=== PATIENT | male | born 1960 | race Caucasian/White ===

== ENCOUNTER 2018-10-21 14:45 | Emergency (ER) | payer MEDICAID ==
--- NOTE | 2018-10-21 15:13 | ED Physician Chart ---
ED Chief Complaint/HPI - Patient Information Date Seen:: 10/21/18 Time Seen:: 15:10 Chief Complaint:: Delusions History of Present Illness:: onset x 3 days of delusions and hallucinations; no report of trauma, SIs, H/As, S/T, neck pain, C/P, SOB, Abd. pain, A/N/V/D/C, fever, chills, or urinary s/s Historian:: Patient, EMS Review:: Nurse's Note Reviewed, Old Chart Reviewed, EMS run form Reviewed ED Review of Systems - Review of Systems General/Constitutional: No fever, No chills, No weight loss, No weakness, No diaphoresis, No edema, No loss of appetite Skin: No skin lesions, No rash, No bruising Head: No headache, No light-headedness Eyes: No loss of vision, No pain, No diplopia ENT: No earache, No nasal drainage, No sore throat, No tinnitus Neck: No neck pain, No swelling, No thyromegaly, No stiffness, No mass noted Cardio Vascular: No chest pain, No palpitations, No PND, No orthopnea, No edema Pulmonary: No SOB, No cough, No sputum, No wheezing GI: No nausea, No vomiting, No diarrhea, No pain, No melena, No hematochezia, No constipation, No hematemesis G/U: No dysuria, No frequency, No hematuria, No nacturia Musculoskeletal: No bone or joint pain, No back pain, No muscle pain Endocrine: No polyuria, No polydipsia Psychiatric: Prior psych history, No depression, Anxiety, No suicidal ideation, No homicidal ideation, Auditory hallucination, No visual hallucination Hematopoietic: No bruising, No lymphadenopathy Allergic/Immuno: No urticaria, No angioedema Neurological: No syncope, No focal symptoms, No weakness, No paresthesia, No headache, No seizure, No dizziness, No confusion, No vertigo ED Past Medical History - Past Medical History Obtainable: Yes Past Medical History: HTN, PUD/GERD, Thyroid disorder Family History: HTN Social History: Non Smoker, No Alcohol, No Drug Use, Single, Care Facility Surgical History: None Psychiatricy History: Schizophrenia Medication: Reviewed Family Medical History - Family Member Mother History Unknown: Yes ED Physical Exam - Physical Examination General/Constitutional: Awake, Well-developed, well-nourished, Alert, No distress, GCS 15, Non-toxic appearing, Ambulatory Head: Atraumatic Eyes: Lids, conjuctiva normal, PERRL, EOMI Skin: Nl inspection, No rash, No skin lesions, No ecchymosis, Well hydrated, No lymphadenopathy ENMT: External ears, nose nl, TM canals nl, Nasal exam nl, Lips, teeth, gums nl , Oropharynx nl, Tonsils nl Neck: Nontender, Full ROM w/o pain, No JVD, No nuchal rigidity, No bruit, No mass, No stridor Respiratory: Nl effort/Exclusion, Clear to Auscultation, No Wheeze/Rhonchi/Rales Cardio Vascular: RRR, No murmur, gallop, rubs, NL S1 S2, Carotid/Femoral/Distal pulses equal bilaterally GI: No tenderness/rebounding/guarding, No organomegaly, No hernia, Normal BS's, Nondistended, No mass/bruits, No McBurney tenderness : No CVA tenderness Extremities: No tenderness or effusion, Full ROM, normal strength in all extremities, No edema, Normal digits & nails Neuro/Psych: Alert/oriented, DTR's symmetric, Normal sensory exam, Normal motor strength, Judgement/insight normal, Mood normal, Normal gait, No focal deficits Other Neuro/Psych comments:: + Delusions and Hallucinations; no SIs; Mood/Affect: Stable Misc: Normal back, No paraspinal tenderness ED Labs/Radiology/EKG Results - Lab Results Comments:: Reviewed - EKG Interpretations EKG Time:: 15:35 Rate & Rhythm: 93; NSR Comments:: non-specific st-t changes ED Septic Shock - . Is Septic Shock (SBP<90, OR Lactate>4 mmol\L) present?: No ED Reassessment (Disposition) - Reassessment Reassessment Condition:: Improved - Diagnosis Diagnosis:: Delusions; Hallucinations; Medical Clearance; Schizophrenia; Psychosis; Schizo- Affective Disorder - Aftercare/Follow up Instructions Aftercare/Follow-Up Instructions:: Counseled pt regarding lab results/diagnosis & need follow up, Counseled pt & family regarding lab results/diagnosis & need follow up - Patient Disposition Discharge/Transfer:: Acute Care w/in this hosp Admitted to:: [facility] Condition at Disposition:: Stable, Improved
[2018-10-21 15:38] LABS: % BASOPHILS 0.9 % (0.0-2.0); % EOSINOPHILS 5.6 % (0.0-5.0); % LYMPHOCYTES 18.8 % (20.0-50.0); % MONOCYTES 8.2 % (2.0-10.0); % NEUTROPHILS 66.5 % (40.0-80.0); BASOPHILE ABSOLUTE 0.1 Th/cumm (0-0.2); EOSINOPHILE ABSOLUTE 0.5 Th/cmm (0.1-0.4); HEMATOCRIT 34.5 % (41.0-60); HEMOGLOBIN 11.4 gm/dL (12-16); LYMPHOCYTE ABSOLUTE 1.7 Th/cmm (1.5-3.0); MEAN CELL VOLUME 88.2 fl (80-99); MEAN CORPUSCULAR HGB CONC 32.9 pg (28.0-36.0); MEAN PLATELET VOLUME 8.2 fl; MONOCYTE ABSOLUTE 0.7 Th/cmm (0.3-1.0); NEUTROPHILE ABSOLUTE 5.8 Th/cmm (1.8-8.0); PLATELET COUNT 282 Th/cmm (150-400); RED BLOOD COUNT 3.91 Mil/cmm (4.30-5.70); RED CELL DISTRIBUTION WIDTH 12.7 % (11.5-20.0); WHITE BLOOD COUNT 8.8 Th/cmm (4.8-10.8)
[2018-10-21 17:05] LABS: ACETAMINOPHEN < 10.0 ug/mL (10.0-30.0); ALB/GLOB RATIO 1.6 (1.0-1.8); ALBUMIN 3.9 gm/dL (4.2-5.5); ALKALINE PHOSPHATASE 56 U/L (34-104); ANION GAP 12.5 (7.0-16.0); BILIRUBIN,TOTAL 0.5 mg/dL (0.3-1.0); BUN - UREA NITROGEN 20 mg/dL (7-25); CALCIUM SERUM 9.5 mg/dL (8.6-10.3); CARBON DIOXIDE 26.1 mEq/L (21.0-31.0); CHLORIDE 104 mEq/L (98-107); CHOLESTEROL 149 mg/dL (<200); CREATININE - SERUM 1.1 mg/dL (0.7-1.3); GFR AFRICAN-AMERICAN > 60.0 ml/min (>90); GFR NON AFRICAN-AMERICAN > 60.0 ml/min; GLUCOSE 115 mg/dL (70-105); HDL -HIGH DENSITY LIPOPROTEIN 46 mg/dL (23-92); POTASSIUM SERUM 3.6 mEq/L (3.5-5.1); SALICYLATES (ASPIRIN) < 25.0 mg/L (30.0-100.0); SGOT 29 U/L (13-39); SGPT/ALT 20 U/L (7-52); SODIUM SERUM 139 mEq/L (136-145); TOTAL PROTEIN,SERUM 6.4 gm/dL (6.0-8.3); TRIGLYCERIDES 110 mg/dL (<150)
== END 2018-10-22 16:45 ==
LOC: ER 14:45
DX: F22 Delusional disorders (principal); F29 Unspecified psychosis not due to a substance or known physiological condition; F25.9 Schizoaffective disorder, unspecified; I10 Essential (primary) hypertension; K21.9 Gastro-esophageal reflux disease without esophagitis; E07.9 Disorder of thyroid, unspecified
CPT/HCPCS: 36415-UA; 80053-TC; 80061-TC; 80320-TC; 80329-TC; 84443-TC; 84484-TC; 85025-TC; 86592-TC; 93005; Z7502

== ENCOUNTER 2018-12-25 13:28 | Inpatient (IN) | payer BC, MEDICAID ==
--- NOTE | 2018-12-25 13:48 | ED Physician Chart ---
ED Chief Complaint/HPI - Patient Information Date Seen:: 12/25/18 Time Seen:: 13:35 Chief Complaint:: aggressive behavior History of Present Illness:: Patient has reportedly been striking out at others and also hitting his head against the wall and scratching himself. Allergies:: Allergies Allergy/AdvReac Type Severity Reaction Status Date / Time No Known Allergies Allergy Verified 10/21/18 15:41 Historian:: Patient, EMS Review:: Nurse's Note Reviewed, Transfer documents Reviewed ED Review of Systems - Review of Systems General/Constitutional: No fever, No chills, No weight loss, No weakness, No diaphoresis, No edema, No loss of appetite Skin: No skin lesions, No rash, No bruising Head: No headache, No light-headedness Eyes: No loss of vision, No pain, No diplopia ENT: No earache, No nasal drainage, No sore throat, No tinnitus Neck: No neck pain, No swelling, No thyromegaly, No stiffness, No mass noted Cardio Vascular: No chest pain, No palpitations, No PND, No orthopnea, No edema Pulmonary: No SOB, No cough, No sputum, No wheezing GI: No nausea, No vomiting, No diarrhea, No pain, No melena, No hematochezia, No constipation, No hematemesis G/U: No dysuria, No frequency, No hematuria Musculoskeletal: No bone or joint pain, No back pain, No muscle pain Endocrine: No polyuria, No polydipsia Psychiatric: No prior psych history Hematopoietic: No bruising, No lymphadenopathy Allergic/Immuno: No urticaria, No angioedema Neurological: No syncope, No focal symptoms, No weakness, No paresthesia, No headache, No seizure, No dizziness, No confusion, No vertigo ED Past Medical History - Past Medical History Past Medical History: HTN, PUD/GERD, Thyroid disorder, Other (anemia; hypothyroid) Family History: Other (unavailable) Social History: Care Facility Surgical History: other (unavailable) Psychiatricy History: Schizophrenia Medication: Reviewed Family Medical History - Family Member Mother History Unknown: Yes ED Physical Exam - Physical Examination General/Constitutional: Awake, Well-developed, well-nourished, Alert, No distress Other Gen/Cons comments:: Yells intermittently Head: Atraumatic Eyes: Lids, conjuctiva normal, PERRL Other Skin comments:: Face erythematous Other ENMT comments:: Edentulous Neck: No nuchal rigidity Respiratory: Nl effort/Exclusion, Clear to Auscultation, No Wheeze/Rhonchi/Rales Cardio Vascular: RRR, No murmur, gallop, rubs, NL S1 S2 GI: Nondistended Extremities: Normal digits & nails Neuro/Psych: No focal deficits Misc: Normal back ED Labs/Radiology/EKG Results - Lab Results Results: Abnormal Lab Results 12/25/18 12/25/18 12/25/18 16:11 16:11 16:25 WBC 13.5 H RBC 3.37 L Hgb 9.5 L Hct 29.1 L MCV 86.1 MCH 28.1 MCHC Differential 32.6 RDW 13.1 Plt Count 273 MPV 7.9 Neutrophils % 83.9 H Lymphocytes % 7.6 L Monocytes % 5.0 Eosinophils % 3.2 Basophils % 0.3 Sodium 136 Potassium 4.1 Chloride 98 Carbon Dioxide 29.6 Anion Gap 12.5 BUN 26 H Creatinine 1.2 Est GFR ( Amer) > 60.0 Est GFR (Non-Af Amer) > 60.0 BUN/Creatinine Ratio 21.7 Glucose 78 Calcium 9.0 Total Bilirubin 0.3 AST 49 H ALT 24 Alkaline Phosphatase 60 Total Protein 6.3 Albumin 3.5 L Globulin 2.8 Albumin/Globulin Ratio 1.3 Triglycerides 125 Cholesterol 154 LDL Cholesterol Direct 112 HDL Cholesterol 37 Urine Source CATH Urine Color COLORLESS Urine Clarity CLEAR Urine pH 6.0 Ur Specific [place] 1.010 Urine Protein NEGATIVE Urine Glucose (UA) NEGATIVE Urine Ketones NEGATIVE Urine Blood NEGATIVE Urine Nitrate NEGATIVE Urine Bilirubin NEGATIVE Urine Urobilinogen 0.2 Ur Leukocyte Esterase NEGATIVE Influenza A (Rapid) Influenza B (Rapid) 12/25/18 16:30 WBC RBC Hgb Hct MCV MCH MCHC Differential RDW Plt Count MPV Neutrophils % Lymphocytes % Monocytes % Eosinophils % Basophils % Sodium Potassium Chloride Carbon Dioxide Anion Gap BUN Creatinine Est GFR ( Amer) Est GFR (Non-Af Amer) BUN/Creatinine Ratio Glucose Calcium Total Bilirubin AST ALT Alkaline Phosphatase Total Protein Albumin Globulin Albumin/Globulin Ratio Triglycerides Cholesterol LDL Cholesterol Direct HDL Cholesterol Urine Source Urine Color Urine Clarity Urine pH Ur Specific [place] Urine Protein Urine Glucose (UA) Urine Ketones Urine Blood Urine Nitrate Urine Bilirubin Urine Urobilinogen Ur Leukocyte Esterase Influenza A (Rapid) NEG FOR INF A Influenza B (Rapid) NEG FOR INF B - Radiology Results Results: chest x-ray showed slight atelectasis left base and was otherwise negative ED Assessment - Assessment General Assessment: I reexamined the patient's abdomen at about 1700 and it was soft without guarding. There was. Patient most likely has acute viral syndrome no unpleasant facial expression to suggest tenderness when I palpated his abdomen ED Septic Shock - . Is Septic Shock (SBP<90, OR Lactate>4 mmol\L) present?: No ED Reassessment (Disposition) - Reassessment Reassessment Condition:: Unchanged - Diagnosis Diagnosis:: Aggressive behavior; self-harm behavior; schizophrenia; acute febrile illness; leukocytosis with a left shift - Patient Disposition Admitted to:: Telemetry Spoke to:: Donavan Baugh Admitting Medical Physician:: Donavan Baugh Condition at Disposition:: Stable, Unchanged
[2018-12-25] MEDS ORDERED: Haloperidol Lactate 5 mg/mL 1mL Vial IM PRN (14:17)
[2018-12-25] MEDS ORDERED: Haloperidol Lactate 5 mg/mL 1mL Vial ONE ×2 (14:24→16:18)
[2018-12-25] MEDS ORDERED: Haloperidol Lactate 5 mg/mL 1mL Vial IM STA ×2 (15:42→22:16)
[2018-12-25] MEDS ORDERED: Sodium Chloride 0.9% 1,000 ML IV ONE (16:13)
[2018-12-25 16:18] LABS: % BASOPHILS 0.3 % (0.0-2.0); % EOSINOPHILS 3.2 % (0.0-5.0); % LYMPHOCYTES 7.6 % (20.0-50.0); % NEUTROPHILS 83.9 % (40.0-80.0); EOSINOPHILE ABSOLUTE 0.4 Th/cmm (0.1-0.4); HEMATOCRIT 29.1 % (41.0-60); HEMOGLOBIN 9.5 gm/dL (12-16); MEAN CELL VOLUME 86.1 fl (80-99); MEAN CORPUSCULAR HEMOGLOBIN 28.1 pg (26.0-30.0); MEAN CORPUSCULAR HGB CONC 32.6 pg (28.0-36.0); MEAN PLATELET VOLUME 7.9 fl; MONOCYTE ABSOLUTE 0.7 Th/cmm (0.3-1.0); NEUTROPHILE ABSOLUTE 11.4 Th/cmm (1.8-8.0); PLATELET COUNT 273 Th/cmm (150-400); RED BLOOD COUNT 3.37 Mil/cmm (4.30-5.70); RED CELL DISTRIBUTION WIDTH 13.1 % (11.5-20.0); WHITE BLOOD COUNT 13.5 Th/cmm (4.8-10.8)
[2018-12-25 16:32] LABS: ALB/GLOB RATIO 1.3 (1.0-1.8); ALBUMIN 3.5 gm/dL (4.2-5.5); ALKALINE PHOSPHATASE 60 U/L (34-104); ANION GAP 12.5 (7.0-16.0); BILIRUBIN,TOTAL 0.3 mg/dL (0.3-1.0); BUN - UREA NITROGEN 26 mg/dL (7-25); CARBON DIOXIDE 29.6 mEq/L (21.0-31.0); CHLORIDE 98 mEq/L (98-107); CHOLESTEROL 154 mg/dL (<200); CREATININE - SERUM 1.2 mg/dL (0.7-1.3); GFR AFRICAN-AMERICAN > 60.0 ml/min (>90); GFR NON AFRICAN-AMERICAN > 60.0 ml/min; GLUCOSE 78 mg/dL (70-105); HDL -HIGH DENSITY LIPOPROTEIN 37 mg/dL (23-92); POTASSIUM SERUM 4.1 mEq/L (3.5-5.1); SGOT 49 U/L (13-39); SGPT/ALT 24 U/L (7-52); SODIUM SERUM 136 mEq/L (136-145); TOTAL PROTEIN,SERUM 6.3 gm/dL (6.0-8.3); TRIGLYCERIDES 125 mg/dL (<150)
[2018-12-25] MEDS ORDERED: Haloperidol Lactate 5 mg/mL 1mL Vial IVP ONE (16:35)
[2018-12-25 16:37] LABS: URINE SOURCE CATH
[2018-12-25 16:40] LABS: URINE BILIRUBIN NEGATIVE (NEGATIVE); URINE BLOOD NEGATIVE (NEGATIVE); URINE GLUCOSE (UA) NEGATIVE (NEGATIVE); URINE KETONE NEGATIVE (NEGATIVE); URINE LEUKOCYTE ESTERASE NEGATIVE (NEGATIVE); URINE NITRATE NEGATIVE (NEGATIVE); URINE PROTEIN NEGATIVE (NEGATIVE); URINE UROBILINOGEN 0.2 E.U./dL (0.2 - 1.0)
[2018-12-25 16:49] LABS: URINE CLARITY CLEAR (CLEAR); URINE COLOR COLORLESS; URINE MICROSCOPIC INDICATED? NO
[2018-12-25 17:03] LABS: INF A SCREEN NEG FOR INF A; INF B SCREEN NEG FOR INF B
[2018-12-25 17:08] LABS: BAND NEUTROPHILE 1 % (0-10); EOSINOPHIL 2 % (0-5); LYMPHOCYTE 12 % (20-50); MONOCYTE 5 % (2-10); NEUTROPHILS 80 % (40-80)
[2018-12-25] MEDS ORDERED: Haloperidol Lactate 5 mg/mL 1mL Vial IM ONE (20:45)
[2018-12-25 21:44] VITALS: BP 117/68
--- NOTE | 2018-12-26 08:10 | Diagnostic Imaging Report ---
Exam: Portable chest x-ray HISTORY shortness of breath. Findings: Portable exam of chest at 1623 views, no prior studies available comparison. Bony thorax is intact. Mediastinal structures midline the heart is not enlarged. Mild peribronchial thickening left base appreciated early infiltrate cannot be excluded clinically indicated follow-up summation recommended. The costophrenic angles are clear. IMPRESSION: Question of mild left basilar peribronchial infiltrate.
[2018-12-26 15:59] LABS: % EOSINOPHILS 5.7 % (0.0-5.0); % LYMPHOCYTES 18.7 % (20.0-50.0); % MONOCYTES 5.4 % (2.0-10.0); % NEUTROPHILS 70.2 % (40.0-80.0); EOSINOPHILE ABSOLUTE 0.6 Th/cmm (0.1-0.4); HEMATOCRIT 30.9 % (41.0-60); HEMOGLOBIN 9.8 gm/dL (12-16); MEAN CELL VOLUME 85.9 fl (80-99); MEAN CORPUSCULAR HEMOGLOBIN 27.3 pg (26.0-30.0); MEAN CORPUSCULAR HGB CONC 31.8 pg (28.0-36.0); MEAN PLATELET VOLUME 9.1 fl; MONOCYTE ABSOLUTE 0.6 Th/cmm (0.3-1.0); NEUTROPHILE ABSOLUTE 7.5 Th/cmm (1.8-8.0); PLATELET COUNT 285 Th/cmm (150-400); RED CELL DISTRIBUTION WIDTH 13.5 % (11.5-20.0); WHITE BLOOD COUNT 10.7 Th/cmm (4.8-10.8)
[2018-12-26 16:04] LABS: ALB/GLOB RATIO 1.2 (1.0-1.8); ALBUMIN 3.4 gm/dL (4.2-5.5); ALKALINE PHOSPHATASE 58 U/L (34-104); ANION GAP 14.4 (7.0-16.0); BILIRUBIN,TOTAL 0.4 mg/dL (0.3-1.0); BUN - UREA NITROGEN 26 mg/dL (7-25); CALCIUM SERUM 9.4 mg/dL (8.6-10.3); CARBON DIOXIDE 26.7 mEq/L (21.0-31.0); CHLORIDE 105 mEq/L (98-107); CREATININE - SERUM 1.2 mg/dL (0.7-1.3); GFR AFRICAN-AMERICAN > 60.0 ml/min (>90); GFR NON AFRICAN-AMERICAN > 60.0 ml/min; GLUCOSE 58 mg/dL (70-105); POTASSIUM SERUM 4.1 mEq/L (3.5-5.1); SGOT 65 U/L (13-39); SGPT/ALT 28 U/L (7-52); SODIUM SERUM 142 mEq/L (136-145); TOTAL PROTEIN,SERUM 6.3 gm/dL (6.0-8.3)
--- NOTE | 2018-12-26 16:35 | History & Physical ---
ADMIT DATE: 12/25/2018 CHIEF COMPLAINT: Aggressive behavior. HISTORY OF PRESENT ILLNESS: The patient is a 58-year-old male with a past medical history of psychosis, hypertension, peptic ulcer disease, GERD, thyroid disorder, anemia, hypothyroidism, was striking out at others and also hitting his head against the wall and hurting himself. So, the patient was brought for the aggressive behavior. On initial evaluation, the patient's temperature was 99.2 degree Fahrenheit, pulse 110, respirations 20, blood pressure 145/95, oxygen saturation 94%. General, m the patient is comfortable. Otherwise, WBC count was 13,500. The patient was diagnosed to have psychosis with aggressive behavior as well as suspected sepsis. Lactic acid was high around 2.23. It has improved. Urinalysis was negative. Chest x-ray questionable left basilar peribronchial infiltrate. The patient was admitted to the hospital for further care. Antibiotic quach, the patient was given antibiotic. PAST MEDICAL HISTORY: Hypertension, peptic ulcer disease, GERD, hypothyroidism, anemia. FAMILY HISTORY: Not available. SOCIAL HISTORY: The patient lives at care facility. No history of smoking, alcohol or drug use. PAST SURGICAL HISTORY: Not available. PSYCHIATRIC HISTORY: Schizophrenia. MEDICATIONS: Per medication reconciliation sheet. The patient receiving Klonopin and Ativan, Seroquel. ALLERGIES: NKDA. REVIEW OF SYSTEMS: The patient is a poor historian. As per the record. GENERAL: The patient has no fever, no chills, no weight loss or diaphoresis noted. HEENT: No diplopia, no photophobia, no sore throat. RESPIRATORY: No cough, no shortness of breath. CARDIOVASCULAR: No chest pain or palpitation. GASTROINTESTINAL: No nausea, no vomiting, no diarrhea. GENITOURINARY: No depression. GENITOURINARY: No dysuria. NEUROLOGIC: No headache, no dizziness, no focal weakness. PSYCHIATRIC: The patient had aggressive behavior and agitation. Currently very calm. PHYSICAL EXAMINATION: VITAL SIGNS: Current vital signs shows temperature is 98.2, pulse 82, respirations 20, blood pressure 104/52. GENERAL: The patient is comfortable, lying in the bed, not in acute distress. HEENT: Head is normocephalic, atraumatic. Oral cavity moist, pink tongue. Eyes: No pallor, no icterus. Pupils PERRLA, EOMI. NECK: Supple, no JVD, no bruit. Trachea midline. CHEST: Bilateral breath sounds. No crackles or wheezing. HEART: S1, S2 within normal limits. Regular rhythm. No murmur, no gallop. ABDOMEN: Soft, nontender, nondistended. Bowel sounds present. EXTREMITIES: No cyanosis, no clubbing, no edema. NEUROLOGICAL: Alert and awake, but not communicating well. LABORATORY DATA: Current lab shows WBC count is 13,500, hemoglobin 9.5, hematocrit 29.1, platelets are 273,000, neutrophils 84%. Sodium 136, potassium 4.1, chloride 98, bicarbonate is 29.6, BUN 26, creatinine 1.2 and glucose is 78. Last lactic acid was 1.37. LFTs are reviewed. Urinalysis negative nitrite, negative leukoesterase, clear urine and colorless. No blood. RPR nonreactive. Influenzae A and B is nonreactive. Blood cultures are pending. Chest x-ray showed questionable left basilar peribronchial infiltrate. IMPRESSION: 1. Agitation, aggressive behavior. 2. Pneumonia. 3. Leukocytosis, suspect sepsis as patient also had lactic acidosis and tachycardia on presentation. 4. Pneumonia. 5. Anemia. 6. Schizophrenia. 7. Hypertension. 8. History of gastroesophageal reflux disease. 9. Hypothyroidism. RECOMMENDATIONS: Will check CBC now. Will start Levaquin p.o. daily. Check stool for occult blood, iron studies, ferritin. JOB# [id number] [facility]ITALCasey
--- NOTE | 2018-12-26 19:23 | Consultation ---
DATE OF CONSULTATION: 12/26/2018 PSYCHIATRIC CONSULTATION PATIENT'S AGE: 58. SEX: Male. PHYSICIAN: Dr. Farah. LABELER: Oleksandr Craven MD, MPH TYPE OF THE REPORT: Psychiatric consult. REASON FOR THE CONSULT: Agitation and active hallucinations. HISTORY OF PRESENT ILLNESS: The patient is a 58-year-old male who was admitted to the hospital because of striking out and aggressive behavior. The patient also was hitting his head against the wall and scratching himself. Chart reviewed and the patient interviewed and discussed the patient's condition with the staff and reviewed records and labs. The patient has been extremely agitated and yelling and screaming constantly. The patient also was restless and unable to follow any directions. The patient also was actively talking to himself. The patient seems to be developmentally disabled and he was kept moving in the bed. At the same time, he was monitored 1:1 observation because of unpredictable behavior and also agitation. PAST PSYCHIATRIC HISTORY: The patient seems to have history of psychosis. PAST MEDICAL HISTORY: Hypertension, peptic ulcer disease, thyroid disorder, and anemia. SOCIAL HISTORY: The patient lives in a nursing home. No other information known at this time. MENTAL STATUS EXAM: The patient appears older than his stated age. Anxious. Restless. In irritable mood. Easily agitated. Unable to answer any of my questions and is confused. Actively hallucinating and talking to himself and yelling and screaming. The patient is alert, but seems to be disoriented to time, place, person and situation. Also, impaired immediate, recent and remote memories. ASSESSMENT: PRIMARY DIAGNOSIS: Unspecified psychosis. TREATMENT PLAN: We will start the patient on Seroquel 100 mg 3 times a day and also on Klonopin 1 mg 3 times a day and we will hold if the patient is sedated. Also, we will give Ativan on a p.r.n. basis. Thanks to Dr. Farah and we will follow up with you. JOB# [id number]
[2018-12-26 22:12] LABS: ABSOLUTE RETICULOCYTE 79.2 Th/cmm; CORRECTED RETICULOCYTE COUNT 1.5 % (0.5-1.5); HEMATOCRIT 30.9 % (33.0-45.0); RBC RETICULOCYTE COUNT 3.6 Mil/cmm; RETICULOCYTES % COUNTED 2.2 % (0.5-1.5)
[2018-12-27 08:08] LABS: FOLIC ACID 6.9 ng/mL (>3.0); IRON LC 17 ug/dL (38-169); TIBC (LC) 210 ug/dL (250-450); UIBC 193 ug/dL (111-343)
--- NOTE | 2018-12-27 21:43 | Progress Notes ---
DATE: 12/27/2018 PSYCHIATRIC PROGRESS NOTE SUBJECTIVE: Chart reviewed and the patient interviewed. Also discussed the patient's condition with the staff and reviewed records and labs. The patient remains extremely irritable and he is still extremely agitated and restless. The patient also is still yelling and screaming constantly and he still has difficulty with controlling his temper and his mood. Also seems to be confused. The patient also still needs lots of redirections and has difficulty following directions. ASSESSMENT: The patient is still agitated and psychotic. TREATMENT PLAN: We will continue monitoring his behavior and his condition closely. Also, we will adjust psychotropic medications and I started the patient yesterday on Seroquel. The patient still needs more adjustment on his medications because of agitation and today, I will increase Seroquel to 200 mg 3 times a day and we will continue to follow up closely. JOB# [id number]
--- NOTE | 2018-12-28 02:52 | Infectious Disease Prog Note ---
Infectious Disease Subjective - Review of Systems Service Date: 12/27/18 Subjective: No new change, no fever. Infectious Disease Objective - Results Result Diagrams: 12/26/18 05:40 12/26/18 05:40 Recent Labs: Laboratory Last Values WBC 10.7 Th/cmm (4.8-10.8) 12/26/18 05:40 RBC 3.60 Mil/cmm (4.30-5.70) L 12/26/18 05:40 Hgb 9.8 gm/dL (12-16) L 12/26/18 05:40 Hct 30.9 % (33.0-45.0) L 12/26/18 05:40 MCV 85.9 fl (80-99) 12/26/18 05:40 MCH 27.3 pg (26.0-30.0) 12/26/18 05:40 MCHC Differential 31.8 pg (28.0-36.0) 12/26/18 05:40 RDW 13.5 % (11.5-20.0) 12/26/18 05:40 Plt Count 285 Th/cmm (150-400) 12/26/18 05:40 MPV 9.1 fl 12/26/18 05:40 Neutrophils % 70.2 % (40.0-80.0) 12/26/18 05:40 Band Neutrophils % 1 % (0-10) 12/25/18 16:11 Lymphocytes % 18.7 % (20.0-50.0) L 12/26/18 05:40 Monocytes % 5.4 % (2.0-10.0) 12/26/18 05:40 Eosinophils % 5.7 % (0.0-5.0) H 12/26/18 05:40 Basophils % 0.0 % (0.0-2.0) 12/26/18 05:40 Neutrophils (Manual) 80 % (40-80) 12/25/18 16:11 Lymphocytes 12 % (20-50) L 12/25/18 16:11 Monocytes 5 % (2-10) 12/25/18 16:11 Eosinophils 2 % (0-5) 12/25/18 16:11 Total Retics Counted 2.2 % (0.5-1.5) H 12/26/18 05:40 Absolute Retic 79.2 Th/cmm 12/26/18 05:40 Corrected Retic Count 1.5 % (0.5-1.5) 12/26/18 05:40 Sodium 142 mEq/L (136-145) 12/26/18 05:40 Potassium 4.1 mEq/L (3.5-5.1) 12/26/18 05:40 Chloride 105 mEq/L (98-107) 12/26/18 05:40 Carbon Dioxide 26.7 mEq/L (21.0-31.0) 12/26/18 05:40 Anion Gap 14.4 (7.0-16.0) 12/26/18 05:40 BUN 26 mg/dL (7-25) H 12/26/18 05:40 Creatinine 1.2 mg/dL (0.7-1.3) 12/26/18 05:40 Est GFR ( Amer) > 60.0 ml/min (>90) 12/26/18 05:40 Est GFR (Non-Af Amer) > 60.0 ml/min 12/26/18 05:40 BUN/Creatinine Ratio 21.7 12/26/18 05:40 Glucose 58 mg/dL (70-105) L 12/26/18 05:40 Whole Bld Lactic Acid 1.37 mmol/L (0.60-1.99) 12/26/18 05:40 Calcium 9.4 mg/dL (8.6-10.3) 12/26/18 05:40 Iron 17 ug/dL (38-169) L 12/26/18 05:40 TIBC 210 ug/dL (250-450) L 12/26/18 05:40 Iron Saturation 8 % (15-55) L 12/26/18 05:40 Unsaturated IBC 193 ug/dL (111-343) 12/26/18 05:40 Ferritin 200 ng/mL (30-400) 12/26/18 05:40 Total Bilirubin 0.4 mg/dL (0.3-1.0) 12/26/18 05:40 AST 65 U/L (13-39) H 12/26/18 05:40 ALT 28 U/L (7-52) 12/26/18 05:40 Alkaline Phosphatase 58 U/L (34-104) 12/26/18 05:40 Total Protein 6.3 gm/dL (6.0-8.3) 12/26/18 05:40 Albumin 3.4 gm/dL (4.2-5.5) L 12/26/18 05:40 Globulin 2.9 gm/dL 12/26/18 05:40 Albumin/Globulin Ratio 1.2 (1.0-1.8) 12/26/18 05:40 Triglycerides 125 mg/dL (<150) 12/25/18 16:11 Cholesterol 154 mg/dL (<200) 12/25/18 16:11 LDL Cholesterol Direct 112 mg/dL (75-193) 12/25/18 16:11 HDL Cholesterol 37 mg/dL (23-92) 12/25/18 16:11 Vitamin B12 848 pg/mL (232-1245) 12/26/18 05:40 Folic Acid 6.9 ng/mL (>3.0) 12/26/18 05:40 TSH 2.61 uIU/ml (0.34-5.60) 12/25/18 16:11 Urine Source CATH 12/25/18 16:25 Urine Color COLORLESS 12/25/18 16:25 Urine Clarity CLEAR (CLEAR) 12/25/18 16:25 Urine pH 6.0 (4.6 - 8.0) 12/25/18 16:25 Ur Specific [place] 1.010 (1.005-1.030) 12/25/18 16:25 Urine Protein NEGATIVE mg/dL (NEGATIVE) 12/25/18 16:25 Urine Glucose (UA) NEGATIVE mg/dL (NEGATIVE) 12/25/18 16:25 Urine Ketones NEGATIVE mg/dL (NEGATIVE) 12/25/18 16:25 Urine Blood NEGATIVE (NEGATIVE) 12/25/18 16:25 Urine Nitrate NEGATIVE (NEGATIVE) 12/25/18 16:25 Urine Bilirubin NEGATIVE (NEGATIVE) 12/25/18 16:25 Urine Urobilinogen 0.2 E.U./dL (0.2 - 1.0) 12/25/18 16:25 Ur Leukocyte Esterase NEGATIVE (NEGATIVE) 12/25/18 16:25 RPR NONREACTIVE (NONREACTIVE) 12/25/18 16:11 Influenza A (Rapid) NEG FOR INF A 12/25/18 16:30 Influenza B (Rapid) NEG FOR INF B 12/25/18 16:30 - Physical Exam Vitals and I&O: Vital Signs Temp 98.5 F 12/28/18 01:00 Pulse 67 12/28/18 01:00 Resp 18 12/28/18 01:00 BP 102/52 12/28/18 01:00 Pulse Ox 98 12/27/18 17:08 Intake & Output 12/27/18 12/27/18 12/28/18 06:59 18:59 06:59 Intake Total 200 800 Balance 200 800 Weight (lbs) 59.33 kg 59.874 kg Intake: Oral 200 800 Other: # Voids 2 4 # Bowel Movements 0 Weight Source Bedscale Bedscale Active Medications: Current Medications Clonazepam (Klonopin) 1 mg PO TID EZE; Protocol Stop: 02/24/19 08:59 Last Admin: 12/27/18 20:43 Dose: 1 mg Levofloxacin (Levaquin) 500 mg PO DAILY EZE Stop: 02/24/19 15:59 Last Admin: 12/27/18 08:28 Dose: 500 mg Lorazepam (Ativan) 1 mg IVP Q4HR PRN; Protocol PRN Reason: Agitation Stop: 02/24/19 07:30 Quetiapine Fumarate (Seroquel) 200 mg PO TID EZE; Protocol Stop: 02/25/19 13:59 Last Admin: 12/27/18 20:43 Dose: 200 mg General: no acute distress, well developed, well nourished HEENT: atraumatic, normocephalic, PERRLA, EOMI, moist mucous membrane Neck: supple, no thyromegaly, no lymphadenopathy Cardiovascular: S1S2, regular Lungs: clear to auscultation bilaterally, clear to percussion Abdomen: soft, no tender, no distended Extremities: no cyanosis, no clubbing, no edema Neurological: other (does not communicate well.) Infectious Disease Assmt/Plan - Assessment Assessment: 1. Agitation, aggressive behavior. 2. Pneumonia. 3. Leukocytosis, suspect sepsis as patient also had lactic acidosis and tachycardia on presentation. 4. Hypothyroidism. 5. Anemia. 6. Schizophrenia. 7. Hypertension. 8. History of gastroesophageal reflux disease. - Plan Plan: Continue the same treatment. As per Dr Craven. Nutritional Asmnt/Malnutr-PDOC - Dietary Evaluation Malnutrition Findings (Please click <Entered> for more info): Nutritional Asmnt/Malnutrition Start: 12/26/18 15: 09 Text: Status: Complete Freq: Protocol: Document 12/26/18 15:09 ESPERANZAG (Rec: 12/26/18 15:12 [email or web address] [email or web address]) Nutritional Asmnt/Malnutrition Patient General Information Nutritional Screening High Risk Diagnosis sepsis Pertinent Medical Hx/Surgical Hx HTN, PUD/GERD, thyroid disorder, anemia, schizophrenia Subjective Information Pt seen in bed, disoriented, yelling, has 1:1 sitter in room. Per sitter, pt consumed 100% of breakfast and lunch today. Current Diet Order/ Nutrition Support soft/bland Pertinent Medications seroquel Pertinent Labs 12/25 BUN 26, Alb 3.5 Nutritional Hx/Data Height 1.7 m Height (Calculated Centimeters) 170.2 Current Weight (lbs) 58.967 kg Weight (Calculated Kilograms) 59.0 Weight (Calculated Grams) 53009.0 [place] Body Weight 148 Body Mass Index (BMI) 20.3 Weight Status Approriate GI Symptoms GI Symptoms None Last BM not indicated Difficult in: None Skin Integrity/Comment: intact Current %PO Good (75-100%) Estimated Nutritional Goals BEE in Kcals: Using Current wt Calories/Kcals/Kg 30-35 Kcals Calculated 7409-6233 Protein: Using Current wt Protein g/k.2 Protein Calculated 71 Fluid: ml 1620-2065ml (1ml/kcal) Nutritional Problem 1. Problem Problem increased nutritional needs Etiology increased metabolic demand Signs/Symptoms: dx of sepsis Malnutrition Alert Is there a minimum of two criteria No selected? Query Text:Check all the applicable criteria. A minimum of two criteria are recommended for diagnosis of either severe or non-severe malnutrition. Malnutrition Related to Morbid Obesity Malnutrition related to morbid obesity No Intervention/Recommendation Comments 1. Continue with soft/baland diet as ordered. 2. Monitor PO intake, wt, labs and skin integrity 3. F/U as moderate risk in 3-5 days Expected Outcomes/Goals Expected Outcomes/Goals 1. PO intake to meet at least 75% of nutritional needs. 2. Wt stability, skin to remain intact, labs to approach WNL.
[2018-12-28 06:39] LABS: % BASOPHILS 1.1 % (0.0-2.0); % EOSINOPHILS 12.2 % (0.0-5.0); % LYMPHOCYTES 23.4 % (20.0-50.0); % MONOCYTES 9.2 % (2.0-10.0); % NEUTROPHILS 54.1 % (40.0-80.0); BASOPHILE ABSOLUTE 0.1 Th/cumm (0-0.2); EOSINOPHILE ABSOLUTE 0.9 Th/cmm (0.1-0.4); HEMATOCRIT 30.8 % (41.0-60); HEMOGLOBIN 10.1 gm/dL (12-16); LYMPHOCYTE ABSOLUTE 1.8 Th/cmm (1.5-3.0); MEAN CELL VOLUME 84.5 fl (80-99); MEAN CORPUSCULAR HEMOGLOBIN 27.9 pg (26.0-30.0); MEAN PLATELET VOLUME 8.1 fl; MONOCYTE ABSOLUTE 0.7 Th/cmm (0.3-1.0); NEUTROPHILE ABSOLUTE 4.2 Th/cmm (1.8-8.0); PLATELET COUNT 242 Th/cmm (150-400); RED BLOOD COUNT 3.64 Mil/cmm (4.30-5.70); RED CELL DISTRIBUTION WIDTH 13.6 % (11.5-20.0); WHITE BLOOD COUNT 7.7 Th/cmm (4.8-10.8)
[2018-12-28 06:49] LABS: ANION GAP 9.6 (7.0-16.0); BUN - UREA NITROGEN 24 mg/dL (7-25); CALCIUM SERUM 9.1 mg/dL (8.6-10.3); CARBON DIOXIDE 28.3 mEq/L (21.0-31.0); CHLORIDE 106 mEq/L (98-107); CREATININE - SERUM 0.8 mg/dL (0.7-1.3); GFR AFRICAN-AMERICAN > 60.0 ml/min (>90); GFR NON AFRICAN-AMERICAN > 60.0 ml/min; GLUCOSE 104 mg/dL (70-105); POTASSIUM SERUM 3.9 mEq/L (3.5-5.1); SODIUM SERUM 140 mEq/L (136-145)
--- NOTE | 2018-12-29 00:55 | Infectious Disease Prog Note ---
Infectious Disease Subjective - Review of Systems Service Date: 12/28/18 Subjective: No new change, no fever. Infectious Disease Objective - Results Result Diagrams: 12/28/18 05:51 12/28/18 05:51 Recent Labs: Laboratory Last Values WBC 7.7 Th/cmm (4.8-10.8) 12/28/18 05:51 RBC 3.64 Mil/cmm (4.30-5.70) L 12/28/18 05:51 Hgb 10.1 gm/dL (12-16) L 12/28/18 05:51 Hct 30.8 % (41.0-60) L 12/28/18 05:51 MCV 84.5 fl (80-99) 12/28/18 05:51 MCH 27.9 pg (26.0-30.0) 12/28/18 05:51 MCHC Differential 33.0 pg (28.0-36.0) 12/28/18 05:51 RDW 13.6 % (11.5-20.0) 12/28/18 05:51 Plt Count 242 Th/cmm (150-400) 12/28/18 05:51 MPV 8.1 fl 12/28/18 05:51 Neutrophils % 54.1 % (40.0-80.0) 12/28/18 05:51 Band Neutrophils % 1 % (0-10) 12/25/18 16:11 Lymphocytes % 23.4 % (20.0-50.0) 12/28/18 05:51 Monocytes % 9.2 % (2.0-10.0) 12/28/18 05:51 Eosinophils % 12.2 % (0.0-5.0) H 12/28/18 05:51 Basophils % 1.1 % (0.0-2.0) 12/28/18 05:51 Neutrophils (Manual) 80 % (40-80) 12/25/18 16:11 Lymphocytes 12 % (20-50) L 12/25/18 16:11 Monocytes 5 % (2-10) 12/25/18 16:11 Eosinophils 2 % (0-5) 12/25/18 16:11 Total Retics Counted 2.2 % (0.5-1.5) H 12/26/18 05:40 Absolute Retic 79.2 Th/cmm 12/26/18 05:40 Corrected Retic Count 1.5 % (0.5-1.5) 12/26/18 05:40 Sodium 140 mEq/L (136-145) 12/28/18 05:51 Potassium 3.9 mEq/L (3.5-5.1) 12/28/18 05:51 Chloride 106 mEq/L (98-107) 12/28/18 05:51 Carbon Dioxide 28.3 mEq/L (21.0-31.0) 12/28/18 05:51 Anion Gap 9.6 (7.0-16.0) 12/28/18 05:51 BUN 24 mg/dL (7-25) 12/28/18 05:51 Creatinine 0.8 mg/dL (0.7-1.3) 12/28/18 05:51 Est GFR ( Amer) > 60.0 ml/min (>90) 12/28/18 05:51 Est GFR (Non-Af Amer) > 60.0 ml/min 12/28/18 05:51 BUN/Creatinine Ratio 30.0 12/28/18 05:51 Glucose 104 mg/dL (70-105) 12/28/18 05:51 Whole Bld Lactic Acid 1.37 mmol/L (0.60-1.99) 12/26/18 05:40 Calcium 9.1 mg/dL (8.6-10.3) 12/28/18 05:51 Iron 17 ug/dL (38-169) L 12/26/18 05:40 TIBC 210 ug/dL (250-450) L 12/26/18 05:40 Iron Saturation 8 % (15-55) L 12/26/18 05:40 Unsaturated IBC 193 ug/dL (111-343) 12/26/18 05:40 Ferritin 200 ng/mL (30-400) 12/26/18 05:40 Total Bilirubin 0.4 mg/dL (0.3-1.0) 12/26/18 05:40 AST 65 U/L (13-39) H 12/26/18 05:40 ALT 28 U/L (7-52) 12/26/18 05:40 Alkaline Phosphatase 58 U/L (34-104) 12/26/18 05:40 Total Protein 6.3 gm/dL (6.0-8.3) 12/26/18 05:40 Albumin 3.4 gm/dL (4.2-5.5) L 12/26/18 05:40 Globulin 2.9 gm/dL 12/26/18 05:40 Albumin/Globulin Ratio 1.2 (1.0-1.8) 12/26/18 05:40 Triglycerides 125 mg/dL (<150) 12/25/18 16:11 Cholesterol 154 mg/dL (<200) 12/25/18 16:11 LDL Cholesterol Direct 112 mg/dL (75-193) 12/25/18 16:11 HDL Cholesterol 37 mg/dL (23-92) 12/25/18 16:11 Vitamin B12 848 pg/mL (232-1245) 12/26/18 05:40 Folic Acid 6.9 ng/mL (>3.0) 12/26/18 05:40 TSH 2.61 uIU/ml (0.34-5.60) 12/25/18 16:11 Urine Source CATH 12/25/18 16:25 Urine Color COLORLESS 12/25/18 16:25 Urine Clarity CLEAR (CLEAR) 12/25/18 16:25 Urine pH 6.0 (4.6 - 8.0) 12/25/18 16:25 Ur Specific [place] 1.010 (1.005-1.030) 12/25/18 16:25 Urine Protein NEGATIVE mg/dL (NEGATIVE) 12/25/18 16:25 Urine Glucose (UA) NEGATIVE mg/dL (NEGATIVE) 12/25/18 16:25 Urine Ketones NEGATIVE mg/dL (NEGATIVE) 12/25/18 16:25 Urine Blood NEGATIVE (NEGATIVE) 12/25/18 16:25 Urine Nitrate NEGATIVE (NEGATIVE) 12/25/18 16:25 Urine Bilirubin NEGATIVE (NEGATIVE) 12/25/18 16:25 Urine Urobilinogen 0.2 E.U./dL (0.2 - 1.0) 12/25/18 16:25 Ur Leukocyte Esterase NEGATIVE (NEGATIVE) 12/25/18 16:25 RPR NONREACTIVE (NONREACTIVE) 12/25/18 16:11 Influenza A (Rapid) NEG FOR INF A 12/25/18 16:30 Influenza B (Rapid) NEG FOR INF B 12/25/18 16:30 - Physical Exam Vitals and I&O: Vital Signs Temp 98.2 F 12/28/18 22:59 Pulse 70 12/28/18 22:59 Resp 18 12/28/18 22:59 BP 96/55 12/28/18 22:59 Pulse Ox 98 12/28/18 22:00 Intake & Output 12/28/18 12/28/18 12/29/18 06:59 18:59 06:59 Intake Total 400 800 Balance 400 800 Weight (lbs) 59.874 kg 59.874 kg Intake: Oral 400 800 Other: # Voids 2 3 # Bowel Movements 0 0 Weight Source Bedscale Bedscale Active Medications: Current Medications Clonazepam (Klonopin) 1 mg PO TID EZE; Protocol Stop: 02/24/19 08:59 Last Admin: 12/28/18 20:32 Dose: 1 mg Levofloxacin (Levaquin) 500 mg PO DAILY EZE Stop: 02/24/19 15:59 Last Admin: 12/28/18 08:13 Dose: 500 mg Lorazepam (Ativan) 1 mg IVP Q4HR PRN; Protocol PRN Reason: Agitation Stop: 02/24/19 07:30 Quetiapine Fumarate (Seroquel) 200 mg PO TID EZE; Protocol Stop: 02/25/19 13:59 Last Admin: 12/28/18 20:32 Dose: 200 mg General: no acute distress, well developed, well nourished HEENT: atraumatic, normocephalic, PERRLA, EOMI Neck: supple, no thyromegaly, no lymphadenopathy Cardiovascular: S1S2, regular Lungs: clear to auscultation bilaterally, clear to percussion Abdomen: soft, no tender, no distended, no mass, no rebound Extremities: no cyanosis, no clubbing, no edema Neurological: awake, alert Skin: intact Infectious Disease Assmt/Plan - Assessment Assessment: 1. Agitation, aggressive behavior. 2. Pneumonia. 3. Leukocytosis, suspect sepsis as patient also had lactic acidosis and tachycardia on presentation. 4. Hypothyroidism. 5. Anemia. 6. Schizophrenia. 7. Hypertension. 8. History of gastroesophageal reflux disease. - Plan Plan: Continue the same treatment. As per Dr Craven. Nutritional Asmnt/Malnutr-PDOC - Dietary Evaluation Malnutrition Findings (Please click <Entered> for more info): Nutritional Asmnt/Malnutrition Start: 12/26/18 15: 09 Text: Status: Complete Freq: Protocol: Document 12/26/18 15:09 LCMARLENAG (Rec: 12/26/18 15:12 [email or web address]) Nutritional Asmnt/Malnutrition Patient General Information Nutritional Screening High Risk Diagnosis sepsis Pertinent Medical Hx/Surgical Hx HTN, PUD/GERD, thyroid disorder, anemia, schizophrenia Subjective Information Pt seen in bed, disoriented, yelling, has 1:1 sitter in room. Per sitter, pt consumed 100% of breakfast and lunch today. Current Diet Order/ Nutrition Support soft/bland Pertinent Medications seroquel Pertinent Labs 12/25 BUN 26, Alb 3.5 Nutritional Hx/Data Height 1.7 m Height (Calculated Centimeters) 170.2 Current Weight (lbs) 58.967 kg Weight (Calculated Kilograms) 59.0 Weight (Calculated Grams) 12046.0 [place] Body Weight 148 Body Mass Index (BMI) 20.3 Weight Status Approriate GI Symptoms GI Symptoms None Last BM not indicated Difficult in: None Skin Integrity/Comment: intact Current %PO Good (75-100%) Estimated Nutritional Goals BEE in Kcals: Using Current wt Calories/Kcals/Kg 30-35 Kcals Calculated 4309-3905 Protein: Using Current wt Protein g/k.2 Protein Calculated 71 Fluid: ml 1620-2065ml (1ml/kcal) Nutritional Problem 1. Problem Problem increased nutritional needs Etiology increased metabolic demand Signs/Symptoms: dx of sepsis Malnutrition Alert Is there a minimum of two criteria No selected? Query Text:Check all the applicable criteria. A minimum of two criteria are recommended for diagnosis of either severe or non-severe malnutrition. Malnutrition Related to Morbid Obesity Malnutrition related to morbid obesity No Intervention/Recommendation Comments 1. Continue with soft/baland diet as ordered. 2. Monitor PO intake, wt, labs and skin integrity 3. F/U as moderate risk in 3-5 days Expected Outcomes/Goals Expected Outcomes/Goals 1. PO intake to meet at least 75% of nutritional needs. 2. Wt stability, skin to remain intact, labs to approach WNL.
--- NOTE | 2018-12-30 00:33 | Infectious Disease Prog Note ---
Infectious Disease Subjective - Review of Systems Service Date: 12/29/18 Subjective: No new change, no fever. Infectious Disease Objective - Results Result Diagrams: 12/28/18 05:51 12/28/18 05:51 Recent Labs: Laboratory Last Values WBC 7.7 Th/cmm (4.8-10.8) 12/28/18 05:51 RBC 3.64 Mil/cmm (4.30-5.70) L 12/28/18 05:51 Hgb 10.1 gm/dL (12-16) L 12/28/18 05:51 Hct 30.8 % (41.0-60) L 12/28/18 05:51 MCV 84.5 fl (80-99) 12/28/18 05:51 MCH 27.9 pg (26.0-30.0) 12/28/18 05:51 MCHC Differential 33.0 pg (28.0-36.0) 12/28/18 05:51 RDW 13.6 % (11.5-20.0) 12/28/18 05:51 Plt Count 242 Th/cmm (150-400) 12/28/18 05:51 MPV 8.1 fl 12/28/18 05:51 Neutrophils % 54.1 % (40.0-80.0) 12/28/18 05:51 Band Neutrophils % 1 % (0-10) 12/25/18 16:11 Lymphocytes % 23.4 % (20.0-50.0) 12/28/18 05:51 Monocytes % 9.2 % (2.0-10.0) 12/28/18 05:51 Eosinophils % 12.2 % (0.0-5.0) H 12/28/18 05:51 Basophils % 1.1 % (0.0-2.0) 12/28/18 05:51 Neutrophils (Manual) 80 % (40-80) 12/25/18 16:11 Lymphocytes 12 % (20-50) L 12/25/18 16:11 Monocytes 5 % (2-10) 12/25/18 16:11 Eosinophils 2 % (0-5) 12/25/18 16:11 Total Retics Counted 2.2 % (0.5-1.5) H 12/26/18 05:40 Absolute Retic 79.2 Th/cmm 12/26/18 05:40 Corrected Retic Count 1.5 % (0.5-1.5) 12/26/18 05:40 Sodium 140 mEq/L (136-145) 12/28/18 05:51 Potassium 3.9 mEq/L (3.5-5.1) 12/28/18 05:51 Chloride 106 mEq/L (98-107) 12/28/18 05:51 Carbon Dioxide 28.3 mEq/L (21.0-31.0) 12/28/18 05:51 Anion Gap 9.6 (7.0-16.0) 12/28/18 05:51 BUN 24 mg/dL (7-25) 12/28/18 05:51 Creatinine 0.8 mg/dL (0.7-1.3) 12/28/18 05:51 Est GFR ( Amer) > 60.0 ml/min (>90) 12/28/18 05:51 Est GFR (Non-Af Amer) > 60.0 ml/min 12/28/18 05:51 BUN/Creatinine Ratio 30.0 12/28/18 05:51 Glucose 104 mg/dL (70-105) 12/28/18 05:51 Whole Bld Lactic Acid 1.37 mmol/L (0.60-1.99) 12/26/18 05:40 Calcium 9.1 mg/dL (8.6-10.3) 12/28/18 05:51 Iron 17 ug/dL (38-169) L 12/26/18 05:40 TIBC 210 ug/dL (250-450) L 12/26/18 05:40 Iron Saturation 8 % (15-55) L 12/26/18 05:40 Unsaturated IBC 193 ug/dL (111-343) 12/26/18 05:40 Ferritin 200 ng/mL (30-400) 12/26/18 05:40 Total Bilirubin 0.4 mg/dL (0.3-1.0) 12/26/18 05:40 AST 65 U/L (13-39) H 12/26/18 05:40 ALT 28 U/L (7-52) 12/26/18 05:40 Alkaline Phosphatase 58 U/L (34-104) 12/26/18 05:40 Total Protein 6.3 gm/dL (6.0-8.3) 12/26/18 05:40 Albumin 3.4 gm/dL (4.2-5.5) L 12/26/18 05:40 Globulin 2.9 gm/dL 12/26/18 05:40 Albumin/Globulin Ratio 1.2 (1.0-1.8) 12/26/18 05:40 Triglycerides 125 mg/dL (<150) 12/25/18 16:11 Cholesterol 154 mg/dL (<200) 12/25/18 16:11 LDL Cholesterol Direct 112 mg/dL (75-193) 12/25/18 16:11 HDL Cholesterol 37 mg/dL (23-92) 12/25/18 16:11 Vitamin B12 848 pg/mL (232-1245) 12/26/18 05:40 Folic Acid 6.9 ng/mL (>3.0) 12/26/18 05:40 TSH 2.61 uIU/ml (0.34-5.60) 12/25/18 16:11 Urine Source CATH 12/25/18 16:25 Urine Color COLORLESS 12/25/18 16:25 Urine Clarity CLEAR (CLEAR) 12/25/18 16:25 Urine pH 6.0 (4.6 - 8.0) 12/25/18 16:25 Ur Specific [place] 1.010 (1.005-1.030) 12/25/18 16:25 Urine Protein NEGATIVE mg/dL (NEGATIVE) 12/25/18 16:25 Urine Glucose (UA) NEGATIVE mg/dL (NEGATIVE) 12/25/18 16:25 Urine Ketones NEGATIVE mg/dL (NEGATIVE) 12/25/18 16:25 Urine Blood NEGATIVE (NEGATIVE) 12/25/18 16:25 Urine Nitrate NEGATIVE (NEGATIVE) 12/25/18 16:25 Urine Bilirubin NEGATIVE (NEGATIVE) 12/25/18 16:25 Urine Urobilinogen 0.2 E.U./dL (0.2 - 1.0) 12/25/18 16:25 Ur Leukocyte Esterase NEGATIVE (NEGATIVE) 12/25/18 16:25 RPR NONREACTIVE (NONREACTIVE) 12/25/18 16:11 Influenza A (Rapid) NEG FOR INF A 12/25/18 16:30 Influenza B (Rapid) NEG FOR INF B 12/25/18 16:30 - Physical Exam Vitals and I&O: Vital Signs Temp 97.5 F 12/29/18 20:00 Pulse 74 12/29/18 20:00 Resp 18 12/29/18 20:00 BP 104/58 12/29/18 20:00 Pulse Ox 96 12/29/18 20:00 Intake & Output 12/29/18 12/29/18 12/30/18 06:59 18:59 06:59 Intake Total 200 500 Balance 200 500 Weight (lbs) 59.874 kg 59.874 kg Intake: Oral 200 500 Other: # Voids 3 3 # Bowel Movements 0 0 Weight Source Bedscale Bedscale Active Medications: Current Medications Amlodipine Besylate (Norvasc) 10 mg PO DAILY [facility] Stop: 02/28/19 08:59 Aspirin (Ecotrin) 81 mg PO DAILY [facility] Stop: 02/28/19 08:59 Benztropine Mesylate (Cogentin) 1 mg PO TID [facility] Stop: 02/28/19 08:59 Bisacodyl (Dulcolax 10 Mg Supp) mg RC DAILY [facility] Stop: 02/28/19 08:59 Clonazepam (Klonopin) 2 mg PO TID [facility]; Protocol Stop: 02/27/19 08:59 Last Admin: 12/29/18 20:51 Dose: 2 mg Levofloxacin (Levaquin) 500 mg PO DAILY [facility] Stop: 02/24/19 15:59 Last Admin: 12/29/18 09:03 Dose: 500 mg Lorazepam (Ativan) 1 mg IVP Q4HR PRN; Protocol PRN Reason: Agitation Stop: 02/24/19 07:30 Miscellaneous (Ascorbic Acid [Vitamin C]) 250 mg PO DAILY [facility] Stop: 02/28/19 08:59 Quetiapine Fumarate (Seroquel) 200 mg PO TID [facility]; Protocol Stop: 02/25/19 13:59 Last Admin: 12/29/18 20:43 Dose: 200 mg General: no acute distress, well developed, well nourished HEENT: atraumatic, normocephalic, PERRLA, EOMI Neck: supple, no thyromegaly Cardiovascular: S1S2, regular Lungs: clear to auscultation bilaterally, clear to percussion Abdomen: soft, no tender, no distended Extremities: no cyanosis, no clubbing, no edema Neurological: awake, alert Skin: intact Infectious Disease Assmt/Plan - Assessment Assessment: 1. Agitation, aggressive behavior. 2. Pneumonia. 3. Leukocytosis, suspect sepsis as patient also had lactic acidosis and tachycardia on presentation. 4. Hypothyroidism. 5. Anemia. 6. Schizophrenia. 7. Hypertension. 8. History of gastroesophageal reflux disease. - Plan Plan: Continue the same treatment. As per Dr Craven. Nutritional Asmnt/Malnutr-PDOC - Dietary Evaluation Malnutrition Findings (Please click <Entered> for more info): Nutritional Asmnt/Malnutrition Start: 12/26/18 15: 09 Text: Status: Complete Freq: Protocol: Document 12/26/18 15:09 LCMARLENAG (Rec: 12/26/18 15:12 [email or web address] [email or web address]) Nutritional Asmnt/Malnutrition Patient General Information Nutritional Screening High Risk Diagnosis sepsis Pertinent Medical Hx/Surgical Hx HTN, PUD/GERD, thyroid disorder, anemia, schizophrenia Subjective Information Pt seen in bed, disoriented, yelling, has 1:1 sitter in room. Per sitter, pt consumed 100% of breakfast and lunch today. Current Diet Order/ Nutrition Support soft/bland Pertinent Medications seroquel Pertinent Labs 12/25 BUN 26, Alb 3.5 Nutritional Hx/Data Height 1.7 m Height (Calculated Centimeters) 170.2 Current Weight (lbs) 58.967 kg Weight (Calculated Kilograms) 59.0 Weight (Calculated Grams) 47467.0 [place] Body Weight 148 Body Mass Index (BMI) 20.3 Weight Status Approriate GI Symptoms GI Symptoms None Last BM not indicated Difficult in: None Skin Integrity/Comment: intact Current %PO Good (75-100%) Estimated Nutritional Goals BEE in Kcals: Using Current wt Calories/Kcals/Kg 30-35 Kcals Calculated 9927-2844 Protein: Using Current wt Protein g/k.2 Protein Calculated 71 Fluid: ml 1620-2065ml (1ml/kcal) Nutritional Problem 1. Problem Problem increased nutritional needs Etiology increased metabolic demand Signs/Symptoms: dx of sepsis Malnutrition Alert Is there a minimum of two criteria No selected? Query Text:Check all the applicable criteria. A minimum of two criteria are recommended for diagnosis of either severe or non-severe malnutrition. Malnutrition Related to Morbid Obesity Malnutrition related to morbid obesity No Intervention/Recommendation Comments 1. Continue with soft/baland diet as ordered. 2. Monitor PO intake, wt, labs and skin integrity 3. F/U as moderate risk in 3-5 days Expected Outcomes/Goals Expected Outcomes/Goals 1. PO intake to meet at least 75% of nutritional needs. 2. Wt stability, skin to remain intact, labs to approach WNL.
--- NOTE | 2018-12-30 01:43 | Progress Notes ---
DATE: 12/29/2018 SUBJECTIVE: Chart reviewed and the patient interviewed. Also, discussed the patient's condition with the staff and reviewed records and labs. The patient is still yelling and screaming and still has difficulty following directions. The patient also is still easily agitated. The patient also is still unable to follow any directions and he is still insulting staff and earlier today he tries to kick the staff when he was trying to help to get his vital signs. He also is still restless and still has difficulty sleeping at night. Otherwise, the patient is compliant with taking medications with no side effects. ASSESSMENT: The patient is still agitated and is still psychotic. TREATMENT PLAN: Continue Seroquel 200 mg 3 times a day. We also will increase Klonopin to 2 mg 3 times a day and we will continue to follow up closely. JOB# [id number]
[2018-12-30] MEDS ORDERED: Ferrous Sulfate 325 MG TAB PO SCH (09:00)
[2018-12-30] MEDS ORDERED: Non-Formulary Item 1 EA (Levothyroxine Sodium [Levothyroxine Sodium] 137 MCG) PO SCH (09:00)
[2018-12-30] MEDS: Multivitamin w/ Minerals Tab PO SCH (09:18)
[2018-12-30] MEDS: Benztropine 1 MG TAB PO SCH ×4 (09:18→21:00)
[2018-12-30] MEDS ORDERED: cloZAPine 100 MG, cloZAPine 50 MG PO ONE (11:30)
[2018-12-30] MEDS: Magnesium Hydroxide (MOM) 30 mL UDC PO SCH ×2 (20:26→21:00)
--- NOTE | 2018-12-30 23:59 | Infectious Disease Prog Note ---
Infectious Disease Subjective - Review of Systems Service Date: 12/30/18 Subjective: No new change, no fever. Infectious Disease Objective - Results Result Diagrams: 12/28/18 05:51 12/28/18 05:51 Recent Labs: Laboratory Last Values WBC 7.7 Th/cmm (4.8-10.8) 12/28/18 05:51 RBC 3.64 Mil/cmm (4.30-5.70) L 12/28/18 05:51 Hgb 10.1 gm/dL (12-16) L 12/28/18 05:51 Hct 30.8 % (41.0-60) L 12/28/18 05:51 MCV 84.5 fl (80-99) 12/28/18 05:51 MCH 27.9 pg (26.0-30.0) 12/28/18 05:51 MCHC Differential 33.0 pg (28.0-36.0) 12/28/18 05:51 RDW 13.6 % (11.5-20.0) 12/28/18 05:51 Plt Count 242 Th/cmm (150-400) 12/28/18 05:51 MPV 8.1 fl 12/28/18 05:51 Neutrophils % 54.1 % (40.0-80.0) 12/28/18 05:51 Band Neutrophils % 1 % (0-10) 12/25/18 16:11 Lymphocytes % 23.4 % (20.0-50.0) 12/28/18 05:51 Monocytes % 9.2 % (2.0-10.0) 12/28/18 05:51 Eosinophils % 12.2 % (0.0-5.0) H 12/28/18 05:51 Basophils % 1.1 % (0.0-2.0) 12/28/18 05:51 Neutrophils (Manual) 80 % (40-80) 12/25/18 16:11 Lymphocytes 12 % (20-50) L 12/25/18 16:11 Monocytes 5 % (2-10) 12/25/18 16:11 Eosinophils 2 % (0-5) 12/25/18 16:11 Total Retics Counted 2.2 % (0.5-1.5) H 12/26/18 05:40 Absolute Retic 79.2 Th/cmm 12/26/18 05:40 Corrected Retic Count 1.5 % (0.5-1.5) 12/26/18 05:40 Sodium 140 mEq/L (136-145) 12/28/18 05:51 Potassium 3.9 mEq/L (3.5-5.1) 12/28/18 05:51 Chloride 106 mEq/L (98-107) 12/28/18 05:51 Carbon Dioxide 28.3 mEq/L (21.0-31.0) 12/28/18 05:51 Anion Gap 9.6 (7.0-16.0) 12/28/18 05:51 BUN 24 mg/dL (7-25) 12/28/18 05:51 Creatinine 0.8 mg/dL (0.7-1.3) 12/28/18 05:51 Est GFR ( Amer) > 60.0 ml/min (>90) 12/28/18 05:51 Est GFR (Non-Af Amer) > 60.0 ml/min 12/28/18 05:51 BUN/Creatinine Ratio 30.0 12/28/18 05:51 Glucose 104 mg/dL (70-105) 12/28/18 05:51 Whole Bld Lactic Acid 1.37 mmol/L (0.60-1.99) 12/26/18 05:40 Calcium 9.1 mg/dL (8.6-10.3) 12/28/18 05:51 Iron 17 ug/dL (38-169) L 12/26/18 05:40 TIBC 210 ug/dL (250-450) L 12/26/18 05:40 Iron Saturation 8 % (15-55) L 12/26/18 05:40 Unsaturated IBC 193 ug/dL (111-343) 12/26/18 05:40 Ferritin 200 ng/mL (30-400) 12/26/18 05:40 Total Bilirubin 0.4 mg/dL (0.3-1.0) 12/26/18 05:40 AST 65 U/L (13-39) H 12/26/18 05:40 ALT 28 U/L (7-52) 12/26/18 05:40 Alkaline Phosphatase 58 U/L (34-104) 12/26/18 05:40 Total Protein 6.3 gm/dL (6.0-8.3) 12/26/18 05:40 Albumin 3.4 gm/dL (4.2-5.5) L 12/26/18 05:40 Globulin 2.9 gm/dL 12/26/18 05:40 Albumin/Globulin Ratio 1.2 (1.0-1.8) 12/26/18 05:40 Triglycerides 125 mg/dL (<150) 12/25/18 16:11 Cholesterol 154 mg/dL (<200) 12/25/18 16:11 LDL Cholesterol Direct 112 mg/dL (75-193) 12/25/18 16:11 HDL Cholesterol 37 mg/dL (23-92) 12/25/18 16:11 Vitamin B12 848 pg/mL (232-1245) 12/26/18 05:40 Folic Acid 6.9 ng/mL (>3.0) 12/26/18 05:40 TSH 2.61 uIU/ml (0.34-5.60) 12/25/18 16:11 Urine Source CATH 12/25/18 16:25 Urine Color COLORLESS 12/25/18 16:25 Urine Clarity CLEAR (CLEAR) 12/25/18 16:25 Urine pH 6.0 (4.6 - 8.0) 12/25/18 16:25 Ur Specific [place] 1.010 (1.005-1.030) 12/25/18 16:25 Urine Protein NEGATIVE mg/dL (NEGATIVE) 12/25/18 16:25 Urine Glucose (UA) NEGATIVE mg/dL (NEGATIVE) 12/25/18 16:25 Urine Ketones NEGATIVE mg/dL (NEGATIVE) 12/25/18 16:25 Urine Blood NEGATIVE (NEGATIVE) 12/25/18 16:25 Urine Nitrate NEGATIVE (NEGATIVE) 12/25/18 16:25 Urine Bilirubin NEGATIVE (NEGATIVE) 12/25/18 16:25 Urine Urobilinogen 0.2 E.U./dL (0.2 - 1.0) 12/25/18 16:25 Ur Leukocyte Esterase NEGATIVE (NEGATIVE) 12/25/18 16:25 Stool Occult Blood POSITIVE (NEGATIVE) H 12/30/18 13:00 Valproic Acid < 10.0 ug/mL (50.0-100.0) L 12/30/18 04:25 [place] 0.06 mmol/L (0.5-1.0) L 12/30/18 04:25 RPR NONREACTIVE (NONREACTIVE) 12/25/18 16:11 Influenza A (Rapid) NEG FOR INF A 12/25/18 16:30 Influenza B (Rapid) NEG FOR INF B 12/25/18 16:30 - Physical Exam Vitals and I&O: Vital Signs Temp 97.5 F 12/30/18 20:00 Pulse 58 12/30/18 20:00 Resp 18 12/30/18 20:00 BP 95/56 12/30/18 20:00 Pulse Ox 94 12/30/18 20:00 Intake & Output 12/30/18 12/30/18 12/31/18 06:59 18:59 06:59 Intake Total 200 500 Balance 200 500 Weight (lbs) 59.874 kg 59.874 kg Intake: Oral 200 500 Other: # Voids 2 # Bowel Movements 0 Weight Source Bedscale Bedscale Active Medications: Current Medications Amlodipine Besylate (Norvasc) 10 mg PO DAILY [facility] Stop: 02/28/19 08:59 Last Admin: 12/30/18 08:57 Dose: Not Given Ascorbic Acid (Vitamin C) 250 mg PO DAILY [facility] Stop: 02/28/19 08:59 Last Admin: 12/30/18 09:18 Dose: 250 mg Aspirin (Ecotrin) 81 mg PO DAILY [facility] Stop: 02/28/19 08:59 Last Admin: 12/30/18 09:17 Dose: 81 mg Benztropine Mesylate (Cogentin) 1 mg PO TID [facility] Stop: 02/28/19 08:59 Last Admin: 12/30/18 20:26 Dose: 1 mg Bisacodyl (Dulcolax 10 Mg Supp) 10 mg RC DAILY [facility] Stop: 02/28/19 08:59 Last Admin: 12/30/18 09:22 Dose: 10 mg Cholecalciferol (Vitamin D3) 5,000 iu PO DAILY [facility] Stop: 02/28/19 08:59 Last Admin: 12/30/18 09:19 Dose: 5,000 iu Clonazepam (Klonopin) 2 mg PO TID [facility]; Protocol Stop: 02/27/19 08:59 Last Admin: 12/30/18 20:26 Dose: 2 mg Clonazepam (Klonopin) 1 mg PO TID [facility] Stop: 02/28/19 08:59 Clozapine (Clozaril) 150 mg PO BID [facility] Stop: 02/28/19 08:59 Famotidine (Pepcid) 40 mg PO DAILY [facility] Stop: 02/28/19 08:59 Last Admin: 12/30/18 09:22 Dose: 40 mg Ferrous Sulfate (Iron) 325 mg PO DAILY [facility] Stop: 02/28/19 08:59 Last Admin: 12/30/18 09:18 Dose: 325 mg Levofloxacin (Levaquin) 500 mg PO DAILY [facility] Stop: 02/24/19 15:59 Last Admin: 12/30/18 09:18 Dose: 500 mg Levothyroxine Sodium 0.025 mg/ (Levothyroxine Sodium 0.112 mg) 0.137 mg PO DAILY@0730 [facility] Stop: 02/28/19 07:29 Last Admin: 12/30/18 06:39 Dose: 0.137 mg [place] Carbonate (Eskalith) 300 mg PO BID [facility]; Protocol Stop: 02/28/19 08:59 Lorazepam (Ativan) 1 mg IVP Q4HR PRN; Protocol PRN Reason: Agitation Stop: 02/24/19 07:30 Magnesium Hydroxide (Milk Of Magnesia) 30 ml PO HS [facility] Stop: 02/28/19 20:59 Last Admin: 12/30/18 20:26 Dose: 30 ml Miscellaneous (Cranberry Conc/C/Bacill Coag [Cranberry Tablet]) 450 mg PO DAILY [facility] Stop: 02/28/19 08:59 Last Admin: 12/30/18 14:11 Dose: Not Given Olanzapine (Zyprexa) 10 mg IM BID [facility]; Protocol Stop: 02/28/19 08:59 Last Admin: 12/30/18 09:00 Dose: Not Given Quetiapine Fumarate (Seroquel) 200 mg PO TID [facility]; Protocol Stop: 02/25/19 13:59 Last Admin: 12/30/18 20:26 Dose: 200 mg Temazepam (Restoril) 30 mg PO HS PRN PRN Reason: Insomnia Valproate Sodium (Depakene) 25,000 mg PO BID [facility]; Protocol Stop: 02/28/19 08:59 Infectious Disease Assmt/Plan - Assessment Assessment: 1. Agitation, aggressive behavior. 2. Pneumonia. 3. Leukocytosis, suspect sepsis as patient also had lactic acidosis and tachycardia on presentation. 4. Hypothyroidism. 5. Anemia. 6. Schizophrenia. 7. Hypertension. 8. History of gastroesophageal reflux disease. 9. Iron deficiency anemia. - Plan Plan: Continue the same treatment. As per Dr Craven. increase iron intake and vitamin c intake. Gi Consult stool for OB pos. hematology consult Nutritional Asmnt/Malnutr-PDOC - Dietary Evaluation Malnutrition Findings (Please click <Entered> for more info): Nutritional Asmnt/Malnutrition Start: 12/26/18 15: 09 Text: Status: Complete Freq: Protocol: Document 12/26/18 15:09 LCHENG (Rec: 12/26/18 15:12 [email or web address] [email or web address]) Nutritional Asmnt/Malnutrition Patient General Information Nutritional Screening High Risk Diagnosis sepsis Pertinent Medical Hx/Surgical Hx HTN, PUD/GERD, thyroid disorder, anemia, schizophrenia Subjective Information Pt seen in bed, disoriented, yelling, has 1:1 sitter in room. Per sitter, pt consumed 100% of breakfast and lunch today. Current Diet Order/ Nutrition Support soft/bland Pertinent Medications seroquel Pertinent Labs 12/25 BUN 26, Alb 3.5 Nutritional Hx/Data Height 1.7 m Height (Calculated Centimeters) 170.2 Current Weight (lbs) 58.967 kg Weight (Calculated Kilograms) 59.0 Weight (Calculated Grams) 93810.0 [place] Body Weight 148 Body Mass Index (BMI) 20.3 Weight Status Approriate GI Symptoms GI Symptoms None Last BM not indicated Difficult in: None Skin Integrity/Comment: intact Current %PO Good (75-100%) Estimated Nutritional Goals BEE in Kcals: Using Current wt Calories/Kcals/Kg 30-35 Kcals Calculated 4498-5113 Protein: Using Current wt Protein g/k.2 Protein Calculated 71 Fluid: ml 1620-2065ml (1ml/kcal) Nutritional Problem 1. Problem Problem increased nutritional needs Etiology increased metabolic demand Signs/Symptoms: dx of sepsis Malnutrition Alert Is there a minimum of two criteria No selected? Query Text:Check all the applicable criteria. A minimum of two criteria are recommended for diagnosis of either severe or non-severe malnutrition. Malnutrition Related to Morbid Obesity Malnutrition related to morbid obesity No Intervention/Recommendation Comments 1. Continue with soft/baland diet as ordered. 2. Monitor PO intake, wt, labs and skin integrity 3. F/U as moderate risk in 3-5 days Expected Outcomes/Goals Expected Outcomes/Goals 1. PO intake to meet at least 75% of nutritional needs. 2. Wt stability, skin to remain intact, labs to approach WNL.
[2018-12-31] MEDS: Multivitamin w/ Minerals Tab PO SCH (08:52)
[2018-12-31] MEDS: Benztropine 1 MG TAB PO SCH ×3 (08:56→21:02)
[2018-12-31] MEDS ORDERED: Ferrous Sulfate 325 MG TAB PO SCH (09:00)
--- NOTE | 2018-12-31 09:43 | Infectious Disease Prog Note ---
Infectious Disease Subjective - Review of Systems Service Date: 12/31/18 Subjective: No new change, no fever. Infectious Disease Objective - Results Result Diagrams: 12/28/18 05:51 12/28/18 05:51 Recent Labs: Laboratory Last Values WBC 7.7 Th/cmm (4.8-10.8) 12/28/18 05:51 RBC 3.64 Mil/cmm (4.30-5.70) L 12/28/18 05:51 Hgb 10.1 gm/dL (12-16) L 12/28/18 05:51 Hct 30.8 % (41.0-60) L 12/28/18 05:51 MCV 84.5 fl (80-99) 12/28/18 05:51 MCH 27.9 pg (26.0-30.0) 12/28/18 05:51 MCHC Differential 33.0 pg (28.0-36.0) 12/28/18 05:51 RDW 13.6 % (11.5-20.0) 12/28/18 05:51 Plt Count 242 Th/cmm (150-400) 12/28/18 05:51 MPV 8.1 fl 12/28/18 05:51 Neutrophils % 54.1 % (40.0-80.0) 12/28/18 05:51 Band Neutrophils % 1 % (0-10) 12/25/18 16:11 Lymphocytes % 23.4 % (20.0-50.0) 12/28/18 05:51 Monocytes % 9.2 % (2.0-10.0) 12/28/18 05:51 Eosinophils % 12.2 % (0.0-5.0) H 12/28/18 05:51 Basophils % 1.1 % (0.0-2.0) 12/28/18 05:51 Neutrophils (Manual) 80 % (40-80) 12/25/18 16:11 Lymphocytes 12 % (20-50) L 12/25/18 16:11 Monocytes 5 % (2-10) 12/25/18 16:11 Eosinophils 2 % (0-5) 12/25/18 16:11 Total Retics Counted 2.2 % (0.5-1.5) H 12/26/18 05:40 Absolute Retic 79.2 Th/cmm 12/26/18 05:40 Corrected Retic Count 1.5 % (0.5-1.5) 12/26/18 05:40 Sodium 140 mEq/L (136-145) 12/28/18 05:51 Potassium 3.9 mEq/L (3.5-5.1) 12/28/18 05:51 Chloride 106 mEq/L (98-107) 12/28/18 05:51 Carbon Dioxide 28.3 mEq/L (21.0-31.0) 12/28/18 05:51 Anion Gap 9.6 (7.0-16.0) 12/28/18 05:51 BUN 24 mg/dL (7-25) 12/28/18 05:51 Creatinine 0.8 mg/dL (0.7-1.3) 12/28/18 05:51 Est GFR ( Amer) > 60.0 ml/min (>90) 12/28/18 05:51 Est GFR (Non-Af Amer) > 60.0 ml/min 12/28/18 05:51 BUN/Creatinine Ratio 30.0 12/28/18 05:51 Glucose 104 mg/dL (70-105) 12/28/18 05:51 Whole Bld Lactic Acid 1.37 mmol/L (0.60-1.99) 12/26/18 05:40 Calcium 9.1 mg/dL (8.6-10.3) 12/28/18 05:51 Iron 17 ug/dL (38-169) L 12/26/18 05:40 TIBC 210 ug/dL (250-450) L 12/26/18 05:40 Iron Saturation 8 % (15-55) L 12/26/18 05:40 Unsaturated IBC 193 ug/dL (111-343) 12/26/18 05:40 Ferritin 200 ng/mL (30-400) 12/26/18 05:40 Total Bilirubin 0.4 mg/dL (0.3-1.0) 12/26/18 05:40 AST 65 U/L (13-39) H 12/26/18 05:40 ALT 28 U/L (7-52) 12/26/18 05:40 Alkaline Phosphatase 58 U/L (34-104) 12/26/18 05:40 Total Protein 6.3 gm/dL (6.0-8.3) 12/26/18 05:40 Albumin 3.4 gm/dL (4.2-5.5) L 12/26/18 05:40 Globulin 2.9 gm/dL 12/26/18 05:40 Albumin/Globulin Ratio 1.2 (1.0-1.8) 12/26/18 05:40 Triglycerides 125 mg/dL (<150) 12/25/18 16:11 Cholesterol 154 mg/dL (<200) 12/25/18 16:11 LDL Cholesterol Direct 112 mg/dL (75-193) 12/25/18 16:11 HDL Cholesterol 37 mg/dL (23-92) 12/25/18 16:11 Vitamin B12 848 pg/mL (232-1245) 12/26/18 05:40 Folic Acid 6.9 ng/mL (>3.0) 12/26/18 05:40 TSH 2.61 uIU/ml (0.34-5.60) 12/25/18 16:11 Urine Source CATH 12/25/18 16:25 Urine Color COLORLESS 12/25/18 16:25 Urine Clarity CLEAR (CLEAR) 12/25/18 16:25 Urine pH 6.0 (4.6 - 8.0) 12/25/18 16:25 Ur Specific [place] 1.010 (1.005-1.030) 12/25/18 16:25 Urine Protein NEGATIVE mg/dL (NEGATIVE) 12/25/18 16:25 Urine Glucose (UA) NEGATIVE mg/dL (NEGATIVE) 12/25/18 16:25 Urine Ketones NEGATIVE mg/dL (NEGATIVE) 12/25/18 16:25 Urine Blood NEGATIVE (NEGATIVE) 12/25/18 16:25 Urine Nitrate NEGATIVE (NEGATIVE) 12/25/18 16:25 Urine Bilirubin NEGATIVE (NEGATIVE) 12/25/18 16:25 Urine Urobilinogen 0.2 E.U./dL (0.2 - 1.0) 12/25/18 16:25 Ur Leukocyte Esterase NEGATIVE (NEGATIVE) 12/25/18 16:25 Stool Occult Blood POSITIVE (NEGATIVE) H 12/30/18 13:00 Valproic Acid < 10.0 ug/mL (50.0-100.0) L 12/30/18 04:25 [place] 0.06 mmol/L (0.5-1.0) L 12/30/18 04:25 RPR NONREACTIVE (NONREACTIVE) 12/25/18 16:11 Influenza A (Rapid) NEG FOR INF A 12/25/18 16:30 Influenza B (Rapid) NEG FOR INF B 12/25/18 16:30 - Physical Exam Vitals and I&O: Vital Signs Temp 98.7 F 12/31/18 04:00 Pulse 80 12/31/18 08:55 Resp 20 12/31/18 04:00 BP 106/59 12/31/18 08:55 Pulse Ox 94 12/31/18 04:00 Intake & Output 12/30/18 12/31/18 12/31/18 18:59 06:59 18:59 Intake Total 500 120 Balance 500 120 Weight (lbs) 59.874 kg 59.874 kg Intake: Oral 500 120 Other: # Voids 2 Weight Source Bedscale Bedscale Active Medications: Current Medications Amlodipine Besylate (Norvasc) 10 mg PO DAILY ON [facility] OF [facility] Stop: 02/28/19 08:59 Last Admin: 12/31/18 08:55 Dose: 10 mg Ascorbic Acid (Vitamin C) 500 mg PO DAILY ON [facility] OF [facility] Stop: 03/01/19 08:59 Last Admin: 12/31/18 08:55 Dose: 500 mg Aspirin (Ecotrin) 81 mg PO DAILY ON [facility] Stop: 02/28/19 08:59 Last Admin: 12/31/18 08:54 Dose: 81 mg Benztropine Mesylate (Cogentin) 1 mg PO TID ON [facility] OF [facility] Stop: 02/28/19 08:59 Last Admin: 12/31/18 08:56 Dose: 1 mg Bisacodyl (Dulcolax 10 Mg Supp) 10 mg RC DAILY ON [facility] OF [facility] Stop: 02/28/19 08:59 Last Admin: 12/31/18 08:56 Dose: Not Given Cholecalciferol (Vitamin D3) 5,000 iu PO DAILY ON [facility] Stop: 02/28/19 08:59 Last Admin: 12/31/18 09:12 Dose: 5,000 iu Clonazepam (Klonopin) 2 mg PO TID ON [facility]; Protocol Stop: 02/27/19 08:59 Last Admin: 12/31/18 08:54 Dose: 2 mg Clonazepam (Klonopin) 1 mg PO TID [facility] Stop: 02/28/19 08:59 Clozapine (Clozaril) 175 mg PO BID ON [facility] Stop: 03/01/19 08:59 Famotidine (Pepcid) 40 mg PO DAILY [facility] Stop: 02/28/19 08:59 Last Admin: 12/31/18 08:54 Dose: 40 mg Ferrous Sulfate (Iron) 325 mg PO BID [facility] Stop: 03/01/19 08:59 Last Admin: 12/31/18 08:54 Dose: 325 mg Levofloxacin (Levaquin) 500 mg PO DAILY [facility] Stop: 02/24/19 15:59 Last Admin: 12/31/18 08:54 Dose: 500 mg Levothyroxine Sodium 0.025 mg/ (Levothyroxine Sodium 0.112 mg) 0.137 mg PO DAILY@0730 [facility] Stop: 02/28/19 07:29 Last Admin: 12/31/18 06:32 Dose: 0.137 mg [place] Carbonate (Eskalith) 300 mg PO BID [facility]; Protocol Stop: 02/28/19 08:59 Lorazepam (Ativan) 1 mg IVP Q4HR PRN; Protocol PRN Reason: Agitation Stop: 02/24/19 07:30 Magnesium Hydroxide (Milk Of Magnesia) 30 ml PO HS ON [facility] Stop: 02/28/19 20:59 Last Admin: 12/30/18 21:00 Dose: Not Given Quetiapine Fumarate (Seroquel) 300 mg PO TID ON [facility] OF [facility]; Protocol Stop: 03/01/19 08:59 Temazepam (Restoril) 30 mg PO HS PRN PRN Reason: Insomnia Valproate Sodium (Depakene) 25,000 mg PO BID ON [facility] OF [facility]; Protocol Stop: 02/28/19 08:59 General: no acute distress, cachectic HEENT: atraumatic, normocephalic, PERRLA, EOMI, moist mucous membrane Neck: supple, no thyromegaly Cardiovascular: S1S2, regular Lungs: clear to auscultation bilaterally, clear to percussion Abdomen: soft, bowel sounds, no tender, no distended, no mass, no rebound Extremities: no cyanosis, no clubbing, no edema Neurological: awake, alert Skin: intact Infectious Disease Assmt/Plan - Assessment Assessment: 1. Agitation, aggressive behavior. 2. Pneumonia. 3. Leukocytosis, suspect sepsis as patient also had lactic acidosis and tachycardia on presentation. 4. Hypothyroidism. 5. Anemia. 6. Schizophrenia. 7. Hypertension. 8. History of gastroesophageal reflux disease. 9. Iron deficiency anemia. - Plan Plan: Continue the same treatment. As per Dr Craven. increase iron intake and vitamin c intake. Gi Consult stool for OB pos. hematology consult. Nutritional Asmnt/Malnutr-PDOC - Dietary Evaluation Malnutrition Findings (Please click <Entered> for more info): Nutritional Asmnt/Malnutrition Start: 12/26/18 15: 09 Text: Status: Complete Freq: Protocol: Document 12/26/18 15:09 LCHENG (Rec: 12/26/18 15:12 LCHENG [email or web address]) Nutritional Asmnt/Malnutrition Patient General Information Nutritional Screening High Risk Diagnosis sepsis Pertinent Medical Hx/Surgical Hx HTN, PUD/GERD, thyroid disorder, anemia, schizophrenia Subjective Information Pt seen in bed, disoriented, yelling, has 1:1 sitter in room. Per sitter, pt consumed 100% of breakfast and lunch today. Current Diet Order/ Nutrition Support soft/bland Pertinent Medications seroquel Pertinent Labs 12/25 BUN 26, Alb 3.5 Nutritional Hx/Data Height 1.7 m Height (Calculated Centimeters) 170.2 Current Weight (lbs) 58.967 kg Weight (Calculated Kilograms) 59.0 Weight (Calculated Grams) 52968.0 [place] Body Weight 148 Body Mass Index (BMI) 20.3 Weight Status Approriate GI Symptoms GI Symptoms None Last BM not indicated Difficult in: None Skin Integrity/Comment: intact Current %PO Good (75-100%) Estimated Nutritional Goals BEE in Kcals: Using Current wt Calories/Kcals/Kg 30-35 Kcals Calculated 1014-2922 Protein: Using Current wt Protein g/k.2 Protein Calculated 71 Fluid: ml 1620-2065ml (1ml/kcal) Nutritional Problem 1. Problem Problem increased nutritional needs Etiology increased metabolic demand Signs/Symptoms: dx of sepsis Malnutrition Alert Is there a minimum of two criteria No selected? Query Text:Check all the applicable criteria. A minimum of two criteria are recommended for diagnosis of either severe or non-severe malnutrition. Malnutrition Related to Morbid Obesity Malnutrition related to morbid obesity No Intervention/Recommendation Comments 1. Continue with soft/baland diet as ordered. 2. Monitor PO intake, wt, labs and skin integrity 3. F/U as moderate risk in 3-5 days Expected Outcomes/Goals Expected Outcomes/Goals 1. PO intake to meet at least 75% of nutritional needs. 2. Wt stability, skin to remain intact, labs to approach WNL.
[2018-12-31] MEDS: Sodium Ferric Gluconate 125 MG in Sodium Chloride 0.9% 100 ML IV SCH (13:28)
--- NOTE | 2018-12-31 15:34 | Consultation ---
DATE OF CONSULTATION: 12/31/2018 HEMATOLOGY ONCOLOGY CONSULTATION REFERRED BY: Dr. Donavan Baugh. REASON FOR CONSULTATION: Anemia. HISTORY OF PRESENT ILLNESS: The patient is a 58-year-old male with a history of psychosis, admitted with anemia. The patient is being evaluated by tip fixer because of stool occult blood positive and he may be considered for endoscopy. His iron studies were suggestive of iron deficiency anemia. PAST MEDICAL HISTORY: Hypertension, peptic ulcer disease, hypothyroidism, anemia and reflux disease in addition to psychosis. SOCIAL HISTORY: Lives in a nursing facility. No smoking or drug use. MEDICATIONS: Reviewed. The patient is taking lithium, Klonopin, Ativan, Seroquel, amlodipine, aspirin, Cogentin, Pepcid, Levaquin, thyroid supplementation and valproic acid. PHYSICAL EXAMINATION: GENERAL: The patient is agitated, not conversing. VITAL SIGNS: Blood pressure is stable. Afebrile. HEENT: Exfoliation of the skin on the face consistent with seborrheic dermatitis. NECK: No lymphadenopathy. ABDOMEN: Soft. EXTREMITIES: Wasted muscles. NERVOUS SYSTEM: Moves 4 extremities with rigidity, noncommunicative. LABORATORY DATA: White count 7.7, hemoglobin 10.1, platelets 242. Chemistry, ferritin 200. Iron saturation 8%, TIBC 210, B12 and folate level normal. ASSESSMENT: The iron studies are suggestive of iron deficiency anemia. Stool occult blood was positive. The patient is being evaluated by the tip fixer. He will be given iron by IV route because of his poor compliance. The leukocytosis could be secondary to lithium or reactive and the patient is on antibiotics with improvement of the white count. Thank you, Dr. Baguh, for the opportunity to participate in the care of this interesting case with you. JOB# [id number]
[2018-12-31] MEDS: Magnesium Hydroxide (MOM) 30 mL UDC PO SCH (21:03)
--- NOTE | 2018-12-31 22:31 | Progress Notes ---
DATE: 12/31/2018 SUBJECTIVE: Chart reviewed and the patient interviewed. Also discussed the patient's condition with the staff and reviewed records and labs. The patient is still severely agitated. The patient is still kicking and hitting staff during helping him with his ADLs. The patient also is having difficulty following directions and is actively hallucinating and actively responding to stimuli. Otherwise, the patient is compliant with taking medications, but still it seems that medications are not helping him as much controlling his temper and controlling his mood. ASSESSMENT: The patient is still psychotic and is still dangerous to others. TREATMENT PLAN: Continue current medications and treatment. Also, working on his irritability and his anger. Also, working on his anxiety level and his agitation. Also, we will increase Clozaril to 175 mg twice a day and we will continue to follow up closely. Also, we will discontinue Zyprexa and we will increase Seroquel to 300 mg 3 times a day. The dose of Seroquel seems to be higher than recommended dose, but it is not unusual to give higher dose with severely psychotic and agitated patients like this case. JOB# [id number]
--- NOTE | 2019-01-01 03:49 | Consultation ---
DATE OF CONSULTATION: 12/31/2018 INPATIENT GI CONSULTATION CONSULTING PHYSICIAN: Dr. Love Baugh. REASON FOR CONSULTATION: Iron-deficiency anemia. HISTORY OF PRESENT ILLNESS: The patient is a 58-year-old male with past medical history significant for schizophrenia, hypertension, GERD, hypothyroidism, who was admitted to the hospital for aggressive behavior and found to have a mild anemia. The patient was initially admitted on 12/25/2018 and since that time, he was found to have a hemoglobin in the 8-9 range as well as evidence of iron deficiency. He has had behavioral issues and has needed restraints intermittently and is acting out against staff and is unable to give a coherent history. At the current time, there is no overt GI bleeding. There is no melena, hematemesis or hematochezia. It is unclear if the patient ever had a colonoscopy or a workup before. PAST MEDICAL HISTORY: Hypertension, GERD, hypothyroidism, schizophrenia. PAST SURGICAL HISTORY: Not available. FAMILY HISTORY: Noncontributory. SOCIAL HISTORY: The patient lives at a nursing facility. There is no documented history of illicit drug use or alcoholism. ALLERGIES: There are no known drug allergies. REVIEW OF SYSTEMS: Not possible given the patient is not able to interact meaningfully in the interview. CURRENT MEDICATIONS: Include amlodipine, vitamin C, aspirin, Cogentin, Dulcolax, vitamin D, Klonopin, clonazepam, Clozaril, Pepcid, iron, Levaquin, Ativan, milk of magnesia, Seroquel, Restoril, Depakote. PHYSICAL EXAMINATION: VITAL SIGNS: The blood pressure is 106/59, pulse 80 beats per minute, temperature 98.7, oxygenation 94%. GENERAL: The patient is sitting upright in bed. He is alert and oriented x 1. He is in restraints. HEAD, EARS, EYES, NOSE, AND THROAT: Normocephalic, atraumatic. Pupils are equal and reactive. Extraocular muscles appear to be intact. Moist mucous membranes. NECK: No obvious JVD or thyromegaly. CHEST: There are some minor crackles at the bases. CARDIOVASCULAR: S1, S2 are present, regular rate and rhythm. ABDOMEN: Soft, thin, nontender to palpation. No obvious guarding, rebound. EXTREMITIES: Restraints are in place. There is no obvious edema. SKIN: No obvious jaundice. LABORATORY DATA: White blood cell count last measured at 7.7, hemoglobin 10.1, platelet count 242. Sodium 140, BUN 24, creatinine 0.8. Iron was 17, saturation 8%. Total bilirubin 0.4, AST 65, ALT 28. Stool occult blood was positive. No abdominal imaging has been performed. IMPRESSION: This is a 58-year-old male with history of schizophrenia, gastroesophageal reflux disease, hypertension, admitted to the hospital for aggressive behavior, found to have iron-deficiency anemia. 1. Schizophrenia, currently uncontrolled. 2. Iron deficiency. 3. Sepsis. DISCUSSION: At this point, it is unclear whether the patient has had an anemia workup in the past. If he is unable to give a history at all, we will try to obtain any collateral information from the patient's sister. If he has not had a workup including colonoscopy and EGD, then this can certainly be pursued, although it will be difficult to do with bowel preparation on this patient given he has behavioral issues and he is needed to be restrained for aggressive behavior. If the patient's healthcare proxy agrees to go forward, we can try to plan to do EGD and colonoscopy while he is here if we can get the bowel prep done. Alternatively, if this patient is an average risk patient for colon cancer. He can consider doing Cologuard testing in the outpatient setting and/or CT colonography as well. We will have to see which direction the healthcare proxy would like to go. RECOMMENDATIONS: 1. Try to obtain collateral information about whether this has been worked up in the past, whether the healthcare proxy would like to consent for an attempt at EGD and colonoscopy while here. 2. If there is consent obtained, we will try to plan for the procedure and bowel preparation. Thank you for allowing me to participate in his care. Please call with any further questions. JOB# [id number]
--- NOTE | 2019-01-01 09:34 | General Progress Note ---
Subjective - Review of Systems Service Date: 01/01/19 Subjective: not in distress Objective - Results Result Diagrams: 12/28/18 05:51 12/28/18 05:51 Recent Labs: Laboratory Last Values WBC 7.7 Th/cmm (4.8-10.8) 12/28/18 05:51 RBC 3.64 Mil/cmm (4.30-5.70) L 12/28/18 05:51 Hgb 10.1 gm/dL (12-16) L 12/28/18 05:51 Hct 30.8 % (41.0-60) L 12/28/18 05:51 MCV 84.5 fl (80-99) 12/28/18 05:51 MCH 27.9 pg (26.0-30.0) 12/28/18 05:51 MCHC Differential 33.0 pg (28.0-36.0) 12/28/18 05:51 RDW 13.6 % (11.5-20.0) 12/28/18 05:51 Plt Count 242 Th/cmm (150-400) 12/28/18 05:51 MPV 8.1 fl 12/28/18 05:51 Neutrophils % 54.1 % (40.0-80.0) 12/28/18 05:51 Band Neutrophils % 1 % (0-10) 12/25/18 16:11 Lymphocytes % 23.4 % (20.0-50.0) 12/28/18 05:51 Monocytes % 9.2 % (2.0-10.0) 12/28/18 05:51 Eosinophils % 12.2 % (0.0-5.0) H 12/28/18 05:51 Basophils % 1.1 % (0.0-2.0) 12/28/18 05:51 Neutrophils (Manual) 80 % (40-80) 12/25/18 16:11 Lymphocytes 12 % (20-50) L 12/25/18 16:11 Monocytes 5 % (2-10) 12/25/18 16:11 Eosinophils 2 % (0-5) 12/25/18 16:11 Total Retics Counted 2.2 % (0.5-1.5) H 12/26/18 05:40 Absolute Retic 79.2 Th/cmm 12/26/18 05:40 Corrected Retic Count 1.5 % (0.5-1.5) 12/26/18 05:40 Sodium 140 mEq/L (136-145) 12/28/18 05:51 Potassium 3.9 mEq/L (3.5-5.1) 12/28/18 05:51 Chloride 106 mEq/L (98-107) 12/28/18 05:51 Carbon Dioxide 28.3 mEq/L (21.0-31.0) 12/28/18 05:51 Anion Gap 9.6 (7.0-16.0) 12/28/18 05:51 BUN 24 mg/dL (7-25) 12/28/18 05:51 Creatinine 0.8 mg/dL (0.7-1.3) 12/28/18 05:51 Est GFR ( Amer) > 60.0 ml/min (>90) 12/28/18 05:51 Est GFR (Non-Af Amer) > 60.0 ml/min 12/28/18 05:51 BUN/Creatinine Ratio 30.0 12/28/18 05:51 Glucose 104 mg/dL (70-105) 12/28/18 05:51 POC Glucose 87 MG/DL (70 - 105) 01/01/19 08:07 Whole Bld Lactic Acid 1.37 mmol/L (0.60-1.99) 12/26/18 05:40 Calcium 9.1 mg/dL (8.6-10.3) 12/28/18 05:51 Iron 17 ug/dL (38-169) L 12/26/18 05:40 TIBC 210 ug/dL (250-450) L 12/26/18 05:40 Iron Saturation 8 % (15-55) L 12/26/18 05:40 Unsaturated IBC 193 ug/dL (111-343) 12/26/18 05:40 Ferritin 200 ng/mL (30-400) 12/26/18 05:40 Total Bilirubin 0.4 mg/dL (0.3-1.0) 12/26/18 05:40 AST 65 U/L (13-39) H 12/26/18 05:40 ALT 28 U/L (7-52) 12/26/18 05:40 Alkaline Phosphatase 58 U/L (34-104) 12/26/18 05:40 Total Protein 6.3 gm/dL (6.0-8.3) 12/26/18 05:40 Albumin 3.4 gm/dL (4.2-5.5) L 12/26/18 05:40 Globulin 2.9 gm/dL 12/26/18 05:40 Albumin/Globulin Ratio 1.2 (1.0-1.8) 12/26/18 05:40 Triglycerides 125 mg/dL (<150) 12/25/18 16:11 Cholesterol 154 mg/dL (<200) 12/25/18 16:11 LDL Cholesterol Direct 112 mg/dL (75-193) 12/25/18 16:11 HDL Cholesterol 37 mg/dL (23-92) 12/25/18 16:11 Vitamin B12 848 pg/mL (232-1245) 12/26/18 05:40 Folic Acid 6.9 ng/mL (>3.0) 12/26/18 05:40 TSH 2.61 uIU/ml (0.34-5.60) 12/25/18 16:11 Urine Source CATH 12/25/18 16:25 Urine Color COLORLESS 12/25/18 16:25 Urine Clarity CLEAR (CLEAR) 12/25/18 16:25 Urine pH 6.0 (4.6 - 8.0) 12/25/18 16:25 Ur Specific [place] 1.010 (1.005-1.030) 12/25/18 16:25 Urine Protein NEGATIVE mg/dL (NEGATIVE) 12/25/18 16:25 Urine Glucose (UA) NEGATIVE mg/dL (NEGATIVE) 12/25/18 16:25 Urine Ketones NEGATIVE mg/dL (NEGATIVE) 12/25/18 16:25 Urine Blood NEGATIVE (NEGATIVE) 12/25/18 16:25 Urine Nitrate NEGATIVE (NEGATIVE) 12/25/18 16:25 Urine Bilirubin NEGATIVE (NEGATIVE) 12/25/18 16:25 Urine Urobilinogen 0.2 E.U./dL (0.2 - 1.0) 12/25/18 16:25 Ur Leukocyte Esterase NEGATIVE (NEGATIVE) 12/25/18 16:25 Stool Occult Blood POSITIVE (NEGATIVE) H 12/30/18 13:00 Valproic Acid < 10.0 ug/mL (50.0-100.0) L 12/30/18 04:25 [place] 0.06 mmol/L (0.5-1.0) L 12/30/18 04:25 RPR NONREACTIVE (NONREACTIVE) 12/25/18 16:11 Influenza A (Rapid) NEG FOR INF A 12/25/18 16:30 Influenza B (Rapid) NEG FOR INF B 12/25/18 16:30 - Physical Exam Vitals and I&O: Vital Signs Temp 98.0 F 01/01/19 04:00 Pulse 72 01/01/19 04:00 Resp 20 01/01/19 04:00 BP 105/68 01/01/19 04:00 Pulse Ox 94 01/01/19 04:00 Intake & Output 12/31/18 01/01/19 01/01/19 18:59 06:59 18:59 Intake Total 2500 Output Total 2000 Balance 500 Weight (lbs) 59.874 kg Intake: Oral 2500 Output: Stool 2000 Other: # Voids 4 Weight Source Bedscale Active Medications: Current Medications Amlodipine Besylate (Norvasc) 10 mg PO DAILY [facility] Stop: 02/28/19 08:59 Last Admin: 12/31/18 08:55 Dose: 10 mg Ascorbic Acid (Vitamin C) 500 mg PO DAILY [facility] Stop: 03/01/19 08:59 Last Admin: 12/31/18 08:55 Dose: 500 mg Aspirin (Ecotrin) 81 mg PO DAILY [facility] Stop: 02/28/19 08:59 Last Admin: 12/31/18 08:54 Dose: 81 mg Benztropine Mesylate (Cogentin) 1 mg PO TID [facility] Stop: 02/28/19 08:59 Last Admin: 12/31/18 21:02 Dose: 1 mg Bisacodyl (Dulcolax 10 Mg Supp) 10 mg RC DAILY [facility] Stop: 02/28/19 08:59 Last Admin: 12/31/18 08:56 Dose: Not Given Cholecalciferol (Vitamin D3) 5,000 iu PO DAILY [facility] Stop: 02/28/19 08:59 Last Admin: 12/31/18 09:12 Dose: 5,000 iu Clonazepam (Klonopin) 2 mg PO TID [facility]; Protocol Stop: 02/27/19 08:59 Last Admin: 12/31/18 21:02 Dose: 2 mg Clonazepam (Klonopin) 1 mg PO TID [facility] Stop: 02/28/19 08:59 Last Admin: 12/31/18 21:03 Dose: Not Given Clozapine 100 mg/ Clozapine 75 (mg) 175 mg PO BID [facility] Stop: 03/01/19 16:59 Famotidine (Pepcid) 40 mg PO DAILY [facility] Stop: 02/28/19 08:59 Last Admin: 12/31/18 08:54 Dose: 40 mg Ferric Sodium Gluconate Complex 125 mg/ Sodium Chloride 110 mls @ 100 mls/hr IV Q24HR@1000 [facility] Stop: 01/07/19 11:05 Last Admin: 12/31/18 13:28 Dose: 100 mls/hr Levofloxacin (Levaquin) 500 mg PO DAILY [facility] Stop: 02/24/19 15:59 Last Admin: 12/31/18 08:54 Dose: 500 mg Levothyroxine Sodium 0.025 mg/ (Levothyroxine Sodium 0.112 mg) 0.137 mg PO DAILY@0730 [facility] Stop: 02/28/19 07:29 Last Admin: 01/01/19 06:33 Dose: Not Given [place] Carbonate (Eskalith) 300 mg PO BID [facility]; Protocol Stop: 02/28/19 08:59 Lorazepam (Ativan) 1 mg IVP Q4HR PRN; Protocol PRN Reason: Agitation Stop: 02/24/19 07:30 Last Admin: 12/31/18 13:35 Dose: 1 mg Magnesium Hydroxide (Milk Of Magnesia) 30 ml PO HS [facility] Stop: 02/28/19 20:59 Last Admin: 12/31/18 21:03 Dose: 30 ml Quetiapine Fumarate (Seroquel) 300 mg PO TID [facility]; Protocol Stop: 03/01/19 08:59 Last Admin: 12/31/18 21:03 Dose: 300 mg Temazepam (Restoril) 30 mg PO HS PRN PRN Reason: Insomnia Valproate Sodium (Depakene) 500 mg PO BID [facility]; Protocol Stop: 02/28/19 08:59 General: Other (confused) HEENT: Atraumatic Neck: Supple Lungs: Clear to auscultation Abdomen: Soft Assessment/Plan - Assessment Assessment: The iron studies are suggestive of iron deficiency anemia. Stool occult blood was positive. The patient is being evaluated by the chemical etch operator. He will be given iron by IV route because of his poor compliance. The leukocytosis could be secondary to lithium or reactive and the patient is on antibiotics with improvement of the white count. Nutritional Asmnt/Malnutr-PDOC - Dietary Evaluation Malnutrition Findings (Please click <Entered> for more info): Nutritional Asmnt/Malnutrition Start: 12/26/18 15: 09 Text: Status: Complete Freq: Protocol: Document 12/26/18 15:09 [email or web address] (Rec: 12/26/18 15:12 [id number] Nutritional Asmnt/Malnutrition Patient General Information Nutritional Screening High Risk Diagnosis sepsis Pertinent Medical Hx/Surgical Hx HTN, PUD/GERD, thyroid disorder, anemia, schizophrenia Subjective Information Pt seen in bed, disoriented, yelling, has 1:1 sitter in room. Per sitter, pt consumed 100% of breakfast and lunch today. Current Diet Order/ Nutrition Support soft/bland Pertinent Medications seroquel Pertinent Labs 12/25 BUN 26, Alb 3.5 Nutritional Hx/Data Height 1.7 m Height (Calculated Centimeters) 170.2 Current Weight (lbs) 58.967 kg Weight (Calculated Kilograms) 59.0 Weight (Calculated Grams) 38537.0 [place] Body Weight 148 Body Mass Index (BMI) 20.3 Weight Status Approriate GI Symptoms GI Symptoms None Last BM not indicated Difficult in: None Skin Integrity/Comment: intact Current %PO Good (75-100%) Estimated Nutritional Goals BEE in Kcals: Using Current wt Calories/Kcals/Kg 30-35 Kcals Calculated 9409-4643 Protein: Using Current wt Protein g/k.2 Protein Calculated 71 Fluid: ml 1620-2065ml (1ml/kcal) Nutritional Problem 1. Problem Problem increased nutritional needs Etiology increased metabolic demand Signs/Symptoms: dx of sepsis Malnutrition Alert Is there a minimum of two criteria No selected? Query Text:Check all the applicable criteria. A minimum of two criteria are recommended for diagnosis of either severe or non-severe malnutrition. Malnutrition Related to Morbid Obesity Malnutrition related to morbid obesity No Intervention/Recommendation Comments 1. Continue with soft/baland diet as ordered. 2. Monitor PO intake, wt, labs and skin integrity 3. F/U as moderate risk in 3-5 days Expected Outcomes/Goals Expected Outcomes/Goals 1. PO intake to meet at least 75% of nutritional needs. 2. Wt stability, skin to remain intact, labs to approach WNL.
[2019-01-01] MEDS: cloZAPine 100 MG, cloZAPine 75 MG PO SCH ×2 (09:41→17:02)
[2019-01-01] MEDS: Benztropine 1 MG TAB PO SCH ×3 (09:42→22:41)
[2019-01-01] MEDS: Multivitamin w/ Minerals Tab PO SCH (09:43)
[2019-01-01] MEDS: Sodium Ferric Gluconate 125 MG in Sodium Chloride 0.9% 100 ML IV SCH (09:44)
[2019-01-01] MEDS ORDERED: Lactated Ringer 1,000 ML IV ONE (10:00)
[2019-01-01] MEDS ORDERED: Propofol 10 mg/mL 20mL Vial **SURGERY USE ONLY IV ONE (10:00)
[2019-01-01] MEDS ORDERED: Lidocaine 2% Gel 5 mL TP ONE (10:00)
--- NOTE | 2019-01-01 11:15 | Operative Report ---
DATE OF SURGERY: 01/01/2019 INPATIENT EGD AND FLEXIBLE SIGMOIDOSCOPY REPORT PROCEDURE PERFORMED: EGD with biopsy and flexible sigmoidoscopy. ENDOSCOPIST: Saqib Muir MD PREOPERATIVE DIAGNOSES: Iron deficiency anemia and positive occult blood in the stool. POSTOPERATIVE DIAGNOSIS: Normal appearing stomach, poor prep colon. INDICATION: The patient is a 58-year-old male with history of schizophrenia, poor behavioral control, who was admitted to the hospital for aggressive behavior, but found to have iron deficiency anemia with occult positive stool. He is here for EGD and colonoscopy. CONSENT: Informed consent was obtained from the patient's sister. The risks and benefits of the procedure were discussed including but not limited to infection, bleeding, perforation, need for surgery, cardiopulmonary complications, missed pathology and . The patient's sister indicated her understanding of these risks, wished to go forward with the procedure and signed the consent form. ANESTHESIA: The procedure was done in the operating room under the care of the general anesthesiologist, Dr. Coronado. PROCEDURE IN DETAIL: The patient was hooked up to the appropriate monitoring devices including blood pressure, pulse and pulse oximetry and then anesthesia was applied by Dr. Coronado. The patient was in the left lateral decubitus position. Mouthpiece was inserted and secured. Next, a gastroscope was introduced into the mouth and guided under direct visualization into the esophagus, stomach and then duodenum. The scope was slowly and carefully withdrawn making sure to examine the entire mucosa in a careful and systematic fashion. Retroflexion was performed in the stomach prior to scope straightening and withdrawal from the body. There was no obvious sign of complication at the end of the procedure. The patient was then repositioned into the colonoscopy position and rectal exam performed. Next, a colonoscope introduced in the anus and guided under direct visualization to the level of the transverse colon or ascending colon. The scope was slowly and carefully withdrawn from this point making sure examining all the colonic mucosa available in a careful and systematic fashion. No obvious sign of complication was observed at the end of procedure. FINDINGS: EGD PORTION: Esophagus: The GE junction was located at 40 cm from the incisors. There was no evidence of any esophageal mass or esophagitis. Stomach portion: There was no gastritis. There was no gastric lesion or ulcer. Biopsies were taken from the antrum to look for any H. pylori infection. Duodenum: The duodenal bulb and second portion appeared endoscopically normal and biopsies were taken for celiac disease evaluation. COLONOSCOPY PORTION: Unfortunately, the bowel preparation was extremely poor and there was solid stool and mushy stool throughout the examined portions of the colon and essentially no exam could be performed despite attempts of trying to move the scope into the cecum; thus, somewhere in the transverse or ascending colon, the scope was withdrawn. There was no obvious mass lesion seen. However, this was a very bad prep and this exam will need to be repeated. IMPRESSION: 1. Normal appearing stomach status post biopsies. 2. Poor preparation colon. RECOMMENDATION: We will likely need to repeat this tomorrow. I suggest an NG tube for bowel preparation to be given to the patient as he is unlikely to take this voluntarily. This was told to the nursing staff last night, although I have some doubts about whether this was done. 2. NPO at midnight. 3. Only clears today. Thank you for allowing me to participate in his care. Please call with any further questions. [facility]# [id number] [id number]
[2019-01-01 17:33] LABS: % BASOPHILS 0.7 % (0.0-2.0); % EOSINOPHILS 4.1 % (0.0-5.0); % LYMPHOCYTES 16.3 % (20.0-50.0); % MONOCYTES 8.2 % (2.0-10.0); % NEUTROPHILS 70.7 % (40.0-80.0); BASOPHILE ABSOLUTE 0.1 Th/cumm (0-0.2); EOSINOPHILE ABSOLUTE 0.5 Th/cmm (0.1-0.4); HEMATOCRIT 37.4 % (41.0-60); HEMOGLOBIN 12.2 gm/dL (12-16); LYMPHOCYTE ABSOLUTE 1.9 Th/cmm (1.5-3.0); MEAN CELL VOLUME 85.4 fl (80-99); MEAN CORPUSCULAR HEMOGLOBIN 27.9 pg (26.0-30.0); MEAN CORPUSCULAR HGB CONC 32.7 pg (28.0-36.0); MEAN PLATELET VOLUME 8.3 fl; NEUTROPHILE ABSOLUTE 8.3 Th/cmm (1.8-8.0); PLATELET COUNT 241 Th/cmm (150-400); RED BLOOD COUNT 4.38 Mil/cmm (4.30-5.70); RED CELL DISTRIBUTION WIDTH 13.5 % (11.5-20.0); WHITE BLOOD COUNT 11.8 Th/cmm (4.8-10.8)
[2019-01-01 17:43] LABS: INR 1.04 (0.5-1.4); PROTHROMBIN TIME (TEST) 10.8 SECONDS (9.5-11.5)
[2019-01-01 17:46] LABS: ANION GAP 12.9 (7.0-16.0); BUN - UREA NITROGEN 22 mg/dL (7-25); CALCIUM SERUM 9.3 mg/dL (8.6-10.3); CARBON DIOXIDE 27.8 mEq/L (21.0-31.0); CHLORIDE 95 mEq/L (98-107); CREATININE - SERUM 1.1 mg/dL (0.7-1.3); GFR AFRICAN-AMERICAN > 60.0 ml/min (>90); GFR NON AFRICAN-AMERICAN > 60.0 ml/min; GLUCOSE 123 mg/dL (70-105); POTASSIUM SERUM 3.7 mEq/L (3.5-5.1); SODIUM SERUM 132 mEq/L (136-145)
[2019-01-01] MEDS ORDERED: D5-0.45NS 1,000 ML IV SCH (19:38)
[2019-01-01] MEDS: Magnesium Hydroxide (MOM) 30 mL UDC PO SCH (22:41)
[2019-01-02 06:40] LABS: % BASOPHILS 0.8 % (0.0-2.0); % EOSINOPHILS 5.8 % (0.0-5.0); % LYMPHOCYTES 14.7 % (20.0-50.0); % MONOCYTES 7.3 % (2.0-10.0); % NEUTROPHILS 71.4 % (40.0-80.0); BASOPHILE ABSOLUTE 0.1 Th/cumm (0-0.2); EOSINOPHILE ABSOLUTE 0.6 Th/cmm (0.1-0.4); HEMATOCRIT 33.7 % (41.0-60); LYMPHOCYTE ABSOLUTE 1.5 Th/cmm (1.5-3.0); MEAN CELL VOLUME 85.1 fl (80-99); MEAN CORPUSCULAR HEMOGLOBIN 27.9 pg (26.0-30.0); MEAN CORPUSCULAR HGB CONC 32.7 pg (28.0-36.0); MEAN PLATELET VOLUME 8.8 fl; MONOCYTE ABSOLUTE 0.8 Th/cmm (0.3-1.0); NEUTROPHILE ABSOLUTE 7.4 Th/cmm (1.8-8.0); PLATELET COUNT 193 Th/cmm (150-400); RED BLOOD COUNT 3.96 Mil/cmm (4.30-5.70); RED CELL DISTRIBUTION WIDTH 13.4 % (11.5-20.0); WHITE BLOOD COUNT 10.4 Th/cmm (4.8-10.8)
[2019-01-02 06:41] LABS: INR 1.05 (0.5-1.4); PROTHROMBIN TIME (TEST) 10.9 SECONDS (9.5-11.5)
[2019-01-02 07:04] LABS: ANION GAP 11.7 (7.0-16.0); BUN - UREA NITROGEN 18 mg/dL (7-25); CARBON DIOXIDE 30.9 mEq/L (21.0-31.0); CHLORIDE 97 mEq/L (98-107); CREATININE - SERUM 1.1 mg/dL (0.7-1.3); GFR AFRICAN-AMERICAN > 60.0 ml/min (>90); GFR NON AFRICAN-AMERICAN > 60.0 ml/min; GLUCOSE 121 mg/dL (70-105); POTASSIUM SERUM 3.6 mEq/L (3.5-5.1); SODIUM SERUM 136 mEq/L (136-145)
[2019-01-02] MEDS ORDERED: Lidocaine 2% Gel 5 mL TP ONE ×2 (08:20→08:39)
[2019-01-02] MEDS: cloZAPine 100 MG, cloZAPine 75 MG PO SCH ×2 (12:09→16:22)
[2019-01-02] MEDS: Benztropine 1 MG TAB PO SCH ×3 (12:09→20:03)
[2019-01-02] MEDS: Multivitamin w/ Minerals Tab PO SCH (12:10)
--- NOTE | 2019-01-02 12:51 | Operative Report ---
DATE OF SURGERY: 01/02/2019 INPATIENT COLONOSCOPY REPORT ENDOSCOPIST: Saqib Muir MD PREOPERATIVE DIAGNOSIS: Iron-deficiency anemia and positive occult blood. POSTOPERATIVE DIAGNOSIS: Colon polyps, internal hemorrhoids, poor preparation. INDICATION: The patient is a 58-year-old male with history of schizophrenia who has been found to have iron-deficiency anemia and a positive occult blood. He had an EGD yesterday and a colonoscopy was attempted then, but he had extremely poor bowel prep and thus we are here again today to try a colonoscopy. CONSENT: Informed consent was obtained from the patient. The risks and benefits of the procedure were discussed with the patient's sister in depth including but not limited to infection, bleeding, perforation, need for surgery, cardiopulmonary complications and missed pathology and . The patient's history indicated he understood these risks, which go for the procedure and signed a consent form. ANESTHESIA: The procedure was done in the operating room under the care of the general anesthesia, the anesthesiologist performing propofol for sedation. PROCEDURE IN DETAIL: The patient was hooked to appropriate monitoring devices including blood pressure, pulse and pulse oximetry. An IV was in place. Oxygen was delivered via nasal cannula to the procedure. IV sedation medication was given in divided doses under the direction of the physician. The patient was in the left lateral decubitus position. Rectal exam was performed. Next, a colonoscope introduced in the anus and guided under direct visualization into the level of the cecum, which was confirmed by the presence of the appendiceal orifice and IC valve, which were photographed. The scope was then slowly and carefully withdrawn, making sure to examine the entire available colonic mucosa in a careful and systematic fashion. Retroflexion was performed in the rectum prior to scope straightening and withdrawal from the body. There was no obvious sign of complication at the end of procedure. FINDINGS: The Treichlers bowel to score is 1 in the right colon 1 in the mid colon, and 2 in the left colon. Again, the bowel preparation was poor. There was solid stool and debris that was not able to be suctioned; however, I was able to reach the cecum on this attempt and I was able to rule out any large colon cancers or mass lesions, polyps less than 1 cm in size may have been missed given this preparation. However, in the ascending colon, a 4 mm sessile polyp was found and removed with cold biopsy forceps and collected. In the transverse colon, a 1 cm sessile polyp was found and was removed with cold snare polypectomy and collected. There were no other polyps seen, although it again the bowel preparation was rather poor. On retroflexion in the rectum, there were internal hemorrhoids. IMPRESSION: 1. Poor bowel preparation. 2. Ascending colon polyp x 1. 3. Transverse colon polyp x 1. 4. Internal hemorrhoids. RECOMMENDATIONS: 1. No source of GI blood loss was found on the EGD and colonoscopy. We will follow up the biopsy results. 2. If desired, the patient can be seen in an outpatient basis for capsule endoscopy. 3. Continue workup with Hematology. 4. Start the diet and advance as tolerated. Thank you for allowing me to participate in his care. Please call with questions. [facility]# [id number]
[2019-01-02] MEDS: Sodium Ferric Gluconate 125 MG in Sodium Chloride 0.9% 100 ML IV SCH (14:27)
--- NOTE | 2019-01-02 14:28 | Infectious Disease Prog Note ---
Infectious Disease Subjective - Review of Systems Service Date: 01/02/19 Events since last encounter: Colonoscopy was done. no fever. Subjective: no fever. Infectious Disease Objective - Results Result Diagrams: 01/02/19 05:40 01/02/19 05:40 Recent Labs: Laboratory Last Values WBC 10.4 Th/cmm (4.8-10.8) 01/02/19 05:40 RBC 3.96 Mil/cmm (4.30-5.70) L 01/02/19 05:40 Hgb 11.0 gm/dL (12-16) L 01/02/19 05:40 Hct 33.7 % (41.0-60) L 01/02/19 05:40 MCV 85.1 fl (80-99) 01/02/19 05:40 MCH 27.9 pg (26.0-30.0) 01/02/19 05:40 MCHC Differential 32.7 pg (28.0-36.0) 01/02/19 05:40 RDW 13.4 % (11.5-20.0) 01/02/19 05:40 Plt Count 193 Th/cmm (150-400) 01/02/19 05:40 MPV 8.8 fl 01/02/19 05:40 Neutrophils % 71.4 % (40.0-80.0) 01/02/19 05:40 Band Neutrophils % 1 % (0-10) 12/25/18 16:11 Lymphocytes % 14.7 % (20.0-50.0) L 01/02/19 05:40 Monocytes % 7.3 % (2.0-10.0) 01/02/19 05:40 Eosinophils % 5.8 % (0.0-5.0) H 01/02/19 05:40 Basophils % 0.8 % (0.0-2.0) 01/02/19 05:40 Neutrophils (Manual) 80 % (40-80) 12/25/18 16:11 Lymphocytes 12 % (20-50) L 12/25/18 16:11 Monocytes 5 % (2-10) 12/25/18 16:11 Eosinophils 2 % (0-5) 12/25/18 16:11 Total Retics Counted 2.2 % (0.5-1.5) H 12/26/18 05:40 Absolute Retic 79.2 Th/cmm 12/26/18 05:40 Corrected Retic Count 1.5 % (0.5-1.5) 12/26/18 05:40 PT 10.9 SECONDS (9.5-11.5) 01/02/19 05:40 INR 1.05 (0.5-1.4) 01/02/19 05:40 Sodium 136 mEq/L (136-145) 01/02/19 05:40 Potassium 3.6 mEq/L (3.5-5.1) 01/02/19 05:40 Chloride 97 mEq/L (98-107) L 01/02/19 05:40 Carbon Dioxide 30.9 mEq/L (21.0-31.0) 01/02/19 05:40 Anion Gap 11.7 (7.0-16.0) 01/02/19 05:40 BUN 18 mg/dL (7-25) 01/02/19 05:40 Creatinine 1.1 mg/dL (0.7-1.3) 01/02/19 05:40 Est GFR ( Amer) > 60.0 ml/min (>90) 01/02/19 05:40 Est GFR (Non-Af Amer) > 60.0 ml/min 01/02/19 05:40 BUN/Creatinine Ratio 16.4 01/02/19 05:40 Glucose 121 mg/dL (70-105) H 01/02/19 05:40 POC Glucose 87 MG/DL (70 - 105) 01/01/19 08:07 Whole Bld Lactic Acid 1.37 mmol/L (0.60-1.99) 12/26/18 05:40 Calcium 9.0 mg/dL (8.6-10.3) 01/02/19 05:40 Iron 17 ug/dL (38-169) L 12/26/18 05:40 TIBC 210 ug/dL (250-450) L 12/26/18 05:40 Iron Saturation 8 % (15-55) L 12/26/18 05:40 Unsaturated IBC 193 ug/dL (111-343) 12/26/18 05:40 Ferritin 200 ng/mL (30-400) 12/26/18 05:40 Total Bilirubin 0.4 mg/dL (0.3-1.0) 12/26/18 05:40 AST 65 U/L (13-39) H 12/26/18 05:40 ALT 28 U/L (7-52) 12/26/18 05:40 Alkaline Phosphatase 58 U/L (34-104) 12/26/18 05:40 Total Protein 6.3 gm/dL (6.0-8.3) 12/26/18 05:40 Albumin 3.4 gm/dL (4.2-5.5) L 12/26/18 05:40 Globulin 2.9 gm/dL 12/26/18 05:40 Albumin/Globulin Ratio 1.2 (1.0-1.8) 12/26/18 05:40 Triglycerides 125 mg/dL (<150) 12/25/18 16:11 Cholesterol 154 mg/dL (<200) 12/25/18 16:11 LDL Cholesterol Direct 112 mg/dL (75-193) 12/25/18 16:11 HDL Cholesterol 37 mg/dL (23-92) 12/25/18 16:11 Vitamin B12 848 pg/mL (232-1245) 12/26/18 05:40 Folic Acid 6.9 ng/mL (>3.0) 12/26/18 05:40 TSH 2.61 uIU/ml (0.34-5.60) 12/25/18 16:11 Urine Source CATH 12/25/18 16:25 Urine Color COLORLESS 12/25/18 16:25 Urine Clarity CLEAR (CLEAR) 12/25/18 16:25 Urine pH 6.0 (4.6 - 8.0) 12/25/18 16:25 Ur Specific [place] 1.010 (1.005-1.030) 12/25/18 16:25 Urine Protein NEGATIVE mg/dL (NEGATIVE) 12/25/18 16:25 Urine Glucose (UA) NEGATIVE mg/dL (NEGATIVE) 12/25/18 16:25 Urine Ketones NEGATIVE mg/dL (NEGATIVE) 12/25/18 16:25 Urine Blood NEGATIVE (NEGATIVE) 12/25/18 16:25 Urine Nitrate NEGATIVE (NEGATIVE) 12/25/18 16:25 Urine Bilirubin NEGATIVE (NEGATIVE) 12/25/18 16:25 Urine Urobilinogen 0.2 E.U./dL (0.2 - 1.0) 12/25/18 16:25 Ur Leukocyte Esterase NEGATIVE (NEGATIVE) 12/25/18 16:25 Stool Occult Blood POSITIVE (NEGATIVE) H 12/30/18 13:00 Valproic Acid < 10.0 ug/mL (50.0-100.0) L 12/30/18 04:25 [place] 0.06 mmol/L (0.5-1.0) L 12/30/18 04:25 RPR NONREACTIVE (NONREACTIVE) 12/25/18 16:11 Influenza A (Rapid) NEG FOR INF A 12/25/18 16:30 Influenza B (Rapid) NEG FOR INF B 12/25/18 16:30 - Physical Exam Vitals and I&O: Vital Signs Temp 97.0 F 01/02/19 12:00 Pulse 83 01/02/19 12:00 Resp 18 01/02/19 12:00 BP 130/70 01/02/19 12:00 Pulse Ox 97 01/02/19 12:00 Intake & Output 01/01/19 01/02/19 01/02/19 18:59 06:59 18:59 Intake Total 610 900 Balance 610 900 Weight (lbs) 68.447 kg 68.447 kg Intake: Oral 610 900 Other: # Voids 2 # Bowel Movements 1 Stool Characteristics Soft Liquid Brown Weight Source Bedscale Bedscale Active Medications: Current Medications Amlodipine Besylate (Norvasc) 10 mg PO DAILY [facility] Stop: 02/28/19 08:59 Last Admin: 01/02/19 12:09 Dose: Not Given Ascorbic Acid (Vitamin C) 500 mg PO DAILY [facility] Stop: 03/01/19 08:59 Last Admin: 01/02/19 12:09 Dose: Not Given Aspirin (Ecotrin) 81 mg PO DAILY [facility] Stop: 02/28/19 08:59 Last Admin: 01/02/19 12:09 Dose: Not Given Benztropine Mesylate (Cogentin) 1 mg PO TID [facility] Stop: 02/28/19 08:59 Last Admin: 01/02/19 12:09 Dose: Not Given Bisacodyl (Dulcolax 10 Mg Supp) 10 mg RC DAILY [facility] Stop: 02/28/19 08:59 Last Admin: 01/02/19 12:09 Dose: Not Given Cholecalciferol (Vitamin D3) 5,000 iu PO DAILY [facility] Stop: 02/28/19 08:59 Last Admin: 01/02/19 12:09 Dose: Not Given Clonazepam (Klonopin) 2 mg PO TID [facility]; Protocol Stop: 02/27/19 08:59 Last Admin: 01/02/19 12:09 Dose: Not Given Clozapine 100 mg/ Clozapine 75 (mg) 175 mg PO BID [facility] Stop: 03/01/19 16:59 Last Admin: 01/02/19 12:09 Dose: Not Given Famotidine (Pepcid) 40 mg PO DAILY [facility] Stop: 02/28/19 08:59 Last Admin: 01/02/19 12:10 Dose: Not Given Ferric Sodium Gluconate Complex 125 mg/ Sodium Chloride 110 mls @ 100 mls/hr IV Q24HR@1000 [facility] Stop: 01/08/19 11:59 Last Admin: 01/01/19 09:44 Dose: Not Given Dextrose/Sodium Chloride (D5-0.45ns) 1,000 mls @ 50 mls/hr IV .Q20H [facility] Stop: 03/02/19 19:37 Levofloxacin (Levaquin) 500 mg PO DAILY [facility] Stop: 02/24/19 15:59 Last Admin: 01/01/19 09:43 Dose: Not Given Levothyroxine Sodium 0.025 mg/ (Levothyroxine Sodium 0.112 mg) 0.137 mg PO DAILY@0730 [facility] Stop: 02/28/19 07:29 Last Admin: 01/02/19 06:34 Dose: Not Given [place] Carbonate (Eskalith) 300 mg PO BID [facility]; Protocol Stop: 02/28/19 08:59 Last Admin: 01/02/19 12:08 Dose: Not Given Lorazepam (Ativan) 1 mg IVP Q4HR PRN; Protocol PRN Reason: Agitation Stop: 02/24/19 07:30 Last Admin: 12/31/18 13:35 Dose: 1 mg Magnesium Hydroxide (Milk Of Magnesia) 30 ml PO HS [facility] Stop: 02/28/19 20:59 Last Admin: 01/01/19 22:41 Dose: 30 ml Quetiapine Fumarate (Seroquel) 300 mg PO TID [facility]; Protocol Stop: 03/01/19 08:59 Last Admin: 01/02/19 12:08 Dose: Not Given Temazepam (Restoril) 30 mg PO HS PRN PRN Reason: Insomnia Valproate Sodium (Depakene) 500 mg PO BID [facility]; Protocol Stop: 02/28/19 08:59 Last Admin: 01/02/19 12:08 Dose: Not Given General: no acute distress, well developed, well nourished HEENT: atraumatic, normocephalic, PERRLA Neck: supple, no thyromegaly Cardiovascular: S1S2, regular Lungs: clear to auscultation bilaterally, clear to percussion Abdomen: soft, no tender, no distended Extremities: no cyanosis, no clubbing, no edema Neurological: awake, alert Skin: intact Infectious Disease Assmt/Plan - Assessment Assessment: 1. Agitation, aggressive behavior. 2. Pneumonia. 3. Leukocytosis, suspect sepsis as patient also had lactic acidosis and tachycardia on presentation. 4. Hypothyroidism. 5. Anemia. 6. Schizophrenia. 7. Hypertension. 8. History of gastroesophageal reflux disease. 9. Iron deficiency anemia. - Plan Plan: Continue the same treatment. As per Dr Craven. Nutritional Asmnt/Malnutr-PDOC - Dietary Evaluation Malnutrition Findings (Please click <Entered> for more info): Nutritional Asmnt/Malnutrition Start: 12/26/18 15: 09 Text: Status: Complete Freq: Protocol: Document 12/26/18 15:09 LCHENG (Rec: 12/26/18 15:12 [email or web address]) Nutritional Asmnt/Malnutrition Patient General Information Nutritional Screening High Risk Diagnosis sepsis Pertinent Medical Hx/Surgical Hx HTN, PUD/GERD, thyroid disorder, anemia, schizophrenia Subjective Information Pt seen in bed, disoriented, yelling, has 1:1 sitter in room. Per sitter, pt consumed 100% of breakfast and lunch today. Current Diet Order/ Nutrition Support soft/bland Pertinent Medications seroquel Pertinent Labs 12/25 BUN 26, Alb 3.5 Nutritional Hx/Data Height 1.7 m Height (Calculated Centimeters) 170.2 Current Weight (lbs) 58.967 kg Weight (Calculated Kilograms) 59.0 Weight (Calculated Grams) 52049.0 [place] Body Weight 148 Body Mass Index (BMI) 20.3 Weight Status Approriate GI Symptoms GI Symptoms None Last BM not indicated Difficult in: None Skin Integrity/Comment: intact Current %PO Good (75-100%) Estimated Nutritional Goals BEE in Kcals: Using Current wt Calories/Kcals/Kg 30-35 Kcals Calculated 7575-3777 Protein: Using Current wt Protein g/k.2 Protein Calculated 71 Fluid: ml 1620-2065ml (1ml/kcal) Nutritional Problem 1. Problem Problem increased nutritional needs Etiology increased metabolic demand Signs/Symptoms: dx of sepsis Malnutrition Alert Is there a minimum of two criteria No selected? Query Text:Check all the applicable criteria. A minimum of two criteria are recommended for diagnosis of either severe or non-severe malnutrition. Malnutrition Related to Morbid Obesity Malnutrition related to morbid obesity No Intervention/Recommendation Comments 1. Continue with soft/baland diet as ordered. 2. Monitor PO intake, wt, labs and skin integrity 3. F/U as moderate risk in 3-5 days Expected Outcomes/Goals Expected Outcomes/Goals 1. PO intake to meet at least 75% of nutritional needs. 2. Wt stability, skin to remain intact, labs to approach WNL.
--- NOTE | 2019-01-02 14:40 | General Progress Note ---
Subjective - Review of Systems Service Date: 01/02/19 Subjective: not in distress, sleepy Objective - Results Result Diagrams: 01/02/19 05:40 01/02/19 05:40 Recent Labs: Laboratory Last Values WBC 10.4 Th/cmm (4.8-10.8) 01/02/19 05:40 RBC 3.96 Mil/cmm (4.30-5.70) L 01/02/19 05:40 Hgb 11.0 gm/dL (12-16) L 01/02/19 05:40 Hct 33.7 % (41.0-60) L 01/02/19 05:40 MCV 85.1 fl (80-99) 01/02/19 05:40 MCH 27.9 pg (26.0-30.0) 01/02/19 05:40 MCHC Differential 32.7 pg (28.0-36.0) 01/02/19 05:40 RDW 13.4 % (11.5-20.0) 01/02/19 05:40 Plt Count 193 Th/cmm (150-400) 01/02/19 05:40 MPV 8.8 fl 01/02/19 05:40 Neutrophils % 71.4 % (40.0-80.0) 01/02/19 05:40 Band Neutrophils % 1 % (0-10) 12/25/18 16:11 Lymphocytes % 14.7 % (20.0-50.0) L 01/02/19 05:40 Monocytes % 7.3 % (2.0-10.0) 01/02/19 05:40 Eosinophils % 5.8 % (0.0-5.0) H 01/02/19 05:40 Basophils % 0.8 % (0.0-2.0) 01/02/19 05:40 Neutrophils (Manual) 80 % (40-80) 12/25/18 16:11 Lymphocytes 12 % (20-50) L 12/25/18 16:11 Monocytes 5 % (2-10) 12/25/18 16:11 Eosinophils 2 % (0-5) 12/25/18 16:11 Total Retics Counted 2.2 % (0.5-1.5) H 12/26/18 05:40 Absolute Retic 79.2 Th/cmm 12/26/18 05:40 Corrected Retic Count 1.5 % (0.5-1.5) 12/26/18 05:40 PT 10.9 SECONDS (9.5-11.5) 01/02/19 05:40 INR 1.05 (0.5-1.4) 01/02/19 05:40 Sodium 136 mEq/L (136-145) 01/02/19 05:40 Potassium 3.6 mEq/L (3.5-5.1) 01/02/19 05:40 Chloride 97 mEq/L (98-107) L 01/02/19 05:40 Carbon Dioxide 30.9 mEq/L (21.0-31.0) 01/02/19 05:40 Anion Gap 11.7 (7.0-16.0) 01/02/19 05:40 BUN 18 mg/dL (7-25) 01/02/19 05:40 Creatinine 1.1 mg/dL (0.7-1.3) 01/02/19 05:40 Est GFR ( Amer) > 60.0 ml/min (>90) 01/02/19 05:40 Est GFR (Non-Af Amer) > 60.0 ml/min 01/02/19 05:40 BUN/Creatinine Ratio 16.4 01/02/19 05:40 Glucose 121 mg/dL (70-105) H 01/02/19 05:40 POC Glucose 87 MG/DL (70 - 105) 01/01/19 08:07 Whole Bld Lactic Acid 1.37 mmol/L (0.60-1.99) 12/26/18 05:40 Calcium 9.0 mg/dL (8.6-10.3) 01/02/19 05:40 Iron 17 ug/dL (38-169) L 12/26/18 05:40 TIBC 210 ug/dL (250-450) L 12/26/18 05:40 Iron Saturation 8 % (15-55) L 12/26/18 05:40 Unsaturated IBC 193 ug/dL (111-343) 12/26/18 05:40 Ferritin 200 ng/mL (30-400) 12/26/18 05:40 Total Bilirubin 0.4 mg/dL (0.3-1.0) 12/26/18 05:40 AST 65 U/L (13-39) H 12/26/18 05:40 ALT 28 U/L (7-52) 12/26/18 05:40 Alkaline Phosphatase 58 U/L (34-104) 12/26/18 05:40 Total Protein 6.3 gm/dL (6.0-8.3) 12/26/18 05:40 Albumin 3.4 gm/dL (4.2-5.5) L 12/26/18 05:40 Globulin 2.9 gm/dL 12/26/18 05:40 Albumin/Globulin Ratio 1.2 (1.0-1.8) 12/26/18 05:40 Triglycerides 125 mg/dL (<150) 12/25/18 16:11 Cholesterol 154 mg/dL (<200) 12/25/18 16:11 LDL Cholesterol Direct 112 mg/dL (75-193) 12/25/18 16:11 HDL Cholesterol 37 mg/dL (23-92) 12/25/18 16:11 Vitamin B12 848 pg/mL (232-1245) 12/26/18 05:40 Folic Acid 6.9 ng/mL (>3.0) 12/26/18 05:40 TSH 2.61 uIU/ml (0.34-5.60) 12/25/18 16:11 Urine Source CATH 12/25/18 16:25 Urine Color COLORLESS 12/25/18 16:25 Urine Clarity CLEAR (CLEAR) 12/25/18 16:25 Urine pH 6.0 (4.6 - 8.0) 12/25/18 16:25 Ur Specific [place] 1.010 (1.005-1.030) 12/25/18 16:25 Urine Protein NEGATIVE mg/dL (NEGATIVE) 12/25/18 16:25 Urine Glucose (UA) NEGATIVE mg/dL (NEGATIVE) 12/25/18 16:25 Urine Ketones NEGATIVE mg/dL (NEGATIVE) 12/25/18 16:25 Urine Blood NEGATIVE (NEGATIVE) 12/25/18 16:25 Urine Nitrate NEGATIVE (NEGATIVE) 12/25/18 16:25 Urine Bilirubin NEGATIVE (NEGATIVE) 12/25/18 16:25 Urine Urobilinogen 0.2 E.U./dL (0.2 - 1.0) 12/25/18 16:25 Ur Leukocyte Esterase NEGATIVE (NEGATIVE) 12/25/18 16:25 Stool Occult Blood POSITIVE (NEGATIVE) H 12/30/18 13:00 Valproic Acid < 10.0 ug/mL (50.0-100.0) L 12/30/18 04:25 [place] 0.06 mmol/L (0.5-1.0) L 12/30/18 04:25 RPR NONREACTIVE (NONREACTIVE) 12/25/18 16:11 Influenza A (Rapid) NEG FOR INF A 12/25/18 16:30 Influenza B (Rapid) NEG FOR INF B 12/25/18 16:30 - Physical Exam Vitals and I&O: Vital Signs Temp 97.0 F 01/02/19 12:00 Pulse 83 01/02/19 12:00 Resp 18 01/02/19 12:00 BP 130/70 01/02/19 12:00 Pulse Ox 97 01/02/19 12:00 Intake & Output 01/01/19 01/02/19 01/02/19 18:59 06:59 18:59 Intake Total 610 900 Balance 610 900 Weight (lbs) 68.447 kg 68.447 kg Intake: Oral 610 900 Other: # Voids 2 # Bowel Movements 1 Stool Characteristics Soft Liquid Brown Weight Source Bedscale Bedscale Active Medications: Current Medications Amlodipine Besylate (Norvasc) 10 mg PO DAILY [facility] Stop: 02/28/19 08:59 Last Admin: 01/02/19 12:09 Dose: Not Given Ascorbic Acid (Vitamin C) 500 mg PO DAILY [facility] Stop: 03/01/19 08:59 Last Admin: 01/02/19 12:09 Dose: Not Given Aspirin (Ecotrin) 81 mg PO DAILY [facility] Stop: 02/28/19 08:59 Last Admin: 01/02/19 12:09 Dose: Not Given Benztropine Mesylate (Cogentin) 1 mg PO TID [facility] Stop: 02/28/19 08:59 Last Admin: 01/02/19 14:26 Dose: 1 mg Bisacodyl (Dulcolax 10 Mg Supp) 10 mg RC DAILY [facility] Stop: 02/28/19 08:59 Last Admin: 01/02/19 12:09 Dose: Not Given Cholecalciferol (Vitamin D3) 5,000 iu PO DAILY [facility] Stop: 02/28/19 08:59 Last Admin: 01/02/19 12:09 Dose: Not Given Clonazepam (Klonopin) 2 mg PO TID [facility]; Protocol Stop: 02/27/19 08:59 Last Admin: 01/02/19 14:26 Dose: 2 mg Clozapine 100 mg/ Clozapine 75 (mg) 175 mg PO BID [facility] Stop: 03/01/19 16:59 Last Admin: 01/02/19 12:09 Dose: Not Given Famotidine (Pepcid) 40 mg PO DAILY [facility] Stop: 02/28/19 08:59 Last Admin: 01/02/19 12:10 Dose: Not Given Ferric Sodium Gluconate Complex 125 mg/ Sodium Chloride 110 mls @ 100 mls/hr IV Q24HR@1000 [facility] Stop: 01/08/19 11:59 Last Admin: 01/02/19 14:27 Dose: 100 mls/hr Dextrose/Sodium Chloride (D5-0.45ns) 1,000 mls @ 50 mls/hr IV .Q20H [facility] Stop: 03/02/19 19:37 Levofloxacin (Levaquin) 500 mg PO DAILY [facility] Stop: 02/24/19 15:59 Last Admin: 01/02/19 14:26 Dose: 500 mg Levothyroxine Sodium 0.025 mg/ (Levothyroxine Sodium 0.112 mg) 0.137 mg PO DAILY@0730 [facility] Stop: 02/28/19 07:29 Last Admin: 01/02/19 06:34 Dose: Not Given [place] Carbonate (Eskalith) 300 mg PO BID [facility]; Protocol Stop: 02/28/19 08:59 Last Admin: 01/02/19 12:08 Dose: Not Given Lorazepam (Ativan) 1 mg IVP Q4HR PRN; Protocol PRN Reason: Agitation Stop: 02/24/19 07:30 Last Admin: 12/31/18 13:35 Dose: 1 mg Magnesium Hydroxide (Milk Of Magnesia) 30 ml PO HS [facility] Stop: 02/28/19 20:59 Last Admin: 01/01/19 22:41 Dose: 30 ml Quetiapine Fumarate (Seroquel) 300 mg PO TID [facility]; Protocol Stop: 03/01/19 08:59 Last Admin: 01/02/19 14:27 Dose: 300 mg Temazepam (Restoril) 30 mg PO HS PRN PRN Reason: Insomnia Valproate Sodium (Depakene) 500 mg PO BID [facility]; Protocol Stop: 02/28/19 08:59 Last Admin: 01/02/19 12:08 Dose: Not Given General: Other (confused) HEENT: Atraumatic Neck: Supple Lungs: Clear to auscultation Abdomen: Soft Assessment/Plan - Assessment Assessment: The iron studies are suggestive of iron deficiency anemia. Stool occult blood was positive. The patient is being evaluated by the page technician. He will be given iron by IV route because of his poor compliance. The leukocytosis could be secondary to lithium or reactive and the patient is on antibiotics with improvement of the white count. 01/02/19: hgb stable, continue iv iron. EGD/COLO reports noted. Nutritional Asmnt/Malnutr-PDOC - Dietary Evaluation Malnutrition Findings (Please click <Entered> for more info): Nutritional Asmnt/Malnutrition Start: 12/26/18 15: 09 Text: Status: Complete Freq: Protocol: Document 12/26/18 15:09 ESPERANZAG (Rec: 12/26/18 15:12 BONITA [email or web address]) Nutritional Asmnt/Malnutrition Patient General Information Nutritional Screening High Risk Diagnosis sepsis Pertinent Medical Hx/Surgical Hx HTN, PUD/GERD, thyroid disorder, anemia, schizophrenia Subjective Information Pt seen in bed, disoriented, yelling, has 1:1 sitter in room. Per sitter, pt consumed 100% of breakfast and lunch today. Current Diet Order/ Nutrition Support soft/bland Pertinent Medications seroquel Pertinent Labs 12/25 BUN 26, Alb 3.5 Nutritional Hx/Data Height 1.7 m Height (Calculated Centimeters) 170.2 Current Weight (lbs) 58.967 kg Weight (Calculated Kilograms) 59.0 Weight (Calculated Grams) 59081.0 [place] Body Weight 148 Body Mass Index (BMI) 20.3 Weight Status Approriate GI Symptoms GI Symptoms None Last BM not indicated Difficult in: None Skin Integrity/Comment: intact Current %PO Good (75-100%) Estimated Nutritional Goals BEE in Kcals: Using Current wt Calories/Kcals/Kg 30-35 Kcals Calculated 5437-6292 Protein: Using Current wt Protein g/k.2 Protein Calculated 71 Fluid: ml 1620-2065ml (1ml/kcal) Nutritional Problem 1. Problem Problem increased nutritional needs Etiology increased metabolic demand Signs/Symptoms: dx of sepsis Malnutrition Alert Is there a minimum of two criteria No selected? Query Text:Check all the applicable criteria. A minimum of two criteria are recommended for diagnosis of either severe or non-severe malnutrition. Malnutrition Related to Morbid Obesity Malnutrition related to morbid obesity No Intervention/Recommendation Comments 1. Continue with soft/baland diet as ordered. 2. Monitor PO intake, wt, labs and skin integrity 3. F/U as moderate risk in 3-5 days Expected Outcomes/Goals Expected Outcomes/Goals 1. PO intake to meet at least 75% of nutritional needs. 2. Wt stability, skin to remain intact, labs to approach WNL.
--- NOTE | 2019-01-02 19:57 | Internal Medicine Prog Note ---
Internal Medicine Subjective - Subjective Service Date: 01/02/19 Patient is:: awake, in bed, agitated, other (Patient remains very aggressive and agitated, has restraints in place.) Patient Complaints of:: cough (few rhochi and occasional wheezing noted.) Per staff patient has:: agitated, combative (Aggressive behavior towards staff and others) Internal Medicine Objective - Results Result Diagrams: 01/02/19 05:40 01/02/19 05:40 Recent Labs: Laboratory Last Values WBC 10.4 Th/cmm (4.8-10.8) 01/02/19 05:40 RBC 3.96 Mil/cmm (4.30-5.70) L 01/02/19 05:40 Hgb 11.0 gm/dL (12-16) L 01/02/19 05:40 Hct 33.7 % (41.0-60) L 01/02/19 05:40 MCV 85.1 fl (80-99) 01/02/19 05:40 MCH 27.9 pg (26.0-30.0) 01/02/19 05:40 MCHC Differential 32.7 pg (28.0-36.0) 01/02/19 05:40 RDW 13.4 % (11.5-20.0) 01/02/19 05:40 Plt Count 193 Th/cmm (150-400) 01/02/19 05:40 MPV 8.8 fl 01/02/19 05:40 Neutrophils % 71.4 % (40.0-80.0) 01/02/19 05:40 Band Neutrophils % 1 % (0-10) 12/25/18 16:11 Lymphocytes % 14.7 % (20.0-50.0) L 01/02/19 05:40 Monocytes % 7.3 % (2.0-10.0) 01/02/19 05:40 Eosinophils % 5.8 % (0.0-5.0) H 01/02/19 05:40 Basophils % 0.8 % (0.0-2.0) 01/02/19 05:40 Neutrophils (Manual) 80 % (40-80) 12/25/18 16:11 Lymphocytes 12 % (20-50) L 12/25/18 16:11 Monocytes 5 % (2-10) 12/25/18 16:11 Eosinophils 2 % (0-5) 12/25/18 16:11 Total Retics Counted 2.2 % (0.5-1.5) H 12/26/18 05:40 Absolute Retic 79.2 Th/cmm 12/26/18 05:40 Corrected Retic Count 1.5 % (0.5-1.5) 12/26/18 05:40 PT 10.9 SECONDS (9.5-11.5) 01/02/19 05:40 INR 1.05 (0.5-1.4) 01/02/19 05:40 Sodium 136 mEq/L (136-145) 01/02/19 05:40 Potassium 3.6 mEq/L (3.5-5.1) 01/02/19 05:40 Chloride 97 mEq/L (98-107) L 01/02/19 05:40 Carbon Dioxide 30.9 mEq/L (21.0-31.0) 01/02/19 05:40 Anion Gap 11.7 (7.0-16.0) 01/02/19 05:40 BUN 18 mg/dL (7-25) 01/02/19 05:40 Creatinine 1.1 mg/dL (0.7-1.3) 01/02/19 05:40 Est GFR ( Amer) > 60.0 ml/min (>90) 01/02/19 05:40 Est GFR (Non-Af Amer) > 60.0 ml/min 01/02/19 05:40 BUN/Creatinine Ratio 16.4 01/02/19 05:40 Glucose 121 mg/dL (70-105) H 01/02/19 05:40 POC Glucose 87 MG/DL (70 - 105) 01/01/19 08:07 Whole Bld Lactic Acid 1.37 mmol/L (0.60-1.99) 12/26/18 05:40 Calcium 9.0 mg/dL (8.6-10.3) 01/02/19 05:40 Iron 17 ug/dL (38-169) L 12/26/18 05:40 TIBC 210 ug/dL (250-450) L 12/26/18 05:40 Iron Saturation 8 % (15-55) L 12/26/18 05:40 Unsaturated IBC 193 ug/dL (111-343) 12/26/18 05:40 Ferritin 200 ng/mL (30-400) 12/26/18 05:40 Total Bilirubin 0.4 mg/dL (0.3-1.0) 12/26/18 05:40 AST 65 U/L (13-39) H 12/26/18 05:40 ALT 28 U/L (7-52) 12/26/18 05:40 Alkaline Phosphatase 58 U/L (34-104) 12/26/18 05:40 Total Protein 6.3 gm/dL (6.0-8.3) 12/26/18 05:40 Albumin 3.4 gm/dL (4.2-5.5) L 12/26/18 05:40 Globulin 2.9 gm/dL 12/26/18 05:40 Albumin/Globulin Ratio 1.2 (1.0-1.8) 12/26/18 05:40 Triglycerides 125 mg/dL (<150) 12/25/18 16:11 Cholesterol 154 mg/dL (<200) 12/25/18 16:11 LDL Cholesterol Direct 112 mg/dL (75-193) 12/25/18 16:11 HDL Cholesterol 37 mg/dL (23-92) 12/25/18 16:11 Vitamin B12 848 pg/mL (232-1245) 12/26/18 05:40 Folic Acid 6.9 ng/mL (>3.0) 12/26/18 05:40 TSH 2.61 uIU/ml (0.34-5.60) 12/25/18 16:11 Urine Source CATH 12/25/18 16:25 Urine Color COLORLESS 12/25/18 16:25 Urine Clarity CLEAR (CLEAR) 12/25/18 16:25 Urine pH 6.0 (4.6 - 8.0) 12/25/18 16:25 Ur Specific [place] 1.010 (1.005-1.030) 12/25/18 16:25 Urine Protein NEGATIVE mg/dL (NEGATIVE) 12/25/18 16:25 Urine Glucose (UA) NEGATIVE mg/dL (NEGATIVE) 12/25/18 16:25 Urine Ketones NEGATIVE mg/dL (NEGATIVE) 12/25/18 16:25 Urine Blood NEGATIVE (NEGATIVE) 12/25/18 16:25 Urine Nitrate NEGATIVE (NEGATIVE) 12/25/18 16:25 Urine Bilirubin NEGATIVE (NEGATIVE) 12/25/18 16:25 Urine Urobilinogen 0.2 E.U./dL (0.2 - 1.0) 12/25/18 16:25 Ur Leukocyte Esterase NEGATIVE (NEGATIVE) 12/25/18 16:25 Stool Occult Blood POSITIVE (NEGATIVE) H 12/30/18 13:00 Valproic Acid < 10.0 ug/mL (50.0-100.0) L 12/30/18 04:25 [place] 0.06 mmol/L (0.5-1.0) L 12/30/18 04:25 RPR NONREACTIVE (NONREACTIVE) 12/25/18 16:11 Influenza A (Rapid) NEG FOR INF A 12/25/18 16:30 Influenza B (Rapid) NEG FOR INF B 12/25/18 16:30 - Physical Exam Vitals and I&O: Vital Signs Temp 97.0 F 01/02/19 16:00 Pulse 106 01/02/19 16:00 Resp 18 01/02/19 16:00 BP 156/68 01/02/19 16:00 Pulse Ox 95 01/02/19 16:00 Intake & Output 01/02/19 01/02/19 01/03/19 06:59 18:59 06:59 Intake Total 900 800 Balance 900 800 Weight (lbs) 68.447 kg 68.447 kg Intake: Oral 900 800 Other: # Voids 2 3 # Bowel Movements 1 0 Stool Characteristics Liquid Brown Weight Source Bedscale Bedscale Active Medications: Current Medications Amlodipine Besylate (Norvasc) 10 mg PO DAILY [facility] Stop: 02/28/19 08:59 Last Admin: 01/02/19 12:09 Dose: Not Given Ascorbic Acid (Vitamin C) 500 mg PO DAILY [facility] Stop: 03/01/19 08:59 Last Admin: 01/02/19 12:09 Dose: Not Given Aspirin (Ecotrin) 81 mg PO DAILY [facility] Stop: 02/28/19 08:59 Last Admin: 01/02/19 12:09 Dose: Not Given Benztropine Mesylate (Cogentin) 1 mg PO TID [facility] Stop: 02/28/19 08:59 Last Admin: 01/02/19 14:26 Dose: 1 mg Bisacodyl (Dulcolax 10 Mg Supp) 10 mg RC DAILY [facility] Stop: 02/28/19 08:59 Last Admin: 01/02/19 12:09 Dose: Not Given Cholecalciferol (Vitamin D3) 5,000 iu PO DAILY [facility] Stop: 02/28/19 08:59 Last Admin: 01/02/19 12:09 Dose: Not Given Clonazepam (Klonopin) 2 mg PO TID [facility]; Protocol Stop: 02/27/19 08:59 Last Admin: 01/02/19 14:26 Dose: 2 mg Clozapine 100 mg/ Clozapine 75 (mg) 175 mg PO BID [facility] Stop: 03/01/19 16:59 Last Admin: 01/02/19 16:22 Dose: 175 mg Famotidine (Pepcid) 40 mg PO DAILY [facility] Stop: 02/28/19 08:59 Last Admin: 01/02/19 12:10 Dose: Not Given Ferric Sodium Gluconate Complex 125 mg/ Sodium Chloride 110 mls @ 100 mls/hr IV Q24HR@1000 [facility] Stop: 01/08/19 11:59 Last Admin: 01/02/19 14:27 Dose: 100 mls/hr Dextrose/Sodium Chloride (D5-0.45ns) 1,000 mls @ 50 mls/hr IV .Q20H [facility] Stop: 03/02/19 19:37 Levofloxacin (Levaquin) 500 mg PO DAILY [facility] Stop: 02/24/19 15:59 Last Admin: 01/02/19 14:26 Dose: 500 mg Levothyroxine Sodium 0.025 mg/ (Levothyroxine Sodium 0.112 mg) 0.137 mg PO DAILY@0730 [facility] Stop: 02/28/19 07:29 Last Admin: 01/02/19 06:34 Dose: Not Given [place] Carbonate (Eskalith) 300 mg PO BID [facility]; Protocol Stop: 02/28/19 08:59 Last Admin: 01/02/19 16:05 Dose: 300 mg Magnesium Hydroxide (Milk Of Magnesia) 30 ml PO HS [facility] Stop: 02/28/19 20:59 Last Admin: 01/01/19 22:41 Dose: 30 ml Quetiapine Fumarate (Seroquel) 300 mg PO TID [facility]; Protocol Stop: 03/01/19 08:59 Last Admin: 01/02/19 14:27 Dose: 300 mg Temazepam (Restoril) 30 mg PO HS PRN PRN Reason: Insomnia Valproate Sodium (Depakene) 500 mg PO BID [facility]; Protocol Stop: 02/28/19 08:59 Last Admin: 01/02/19 16:06 Dose: 500 mg General: alert, other (agitated behavior.) Neck: No JVD Lungs: wheezing, ronchi Cardiovascular: Normal S1 Abdomen: soft, non-distended, positive bowel sound Extremities: other (Patient has restraints in place.) Nutritional Asmnt/Malnutr-PDOC - Dietary Evaluation Malnutrition Findings (Please click <Entered> for more info): Nutritional Asmnt/Malnutrition Start: 12/26/18 15: 09 Text: Status: Complete Freq: Protocol: Document 12/26/18 15:09 ESPERANZAG (Rec: 12/26/18 15:12 BONITA [email or web address]) Nutritional Asmnt/Malnutrition Patient General Information Nutritional Screening High Risk Diagnosis sepsis Pertinent Medical Hx/Surgical Hx HTN, PUD/GERD, thyroid disorder, anemia, schizophrenia Subjective Information Pt seen in bed, disoriented, yelling, has 1:1 sitter in room. Per sitter, pt consumed 100% of breakfast and lunch today. Current Diet Order/ Nutrition Support soft/bland Pertinent Medications seroquel Pertinent Labs 12/25 BUN 26, Alb 3.5 Nutritional Hx/Data Height 1.7 m Height (Calculated Centimeters) 170.2 Current Weight (lbs) 58.967 kg Weight (Calculated Kilograms) 59.0 Weight (Calculated Grams) 60859.0 [place] Body Weight 148 Body Mass Index (BMI) 20.3 Weight Status Approriate GI Symptoms GI Symptoms None Last BM not indicated Difficult in: None Skin Integrity/Comment: intact Current %PO Good (75-100%) Estimated Nutritional Goals BEE in Kcals: Using Current wt Calories/Kcals/Kg 30-35 Kcals Calculated 6247-6871 Protein: Using Current wt Protein g/k.2 Protein Calculated 71 Fluid: ml 1620-2065ml (1ml/kcal) Nutritional Problem 1. Problem Problem increased nutritional needs Etiology increased metabolic demand Signs/Symptoms: dx of sepsis Malnutrition Alert Is there a minimum of two criteria No selected? Query Text:Check all the applicable criteria. A minimum of two criteria are recommended for diagnosis of either severe or non-severe malnutrition. Malnutrition Related to Morbid Obesity Malnutrition related to morbid obesity No Intervention/Recommendation Comments 1. Continue with soft/baland diet as ordered. 2. Monitor PO intake, wt, labs and skin integrity 3. F/U as moderate risk in 3-5 days Expected Outcomes/Goals Expected Outcomes/Goals 1. PO intake to meet at least 75% of nutritional needs. 2. Wt stability, skin to remain intact, labs to approach WNL.
[2019-01-02] MEDS: Magnesium Hydroxide (MOM) 30 mL UDC PO SCH (20:03)
[2019-01-03] MEDS: Benztropine 1 MG TAB PO SCH ×3 (09:02→20:23)
[2019-01-03] MEDS: Multivitamin w/ Minerals Tab PO SCH (09:03)
[2019-01-03] MEDS: cloZAPine 100 MG, cloZAPine 75 MG PO SCH ×2 (09:20→18:04)
[2019-01-03] MEDS: Sodium Ferric Gluconate 125 MG in Sodium Chloride 0.9% 100 ML IV SCH (09:25)
--- NOTE | 2019-01-03 11:36 | General Progress Note ---
Subjective - Review of Systems Service Date: 01/03/19 Subjective: not in distress, sleepy Objective - Results Result Diagrams: 01/02/19 05:40 01/02/19 05:40 Recent Labs: Laboratory Last Values WBC 10.4 Th/cmm (4.8-10.8) 01/02/19 05:40 RBC 3.96 Mil/cmm (4.30-5.70) L 01/02/19 05:40 Hgb 11.0 gm/dL (12-16) L 01/02/19 05:40 Hct 33.7 % (41.0-60) L 01/02/19 05:40 MCV 85.1 fl (80-99) 01/02/19 05:40 MCH 27.9 pg (26.0-30.0) 01/02/19 05:40 MCHC Differential 32.7 pg (28.0-36.0) 01/02/19 05:40 RDW 13.4 % (11.5-20.0) 01/02/19 05:40 Plt Count 193 Th/cmm (150-400) 01/02/19 05:40 MPV 8.8 fl 01/02/19 05:40 Neutrophils % 71.4 % (40.0-80.0) 01/02/19 05:40 Band Neutrophils % 1 % (0-10) 12/25/18 16:11 Lymphocytes % 14.7 % (20.0-50.0) L 01/02/19 05:40 Monocytes % 7.3 % (2.0-10.0) 01/02/19 05:40 Eosinophils % 5.8 % (0.0-5.0) H 01/02/19 05:40 Basophils % 0.8 % (0.0-2.0) 01/02/19 05:40 Neutrophils (Manual) 80 % (40-80) 12/25/18 16:11 Lymphocytes 12 % (20-50) L 12/25/18 16:11 Monocytes 5 % (2-10) 12/25/18 16:11 Eosinophils 2 % (0-5) 12/25/18 16:11 Total Retics Counted 2.2 % (0.5-1.5) H 12/26/18 05:40 Absolute Retic 79.2 Th/cmm 12/26/18 05:40 Corrected Retic Count 1.5 % (0.5-1.5) 12/26/18 05:40 PT 10.9 SECONDS (9.5-11.5) 01/02/19 05:40 INR 1.05 (0.5-1.4) 01/02/19 05:40 Sodium 136 mEq/L (136-145) 01/02/19 05:40 Potassium 3.6 mEq/L (3.5-5.1) 01/02/19 05:40 Chloride 97 mEq/L (98-107) L 01/02/19 05:40 Carbon Dioxide 30.9 mEq/L (21.0-31.0) 01/02/19 05:40 Anion Gap 11.7 (7.0-16.0) 01/02/19 05:40 BUN 18 mg/dL (7-25) 01/02/19 05:40 Creatinine 1.1 mg/dL (0.7-1.3) 01/02/19 05:40 Est GFR ( Amer) > 60.0 ml/min (>90) 01/02/19 05:40 Est GFR (Non-Af Amer) > 60.0 ml/min 01/02/19 05:40 BUN/Creatinine Ratio 16.4 01/02/19 05:40 Glucose 121 mg/dL (70-105) H 01/02/19 05:40 POC Glucose 87 MG/DL (70 - 105) 01/01/19 08:07 Whole Bld Lactic Acid 1.37 mmol/L (0.60-1.99) 12/26/18 05:40 Calcium 9.0 mg/dL (8.6-10.3) 01/02/19 05:40 Iron 17 ug/dL (38-169) L 12/26/18 05:40 TIBC 210 ug/dL (250-450) L 12/26/18 05:40 Iron Saturation 8 % (15-55) L 12/26/18 05:40 Unsaturated IBC 193 ug/dL (111-343) 12/26/18 05:40 Ferritin 200 ng/mL (30-400) 12/26/18 05:40 Total Bilirubin 0.4 mg/dL (0.3-1.0) 12/26/18 05:40 AST 65 U/L (13-39) H 12/26/18 05:40 ALT 28 U/L (7-52) 12/26/18 05:40 Alkaline Phosphatase 58 U/L (34-104) 12/26/18 05:40 Total Protein 6.3 gm/dL (6.0-8.3) 12/26/18 05:40 Albumin 3.4 gm/dL (4.2-5.5) L 12/26/18 05:40 Globulin 2.9 gm/dL 12/26/18 05:40 Albumin/Globulin Ratio 1.2 (1.0-1.8) 12/26/18 05:40 Triglycerides 125 mg/dL (<150) 12/25/18 16:11 Cholesterol 154 mg/dL (<200) 12/25/18 16:11 LDL Cholesterol Direct 112 mg/dL (75-193) 12/25/18 16:11 HDL Cholesterol 37 mg/dL (23-92) 12/25/18 16:11 Vitamin B12 848 pg/mL (232-1245) 12/26/18 05:40 Folic Acid 6.9 ng/mL (>3.0) 12/26/18 05:40 TSH 2.61 uIU/ml (0.34-5.60) 12/25/18 16:11 Urine Source CATH 12/25/18 16:25 Urine Color COLORLESS 12/25/18 16:25 Urine Clarity CLEAR (CLEAR) 12/25/18 16:25 Urine pH 6.0 (4.6 - 8.0) 12/25/18 16:25 Ur Specific [place] 1.010 (1.005-1.030) 12/25/18 16:25 Urine Protein NEGATIVE mg/dL (NEGATIVE) 12/25/18 16:25 Urine Glucose (UA) NEGATIVE mg/dL (NEGATIVE) 12/25/18 16:25 Urine Ketones NEGATIVE mg/dL (NEGATIVE) 12/25/18 16:25 Urine Blood NEGATIVE (NEGATIVE) 12/25/18 16:25 Urine Nitrate NEGATIVE (NEGATIVE) 12/25/18 16:25 Urine Bilirubin NEGATIVE (NEGATIVE) 12/25/18 16:25 Urine Urobilinogen 0.2 E.U./dL (0.2 - 1.0) 12/25/18 16:25 Ur Leukocyte Esterase NEGATIVE (NEGATIVE) 12/25/18 16:25 Stool Occult Blood POSITIVE (NEGATIVE) H 12/30/18 13:00 Valproic Acid < 10.0 ug/mL (50.0-100.0) L 12/30/18 04:25 [place] 0.06 mmol/L (0.5-1.0) L 12/30/18 04:25 RPR NONREACTIVE (NONREACTIVE) 12/25/18 16:11 Influenza A (Rapid) NEG FOR INF A 12/25/18 16:30 Influenza B (Rapid) NEG FOR INF B 12/25/18 16:30 - Physical Exam Vitals and I&O: Vital Signs Temp 97.4 F 01/03/19 07:41 Pulse 92 01/03/19 09:05 Resp 18 01/03/19 08:00 BP 116/62 01/03/19 09:05 Pulse Ox 92 01/03/19 07:41 Intake & Output 01/02/19 01/03/19 01/03/19 18:59 06:59 18:59 Intake Total 910 Balance 910 Weight (lbs) 68.447 kg 68.039 kg Intake: Intake, IV Amount 110 Sodium Ferric Gluconate 110 125 mg In Sodium Chloride 0.9% 100 ml @ 100 mls/hr IV Q24HR@1000 [facility] Rx#: [id number] Oral 800 Other: # Voids 3 # Bowel Movements 0 Weight Source Bedscale Bedscale Active Medications: Current Medications Amlodipine Besylate (Norvasc) 10 mg PO DAILY [facility] Stop: 02/28/19 08:59 Last Admin: 01/03/19 09:05 Dose: Not Given Ascorbic Acid (Vitamin C) 500 mg PO DAILY [facility] Stop: 03/01/19 08:59 Last Admin: 01/03/19 09:03 Dose: 500 mg Aspirin (Ecotrin) 81 mg PO DAILY [facility] Stop: 02/28/19 08:59 Last Admin: 01/03/19 09:10 Dose: 81 mg Benztropine Mesylate (Cogentin) 1 mg PO TID [facility] Stop: 02/28/19 08:59 Last Admin: 01/03/19 09:02 Dose: 1 mg Bisacodyl (Dulcolax 10 Mg Supp) 10 mg RC DAILY [facility] Stop: 02/28/19 08:59 Last Admin: 01/03/19 09:10 Dose: Not Given Cholecalciferol (Vitamin D3) 5,000 iu PO DAILY [facility] Stop: 02/28/19 08:59 Last Admin: 01/03/19 09:02 Dose: 5,000 iu Clonazepam (Klonopin) 2 mg PO TID [facility]; Protocol Stop: 02/27/19 08:59 Last Admin: 01/03/19 09:02 Dose: 2 mg Clozapine 100 mg/ Clozapine 75 (mg) 175 mg PO BID [facility] Stop: 03/01/19 16:59 Last Admin: 01/03/19 09:20 Dose: 175 mg Famotidine (Pepcid) 40 mg PO DAILY [facility] Stop: 02/28/19 08:59 Last Admin: 01/03/19 09:03 Dose: 40 mg Ferric Sodium Gluconate Complex 125 mg/ Sodium Chloride 110 mls @ 100 mls/hr IV Q24HR@1000 [facility] Stop: 01/08/19 11:59 Last Admin: 01/03/19 09:25 Dose: 100 mls/hr Dextrose/Sodium Chloride (D5-0.45ns) 1,000 mls @ 50 mls/hr IV .Q20H [facility] Stop: 03/02/19 19:37 Levothyroxine Sodium 0.025 mg/ (Levothyroxine Sodium 0.112 mg) 0.137 mg PO DAILY@0730 [facility] Stop: 02/28/19 07:29 Last Admin: 01/03/19 07:07 Dose: 0.137 mg [place] Carbonate (Eskalith) 300 mg PO BID [facility]; Protocol Stop: 02/28/19 08:59 Last Admin: 01/03/19 09:03 Dose: 300 mg Magnesium Hydroxide (Milk Of Magnesia) 30 ml PO HS [facility] Stop: 02/28/19 20:59 Last Admin: 01/02/19 20:03 Dose: 30 ml Quetiapine Fumarate (Seroquel) 300 mg PO TID [facility]; Protocol Stop: 03/01/19 08:59 Last Admin: 01/03/19 09:03 Dose: 300 mg Temazepam (Restoril) 30 mg PO HS PRN PRN Reason: Insomnia Valproate Sodium (Depakene) 500 mg PO BID [facility]; Protocol Stop: 02/28/19 08:59 Last Admin: 01/03/19 09:02 Dose: 500 mg General: Other (confused) HEENT: Atraumatic Neck: Supple Lungs: Clear to auscultation Abdomen: Soft Assessment/Plan - Assessment Assessment: The iron studies are suggestive of iron deficiency anemia. Stool occult blood was positive. The patient is being evaluated by the door operator. He will be given iron by IV route because of his poor compliance. The leukocytosis could be secondary to lithium or reactive and the patient is on antibiotics with improvement of the white count. 01/03/19: hgb stable, continue iv iron. EGD/COLO reports noted. Follow cbc Nutritional Asmnt/Malnutr-PDOC - Dietary Evaluation Malnutrition Findings (Please click <Entered> for more info): Nutritional Asmnt/Malnutrition Start: 12/26/18 15: 09 Text: Status: Complete Freq: Protocol: Document 12/26/18 15:09 LCHENG (Rec: 12/26/18 15:12 [email or web address] [email or web address]) Nutritional Asmnt/Malnutrition Patient General Information Nutritional Screening High Risk Diagnosis sepsis Pertinent Medical Hx/Surgical Hx HTN, PUD/GERD, thyroid disorder, anemia, schizophrenia Subjective Information Pt seen in bed, disoriented, yelling, has 1:1 sitter in room. Per sitter, pt consumed 100% of breakfast and lunch today. Current Diet Order/ Nutrition Support soft/bland Pertinent Medications seroquel Pertinent Labs 12/25 BUN 26, Alb 3.5 Nutritional Hx/Data Height 1.7 m Height (Calculated Centimeters) 170.2 Current Weight (lbs) 58.967 kg Weight (Calculated Kilograms) 59.0 Weight (Calculated Grams) 99573.0 [place] Body Weight 148 Body Mass Index (BMI) 20.3 Weight Status Approriate GI Symptoms GI Symptoms None Last BM not indicated Difficult in: None Skin Integrity/Comment: intact Current %PO Good (75-100%) Estimated Nutritional Goals BEE in Kcals: Using Current wt Calories/Kcals/Kg 30-35 Kcals Calculated 9662-8728 Protein: Using Current wt Protein g/k.2 Protein Calculated 71 Fluid: ml 1620-2065ml (1ml/kcal) Nutritional Problem 1. Problem Problem increased nutritional needs Etiology increased metabolic demand Signs/Symptoms: dx of sepsis Malnutrition Alert Is there a minimum of two criteria No selected? Query Text:Check all the applicable criteria. A minimum of two criteria are recommended for diagnosis of either severe or non-severe malnutrition. Malnutrition Related to Morbid Obesity Malnutrition related to morbid obesity No Intervention/Recommendation Comments 1. Continue with soft/baland diet as ordered. 2. Monitor PO intake, wt, labs and skin integrity 3. F/U as moderate risk in 3-5 days Expected Outcomes/Goals Expected Outcomes/Goals 1. PO intake to meet at least 75% of nutritional needs. 2. Wt stability, skin to remain intact, labs to approach WNL.
--- NOTE | 2019-01-03 16:41 | Progress Notes ---
DATE: 01/03/[address] Craven. This is a 58-year-old male who was admitted to the service of because of agitation and active hallucination, he was striking aggressive behavior, hitting head against a wall, scratching himself with a history of psychosis. The patient continues to be agitated. Dr. Craven increased his Clozaril dose. He is on lithium 300 mg twice a day and Clozaril 175 mg twice a day and Seroquel 300 mg 3 times a day, Depakote 500 mg twice a day with no side effects, no sedation, no nausea. Continues to be unpredictable, impulsive, needing redirection. Thank you very much for allowing me to participate in the care of this most interesting gentleman. JOB# [id number]
[2019-01-03] MEDS: Magnesium Hydroxide (MOM) 30 mL UDC PO SCH (20:23)
--- NOTE | 2019-01-03 21:28 | GI Progress Note ---
Subjective - Review of Systems Service Date: 01/03/19 Events since last encounter: No events Subjective: No complaints Sleeping most of the day Objective - Results Result Diagrams: 01/02/19 05:40 01/02/19 05:40 Recent Labs: Laboratory Last Values WBC 10.4 Th/cmm (4.8-10.8) 01/02/19 05:40 RBC 3.96 Mil/cmm (4.30-5.70) L 01/02/19 05:40 Hgb 11.0 gm/dL (12-16) L 01/02/19 05:40 Hct 33.7 % (41.0-60) L 01/02/19 05:40 MCV 85.1 fl (80-99) 01/02/19 05:40 MCH 27.9 pg (26.0-30.0) 01/02/19 05:40 MCHC Differential 32.7 pg (28.0-36.0) 01/02/19 05:40 RDW 13.4 % (11.5-20.0) 01/02/19 05:40 Plt Count 193 Th/cmm (150-400) 01/02/19 05:40 MPV 8.8 fl 01/02/19 05:40 Neutrophils % 71.4 % (40.0-80.0) 01/02/19 05:40 Band Neutrophils % 1 % (0-10) 12/25/18 16:11 Lymphocytes % 14.7 % (20.0-50.0) L 01/02/19 05:40 Monocytes % 7.3 % (2.0-10.0) 01/02/19 05:40 Eosinophils % 5.8 % (0.0-5.0) H 01/02/19 05:40 Basophils % 0.8 % (0.0-2.0) 01/02/19 05:40 Neutrophils (Manual) 80 % (40-80) 12/25/18 16:11 Lymphocytes 12 % (20-50) L 12/25/18 16:11 Monocytes 5 % (2-10) 12/25/18 16:11 Eosinophils 2 % (0-5) 12/25/18 16:11 Total Retics Counted 2.2 % (0.5-1.5) H 12/26/18 05:40 Absolute Retic 79.2 Th/cmm 12/26/18 05:40 Corrected Retic Count 1.5 % (0.5-1.5) 12/26/18 05:40 PT 10.9 SECONDS (9.5-11.5) 01/02/19 05:40 INR 1.05 (0.5-1.4) 01/02/19 05:40 Sodium 136 mEq/L (136-145) 01/02/19 05:40 Potassium 3.6 mEq/L (3.5-5.1) 01/02/19 05:40 Chloride 97 mEq/L (98-107) L 01/02/19 05:40 Carbon Dioxide 30.9 mEq/L (21.0-31.0) 01/02/19 05:40 Anion Gap 11.7 (7.0-16.0) 01/02/19 05:40 BUN 18 mg/dL (7-25) 01/02/19 05:40 Creatinine 1.1 mg/dL (0.7-1.3) 01/02/19 05:40 Est GFR ( Amer) > 60.0 ml/min (>90) 01/02/19 05:40 Est GFR (Non-Af Amer) > 60.0 ml/min 01/02/19 05:40 BUN/Creatinine Ratio 16.4 01/02/19 05:40 Glucose 121 mg/dL (70-105) H 01/02/19 05:40 POC Glucose 87 MG/DL (70 - 105) 01/01/19 08:07 Whole Bld Lactic Acid 1.37 mmol/L (0.60-1.99) 12/26/18 05:40 Calcium 9.0 mg/dL (8.6-10.3) 01/02/19 05:40 Iron 17 ug/dL (38-169) L 12/26/18 05:40 TIBC 210 ug/dL (250-450) L 12/26/18 05:40 Iron Saturation 8 % (15-55) L 12/26/18 05:40 Unsaturated IBC 193 ug/dL (111-343) 12/26/18 05:40 Ferritin 200 ng/mL (30-400) 12/26/18 05:40 Total Bilirubin 0.4 mg/dL (0.3-1.0) 12/26/18 05:40 AST 65 U/L (13-39) H 12/26/18 05:40 ALT 28 U/L (7-52) 12/26/18 05:40 Alkaline Phosphatase 58 U/L (34-104) 12/26/18 05:40 Total Protein 6.3 gm/dL (6.0-8.3) 12/26/18 05:40 Albumin 3.4 gm/dL (4.2-5.5) L 12/26/18 05:40 Globulin 2.9 gm/dL 12/26/18 05:40 Albumin/Globulin Ratio 1.2 (1.0-1.8) 12/26/18 05:40 Triglycerides 125 mg/dL (<150) 12/25/18 16:11 Cholesterol 154 mg/dL (<200) 12/25/18 16:11 LDL Cholesterol Direct 112 mg/dL (75-193) 12/25/18 16:11 HDL Cholesterol 37 mg/dL (23-92) 12/25/18 16:11 Vitamin B12 848 pg/mL (232-1245) 12/26/18 05:40 Folic Acid 6.9 ng/mL (>3.0) 12/26/18 05:40 TSH 2.61 uIU/ml (0.34-5.60) 12/25/18 16:11 Urine Source CATH 12/25/18 16:25 Urine Color COLORLESS 12/25/18 16:25 Urine Clarity CLEAR (CLEAR) 12/25/18 16:25 Urine pH 6.0 (4.6 - 8.0) 12/25/18 16:25 Ur Specific [place] 1.010 (1.005-1.030) 12/25/18 16:25 Urine Protein NEGATIVE mg/dL (NEGATIVE) 12/25/18 16:25 Urine Glucose (UA) NEGATIVE mg/dL (NEGATIVE) 12/25/18 16:25 Urine Ketones NEGATIVE mg/dL (NEGATIVE) 12/25/18 16:25 Urine Blood NEGATIVE (NEGATIVE) 12/25/18 16:25 Urine Nitrate NEGATIVE (NEGATIVE) 12/25/18 16:25 Urine Bilirubin NEGATIVE (NEGATIVE) 12/25/18 16:25 Urine Urobilinogen 0.2 E.U./dL (0.2 - 1.0) 12/25/18 16:25 Ur Leukocyte Esterase NEGATIVE (NEGATIVE) 12/25/18 16:25 Stool Occult Blood POSITIVE (NEGATIVE) H 12/30/18 13:00 Valproic Acid < 10.0 ug/mL (50.0-100.0) L 12/30/18 04:25 [place] 0.06 mmol/L (0.5-1.0) L 12/30/18 04:25 RPR NONREACTIVE (NONREACTIVE) 12/25/18 16:11 Influenza A (Rapid) NEG FOR INF A 12/25/18 16:30 Influenza B (Rapid) NEG FOR INF B 12/25/18 16:30 - Physical Exam Vitals and I&O: Vital Signs Temp 98.3 F 01/03/19 20:00 Pulse 97 01/03/19 20:00 Resp 19 01/03/19 20:00 BP 107/53 01/03/19 20:00 Pulse Ox 94 01/03/19 20:00 Intake & Output 01/03/19 01/03/19 01/04/19 06:59 18:59 06:59 Intake Total 1200 Balance 1200 Weight (lbs) 68.039 kg 68.039 kg Intake: Oral 1200 Other: # Voids 3 # Bowel Movements 0 Weight Source Bedscale Bedscale Active Medications: Current Medications Amlodipine Besylate (Norvasc) 10 mg PO DAILY [facility] Stop: 02/28/19 08:59 Last Admin: 01/03/19 09:05 Dose: Not Given Ascorbic Acid (Vitamin C) 500 mg PO DAILY [facility] Stop: 03/01/19 08:59 Last Admin: 01/03/19 09:03 Dose: 500 mg Aspirin (Ecotrin) 81 mg PO DAILY [facility] Stop: 02/28/19 08:59 Last Admin: 01/03/19 09:10 Dose: 81 mg Benztropine Mesylate (Cogentin) 1 mg PO TID [facility] Stop: 02/28/19 08:59 Last Admin: 01/03/19 20:23 Dose: 1 mg Bisacodyl (Dulcolax 10 Mg Supp) 10 mg RC DAILY [facility] Stop: 02/28/19 08:59 Last Admin: 01/03/19 09:10 Dose: Not Given Cholecalciferol (Vitamin D3) 5,000 iu PO DAILY [facility] Stop: 02/28/19 08:59 Last Admin: 01/03/19 09:02 Dose: 5,000 iu Clonazepam (Klonopin) 2 mg PO TID [facility]; Protocol Stop: 02/27/19 08:59 Last Admin: 01/03/19 20:23 Dose: 2 mg Clozapine 100 mg/ Clozapine 75 (mg) 175 mg PO BID [facility] Stop: 03/01/19 16:59 Last Admin: 01/03/19 18:04 Dose: 175 mg Famotidine (Pepcid) 40 mg PO DAILY [facility] Stop: 02/28/19 08:59 Last Admin: 01/03/19 09:03 Dose: 40 mg Ferric Sodium Gluconate Complex 125 mg/ Sodium Chloride 110 mls @ 100 mls/hr IV Q24HR@1000 [facility] Stop: 01/08/19 11:59 Last Admin: 01/03/19 09:25 Dose: 100 mls/hr Dextrose/Sodium Chloride (D5-0.45ns) 1,000 mls @ 50 mls/hr IV .Q20H [facility] Stop: 03/02/19 19:37 Levothyroxine Sodium 0.025 mg/ (Levothyroxine Sodium 0.112 mg) 0.137 mg PO DAILY@0730 [facility] Stop: 02/28/19 07:29 Last Admin: 01/03/19 07:07 Dose: 0.137 mg [place] Carbonate (Eskalith) 300 mg PO BID [facility]; Protocol Stop: 02/28/19 08:59 Last Admin: 01/03/19 18:01 Dose: 300 mg Magnesium Hydroxide (Milk Of Magnesia) 30 ml PO HS [facility] Stop: 02/28/19 20:59 Last Admin: 01/03/19 20:23 Dose: 30 ml Quetiapine Fumarate (Seroquel) 300 mg PO TID [facility]; Protocol Stop: 03/01/19 08:59 Last Admin: 01/03/19 20:23 Dose: 300 mg Temazepam (Restoril) 30 mg PO HS PRN PRN Reason: Insomnia Valproate Sodium (Depakene) 500 mg PO BID [facility]; Protocol Stop: 02/28/19 08:59 Last Admin: 01/03/19 18:00 Dose: 500 mg General: No acute distress, Other (confused) HEENT: Atraumatic Neck: Supple Cardiovascular: Regular rate, Normal S1, Normal S2 Lungs: Clear to auscultation, Normal air movement Abdomen: Bowel sounds, Soft, no Tender, no Distended Assessment/Plan - Assessment Assessment: 1. Anemia 2. OB positive - Plan Plan: 1. Anemia Stable post transfusion S/P EGD and colon Polyps Await pathology 2. OB positive S/P EGD and colon aWAIT PATHOLOGY
--- NOTE | 2019-01-03 22:21 | Progress Notes ---
DATE: 01/03/2019 SUBJECTIVE: The patient was seen in his room. The patient is asleep, easily is arousable. The patient is little agitated, guarded. The patient is currently on a 1:1 sitter for safety. Otherwise, the patient appears to be in no acute distress. No episodes of bleeding. OBJECTIVE: VITAL SIGNS: Temperature 97.9, heart rate of 85, blood pressure 122/67, respirations 18, and 96% on room air. HEENT: Head is atraumatic and normocephalic. Eyes: Bilateral conjunctivae are clear. Bilateral pupils equally round and reactive. NECK: Supple. No JVD. CARDIOVASCULAR: S1 and S2 without murmur. PULMONARY: Clear to auscultation. GASTROINTESTINAL: Soft and nontender without guarding. Positive bowel sounds. MUSCULOSKELETAL: No clubbing, no cyanosis noted. ASSESSMENT: 1. Iron-deficiency anemia. 2. Psychosis. 3. Hypertension. 4. Gastroesophageal reflux disease. 5. Hypothyroidism. 6. Gastrointestinal bleed ____, status post EGD, colonoscopy. PLAN: We will continue to keep the patient inpatient. We will follow up with [facility] to monitor the patient's iron level. The patient is currently on ferrous gluconate via IV. Also going to follow up with the psychiatrist to monitor the patient's condition and behavior. Treatment plans were discussed with the patient's nurse. Treatment plans were discussed with Dr. Farah. JOB# [id number]
[2019-01-04 08:25] LABS: RED CELL DISTRIBUTION WIDTH 14.2 % (11.5-20.0)
[2019-01-04 08:38] LABS: HEMATOCRIT 32.9 % (41.0-60); HEMOGLOBIN 10.8 gm/dL (12-16); MEAN CELL VOLUME 85.6 fl (80-99); MEAN CORPUSCULAR HGB CONC 32.7 pg (28.0-36.0); MEAN PLATELET VOLUME 8.6 fl; PLATELET COUNT 204 Th/cmm (150-400); RED BLOOD COUNT 3.85 Mil/cmm (4.30-5.70)
[2019-01-04 08:40] LABS: WHITE BLOOD COUNT 22.3 Th/cmm (4.8-10.8)
[2019-01-04 09:01] LABS: BAND NEUTROPHILE 8 % (0-10); BASOPHIL 0 % (0-3); EOSINOPHIL 0 % (0-5); LYMPHOCYTE 5 % (20-50); MONOCYTE 3 % (2-10); NEUTROPHILS 84 % (40-80)
[2019-01-04] MEDS: Sodium Ferric Gluconate 125 MG in Sodium Chloride 0.9% 100 ML IV SCH (09:37)
--- NOTE | 2019-01-04 09:40 | Internal Medicine Prog Note ---
Internal Medicine Subjective - Subjective Patient seen and examined:: chart reviewed Patient is:: awake, in bed, agitated, other (agitated, no signs of pain ) Patient Complaints of:: cough Per staff patient has:: agitated Internal Medicine Objective - Results Result Diagrams: 01/04/19 08:00 01/02/19 05:40 Recent Labs: Laboratory Last Values WBC 22.3 Th/cmm (4.8-10.8) H* D 01/04/19 08:00 RBC 3.85 Mil/cmm (4.30-5.70) L 01/04/19 08:00 Hgb 10.8 gm/dL (12-16) L 01/04/19 08:00 Hct 32.9 % (41.0-60) L 01/04/19 08:00 MCV 85.6 fl (80-99) 01/04/19 08:00 MCH 28.0 pg (26.0-30.0) 01/04/19 08:00 MCHC Differential 32.7 pg (28.0-36.0) 01/04/19 08:00 RDW 14.2 % (11.5-20.0) 01/04/19 08:00 Plt Count 204 Th/cmm (150-400) 01/04/19 08:00 MPV 8.6 fl 01/04/19 08:00 Add Manual Diff YES 01/04/19 08:00 Neutrophils % 71.4 % (40.0-80.0) 01/02/19 05:40 Band Neutrophils % 8 % (0-10) 01/04/19 08:00 Lymphocytes % 14.7 % (20.0-50.0) L 01/02/19 05:40 Monocytes % 7.3 % (2.0-10.0) 01/02/19 05:40 Eosinophils % 5.8 % (0.0-5.0) H 01/02/19 05:40 Basophils % 0.8 % (0.0-2.0) 01/02/19 05:40 Neutrophils (Manual) 84 % (40-80) H 01/04/19 08:00 Lymphocytes 5 % (20-50) L 01/04/19 08:00 Monocytes 3 % (2-10) 01/04/19 08:00 Eosinophils 0 % (0-5) 01/04/19 08:00 Basophils 0 % (0-3) 01/04/19 08:00 Total Retics Counted 2.2 % (0.5-1.5) H 12/26/18 05:40 Absolute Retic 79.2 Th/cmm 12/26/18 05:40 Corrected Retic Count 1.5 % (0.5-1.5) 12/26/18 05:40 PT 10.9 SECONDS (9.5-11.5) 01/02/19 05:40 INR 1.05 (0.5-1.4) 01/02/19 05:40 Sodium 136 mEq/L (136-145) 01/02/19 05:40 Potassium 3.6 mEq/L (3.5-5.1) 01/02/19 05:40 Chloride 97 mEq/L (98-107) L 01/02/19 05:40 Carbon Dioxide 30.9 mEq/L (21.0-31.0) 01/02/19 05:40 Anion Gap 11.7 (7.0-16.0) 01/02/19 05:40 BUN 18 mg/dL (7-25) 01/02/19 05:40 Creatinine 1.1 mg/dL (0.7-1.3) 01/02/19 05:40 Est GFR ( Amer) > 60.0 ml/min (>90) 01/02/19 05:40 Est GFR (Non-Af Amer) > 60.0 ml/min 01/02/19 05:40 BUN/Creatinine Ratio 16.4 01/02/19 05:40 Glucose 121 mg/dL (70-105) H 01/02/19 05:40 POC Glucose 87 MG/DL (70 - 105) 01/01/19 08:07 Whole Bld Lactic Acid 1.37 mmol/L (0.60-1.99) 12/26/18 05:40 Calcium 9.0 mg/dL (8.6-10.3) 01/02/19 05:40 Iron 17 ug/dL (38-169) L 12/26/18 05:40 TIBC 210 ug/dL (250-450) L 12/26/18 05:40 Iron Saturation 8 % (15-55) L 12/26/18 05:40 Unsaturated IBC 193 ug/dL (111-343) 12/26/18 05:40 Ferritin 200 ng/mL (30-400) 12/26/18 05:40 Total Bilirubin 0.4 mg/dL (0.3-1.0) 12/26/18 05:40 AST 65 U/L (13-39) H 12/26/18 05:40 ALT 28 U/L (7-52) 12/26/18 05:40 Alkaline Phosphatase 58 U/L (34-104) 12/26/18 05:40 Total Protein 6.3 gm/dL (6.0-8.3) 12/26/18 05:40 Albumin 3.4 gm/dL (4.2-5.5) L 12/26/18 05:40 Globulin 2.9 gm/dL 12/26/18 05:40 Albumin/Globulin Ratio 1.2 (1.0-1.8) 12/26/18 05:40 Triglycerides 125 mg/dL (<150) 12/25/18 16:11 Cholesterol 154 mg/dL (<200) 12/25/18 16:11 LDL Cholesterol Direct 112 mg/dL (75-193) 12/25/18 16:11 HDL Cholesterol 37 mg/dL (23-92) 12/25/18 16:11 Vitamin B12 848 pg/mL (232-1245) 12/26/18 05:40 Folic Acid 6.9 ng/mL (>3.0) 12/26/18 05:40 TSH 2.61 uIU/ml (0.34-5.60) 12/25/18 16:11 Urine Source CATH 12/25/18 16:25 Urine Color COLORLESS 12/25/18 16:25 Urine Clarity CLEAR (CLEAR) 12/25/18 16:25 Urine pH 6.0 (4.6 - 8.0) 12/25/18 16:25 Ur Specific [place] 1.010 (1.005-1.030) 12/25/18 16:25 Urine Protein NEGATIVE mg/dL (NEGATIVE) 12/25/18 16:25 Urine Glucose (UA) NEGATIVE mg/dL (NEGATIVE) 12/25/18 16:25 Urine Ketones NEGATIVE mg/dL (NEGATIVE) 12/25/18 16:25 Urine Blood NEGATIVE (NEGATIVE) 12/25/18 16:25 Urine Nitrate NEGATIVE (NEGATIVE) 12/25/18 16:25 Urine Bilirubin NEGATIVE (NEGATIVE) 12/25/18 16:25 Urine Urobilinogen 0.2 E.U./dL (0.2 - 1.0) 12/25/18 16:25 Ur Leukocyte Esterase NEGATIVE (NEGATIVE) 12/25/18 16:25 Stool Occult Blood POSITIVE (NEGATIVE) H 12/30/18 13:00 Valproic Acid < 10.0 ug/mL (50.0-100.0) L 12/30/18 04:25 [place] 0.06 mmol/L (0.5-1.0) L 12/30/18 04:25 RPR NONREACTIVE (NONREACTIVE) 12/25/18 16:11 Influenza A (Rapid) NEG FOR INF A 12/25/18 16:30 Influenza B (Rapid) NEG FOR INF B 12/25/18 16:30 - Physical Exam Vitals and I&O: Vital Signs Temp 100.7 F 01/04/19 04:00 Pulse 113 01/04/19 04:00 Resp 19 01/04/19 04:00 BP 105/50 01/04/19 04:00 Pulse Ox 93 01/04/19 04:00 Intake & Output 01/03/19 01/04/19 01/04/19 18:59 06:59 18:59 Intake Total 1200 120 Balance 1200 120 Weight (lbs) 68.039 kg 63.503 kg Intake: Oral 1200 120 Other: # Voids 3 3 # Bowel Movements 0 Weight Source Bedscale Bedscale Active Medications: Current Medications Acetaminophen (Tylenol 650mg Supp) 650 mg RC Q6H PRN PRN Reason: Fever > 101 Stop: 03/05/19 08:02 Last Admin: 01/04/19 08:49 Dose: 650 mg Acetaminophen (Tylenol) 650 mg PO Q4H PRN PRN Reason: Fever > 101 Stop: 03/05/19 08:05 Amlodipine Besylate (Norvasc) 10 mg PO DAILY [facility] Stop: 02/28/19 08:59 Last Admin: 01/03/19 09:05 Dose: Not Given Ascorbic Acid (Vitamin C) 500 mg PO DAILY [facility] Stop: 03/01/19 08:59 Last Admin: 01/03/19 09:03 Dose: 500 mg Aspirin (Ecotrin) 81 mg PO DAILY [facility] Stop: 02/28/19 08:59 Last Admin: 01/03/19 09:10 Dose: 81 mg Benztropine Mesylate (Cogentin) 1 mg PO TID [facility] Stop: 02/28/19 08:59 Last Admin: 01/03/19 20:23 Dose: 1 mg Bisacodyl (Dulcolax 10 Mg Supp) 10 mg RC DAILY [facility] Stop: 02/28/19 08:59 Last Admin: 01/03/19 09:10 Dose: Not Given Cholecalciferol (Vitamin D3) 5,000 iu PO DAILY [facility] Stop: 02/28/19 08:59 Last Admin: 01/03/19 09:02 Dose: 5,000 iu Clonazepam (Klonopin) 2 mg PO TID [facility]; Protocol Stop: 02/27/19 08:59 Last Admin: 01/03/19 20:23 Dose: 2 mg Clozapine 100 mg/ Clozapine 75 (mg) 175 mg PO BID [facility] Stop: 03/01/19 16:59 Last Admin: 01/03/19 18:04 Dose: 175 mg Famotidine (Pepcid) 40 mg PO DAILY [facility] Stop: 02/28/19 08:59 Last Admin: 01/03/19 09:03 Dose: 40 mg Ferric Sodium Gluconate Complex 125 mg/ Sodium Chloride 110 mls @ 100 mls/hr IV Q24HR@1000 [facility] Stop: 01/08/19 11:59 Last Admin: 01/03/19 09:25 Dose: 100 mls/hr Dextrose/Sodium Chloride (D5-0.45ns) 1,000 mls @ 50 mls/hr IV .Q20H [facility] Stop: 03/02/19 19:37 Levothyroxine Sodium 0.025 mg/ (Levothyroxine Sodium 0.112 mg) 0.137 mg PO DAILY@0730 [facility] Stop: 02/28/19 07:29 Last Admin: 01/04/19 06:52 Dose: Not Given [place] Carbonate (Eskalith) 300 mg PO BID [facility]; Protocol Stop: 02/28/19 08:59 Last Admin: 01/03/19 18:01 Dose: 300 mg Magnesium Hydroxide (Milk Of Magnesia) 30 ml PO HS [facility] Stop: 02/28/19 20:59 Last Admin: 01/03/19 20:23 Dose: 30 ml Quetiapine Fumarate (Seroquel) 300 mg PO TID [facility]; Protocol Stop: 03/01/19 08:59 Last Admin: 01/03/19 20:23 Dose: 300 mg Temazepam (Restoril) 30 mg PO HS PRN PRN Reason: Insomnia Valproate Sodium (Depakene) 500 mg PO BID [facility]; Protocol Stop: 02/28/19 08:59 Last Admin: 01/03/19 18:00 Dose: 500 mg General: alert, other (agitated behavior.) Neck: No JVD Lungs: wheezing, ronchi Cardiovascular: Normal S1 Abdomen: soft, non-distended, positive bowel sound Extremities: other (Patient has restraints in place.) Internal Medicine Assmt/Plan - Assessment Assessment: Agitated with Aggresive Behavior towards others Psychosis. Schizophrenia. Leukocytosis. Sepsis. Pneumonia. Lactic acidosis. Iron deficiency anemia. Hypertension. History of Gerd. Hypothyroidism. PUD. GERD. hypotention - Plan Plan: iv fluids bolus 1l times 2 as per psych will monitor Nutritional Asmnt/Malnutr-PDOC - Dietary Evaluation Malnutrition Findings (Please click <Entered> for more info): Nutritional Asmnt/Malnutrition Start: 12/26/18 15: 09 Text: Status: Complete Freq: Protocol: Document 12/26/18 15:09 LCHENG (Rec: 12/26/18 15:12 [email or web address]) Nutritional Asmnt/Malnutrition Patient General Information Nutritional Screening High Risk Diagnosis sepsis Pertinent Medical Hx/Surgical Hx HTN, PUD/GERD, thyroid disorder, anemia, schizophrenia Subjective Information Pt seen in bed, disoriented, yelling, has 1:1 sitter in room. Per sitter, pt consumed 100% of breakfast and lunch today. Current Diet Order/ Nutrition Support soft/bland Pertinent Medications seroquel Pertinent Labs 12/25 BUN 26, Alb 3.5 Nutritional Hx/Data Height 1.7 m Height (Calculated Centimeters) 170.2 Current Weight (lbs) 58.967 kg Weight (Calculated Kilograms) 59.0 Weight (Calculated Grams) 50062.0 [place] Body Weight 148 Body Mass Index (BMI) 20.3 Weight Status Approriate GI Symptoms GI Symptoms None Last BM not indicated Difficult in: None Skin Integrity/Comment: intact Current %PO Good (75-100%) Estimated Nutritional Goals BEE in Kcals: Using Current wt Calories/Kcals/Kg 30-35 Kcals Calculated 9739-9720 Protein: Using Current wt Protein g/k.2 Protein Calculated 71 Fluid: ml 1620-2065ml (1ml/kcal) Nutritional Problem 1. Problem Problem increased nutritional needs Etiology increased metabolic demand Signs/Symptoms: dx of sepsis Malnutrition Alert Is there a minimum of two criteria No selected? Query Text:Check all the applicable criteria. A minimum of two criteria are recommended for diagnosis of either severe or non-severe malnutrition. Malnutrition Related to Morbid Obesity Malnutrition related to morbid obesity No Intervention/Recommendation Comments 1. Continue with soft/baland diet as ordered. 2. Monitor PO intake, wt, labs and skin integrity 3. F/U as moderate risk in 3-5 days Expected Outcomes/Goals Expected Outcomes/Goals 1. PO intake to meet at least 75% of nutritional needs. 2. Wt stability, skin to remain intact, labs to approach WNL.
[2019-01-04] MEDS: cloZAPine 100 MG, cloZAPine 75 MG PO SCH ×2 (09:42→16:19)
[2019-01-04] MEDS: Multivitamin w/ Minerals Tab PO SCH (09:43)
[2019-01-04] MEDS: Benztropine 1 MG TAB PO SCH ×3 (09:43→21:25)
--- NOTE | 2019-01-04 09:58 | Diagnostic Imaging Report ---
Exam: Chest x-ray HISTORY fever congestion Findings: Frontal examination of chest reviewed and compared to prior examination of 12/25/2018 demonstrates mild interstitial left midlung infiltrate. The costophrenic angles are clear bony thorax intact. Mediastinal structures midline. IMPRESSION: mild left midlung interstitial infiltrate.
--- NOTE | 2019-01-04 10:06 | GI Progress Note ---
Subjective - Review of Systems Service Date: 01/04/19 Events since last encounter: Febrile and leukocytois Subjective: No complaints Sleeping most of the day Objective - Results Result Diagrams: 01/04/19 08:00 01/02/19 05:40 Recent Labs: Laboratory Last Values WBC 22.3 Th/cmm (4.8-10.8) H* D 01/04/19 08:00 RBC 3.85 Mil/cmm (4.30-5.70) L 01/04/19 08:00 Hgb 10.8 gm/dL (12-16) L 01/04/19 08:00 Hct 32.9 % (41.0-60) L 01/04/19 08:00 MCV 85.6 fl (80-99) 01/04/19 08:00 MCH 28.0 pg (26.0-30.0) 01/04/19 08:00 MCHC Differential 32.7 pg (28.0-36.0) 01/04/19 08:00 RDW 14.2 % (11.5-20.0) 01/04/19 08:00 Plt Count 204 Th/cmm (150-400) 01/04/19 08:00 MPV 8.6 fl 01/04/19 08:00 Add Manual Diff YES 01/04/19 08:00 Neutrophils % 71.4 % (40.0-80.0) 01/02/19 05:40 Band Neutrophils % 8 % (0-10) 01/04/19 08:00 Lymphocytes % 14.7 % (20.0-50.0) L 01/02/19 05:40 Monocytes % 7.3 % (2.0-10.0) 01/02/19 05:40 Eosinophils % 5.8 % (0.0-5.0) H 01/02/19 05:40 Basophils % 0.8 % (0.0-2.0) 01/02/19 05:40 Neutrophils (Manual) 84 % (40-80) H 01/04/19 08:00 Lymphocytes 5 % (20-50) L 01/04/19 08:00 Monocytes 3 % (2-10) 01/04/19 08:00 Eosinophils 0 % (0-5) 01/04/19 08:00 Basophils 0 % (0-3) 01/04/19 08:00 Total Retics Counted 2.2 % (0.5-1.5) H 12/26/18 05:40 Absolute Retic 79.2 Th/cmm 12/26/18 05:40 Corrected Retic Count 1.5 % (0.5-1.5) 12/26/18 05:40 PT 10.9 SECONDS (9.5-11.5) 01/02/19 05:40 INR 1.05 (0.5-1.4) 01/02/19 05:40 Sodium 136 mEq/L (136-145) 01/02/19 05:40 Potassium 3.6 mEq/L (3.5-5.1) 01/02/19 05:40 Chloride 97 mEq/L (98-107) L 01/02/19 05:40 Carbon Dioxide 30.9 mEq/L (21.0-31.0) 01/02/19 05:40 Anion Gap 11.7 (7.0-16.0) 01/02/19 05:40 BUN 18 mg/dL (7-25) 01/02/19 05:40 Creatinine 1.1 mg/dL (0.7-1.3) 01/02/19 05:40 Est GFR ( Amer) > 60.0 ml/min (>90) 01/02/19 05:40 Est GFR (Non-Af Amer) > 60.0 ml/min 01/02/19 05:40 BUN/Creatinine Ratio 16.4 01/02/19 05:40 Glucose 121 mg/dL (70-105) H 01/02/19 05:40 POC Glucose 87 MG/DL (70 - 105) 01/01/19 08:07 Whole Bld Lactic Acid 1.37 mmol/L (0.60-1.99) 12/26/18 05:40 Calcium 9.0 mg/dL (8.6-10.3) 01/02/19 05:40 Iron 17 ug/dL (38-169) L 12/26/18 05:40 TIBC 210 ug/dL (250-450) L 12/26/18 05:40 Iron Saturation 8 % (15-55) L 12/26/18 05:40 Unsaturated IBC 193 ug/dL (111-343) 12/26/18 05:40 Ferritin 200 ng/mL (30-400) 12/26/18 05:40 Total Bilirubin 0.4 mg/dL (0.3-1.0) 12/26/18 05:40 AST 65 U/L (13-39) H 12/26/18 05:40 ALT 28 U/L (7-52) 12/26/18 05:40 Alkaline Phosphatase 58 U/L (34-104) 12/26/18 05:40 Total Protein 6.3 gm/dL (6.0-8.3) 12/26/18 05:40 Albumin 3.4 gm/dL (4.2-5.5) L 12/26/18 05:40 Globulin 2.9 gm/dL 12/26/18 05:40 Albumin/Globulin Ratio 1.2 (1.0-1.8) 12/26/18 05:40 Triglycerides 125 mg/dL (<150) 12/25/18 16:11 Cholesterol 154 mg/dL (<200) 12/25/18 16:11 LDL Cholesterol Direct 112 mg/dL (75-193) 12/25/18 16:11 HDL Cholesterol 37 mg/dL (23-92) 12/25/18 16:11 Vitamin B12 848 pg/mL (232-1245) 12/26/18 05:40 Folic Acid 6.9 ng/mL (>3.0) 12/26/18 05:40 TSH 2.61 uIU/ml (0.34-5.60) 12/25/18 16:11 Urine Source CATH 12/25/18 16:25 Urine Color COLORLESS 12/25/18 16:25 Urine Clarity CLEAR (CLEAR) 12/25/18 16:25 Urine pH 6.0 (4.6 - 8.0) 12/25/18 16:25 Ur Specific [place] 1.010 (1.005-1.030) 12/25/18 16:25 Urine Protein NEGATIVE mg/dL (NEGATIVE) 12/25/18 16:25 Urine Glucose (UA) NEGATIVE mg/dL (NEGATIVE) 12/25/18 16:25 Urine Ketones NEGATIVE mg/dL (NEGATIVE) 12/25/18 16:25 Urine Blood NEGATIVE (NEGATIVE) 12/25/18 16:25 Urine Nitrate NEGATIVE (NEGATIVE) 12/25/18 16:25 Urine Bilirubin NEGATIVE (NEGATIVE) 12/25/18 16:25 Urine Urobilinogen 0.2 E.U./dL (0.2 - 1.0) 12/25/18 16:25 Ur Leukocyte Esterase NEGATIVE (NEGATIVE) 12/25/18 16:25 Stool Occult Blood POSITIVE (NEGATIVE) H 12/30/18 13:00 Valproic Acid < 10.0 ug/mL (50.0-100.0) L 12/30/18 04:25 [place] 0.06 mmol/L (0.5-1.0) L 12/30/18 04:25 RPR NONREACTIVE (NONREACTIVE) 12/25/18 16:11 Influenza A (Rapid) NEG FOR INF A 12/25/18 16:30 Influenza B (Rapid) NEG FOR INF B 12/25/18 16:30 - Physical Exam Vitals and I&O: Vital Signs Temp 98.7 F 01/04/19 09:59 Pulse 113 01/04/19 04:00 Resp 19 01/04/19 04:00 BP 105/50 01/04/19 04:00 Pulse Ox 93 01/04/19 04:00 Intake & Output 01/03/19 01/04/19 01/04/19 18:59 06:59 18:59 Intake Total 1310 120 Balance 1310 120 Weight (lbs) 68.039 kg 63.503 kg Intake: Intake, IV Amount 110 Sodium Ferric Gluconate 110 125 mg In Sodium Chloride 0.9% 100 ml @ 100 mls/hr IV Q24HR@1000 [facility] Rx#: [id number] Oral 1200 120 Other: # Voids 3 3 # Bowel Movements 0 Weight Source Bedscale Bedscale Active Medications: Current Medications Acetaminophen (Tylenol 650mg Supp) 650 mg RC Q6H PRN PRN Reason: Fever > 101 Stop: 03/05/19 08:02 Last Admin: 01/04/19 08:49 Dose: 650 mg Acetaminophen (Tylenol) 650 mg PO Q4H PRN PRN Reason: Fever > 101 Stop: 03/05/19 08:05 Amlodipine Besylate (Norvasc) 10 mg PO DAILY [facility] Stop: 02/28/19 08:59 Last Admin: 01/04/19 09:42 Dose: Not Given Ascorbic Acid (Vitamin C) 500 mg PO DAILY [facility] Stop: 03/01/19 08:59 Last Admin: 01/04/19 09:42 Dose: Not Given Aspirin (Ecotrin) 81 mg PO DAILY [facility] Stop: 02/28/19 08:59 Last Admin: 01/04/19 09:42 Dose: Not Given Benztropine Mesylate (Cogentin) 1 mg PO TID [facility] Stop: 02/28/19 08:59 Last Admin: 01/04/19 09:43 Dose: Not Given Bisacodyl (Dulcolax 10 Mg Supp) 10 mg RC DAILY [facility] Stop: 02/28/19 08:59 Last Admin: 01/03/19 09:10 Dose: Not Given Cholecalciferol (Vitamin D3) 5,000 iu PO DAILY [facility] Stop: 02/28/19 08:59 Last Admin: 01/04/19 09:43 Dose: Not Given Clonazepam (Klonopin) 2 mg PO TID [facility]; Protocol Stop: 02/27/19 08:59 Last Admin: 01/04/19 09:43 Dose: Not Given Clozapine 100 mg/ Clozapine 75 (mg) 175 mg PO BID [facility] Stop: 03/01/19 16:59 Last Admin: 01/04/19 09:42 Dose: Not Given Famotidine (Pepcid) 40 mg PO DAILY [facility] Stop: 02/28/19 08:59 Last Admin: 01/04/19 09:44 Dose: Not Given Ferric Sodium Gluconate Complex 125 mg/ Sodium Chloride 110 mls @ 100 mls/hr IV Q24HR@1000 [facility] Stop: 01/08/19 11:59 Last Admin: 01/04/19 09:37 Dose: 100 mls/hr Dextrose/Sodium Chloride (D5-0.45ns) 1,000 mls @ 50 mls/hr IV .Q20H [facility] Stop: 03/02/19 19:37 Levothyroxine Sodium 0.025 mg/ (Levothyroxine Sodium 0.112 mg) 0.137 mg PO DAILY@0730 [facility] Stop: 02/28/19 07:29 Last Admin: 01/04/19 06:52 Dose: Not Given [place] Carbonate (Eskalith) 300 mg PO BID [facility]; Protocol Stop: 02/28/19 08:59 Last Admin: 01/04/19 09:41 Dose: Not Given Magnesium Hydroxide (Milk Of Magnesia) 30 ml PO HS [facility] Stop: 02/28/19 20:59 Last Admin: 01/03/19 20:23 Dose: 30 ml Quetiapine Fumarate (Seroquel) 300 mg PO TID [facility]; Protocol Stop: 03/01/19 08:59 Last Admin: 01/04/19 09:41 Dose: Not Given Temazepam (Restoril) 30 mg PO HS PRN PRN Reason: Insomnia Valproate Sodium (Depakene) 500 mg PO BID [facility]; Protocol Stop: 02/28/19 08:59 Last Admin: 01/04/19 09:41 Dose: Not Given General: No acute distress, Other (confused) HEENT: Atraumatic Neck: Supple Cardiovascular: Regular rate, Normal S1, Normal S2 Lungs: Clear to auscultation, Normal air movement Abdomen: Bowel sounds, Soft, no Tender, no Distended Assessment/Plan - Assessment Assessment: 1. Anemia 2. OB positive - Plan Plan: 1. Anemia Stable post transfusion S/P EGD and colon Polyps Await pathology 2. OB positive S/P EGD and colon AWAIT PATHOLOGY 3. Leukocytosis and febrile Possible aspiration Await CXR
[2019-01-04] MEDS ORDERED: cefTRIAXone 1 GM in Sodium Chloride 0.9% 50 ML IV SCH (10:33)
[2019-01-04] MEDS ORDERED: Azithromycin 500 MG in Sodium Chloride 0.9% 250 ML IV SCH (10:45)
[2019-01-04] MEDS ORDERED: Albuterol/Ipratropium Neb 3 ML AERS HHN ONE (11:31)
[2019-01-04] MEDS: Albuterol/Ipratropium Neb 3 ML AERS HHN SCH ×4 (11:37→23:22)
[2019-01-04] MEDS ORDERED: Sodium Chloride 0.9% 1,000 ML IV ONE ×2 (11:56→14:53)
--- NOTE | 2019-01-04 12:49 | Infectious Disease Prog Note ---
Infectious Disease Subjective - Review of Systems Service Date: 01/04/19 Subjective: Patient has developed fever and increase in leukocytosis. Infectious Disease Objective - Results Result Diagrams: 01/04/19 08:00 01/02/19 05:40 Recent Labs: Laboratory Last Values WBC 22.3 Th/cmm (4.8-10.8) H* D 01/04/19 08:00 RBC 3.85 Mil/cmm (4.30-5.70) L 01/04/19 08:00 Hgb 10.8 gm/dL (12-16) L 01/04/19 08:00 Hct 32.9 % (41.0-60) L 01/04/19 08:00 MCV 85.6 fl (80-99) 01/04/19 08:00 MCH 28.0 pg (26.0-30.0) 01/04/19 08:00 MCHC Differential 32.7 pg (28.0-36.0) 01/04/19 08:00 RDW 14.2 % (11.5-20.0) 01/04/19 08:00 Plt Count 204 Th/cmm (150-400) 01/04/19 08:00 MPV 8.6 fl 01/04/19 08:00 Add Manual Diff YES 01/04/19 08:00 Neutrophils % 71.4 % (40.0-80.0) 01/02/19 05:40 Band Neutrophils % 8 % (0-10) 01/04/19 08:00 Lymphocytes % 14.7 % (20.0-50.0) L 01/02/19 05:40 Monocytes % 7.3 % (2.0-10.0) 01/02/19 05:40 Eosinophils % 5.8 % (0.0-5.0) H 01/02/19 05:40 Basophils % 0.8 % (0.0-2.0) 01/02/19 05:40 Neutrophils (Manual) 84 % (40-80) H 01/04/19 08:00 Lymphocytes 5 % (20-50) L 01/04/19 08:00 Monocytes 3 % (2-10) 01/04/19 08:00 Eosinophils 0 % (0-5) 01/04/19 08:00 Basophils 0 % (0-3) 01/04/19 08:00 Total Retics Counted 2.2 % (0.5-1.5) H 12/26/18 05:40 Absolute Retic 79.2 Th/cmm 12/26/18 05:40 Corrected Retic Count 1.5 % (0.5-1.5) 12/26/18 05:40 PT 10.9 SECONDS (9.5-11.5) 01/02/19 05:40 INR 1.05 (0.5-1.4) 01/02/19 05:40 Sodium 136 mEq/L (136-145) 01/02/19 05:40 Potassium 3.6 mEq/L (3.5-5.1) 01/02/19 05:40 Chloride 97 mEq/L (98-107) L 01/02/19 05:40 Carbon Dioxide 30.9 mEq/L (21.0-31.0) 01/02/19 05:40 Anion Gap 11.7 (7.0-16.0) 01/02/19 05:40 BUN 18 mg/dL (7-25) 01/02/19 05:40 Creatinine 1.1 mg/dL (0.7-1.3) 01/02/19 05:40 Est GFR ( Amer) > 60.0 ml/min (>90) 01/02/19 05:40 Est GFR (Non-Af Amer) > 60.0 ml/min 01/02/19 05:40 BUN/Creatinine Ratio 16.4 01/02/19 05:40 Glucose 121 mg/dL (70-105) H 01/02/19 05:40 POC Glucose 87 MG/DL (70 - 105) 01/01/19 08:07 Whole Bld Lactic Acid 1.26 mmol/L (0.60-1.99) 01/04/19 12:10 Calcium 9.0 mg/dL (8.6-10.3) 01/02/19 05:40 Iron 17 ug/dL (38-169) L 12/26/18 05:40 TIBC 210 ug/dL (250-450) L 12/26/18 05:40 Iron Saturation 8 % (15-55) L 12/26/18 05:40 Unsaturated IBC 193 ug/dL (111-343) 12/26/18 05:40 Ferritin 200 ng/mL (30-400) 12/26/18 05:40 Total Bilirubin 0.4 mg/dL (0.3-1.0) 12/26/18 05:40 AST 65 U/L (13-39) H 12/26/18 05:40 ALT 28 U/L (7-52) 12/26/18 05:40 Alkaline Phosphatase 58 U/L (34-104) 12/26/18 05:40 Total Protein 6.3 gm/dL (6.0-8.3) 12/26/18 05:40 Albumin 3.4 gm/dL (4.2-5.5) L 12/26/18 05:40 Globulin 2.9 gm/dL 12/26/18 05:40 Albumin/Globulin Ratio 1.2 (1.0-1.8) 12/26/18 05:40 Triglycerides 125 mg/dL (<150) 12/25/18 16:11 Cholesterol 154 mg/dL (<200) 12/25/18 16:11 LDL Cholesterol Direct 112 mg/dL (75-193) 12/25/18 16:11 HDL Cholesterol 37 mg/dL (23-92) 12/25/18 16:11 Vitamin B12 848 pg/mL (232-1245) 12/26/18 05:40 Folic Acid 6.9 ng/mL (>3.0) 12/26/18 05:40 TSH 2.61 uIU/ml (0.34-5.60) 12/25/18 16:11 Urine Source CATH 12/25/18 16:25 Urine Color COLORLESS 12/25/18 16:25 Urine Clarity CLEAR (CLEAR) 12/25/18 16:25 Urine pH 6.0 (4.6 - 8.0) 12/25/18 16:25 Ur Specific [place] 1.010 (1.005-1.030) 12/25/18 16:25 Urine Protein NEGATIVE mg/dL (NEGATIVE) 12/25/18 16:25 Urine Glucose (UA) NEGATIVE mg/dL (NEGATIVE) 12/25/18 16:25 Urine Ketones NEGATIVE mg/dL (NEGATIVE) 12/25/18 16:25 Urine Blood NEGATIVE (NEGATIVE) 12/25/18 16:25 Urine Nitrate NEGATIVE (NEGATIVE) 12/25/18 16:25 Urine Bilirubin NEGATIVE (NEGATIVE) 12/25/18 16:25 Urine Urobilinogen 0.2 E.U./dL (0.2 - 1.0) 12/25/18 16:25 Ur Leukocyte Esterase NEGATIVE (NEGATIVE) 12/25/18 16:25 Stool Occult Blood POSITIVE (NEGATIVE) H 12/30/18 13:00 Valproic Acid < 10.0 ug/mL (50.0-100.0) L 12/30/18 04:25 [place] 0.06 mmol/L (0.5-1.0) L 12/30/18 04:25 RPR NONREACTIVE (NONREACTIVE) 12/25/18 16:11 Influenza A (Rapid) NEG FOR INF A 12/25/18 16:30 Influenza B (Rapid) NEG FOR INF B 12/25/18 16:30 - Physical Exam Vitals and I&O: Vital Signs Temp 98.7 F 01/04/19 09:59 Pulse 115 01/04/19 07:30 Resp 16 01/04/19 11:59 BP 105/50 01/04/19 04:00 Pulse Ox 92 01/04/19 07:30 Intake & Output 01/03/19 01/04/19 01/04/19 18:59 06:59 18:59 Intake Total 1310 120 0 Balance 1310 120 0 Weight (lbs) 68.039 kg 63.503 kg 63.503 kg Intake: Intake, IV Amount 110 Sodium Ferric Gluconate 110 125 mg In Sodium Chloride 0.9% 100 ml @ 100 mls/hr IV Q24HR@1000 [facility] Rx#: [id number] Oral 1200 120 0 Other: # Voids 3 3 1 # Bowel Movements 0 Weight Source Bedscale Bedscale Bedscale Active Medications: Current Medications Acetaminophen (Tylenol 650mg Supp) 650 mg RC Q6H PRN PRN Reason: Fever > 101 Stop: 03/05/19 08:02 Last Admin: 01/04/19 08:49 Dose: 650 mg Acetaminophen (Tylenol) 650 mg PO Q4H PRN PRN Reason: Fever > 101 Stop: 03/05/19 08:05 Albuterol/Ipratropium (Duoneb Neb) 3 ml HHN Q4HRT [facility] Stop: 03/05/19 10:59 Last Admin: 01/04/19 11:37 Dose: 3 ml Amlodipine Besylate (Norvasc) 10 mg PO DAILY [facility] Stop: 02/28/19 08:59 Last Admin: 01/04/19 09:42 Dose: Not Given Ascorbic Acid (Vitamin C) 500 mg PO DAILY [facility] Stop: 03/01/19 08:59 Last Admin: 01/04/19 09:42 Dose: Not Given Aspirin (Ecotrin) 81 mg PO DAILY [facility] Stop: 02/28/19 08:59 Last Admin: 01/04/19 09:42 Dose: Not Given Benztropine Mesylate (Cogentin) 1 mg PO TID [facility] Stop: 02/28/19 08:59 Last Admin: 01/04/19 09:43 Dose: Not Given Bisacodyl (Dulcolax 10 Mg Supp) 10 mg RC DAILY [facility] Stop: 02/28/19 08:59 Last Admin: 01/03/19 09:10 Dose: Not Given Cholecalciferol (Vitamin D3) 5,000 iu PO DAILY [facility] Stop: 02/28/19 08:59 Last Admin: 01/04/19 09:43 Dose: Not Given Clonazepam (Klonopin) 2 mg PO TID [facility]; Protocol Stop: 02/27/19 08:59 Last Admin: 01/04/19 09:43 Dose: Not Given Clozapine 100 mg/ Clozapine 75 (mg) 175 mg PO BID [facility] Stop: 03/01/19 16:59 Last Admin: 01/04/19 09:42 Dose: Not Given Famotidine (Pepcid) 40 mg PO DAILY [facility] Stop: 02/28/19 08:59 Last Admin: 01/04/19 09:44 Dose: Not Given Ferric Sodium Gluconate Complex 125 mg/ Sodium Chloride 110 mls @ 100 mls/hr IV Q24HR@1000 [facility] Stop: 01/08/19 11:59 Last Admin: 01/04/19 09:37 Dose: 100 mls/hr Dextrose/Sodium Chloride (D5-0.45ns) 1,000 mls @ 50 mls/hr IV .Q20H [facility] Stop: 03/02/19 19:37 Azithromycin 500 mg/ Sodium (Chloride) 250 mls @ 250 mls/hr IV Q24HR [facility] Stop: 03/05/19 10:44 Ceftriaxone Sodium 1 gm/ (Sodium Chloride) 50 mls @ 100 mls/hr IV DAILY [facility] Stop: 03/05/19 10:32 Last Admin: 01/04/19 12:39 Dose: 100 mls/hr Levothyroxine Sodium 0.025 mg/ (Levothyroxine Sodium 0.112 mg) 0.137 mg PO DAILY@0730 [facility] Stop: 02/28/19 07:29 Last Admin: 01/04/19 06:52 Dose: Not Given [place] Carbonate (Eskalith) 300 mg PO BID [facility]; Protocol Stop: 02/28/19 08:59 Last Admin: 01/04/19 09:41 Dose: Not Given Magnesium Hydroxide (Milk Of Magnesia) 30 ml PO HS [facility] Stop: 02/28/19 20:59 Last Admin: 01/03/19 20:23 Dose: 30 ml Quetiapine Fumarate (Seroquel) 300 mg PO TID [facility]; Protocol Stop: 03/01/19 08:59 Last Admin: 01/04/19 09:41 Dose: Not Given Temazepam (Restoril) 30 mg PO HS PRN PRN Reason: Insomnia Valproate Sodium (Depakene) 500 mg PO BID [facility]; Protocol Stop: 02/28/19 08:59 Last Admin: 01/04/19 09:41 Dose: Not Given General: no acute distress, well developed, well nourished HEENT: atraumatic, normocephalic, PERRLA, moist mucous membrane Neck: supple, no thyromegaly Cardiovascular: S1S2, regular Lungs: clear to auscultation bilaterally, clear to percussion Abdomen: soft, no tender, no distended, no mass, no hepatomegaly Extremities: no cyanosis, no clubbing, no edema Neurological: awake, alert, oriented Skin: intact Infectious Disease Assmt/Plan - Assessment Assessment: 1. Sepsis. may have aspirated. 2. Pneumonia. 3. Leukocytosis, suspect sepsis as patient also had lactic acidosis and tachycardia on presentation. 4. Hypothyroidism. 5. Anemia. 6. Schizophrenia. 7. Hypertension. 8. History of gastroesophageal reflux disease. 9. Iron deficiency anemia. 10. Aggressive behaviour. - Plan Plan: Change antibiotics to Zosyn. Sepsis w/u Nutritional Asmnt/Malnutr-PDOC - Dietary Evaluation Malnutrition Findings (Please click <Entered> for more info): Nutritional Asmnt/Malnutrition Start: 12/26/18 15: 09 Text: Status: Complete Freq: Protocol: Document 12/26/18 15:09 [facility] (Rec: 12/26/18 15:12 [facility] [id number]) Nutritional Asmnt/Malnutrition Patient General Information Nutritional Screening High Risk Diagnosis sepsis Pertinent Medical Hx/Surgical Hx HTN, PUD/GERD, thyroid disorder, anemia, schizophrenia Subjective Information Pt seen in bed, disoriented, yelling, has 1:1 sitter in room. Per sitter, pt consumed 100% of breakfast and lunch today. Current Diet Order/ Nutrition Support soft/bland Pertinent Medications seroquel Pertinent Labs 12/25 BUN 26, Alb 3.5 Nutritional Hx/Data Height 1.7 m Height (Calculated Centimeters) 170.2 Current Weight (lbs) 58.967 kg Weight (Calculated Kilograms) 59.0 Weight (Calculated Grams) 41465.0 [place] Body Weight 148 Body Mass Index (BMI) 20.3 Weight Status Approriate GI Symptoms GI Symptoms None Last BM not indicated Difficult in: None Skin Integrity/Comment: intact Current %PO Good (75-100%) Estimated Nutritional Goals BEE in Kcals: Using Current wt Calories/Kcals/Kg 30-35 Kcals Calculated 3495-8275 Protein: Using Current wt Protein g/k.2 Protein Calculated 71 Fluid: ml 1620-2065ml (1ml/kcal) Nutritional Problem 1. Problem Problem increased nutritional needs Etiology increased metabolic demand Signs/Symptoms: dx of sepsis Malnutrition Alert Is there a minimum of two criteria No selected? Query Text:Check all the applicable criteria. A minimum of two criteria are recommended for diagnosis of either severe or non-severe malnutrition. Malnutrition Related to Morbid Obesity Malnutrition related to morbid obesity No Intervention/Recommendation Comments 1. Continue with soft/baland diet as ordered. 2. Monitor PO intake, wt, labs and skin integrity 3. F/U as moderate risk in 3-5 days Expected Outcomes/Goals Expected Outcomes/Goals 1. PO intake to meet at least 75% of nutritional needs. 2. Wt stability, skin to remain intact, labs to approach WNL.
[2019-01-04] MEDS: Magnesium Hydroxide (MOM) 30 mL UDC PO SCH (21:25)
--- NOTE | 2019-01-04 23:16 | Progress Notes ---
DATE: 01/04/2019 Case was discussed with staff of the patient, reviewed records. The patient continues to have episodes of agitation, but ____ few days ago. He is starting to show some progress with episodes of increased agitation by increase in Clozaril dose has held. The patient continues to have poor insight, continues to be unable to make safe plan for self-care. No side effects with the medication. No sedation, no nausea, no extrapyramidal symptoms and Dr. Craven will follow up with him tomorrow. Thank you very much for allowing me to participate in the care of this most interesting gentleman. JOB# [id number]
[2019-01-05] MEDS: Albuterol/Ipratropium Neb 3 ML AERS HHN SCH ×6 (03:19→22:42)
[2019-01-05 08:36] LABS: MEAN CELL VOLUME 85.2 fl (80-99); MEAN CORPUSCULAR HEMOGLOBIN 28.3 pg (26.0-30.0); MEAN CORPUSCULAR HGB CONC 33.2 pg (28.0-36.0); MEAN PLATELET VOLUME 8.5 fl; PLATELET COUNT 220 Th/cmm (150-400); RED BLOOD COUNT 3.52 Mil/cmm (4.30-5.70); RED CELL DISTRIBUTION WIDTH 14.3 % (11.5-20.0)
[2019-01-05 08:38] LABS: WHITE BLOOD COUNT 25.5 Th/cmm (4.8-10.8)
--- NOTE | 2019-01-05 08:52 | GI Progress Note ---
Subjective - Review of Systems Service Date: 01/05/19 Subjective: No overnight events Objective - Results Result Diagrams: 01/05/19 08:20 01/02/19 05:40 Recent Labs: Laboratory Last Values WBC 25.5 Th/cmm (4.8-10.8) H* 01/05/19 08:20 RBC 3.52 Mil/cmm (4.30-5.70) L 01/05/19 08:20 Hgb 10.0 gm/dL (12-16) L 01/05/19 08:20 Hct 30.0 % (41.0-60) L 01/05/19 08:20 MCV 85.2 fl (80-99) 01/05/19 08:20 MCH 28.3 pg (26.0-30.0) 01/05/19 08:20 MCHC Differential 33.2 pg (28.0-36.0) 01/05/19 08:20 RDW 14.3 % (11.5-20.0) 01/05/19 08:20 Plt Count 220 Th/cmm (150-400) 01/05/19 08:20 MPV 8.5 fl 01/05/19 08:20 Add Manual Diff YES 01/05/19 08:20 Neutrophils % 71.4 % (40.0-80.0) 01/02/19 05:40 Band Neutrophils % 8 % (0-10) 01/04/19 08:00 Lymphocytes % 14.7 % (20.0-50.0) L 01/02/19 05:40 Monocytes % 7.3 % (2.0-10.0) 01/02/19 05:40 Eosinophils % 5.8 % (0.0-5.0) H 01/02/19 05:40 Basophils % 0.8 % (0.0-2.0) 01/02/19 05:40 Neutrophils (Manual) 84 % (40-80) H 01/04/19 08:00 Lymphocytes 5 % (20-50) L 01/04/19 08:00 Monocytes 3 % (2-10) 01/04/19 08:00 Eosinophils 0 % (0-5) 01/04/19 08:00 Basophils 0 % (0-3) 01/04/19 08:00 Total Retics Counted 2.2 % (0.5-1.5) H 12/26/18 05:40 Absolute Retic 79.2 Th/cmm 12/26/18 05:40 Corrected Retic Count 1.5 % (0.5-1.5) 12/26/18 05:40 PT 10.9 SECONDS (9.5-11.5) 01/02/19 05:40 INR 1.05 (0.5-1.4) 01/02/19 05:40 Sodium 136 mEq/L (136-145) 01/02/19 05:40 Potassium 3.6 mEq/L (3.5-5.1) 01/02/19 05:40 Chloride 97 mEq/L (98-107) L 01/02/19 05:40 Carbon Dioxide 30.9 mEq/L (21.0-31.0) 01/02/19 05:40 Anion Gap 11.7 (7.0-16.0) 01/02/19 05:40 BUN 18 mg/dL (7-25) 01/02/19 05:40 Creatinine 1.1 mg/dL (0.7-1.3) 01/02/19 05:40 Est GFR ( Amer) > 60.0 ml/min (>90) 01/02/19 05:40 Est GFR (Non-Af Amer) > 60.0 ml/min 01/02/19 05:40 BUN/Creatinine Ratio 16.4 01/02/19 05:40 Glucose 121 mg/dL (70-105) H 01/02/19 05:40 POC Glucose 87 MG/DL (70 - 105) 01/01/19 08:07 Whole Bld Lactic Acid 1.26 mmol/L (0.60-1.99) 01/04/19 12:10 Calcium 9.0 mg/dL (8.6-10.3) 01/02/19 05:40 Iron 17 ug/dL (38-169) L 12/26/18 05:40 TIBC 210 ug/dL (250-450) L 12/26/18 05:40 Iron Saturation 8 % (15-55) L 12/26/18 05:40 Unsaturated IBC 193 ug/dL (111-343) 12/26/18 05:40 Ferritin 200 ng/mL (30-400) 12/26/18 05:40 Total Bilirubin 0.4 mg/dL (0.3-1.0) 12/26/18 05:40 AST 65 U/L (13-39) H 12/26/18 05:40 ALT 28 U/L (7-52) 12/26/18 05:40 Alkaline Phosphatase 58 U/L (34-104) 12/26/18 05:40 Total Protein 6.3 gm/dL (6.0-8.3) 12/26/18 05:40 Albumin 3.4 gm/dL (4.2-5.5) L 12/26/18 05:40 Globulin 2.9 gm/dL 12/26/18 05:40 Albumin/Globulin Ratio 1.2 (1.0-1.8) 12/26/18 05:40 Triglycerides 125 mg/dL (<150) 12/25/18 16:11 Cholesterol 154 mg/dL (<200) 12/25/18 16:11 LDL Cholesterol Direct 112 mg/dL (75-193) 12/25/18 16:11 HDL Cholesterol 37 mg/dL (23-92) 12/25/18 16:11 Vitamin B12 848 pg/mL (232-1245) 12/26/18 05:40 Folic Acid 6.9 ng/mL (>3.0) 12/26/18 05:40 TSH 2.61 uIU/ml (0.34-5.60) 12/25/18 16:11 Urine Source CATH 12/25/18 16:25 Urine Color COLORLESS 12/25/18 16:25 Urine Clarity CLEAR (CLEAR) 12/25/18 16:25 Urine pH 6.0 (4.6 - 8.0) 12/25/18 16:25 Ur Specific [place] 1.010 (1.005-1.030) 12/25/18 16:25 Urine Protein NEGATIVE mg/dL (NEGATIVE) 12/25/18 16:25 Urine Glucose (UA) NEGATIVE mg/dL (NEGATIVE) 12/25/18 16:25 Urine Ketones NEGATIVE mg/dL (NEGATIVE) 12/25/18 16:25 Urine Blood NEGATIVE (NEGATIVE) 12/25/18 16:25 Urine Nitrate NEGATIVE (NEGATIVE) 12/25/18 16:25 Urine Bilirubin NEGATIVE (NEGATIVE) 12/25/18 16:25 Urine Urobilinogen 0.2 E.U./dL (0.2 - 1.0) 12/25/18 16:25 Ur Leukocyte Esterase NEGATIVE (NEGATIVE) 12/25/18 16:25 Stool Occult Blood POSITIVE (NEGATIVE) H 12/30/18 13:00 Valproic Acid < 10.0 ug/mL (50.0-100.0) L 12/30/18 04:25 Aten 0.06 mmol/L (0.5-1.0) L 12/30/18 04:25 RPR NONREACTIVE (NONREACTIVE) 12/25/18 16:11 Influenza A (Rapid) NEG FOR INF A 12/25/18 16:30 Influenza B (Rapid) NEG FOR INF B 12/25/18 16:30 - Physical Exam Vitals and I&O: Vital Signs Temp 98.0 F 01/05/19 04:00 Pulse 111 01/05/19 07:00 Resp 20 01/05/19 07:00 BP 115/51 01/05/19 04:00 Pulse Ox 90 01/05/19 07:00 Intake & Output 01/04/19 01/05/19 01/05/19 18:59 06:59 18:59 Intake Total 100 100 Balance 100 100 Weight (lbs) 63.503 kg Intake: Intake, IV Amount 100 100 Piperacillin Sodium/ 100 100 Tazobact 4.5 gm In Sodium Chloride 0.9% 100 ml @ 100 mls/hr IV Q8HR [facility] Rx #:[id number] Oral 0 Other: # Voids 1 Weight Source Bedscale Active Medications: Current Medications Acetaminophen (Tylenol 650mg Supp) 650 mg RC Q6H PRN PRN Reason: Fever > 101 Stop: 03/05/19 08:02 Last Admin: 01/04/19 08:49 Dose: 650 mg Acetaminophen (Tylenol) 650 mg PO Q4H PRN PRN Reason: Fever > 101 Stop: 03/05/19 08:05 Albuterol/Ipratropium (Duoneb Neb) 3 ml HHN Q4HRT [facility] Stop: 03/05/19 10:59 Last Admin: 01/05/19 06:59 Dose: 3 ml Amlodipine Besylate (Norvasc) 10 mg PO DAILY [facility] Stop: 02/28/19 08:59 Last Admin: 01/04/19 09:42 Dose: Not Given Ascorbic Acid (Vitamin C) 500 mg PO DAILY [facility] Stop: 03/01/19 08:59 Last Admin: 01/04/19 09:42 Dose: Not Given Aspirin (Ecotrin) 81 mg PO DAILY [facility] Stop: 02/28/19 08:59 Last Admin: 01/04/19 09:42 Dose: Not Given Benztropine Mesylate (Cogentin) 1 mg PO TID [facility] Stop: 02/28/19 08:59 Last Admin: 01/04/19 21:25 Dose: 1 mg Bisacodyl (Dulcolax 10 Mg Supp) 10 mg RC DAILY [facility] Stop: 02/28/19 08:59 Last Admin: 01/04/19 18:06 Dose: Not Given Cholecalciferol (Vitamin D3) 5,000 iu PO DAILY [facility] Stop: 02/28/19 08:59 Last Admin: 01/04/19 09:43 Dose: Not Given Clonazepam (Klonopin) 2 mg PO TID [facility]; Protocol Stop: 02/27/19 08:59 Last Admin: 01/04/19 21:23 Dose: Not Given Clozapine 100 mg/ Clozapine 75 (mg) 175 mg PO BID [facility] Stop: 03/01/19 16:59 Last Admin: 01/04/19 16:19 Dose: Not Given Famotidine (Pepcid) 40 mg PO DAILY [facility] Stop: 02/28/19 08:59 Last Admin: 01/04/19 09:44 Dose: Not Given Ferric Sodium Gluconate Complex 125 mg/ Sodium Chloride 110 mls @ 100 mls/hr IV Q24HR@1000 [facility] Stop: 01/08/19 11:59 Last Admin: 01/04/19 09:37 Dose: 100 mls/hr Dextrose/Sodium Chloride (D5-0.45ns) 1,000 mls @ 50 mls/hr IV .Q20H [facility] Stop: 03/02/19 19:37 Last Admin: 01/05/19 06:00 Dose: 50 mls/hr Piperacillin Sod/Tazobactam (Sod 4.5 gm/ Sodium Chloride) 100 mls @ 100 mls/hr IV Q8HR [facility] Stop: 03/05/19 12:59 Last Admin: 01/05/19 05:56 Dose: 100 mls/hr Levothyroxine Sodium 0.025 mg/ (Levothyroxine Sodium 0.112 mg) 0.137 mg PO DAILY@0730 [facility] Stop: 02/28/19 07:29 Last Admin: 01/05/19 07:30 Dose: 0.137 mg [place] Carbonate (Eskalith) 300 mg PO BID [facility]; Protocol Stop: 02/28/19 08:59 Last Admin: 01/04/19 16:19 Dose: Not Given Magnesium Hydroxide (Milk Of Magnesia) 30 ml PO HS [facility] Stop: 02/28/19 20:59 Last Admin: 01/04/19 21:25 Dose: 30 ml Quetiapine Fumarate (Seroquel) 300 mg PO TID [facility]; Protocol Stop: 03/01/19 08:59 Last Admin: 01/04/19 21:25 Dose: Not Given Temazepam (Restoril) 30 mg PO HS PRN PRN Reason: Insomnia Valproate Sodium (Depakene) 500 mg PO BID [facility]; Protocol Stop: 02/28/19 08:59 Last Admin: 01/04/19 16:19 Dose: Not Given General: Alert, No acute distress, Other (confused) HEENT: Atraumatic Neck: Supple Cardiovascular: Regular rate Abdomen: Bowel sounds, Soft, no Tender, no Hepatomegaly, no Distended, no Rebound, no Mass, no Guarding Extremities: no Clubbing, no Cyanosis Skin: no Rash Assessment/Plan - Assessment Assessment: # Anemia # OB positive Plan: 1. Anemia - Stable post transfusion - S/P EGD and colon. No findings to suggest GI blood loss - Polyps - Await pathology 2. OB positive - S/P EGD and colon - AWAIT PATHOLOGY 3. Leukocytosis and febrile - Possible aspiration - mgmt as per primary
[2019-01-05 08:53] LABS: ALB/GLOB RATIO 1.4 (1.0-1.8); ALBUMIN 3.3 gm/dL (4.2-5.5); ALKALINE PHOSPHATASE 59 U/L (34-104); ANION GAP 14.8 (7.0-16.0); BILIRUBIN,TOTAL 0.7 mg/dL (0.3-1.0); BUN - UREA NITROGEN 21 mg/dL (7-25); CALCIUM SERUM 9.5 mg/dL (8.6-10.3); CARBON DIOXIDE 26.3 mEq/L (21.0-31.0); CHLORIDE 111 mEq/L (98-107); CREATININE - SERUM 1.2 mg/dL (0.7-1.3); GFR AFRICAN-AMERICAN > 60.0 ml/min (>90); GFR NON AFRICAN-AMERICAN > 60.0 ml/min; GLUCOSE 120 mg/dL (70-105); POTASSIUM SERUM 4.1 mEq/L (3.5-5.1); SGOT 36 U/L (13-39); SGPT/ALT 20 U/L (7-52); SODIUM SERUM 148 mEq/L (136-145); TOTAL PROTEIN,SERUM 5.7 gm/dL (6.0-8.3)
[2019-01-05 08:59] LABS: BAND NEUTROPHILE 13 % (0-10); BASOPHIL 0 % (0-3); EOSINOPHIL 0 % (0-5); LYMPHOCYTE 5 % (20-50); MONOCYTE 4 % (2-10); NEUTROPHILS 78 % (40-80)
[2019-01-05] MEDS: Multivitamin w/ Minerals Tab PO SCH (10:03)
[2019-01-05] MEDS: cloZAPine 100 MG, cloZAPine 75 MG PO SCH ×3 (10:03→17:51)
[2019-01-05] MEDS: Benztropine 1 MG TAB PO SCH ×3 (10:05→20:58)
--- NOTE | 2019-01-05 10:30 | Internal Medicine Prog Note ---
Internal Medicine Subjective - Subjective Service Date: 01/05/19 Patient seen and examined:: with staff, chart reviewed Patient is:: awake, in bed, agitated (less agitated, mildly confused today), confused, other (agitated, no signs of pain ) Patient Complaints of:: cough Per staff patient has:: agitated Internal Medicine Objective - Results Result Diagrams: 01/05/19 08:20 01/05/19 08:20 Recent Labs: Laboratory Last Values WBC 25.5 Th/cmm (4.8-10.8) H* 01/05/19 08:20 RBC 3.52 Mil/cmm (4.30-5.70) L 01/05/19 08:20 Hgb 10.0 gm/dL (12-16) L 01/05/19 08:20 Hct 30.0 % (41.0-60) L 01/05/19 08:20 MCV 85.2 fl (80-99) 01/05/19 08:20 MCH 28.3 pg (26.0-30.0) 01/05/19 08:20 MCHC Differential 33.2 pg (28.0-36.0) 01/05/19 08:20 RDW 14.3 % (11.5-20.0) 01/05/19 08:20 Plt Count 220 Th/cmm (150-400) 01/05/19 08:20 MPV 8.5 fl 01/05/19 08:20 Add Manual Diff YES 01/05/19 08:20 Neutrophils % 71.4 % (40.0-80.0) 01/02/19 05:40 Band Neutrophils % 13 % (0-10) H 01/05/19 08:20 Lymphocytes % 14.7 % (20.0-50.0) L 01/02/19 05:40 Monocytes % 7.3 % (2.0-10.0) 01/02/19 05:40 Eosinophils % 5.8 % (0.0-5.0) H 01/02/19 05:40 Basophils % 0.8 % (0.0-2.0) 01/02/19 05:40 Neutrophils (Manual) 78 % (40-80) 01/05/19 08:20 Lymphocytes 5 % (20-50) L 01/05/19 08:20 Monocytes 4 % (2-10) 01/05/19 08:20 Eosinophils 0 % (0-5) 01/05/19 08:20 Basophils 0 % (0-3) 01/05/19 08:20 Total Retics Counted 2.2 % (0.5-1.5) H 12/26/18 05:40 Absolute Retic 79.2 Th/cmm 12/26/18 05:40 Corrected Retic Count 1.5 % (0.5-1.5) 12/26/18 05:40 PT 10.9 SECONDS (9.5-11.5) 01/02/19 05:40 INR 1.05 (0.5-1.4) 01/02/19 05:40 Sodium 148 mEq/L (136-145) H 01/05/19 08:20 Potassium 4.1 mEq/L (3.5-5.1) 01/05/19 08:20 Chloride 111 mEq/L (98-107) H 01/05/19 08:20 Carbon Dioxide 26.3 mEq/L (21.0-31.0) 01/05/19 08:20 Anion Gap 14.8 (7.0-16.0) 01/05/19 08:20 BUN 21 mg/dL (7-25) 01/05/19 08:20 Creatinine 1.2 mg/dL (0.7-1.3) 01/05/19 08:20 Est GFR ( Amer) > 60.0 ml/min (>90) 01/05/19 08:20 Est GFR (Non-Af Amer) > 60.0 ml/min 01/05/19 08:20 BUN/Creatinine Ratio 17.5 01/05/19 08:20 Glucose 120 mg/dL (70-105) H 01/05/19 08:20 POC Glucose 87 MG/DL (70 - 105) 01/01/19 08:07 Whole Bld Lactic Acid 1.26 mmol/L (0.60-1.99) 01/04/19 12:10 Calcium 9.5 mg/dL (8.6-10.3) 01/05/19 08:20 Iron 17 ug/dL (38-169) L 12/26/18 05:40 TIBC 210 ug/dL (250-450) L 12/26/18 05:40 Iron Saturation 8 % (15-55) L 12/26/18 05:40 Unsaturated IBC 193 ug/dL (111-343) 12/26/18 05:40 Ferritin 200 ng/mL (30-400) 12/26/18 05:40 Total Bilirubin 0.7 mg/dL (0.3-1.0) 01/05/19 08:20 AST 36 U/L (13-39) 01/05/19 08:20 ALT 20 U/L (7-52) 01/05/19 08:20 Alkaline Phosphatase 59 U/L (34-104) 01/05/19 08:20 Total Protein 5.7 gm/dL (6.0-8.3) L 01/05/19 08:20 Albumin 3.3 gm/dL (4.2-5.5) L 01/05/19 08:20 Globulin 2.4 gm/dL 01/05/19 08:20 Albumin/Globulin Ratio 1.4 (1.0-1.8) 01/05/19 08:20 Triglycerides 125 mg/dL (<150) 12/25/18 16:11 Cholesterol 154 mg/dL (<200) 12/25/18 16:11 LDL Cholesterol Direct 112 mg/dL (75-193) 12/25/18 16:11 HDL Cholesterol 37 mg/dL (23-92) 12/25/18 16:11 Vitamin B12 848 pg/mL (232-1245) 12/26/18 05:40 Folic Acid 6.9 ng/mL (>3.0) 12/26/18 05:40 TSH 2.61 uIU/ml (0.34-5.60) 12/25/18 16:11 Urine Source CATH 12/25/18 16:25 Urine Color COLORLESS 12/25/18 16:25 Urine Clarity CLEAR (CLEAR) 12/25/18 16:25 Urine pH 6.0 (4.6 - 8.0) 12/25/18 16:25 Ur Specific [place] 1.010 (1.005-1.030) 12/25/18 16:25 Urine Protein NEGATIVE mg/dL (NEGATIVE) 12/25/18 16:25 Urine Glucose (UA) NEGATIVE mg/dL (NEGATIVE) 12/25/18 16:25 Urine Ketones NEGATIVE mg/dL (NEGATIVE) 12/25/18 16:25 Urine Blood NEGATIVE (NEGATIVE) 12/25/18 16:25 Urine Nitrate NEGATIVE (NEGATIVE) 12/25/18 16:25 Urine Bilirubin NEGATIVE (NEGATIVE) 12/25/18 16:25 Urine Urobilinogen 0.2 E.U./dL (0.2 - 1.0) 12/25/18 16:25 Ur Leukocyte Esterase NEGATIVE (NEGATIVE) 12/25/18 16:25 Stool Occult Blood POSITIVE (NEGATIVE) H 12/30/18 13:00 Valproic Acid < 10.0 ug/mL (50.0-100.0) L 12/30/18 04:25 [place] 0.06 mmol/L (0.5-1.0) L 12/30/18 04:25 RPR NONREACTIVE (NONREACTIVE) 12/25/18 16:11 Influenza A (Rapid) NEG FOR INF A 12/25/18 16:30 Influenza B (Rapid) NEG FOR INF B 12/25/18 16:30 - Physical Exam Vitals and I&O: Vital Signs Temp 98.0 F 01/05/19 04:00 Pulse 99 01/05/19 10:05 Resp 20 01/05/19 07:00 BP 117/45 01/05/19 10:05 Pulse Ox 90 01/05/19 07:00 Intake & Output 01/04/19 01/05/19 01/05/19 18:59 06:59 18:59 Intake Total 100 100 Balance 100 100 Weight (lbs) 63.503 kg Intake: Intake, IV Amount 100 100 Piperacillin Sodium/ 100 100 Tazobact 4.5 gm In Sodium Chloride 0.9% 100 ml @ 100 mls/hr IV Q8HR [facility] Rx #:[id number] Oral 0 Other: # Voids 1 Weight Source Bedscale Active Medications: Current Medications Acetaminophen (Tylenol 650mg Supp) 650 mg RC Q6H PRN PRN Reason: Fever > 101 Stop: 03/05/19 08:02 Last Admin: 01/04/19 08:49 Dose: 650 mg Acetaminophen (Tylenol) 650 mg PO Q4H PRN PRN Reason: Fever > 101 Stop: 03/05/19 08:05 Albuterol/Ipratropium (Duoneb Neb) 3 ml HHN Q4HRT [facility] Stop: 03/05/19 10:59 Last Admin: 01/05/19 06:59 Dose: 3 ml Amlodipine Besylate (Norvasc) 10 mg PO DAILY [facility] Stop: 02/28/19 08:59 Last Admin: 01/05/19 10:05 Dose: 10 mg Ascorbic Acid (Vitamin C) 500 mg PO DAILY [facility] Stop: 03/01/19 08:59 Last Admin: 01/05/19 10:04 Dose: 500 mg Aspirin (Ecotrin) 81 mg PO DAILY [facility] Stop: 02/28/19 08:59 Last Admin: 01/05/19 10:06 Dose: 81 mg Benztropine Mesylate (Cogentin) 1 mg PO TID [facility] Stop: 02/28/19 08:59 Last Admin: 01/05/19 10:05 Dose: 1 mg Bisacodyl (Dulcolax 10 Mg Supp) 10 mg RC DAILY [facility] Stop: 02/28/19 08:59 Last Admin: 01/05/19 10:06 Dose: 10 mg Cholecalciferol (Vitamin D3) 5,000 iu PO DAILY [facility] Stop: 02/28/19 08:59 Last Admin: 01/05/19 10:06 Dose: 5,000 iu Clonazepam (Klonopin) 2 mg PO TID [facility]; Protocol Stop: 02/27/19 08:59 Last Admin: 01/05/19 10:04 Dose: 2 mg Clozapine 100 mg/ Clozapine 75 (mg) 175 mg PO BID [facility] Stop: 03/01/19 16:59 Last Admin: 01/05/19 10:22 Dose: Not Given Famotidine (Pepcid) 40 mg PO DAILY [facility] Stop: 02/28/19 08:59 Last Admin: 01/05/19 10:04 Dose: 40 mg Ferric Sodium Gluconate Complex 125 mg/ Sodium Chloride 110 mls @ 100 mls/hr IV Q24HR@1000 [facility] Stop: 01/08/19 11:59 Last Admin: 01/04/19 09:37 Dose: 100 mls/hr Dextrose/Sodium Chloride (D5-0.45ns) 1,000 mls @ 50 mls/hr IV .Q20H [facility] Stop: 03/02/19 19:37 Last Admin: 01/05/19 06:00 Dose: 50 mls/hr Piperacillin Sod/Tazobactam (Sod 4.5 gm/ Sodium Chloride) 100 mls @ 100 mls/hr IV Q8HR [facility] Stop: 03/05/19 12:59 Last Admin: 01/05/19 05:56 Dose: 100 mls/hr Levothyroxine Sodium 0.025 mg/ (Levothyroxine Sodium 0.112 mg) 0.137 mg PO DAILY@0730 [facility] Stop: 02/28/19 07:29 Last Admin: 01/05/19 07:30 Dose: 0.137 mg [place] Carbonate (Eskalith) 300 mg PO BID [facility]; Protocol Stop: 02/28/19 08:59 Last Admin: 01/05/19 10:22 Dose: Not Given Magnesium Hydroxide (Milk Of Magnesia) 30 ml PO HS [facility] Stop: 02/28/19 20:59 Last Admin: 01/04/19 21:25 Dose: 30 ml Quetiapine Fumarate (Seroquel) 300 mg PO TID [facility]; Protocol Stop: 03/01/19 08:59 Last Admin: 01/05/19 10:22 Dose: Not Given Temazepam (Restoril) 30 mg PO HS PRN PRN Reason: Insomnia Valproate Sodium (Depakene) 500 mg PO BID [facility]; Protocol Stop: 02/28/19 08:59 Last Admin: 01/05/19 10:22 Dose: Not Given General: alert, other (agitated behavior.) Neck: No JVD Lungs: wheezing, ronchi, other (scattered rhonchi and occasional wheezing.) Cardiovascular: Normal S1 Abdomen: soft, non-distended, positive bowel sound Extremities: other (Patient has restraints in place.) Internal Medicine Assmt/Plan - Assessment Assessment: Agitated with Aggresive Behavior towards others Psychosis. Schizophrenia. Leukocytosis/possible aspiration. Sepsis. Pneumonia. Lactic acidosis. Iron deficiency anemia s/p transfusion. Hypertension. History of Gerd. Hypothyroidism. PUD. GERD. Hypotention - Plan Plan: iv fluids bolus 1l times 2 as per psych will monitor Nutritional Asmnt/Malnutr-PDOC - Dietary Evaluation Malnutrition Findings (Please click <Entered> for more info): Nutritional Asmnt/Malnutrition Start: 12/26/18 15: 09 Text: Status: Complete Freq: Protocol: Document 12/26/18 15:09 BONITA (Rec: 12/26/18 15:12 [email or web address]) Nutritional Asmnt/Malnutrition Patient General Information Nutritional Screening High Risk Diagnosis sepsis Pertinent Medical Hx/Surgical Hx HTN, PUD/GERD, thyroid disorder, anemia, schizophrenia Subjective Information Pt seen in bed, disoriented, yelling, has 1:1 sitter in room. Per sitter, pt consumed 100% of breakfast and lunch today. Current Diet Order/ Nutrition Support soft/bland Pertinent Medications seroquel Pertinent Labs 12/25 BUN 26, Alb 3.5 Nutritional Hx/Data Height 1.7 m Height (Calculated Centimeters) 170.2 Current Weight (lbs) 58.967 kg Weight (Calculated Kilograms) 59.0 Weight (Calculated Grams) 82809.0 [place] Body Weight 148 Body Mass Index (BMI) 20.3 Weight Status Approriate GI Symptoms GI Symptoms None Last BM not indicated Difficult in: None Skin Integrity/Comment: intact Current %PO Good (75-100%) Estimated Nutritional Goals BEE in Kcals: Using Current wt Calories/Kcals/Kg 30-35 Kcals Calculated 6475-8864 Protein: Using Current wt Protein g/k.2 Protein Calculated 71 Fluid: ml 1620-2065ml (1ml/kcal) Nutritional Problem 1. Problem Problem increased nutritional needs Etiology increased metabolic demand Signs/Symptoms: dx of sepsis Malnutrition Alert Is there a minimum of two criteria No selected? Query Text:Check all the applicable criteria. A minimum of two criteria are recommended for diagnosis of either severe or non-severe malnutrition. Malnutrition Related to Morbid Obesity Malnutrition related to morbid obesity No Intervention/Recommendation Comments 1. Continue with soft/baland diet as ordered. 2. Monitor PO intake, wt, labs and skin integrity 3. F/U as moderate risk in 3-5 days Expected Outcomes/Goals Expected Outcomes/Goals 1. PO intake to meet at least 75% of nutritional needs. 2. Wt stability, skin to remain intact, labs to approach WNL.
[2019-01-05] MEDS: Sodium Ferric Gluconate 125 MG in Sodium Chloride 0.9% 100 ML IV SCH (11:09)
[2019-01-05] MEDS: Magnesium Hydroxide (MOM) 30 mL UDC PO SCH (20:57)
--- NOTE | 2019-01-05 23:44 | Infectious Disease Prog Note ---
Infectious Disease Subjective - Review of Systems Service Date: 01/05/19 Subjective: Patient's fever has resolved, but there is an increase in leukocytosis. Infectious Disease Objective - Results Result Diagrams: 01/05/19 08:20 01/05/19 08:20 Recent Labs: Laboratory Last Values WBC 25.5 Th/cmm (4.8-10.8) H* 01/05/19 08:20 RBC 3.52 Mil/cmm (4.30-5.70) L 01/05/19 08:20 Hgb 10.0 gm/dL (12-16) L 01/05/19 08:20 Hct 30.0 % (41.0-60) L 01/05/19 08:20 MCV 85.2 fl (80-99) 01/05/19 08:20 MCH 28.3 pg (26.0-30.0) 01/05/19 08:20 MCHC Differential 33.2 pg (28.0-36.0) 01/05/19 08:20 RDW 14.3 % (11.5-20.0) 01/05/19 08:20 Plt Count 220 Th/cmm (150-400) 01/05/19 08:20 MPV 8.5 fl 01/05/19 08:20 Add Manual Diff YES 01/05/19 08:20 Neutrophils % 71.4 % (40.0-80.0) 01/02/19 05:40 Band Neutrophils % 13 % (0-10) H 01/05/19 08:20 Lymphocytes % 14.7 % (20.0-50.0) L 01/02/19 05:40 Monocytes % 7.3 % (2.0-10.0) 01/02/19 05:40 Eosinophils % 5.8 % (0.0-5.0) H 01/02/19 05:40 Basophils % 0.8 % (0.0-2.0) 01/02/19 05:40 Neutrophils (Manual) 78 % (40-80) 01/05/19 08:20 Lymphocytes 5 % (20-50) L 01/05/19 08:20 Monocytes 4 % (2-10) 01/05/19 08:20 Eosinophils 0 % (0-5) 01/05/19 08:20 Basophils 0 % (0-3) 01/05/19 08:20 Total Retics Counted 2.2 % (0.5-1.5) H 12/26/18 05:40 Absolute Retic 79.2 Th/cmm 12/26/18 05:40 Corrected Retic Count 1.5 % (0.5-1.5) 12/26/18 05:40 PT 10.9 SECONDS (9.5-11.5) 01/02/19 05:40 INR 1.05 (0.5-1.4) 01/02/19 05:40 Sodium 148 mEq/L (136-145) H 01/05/19 08:20 Potassium 4.1 mEq/L (3.5-5.1) 01/05/19 08:20 Chloride 111 mEq/L (98-107) H 01/05/19 08:20 Carbon Dioxide 26.3 mEq/L (21.0-31.0) 01/05/19 08:20 Anion Gap 14.8 (7.0-16.0) 01/05/19 08:20 BUN 21 mg/dL (7-25) 01/05/19 08:20 Creatinine 1.2 mg/dL (0.7-1.3) 01/05/19 08:20 Est GFR ( Amer) > 60.0 ml/min (>90) 01/05/19 08:20 Est GFR (Non-Af Amer) > 60.0 ml/min 01/05/19 08:20 BUN/Creatinine Ratio 17.5 01/05/19 08:20 Glucose 120 mg/dL (70-105) H 01/05/19 08:20 POC Glucose 87 MG/DL (70 - 105) 01/01/19 08:07 Whole Bld Lactic Acid 1.26 mmol/L (0.60-1.99) 01/04/19 12:10 Calcium 9.5 mg/dL (8.6-10.3) 01/05/19 08:20 Iron 17 ug/dL (38-169) L 12/26/18 05:40 TIBC 210 ug/dL (250-450) L 12/26/18 05:40 Iron Saturation 8 % (15-55) L 12/26/18 05:40 Unsaturated IBC 193 ug/dL (111-343) 12/26/18 05:40 Ferritin 200 ng/mL (30-400) 12/26/18 05:40 Total Bilirubin 0.7 mg/dL (0.3-1.0) 01/05/19 08:20 AST 36 U/L (13-39) 01/05/19 08:20 ALT 20 U/L (7-52) 01/05/19 08:20 Alkaline Phosphatase 59 U/L (34-104) 01/05/19 08:20 Total Protein 5.7 gm/dL (6.0-8.3) L 01/05/19 08:20 Albumin 3.3 gm/dL (4.2-5.5) L 01/05/19 08:20 Globulin 2.4 gm/dL 01/05/19 08:20 Albumin/Globulin Ratio 1.4 (1.0-1.8) 01/05/19 08:20 Triglycerides 125 mg/dL (<150) 12/25/18 16:11 Cholesterol 154 mg/dL (<200) 12/25/18 16:11 LDL Cholesterol Direct 112 mg/dL (75-193) 12/25/18 16:11 HDL Cholesterol 37 mg/dL (23-92) 12/25/18 16:11 Vitamin B12 848 pg/mL (232-1245) 12/26/18 05:40 Folic Acid 6.9 ng/mL (>3.0) 12/26/18 05:40 TSH 2.61 uIU/ml (0.34-5.60) 12/25/18 16:11 Urine Source CATH 12/25/18 16:25 Urine Color COLORLESS 12/25/18 16:25 Urine Clarity CLEAR (CLEAR) 12/25/18 16:25 Urine pH 6.0 (4.6 - 8.0) 12/25/18 16:25 Ur Specific [place] 1.010 (1.005-1.030) 12/25/18 16:25 Urine Protein NEGATIVE mg/dL (NEGATIVE) 12/25/18 16:25 Urine Glucose (UA) NEGATIVE mg/dL (NEGATIVE) 12/25/18 16:25 Urine Ketones NEGATIVE mg/dL (NEGATIVE) 12/25/18 16:25 Urine Blood NEGATIVE (NEGATIVE) 12/25/18 16:25 Urine Nitrate NEGATIVE (NEGATIVE) 12/25/18 16:25 Urine Bilirubin NEGATIVE (NEGATIVE) 12/25/18 16:25 Urine Urobilinogen 0.2 E.U./dL (0.2 - 1.0) 12/25/18 16:25 Ur Leukocyte Esterase NEGATIVE (NEGATIVE) 12/25/18 16:25 Stool Occult Blood NEGATIVE (NEGATIVE) 01/05/19 18:40 Valproic Acid < 10.0 ug/mL (50.0-100.0) L 12/30/18 04:25 [place] 0.06 mmol/L (0.5-1.0) L 12/30/18 04:25 RPR NONREACTIVE (NONREACTIVE) 12/25/18 16:11 Influenza A (Rapid) NEG FOR INF A 12/25/18 16:30 Influenza B (Rapid) NEG FOR INF B 12/25/18 16:30 - Physical Exam Vitals and I&O: Vital Signs Temp 99.0 F 01/05/19 20:00 Pulse 105 01/05/19 22:43 Resp 22 01/05/19 22:43 BP 124/68 01/05/19 20:00 Pulse Ox 98 01/05/19 22:43 Intake & Output 01/05/19 01/05/19 01/06/19 06:59 18:59 06:59 Intake Total 200 580 Balance 200 580 Weight (lbs) 63.503 kg 63.503 kg Intake: Intake, IV Amount 200 100 Piperacillin Sodium/ 200 100 Tazobact 4.5 gm In Sodium Chloride 0.9% 100 ml @ 100 mls/hr IV Q8HR [facility] Rx #:[id number] Oral 480 Other: # Voids 2 # Bowel Movements 1 Weight Source Bedscale Bedscale Active Medications: Current Medications Acetaminophen (Tylenol 650mg Supp) 650 mg RC Q6H PRN PRN Reason: Fever > 101 Stop: 03/05/19 08:02 Last Admin: 01/04/19 08:49 Dose: 650 mg Acetaminophen (Tylenol) 650 mg PO Q4H PRN PRN Reason: Fever > 101 Stop: 03/05/19 08:05 Albuterol/Ipratropium (Duoneb Neb) 3 ml HHN Q4HRT [facility] Stop: 03/05/19 10:59 Last Admin: 01/05/19 22:42 Dose: 3 ml Amlodipine Besylate (Norvasc) 10 mg PO DAILY [facility] Stop: 02/28/19 08:59 Last Admin: 01/05/19 10:05 Dose: 10 mg Ascorbic Acid (Vitamin C) 500 mg PO DAILY [facility] Stop: 03/01/19 08:59 Last Admin: 01/05/19 10:04 Dose: 500 mg Aspirin (Ecotrin) 81 mg PO DAILY [facility] Stop: 02/28/19 08:59 Last Admin: 01/05/19 10:06 Dose: 81 mg Benztropine Mesylate (Cogentin) 1 mg PO TID EZE Stop: 02/28/19 08:59 Last Admin: 01/05/19 20:58 Dose: 1 mg Bisacodyl (Dulcolax 10 Mg Supp) 10 mg RC DAILY [facility] Stop: 02/28/19 08:59 Last Admin: 01/05/19 10:06 Dose: 10 mg Cholecalciferol (Vitamin D3) 5,000 iu PO DAILY [facility] Stop: 02/28/19 08:59 Last Admin: 01/05/19 10:06 Dose: 5,000 iu Clonazepam (Klonopin) 2 mg PO TID [facility]; Protocol Stop: 02/27/19 08:59 Last Admin: 01/05/19 20:57 Dose: 2 mg Clozapine 100 mg/ Clozapine 75 (mg) 175 mg PO BID [facility] Stop: 03/01/19 16:59 Last Admin: 01/05/19 17:51 Dose: 175 mg Famotidine (Pepcid) 40 mg PO DAILY [facility] Stop: 02/28/19 08:59 Last Admin: 01/05/19 10:04 Dose: 40 mg Ferric Sodium Gluconate Complex 125 mg/ Sodium Chloride 110 mls @ 100 mls/hr IV Q24HR@1000 [facility] Stop: 01/08/19 11:59 Last Admin: 01/05/19 11:09 Dose: 100 mls/hr Dextrose/Sodium Chloride (D5-0.45ns) 1,000 mls @ 50 mls/hr IV .Q20H [facility] Stop: 03/02/19 19:37 Last Admin: 01/05/19 06:00 Dose: 50 mls/hr Piperacillin Sod/Tazobactam (Sod 4.5 gm/ Sodium Chloride) 100 mls @ 100 mls/hr IV Q8HR [facility] Stop: 03/05/19 12:59 Last Admin: 01/05/19 20:56 Dose: 100 mls/hr Levothyroxine Sodium 0.025 mg/ (Levothyroxine Sodium 0.112 mg) 0.137 mg PO DAILY@0730 [facility] Stop: 02/28/19 07:29 Last Admin: 01/05/19 07:30 Dose: 0.137 mg [place] Carbonate (Eskalith) 300 mg PO BID [facility]; Protocol Stop: 02/28/19 08:59 Last Admin: 01/05/19 17:51 Dose: 300 mg Magnesium Hydroxide (Milk Of Magnesia) 30 ml PO HS EZE Stop: 02/28/19 20:59 Last Admin: 01/05/19 20:57 Dose: 30 ml Quetiapine Fumarate (Seroquel) 300 mg PO TID [facility]; Protocol Stop: 03/01/19 08:59 Last Admin: 01/05/19 20:59 Dose: 300 mg Temazepam (Restoril) 30 mg PO HS PRN PRN Reason: Insomnia Valproate Sodium (Depakene) 500 mg PO BID [facility]; Protocol Stop: 02/28/19 08:59 Last Admin: 01/05/19 17:52 Dose: 500 mg General: no acute distress, cachectic HEENT: atraumatic, normocephalic, PERRLA, EOMI Neck: supple, no thyromegaly Cardiovascular: S1S2, regular Lungs: clear to auscultation bilaterally, clear to percussion Abdomen: soft, no tender, no distended Extremities: no cyanosis, no clubbing, no edema Neurological: awake, alert, oriented Skin: intact Infectious Disease Assmt/Plan - Assessment Assessment: 1. Sepsis. may have aspirated. 2. Pneumonia. 3. Leukocytosis, suspect sepsis as patient also had lactic acidosis and tachycardia on presentation. 4. Hypothyroidism. 5. Anemia. 6. Schizophrenia. 7. Hypertension. 8. History of gastroesophageal reflux disease. 9. Iron deficiency anemia. 10. Aggressive behaviour. - Plan Plan: Continue Zosyn. Sepsis w/u. Lab in am. Nutritional Asmnt/Malnutr-PDOC - Dietary Evaluation Malnutrition Findings (Please click <Entered> for more info): Nutritional Asmnt/Malnutrition Start: 12/26/18 15: 09 Text: Status: Complete Freq: Protocol: Document 12/26/18 15:09 LCMARLENAG (Rec: 02/01/19 15:12 LCHENG [email or web address]) Nutritional Asmnt/Malnutrition Patient General Information Nutritional Screening High Risk Diagnosis sepsis Pertinent Medical Hx/Surgical Hx HTN, PUD/GERD, thyroid disorder, anemia, schizophrenia Subjective Information Pt seen in bed, disoriented, yelling, has 1:1 sitter in room. Per sitter, pt consumed 100% of breakfast and lunch today. Current Diet Order/ Nutrition Support soft/bland Pertinent Medications seroquel Pertinent Labs 12/25 BUN 26, Alb 3.5 Nutritional Hx/Data Height 1.7 m Height (Calculated Centimeters) 170.2 Current Weight (lbs) 58.967 kg Weight (Calculated Kilograms) 59.0 Weight (Calculated Grams) 08317.0 [place] Body Weight 148 Body Mass Index (BMI) 20.3 Weight Status Approriate GI Symptoms GI Symptoms None Last BM not indicated Difficult in: None Skin Integrity/Comment: intact Current %PO Good (75-100%) Estimated Nutritional Goals BEE in Kcals: Using Current wt Calories/Kcals/Kg 30-35 Kcals Calculated 6905-0163 Protein: Using Current wt Protein g/k.2 Protein Calculated 71 Fluid: ml 1620-2065ml (1ml/kcal) Nutritional Problem 1. Problem Problem increased nutritional needs Etiology increased metabolic demand Signs/Symptoms: dx of sepsis Malnutrition Alert Is there a minimum of two criteria No selected? Query Text:Check all the applicable criteria. A minimum of two criteria are recommended for diagnosis of either severe or non-severe malnutrition. Malnutrition Related to Morbid Obesity Malnutrition related to morbid obesity No Intervention/Recommendation Comments 1. Continue with soft/baland diet as ordered. 2. Monitor PO intake, wt, labs and skin integrity 3. F/U as moderate risk in 3-5 days Expected Outcomes/Goals Expected Outcomes/Goals 1. PO intake to meet at least 75% of nutritional needs. 2. Wt stability, skin to remain intact, labs to approach WNL.
[2019-01-06] MEDS: Albuterol/Ipratropium Neb 3 ML AERS HHN SCH ×6 (02:47→22:34)
[2019-01-06 06:31] LABS: BASOPHILE ABSOLUTE 0.1 Th/cumm (0-0.2); EOSINOPHILE ABSOLUTE 0.8 Th/cmm (0.1-0.4); HEMATOCRIT 29.9 % (41.0-60); HEMOGLOBIN 9.8 gm/dL (12-16); LYMPHOCYTE ABSOLUTE 1.3 Th/cmm (1.5-3.0); MEAN CELL VOLUME 85.9 fl (80-99); MEAN CORPUSCULAR HEMOGLOBIN 28.1 pg (26.0-30.0); MEAN CORPUSCULAR HGB CONC 32.7 pg (28.0-36.0); MEAN PLATELET VOLUME 8.6 fl; MONOCYTE ABSOLUTE 1.4 Th/cmm (0.3-1.0); NEUTROPHILE ABSOLUTE 17.6 Th/cmm (1.8-8.0); PLATELET COUNT 219 Th/cmm (150-400); RED BLOOD COUNT 3.48 Mil/cmm (4.30-5.70); RED CELL DISTRIBUTION WIDTH 14.4 % (11.5-20.0)
[2019-01-06 06:47] LABS: ALB/GLOB RATIO 1.3 (1.0-1.8); ALBUMIN 2.9 gm/dL (4.2-5.5); ALKALINE PHOSPHATASE 58 U/L (34-104); ANION GAP 9.6 (7.0-16.0); BILIRUBIN,TOTAL 0.6 mg/dL (0.3-1.0); BUN - UREA NITROGEN 20 mg/dL (7-25); CALCIUM SERUM 9.1 mg/dL (8.6-10.3); CARBON DIOXIDE 29.4 mEq/L (21.0-31.0); CHLORIDE 112 mEq/L (98-107); CREATININE - SERUM 0.9 mg/dL (0.7-1.3); GFR AFRICAN-AMERICAN > 60.0 ml/min (>90); GFR NON AFRICAN-AMERICAN > 60.0 ml/min; GLUCOSE 127 mg/dL (70-105); SGOT 32 U/L (13-39); SGPT/ALT 20 U/L (7-52); SODIUM SERUM 148 mEq/L (136-145); TOTAL PROTEIN,SERUM 5.2 gm/dL (6.0-8.3)
[2019-01-06 06:53] LABS: WHITE BLOOD COUNT 21.2 Th/cmm (4.8-10.8)
[2019-01-06 08:13] LABS: BAND NEUTROPHILE 7 % (0-10); NEUTROPHILS 85 % (40-80)
[2019-01-06 08:14] LABS: BASOPHIL 0 % (0-3); EOSINOPHIL 0 % (0-5); LYMPHOCYTE 4 % (20-50); MONOCYTE 4 % (2-10); PLATELET ESTIMATE ADEQUATE (NORMAL)
[2019-01-06] MEDS ORDERED: Potassium Chloride 20 mEq ER Tab PO ONE (08:46)
--- NOTE | 2019-01-06 09:06 | GI Progress Note ---
Subjective - Review of Systems Service Date: 01/06/19 Subjective: No overnight events Objective - Results Result Diagrams: 01/06/19 05:45 01/06/19 05:45 Recent Labs: Laboratory Last Values WBC 21.2 Th/cmm (4.8-10.8) H* 01/06/19 05:45 RBC 3.48 Mil/cmm (4.30-5.70) L 01/06/19 05:45 Hgb 9.8 gm/dL (12-16) L 01/06/19 05:45 Hct 29.9 % (41.0-60) L 01/06/19 05:45 MCV 85.9 fl (80-99) 01/06/19 05:45 MCH 28.1 pg (26.0-30.0) 01/06/19 05:45 MCHC Differential 32.7 pg (28.0-36.0) 01/06/19 05:45 RDW 14.4 % (11.5-20.0) 01/06/19 05:45 Plt Count 219 Th/cmm (150-400) 01/06/19 05:45 MPV 8.6 fl 01/06/19 05:45 Add Manual Diff YES 01/06/19 05:45 Neutrophils % 71.4 % (40.0-80.0) 01/02/19 05:40 Band Neutrophils % 7 % (0-10) 01/06/19 05:45 Lymphocytes % 14.7 % (20.0-50.0) L 01/02/19 05:40 Monocytes % 7.3 % (2.0-10.0) 01/02/19 05:40 Eosinophils % 5.8 % (0.0-5.0) H 01/02/19 05:40 Basophils % 0.8 % (0.0-2.0) 01/02/19 05:40 Neutrophils (Manual) 85 % (40-80) H 01/06/19 05:45 Lymphocytes 4 % (20-50) L 01/06/19 05:45 Monocytes 4 % (2-10) 01/06/19 05:45 Eosinophils 0 % (0-5) 01/06/19 05:45 Basophils 0 % (0-3) 01/06/19 05:45 Platelet Estimate ADEQUATE (NORMAL) 01/06/19 05:45 RBC Morph Micro Appear NORMAL (NORMAL) 01/06/19 05:45 Total Retics Counted 2.2 % (0.5-1.5) H 12/26/18 05:40 Absolute Retic 79.2 Th/cmm 12/26/18 05:40 Corrected Retic Count 1.5 % (0.5-1.5) 12/26/18 05:40 PT 10.9 SECONDS (9.5-11.5) 01/02/19 05:40 INR 1.05 (0.5-1.4) 01/02/19 05:40 Sodium 148 mEq/L (136-145) H 01/06/19 05:45 Potassium 3.0 mEq/L (3.5-5.1) L D 01/06/19 05:45 Chloride 112 mEq/L (98-107) H 01/06/19 05:45 Carbon Dioxide 29.4 mEq/L (21.0-31.0) 01/06/19 05:45 Anion Gap 9.6 (7.0-16.0) 01/06/19 05:45 BUN 20 mg/dL (7-25) 01/06/19 05:45 Creatinine 0.9 mg/dL (0.7-1.3) 01/06/19 05:45 Est GFR ( Amer) > 60.0 ml/min (>90) 01/06/19 05:45 Est GFR (Non-Af Amer) > 60.0 ml/min 01/06/19 05:45 BUN/Creatinine Ratio 22.2 01/06/19 05:45 Glucose 127 mg/dL (70-105) H 01/06/19 05:45 POC Glucose 87 MG/DL (70 - 105) 01/01/19 08:07 Whole Bld Lactic Acid 1.26 mmol/L (0.60-1.99) 01/04/19 12:10 Calcium 9.1 mg/dL (8.6-10.3) 01/06/19 05:45 Iron 17 ug/dL (38-169) L 12/26/18 05:40 TIBC 210 ug/dL (250-450) L 12/26/18 05:40 Iron Saturation 8 % (15-55) L 12/26/18 05:40 Unsaturated IBC 193 ug/dL (111-343) 12/26/18 05:40 Ferritin 200 ng/mL (30-400) 12/26/18 05:40 Total Bilirubin 0.6 mg/dL (0.3-1.0) 01/06/19 05:45 AST 32 U/L (13-39) 01/06/19 05:45 ALT 20 U/L (7-52) 01/06/19 05:45 Alkaline Phosphatase 58 U/L (34-104) 01/06/19 05:45 Total Protein 5.2 gm/dL (6.0-8.3) L 01/06/19 05:45 Albumin 2.9 gm/dL (4.2-5.5) L 01/06/19 05:45 Globulin 2.3 gm/dL 01/06/19 05:45 Albumin/Globulin Ratio 1.3 (1.0-1.8) 01/06/19 05:45 Triglycerides 125 mg/dL (<150) 12/25/18 16:11 Cholesterol 154 mg/dL (<200) 12/25/18 16:11 LDL Cholesterol Direct 112 mg/dL (75-193) 12/25/18 16:11 HDL Cholesterol 37 mg/dL (23-92) 12/25/18 16:11 Vitamin B12 848 pg/mL (232-1245) 12/26/18 05:40 Folic Acid 6.9 ng/mL (>3.0) 12/26/18 05:40 TSH 2.61 uIU/ml (0.34-5.60) 12/25/18 16:11 Urine Source CATH 12/25/18 16:25 Urine Color COLORLESS 12/25/18 16:25 Urine Clarity CLEAR (CLEAR) 12/25/18 16:25 Urine pH 6.0 (4.6 - 8.0) 12/25/18 16:25 Ur Specific [place] 1.010 (1.005-1.030) 12/25/18 16:25 Urine Protein NEGATIVE mg/dL (NEGATIVE) 12/25/18 16:25 Urine Glucose (UA) NEGATIVE mg/dL (NEGATIVE) 12/25/18 16:25 Urine Ketones NEGATIVE mg/dL (NEGATIVE) 12/25/18 16:25 Urine Blood NEGATIVE (NEGATIVE) 12/25/18 16:25 Urine Nitrate NEGATIVE (NEGATIVE) 12/25/18 16:25 Urine Bilirubin NEGATIVE (NEGATIVE) 12/25/18 16:25 Urine Urobilinogen 0.2 E.U./dL (0.2 - 1.0) 12/25/18 16:25 Ur Leukocyte Esterase NEGATIVE (NEGATIVE) 12/25/18 16:25 Stool Occult Blood NEGATIVE (NEGATIVE) 01/05/19 18:40 Valproic Acid < 10.0 ug/mL (50.0-100.0) L 12/30/18 04:25 [place] 0.06 mmol/L (0.5-1.0) L 12/30/18 04:25 RPR NONREACTIVE (NONREACTIVE) 12/25/18 16:11 Influenza A (Rapid) NEG FOR INF A 12/25/18 16:30 Influenza B (Rapid) NEG FOR INF B 12/25/18 16:30 - Physical Exam Vitals and I&O: Vital Signs Temp 97.1 F 01/06/19 04:00 Pulse 100 01/06/19 07:09 Resp 20 01/06/19 07:09 BP 130/71 01/06/19 04:00 Pulse Ox 97 01/06/19 07:09 Intake & Output 01/05/19 01/06/19 01/06/19 18:59 06:59 18:59 Intake Total 580 100 Balance 580 100 Weight (lbs) 63.503 kg 63.503 kg Intake: Intake, IV Amount 100 100 Piperacillin Sodium/ 100 100 Tazobact 4.5 gm In Sodium Chloride 0.9% 100 ml @ 100 mls/hr IV Q8HR [facility] Rx #:[id number] Oral 480 Other: # Voids 2 # Bowel Movements 1 Weight Source Bedscale Bedscale Active Medications: Current Medications Acetaminophen (Tylenol 650mg Supp) 650 mg RC Q6H PRN PRN Reason: Fever > 101 Stop: 03/05/19 08:02 Last Admin: 01/04/19 08:49 Dose: 650 mg Acetaminophen (Tylenol) 650 mg PO Q4H PRN PRN Reason: Fever > 101 Stop: 03/05/19 08:05 Albuterol/Ipratropium (Duoneb Neb) 3 ml HHN Q4HRT [facility] Stop: 03/05/19 10:59 Last Admin: 01/06/19 07:09 Dose: 3 ml Amlodipine Besylate (Norvasc) 10 mg PO DAILY [facility] Stop: 02/28/19 08:59 Last Admin: 01/05/19 10:05 Dose: 10 mg Ascorbic Acid (Vitamin C) 500 mg PO DAILY [facility] Stop: 03/01/19 08:59 Last Admin: 01/05/19 10:04 Dose: 500 mg Aspirin (Ecotrin) 81 mg PO DAILY [facility] Stop: 02/28/19 08:59 Last Admin: 01/05/19 10:06 Dose: 81 mg Benztropine Mesylate (Cogentin) 1 mg PO TID [facility] Stop: 02/28/19 08:59 Last Admin: 01/05/19 20:58 Dose: 1 mg Bisacodyl (Dulcolax 10 Mg Supp) 10 mg RC DAILY [facility] Stop: 02/28/19 08:59 Last Admin: 01/05/19 10:06 Dose: 10 mg Cholecalciferol (Vitamin D3) 5,000 iu PO DAILY [facility] Stop: 02/28/19 08:59 Last Admin: 01/05/19 10:06 Dose: 5,000 iu Clonazepam (Klonopin) 2 mg PO TID [facility]; Protocol Stop: 02/27/19 08:59 Last Admin: 01/05/19 20:57 Dose: 2 mg Clozapine 100 mg/ Clozapine 75 (mg) 175 mg PO BID [facility] Stop: 03/01/19 16:59 Last Admin: 01/05/19 17:51 Dose: 175 mg Famotidine (Pepcid) 40 mg PO DAILY [facility] Stop: 02/28/19 08:59 Last Admin: 01/05/19 10:04 Dose: 40 mg Ferric Sodium Gluconate Complex 125 mg/ Sodium Chloride 110 mls @ 100 mls/hr IV Q24HR@1000 [facility] Stop: 01/08/19 11:59 Last Admin: 01/05/19 11:09 Dose: 100 mls/hr Dextrose/Sodium Chloride (D5-0.45ns) 1,000 mls @ 50 mls/hr IV .Q20H [facility] Stop: 03/02/19 19:37 Last Admin: 01/05/19 06:00 Dose: 50 mls/hr Piperacillin Sod/Tazobactam (Sod 4.5 gm/ Sodium Chloride) 100 mls @ 100 mls/hr IV Q8HR [facility] Stop: 03/05/19 12:59 Last Admin: 01/06/19 04:30 Dose: 100 mls/hr Levothyroxine Sodium 0.025 mg/ (Levothyroxine Sodium 0.112 mg) 0.137 mg PO DAILY@0730 [facility] Stop: 02/28/19 07:29 Last Admin: 01/06/19 06:44 Dose: 0.137 mg [place] Carbonate (Eskalith) 300 mg PO BID [facility]; Protocol Stop: 02/28/19 08:59 Last Admin: 01/05/19 17:51 Dose: 300 mg Magnesium Hydroxide (Milk Of Magnesia) 30 ml PO HS [facility] Stop: 02/28/19 20:59 Last Admin: 01/05/19 20:57 Dose: 30 ml Potassium Chloride (Klor-Con) 40 meq PO X1 ONE Stop: 01/06/19 08:47 Quetiapine Fumarate (Seroquel) 300 mg PO TID [facility]; Protocol Stop: 03/01/19 08:59 Last Admin: 01/05/19 20:59 Dose: 300 mg Temazepam (Restoril) 30 mg PO HS PRN PRN Reason: Insomnia Valproate Sodium (Depakene) 500 mg PO BID [facility]; Protocol Stop: 02/28/19 08:59 Last Admin: 01/05/19 17:52 Dose: 500 mg General: Alert, No acute distress, Other (confused) HEENT: Atraumatic Neck: Supple Cardiovascular: Regular rate Abdomen: Bowel sounds, Soft, no Tender, no Hepatomegaly, no Distended, no Rebound, no Mass, no Guarding Extremities: no Clubbing, no Cyanosis Skin: no Rash Assessment/Plan - Assessment Assessment: # Anemia # OB positive Plan: 1. Anemia - Stable post transfusion - S/P EGD and colon. No findings to suggest GI blood loss - Polyps - Await pathology 2. OB positive - S/P EGD and colon - AWAIT PATHOLOGY 3. Leukocytosis and febrile - Possible aspiration - mgmt as per primary
[2019-01-06] MEDS: cloZAPine 100 MG, cloZAPine 75 MG PO SCH ×2 (10:04→17:09)
[2019-01-06] MEDS: Benztropine 1 MG TAB PO SCH ×3 (10:05→22:06)
[2019-01-06] MEDS: Multivitamin w/ Minerals Tab PO SCH (10:05)
[2019-01-06] MEDS: Sodium Ferric Gluconate 125 MG in Sodium Chloride 0.9% 100 ML IV SCH (11:06)
--- NOTE | 2019-01-06 14:05 | Pathology Report ---
[id number] Collection Date: 01/01/2019 Surgeon: Dr. Kings Muir Specimen Description: 1. Duodenum biopsy. 2. Antrum biopsy. Gross Description: Part I: Received in formalin are two chatterjee soft tissue fragments each measuring 0.1 cm in greatest dimension. Totally submitted in one cassette labeled A. Gross Description: Part II: Received in formalin are two chatterjee soft tissue fragments ranging from 0.1 to 0.2 cm in greatest dimension. Totally submitted in one cassette labeled B. Microscopic Description: Part I: The histologic sections show duodenal mucosa with intact intestinal villi, showing no evidence for villous abnormality. Diagnosis: No evidence for celiac disease/sprue (duodenal biopsy). Microscopic Description: Part II: The histologic sections show gastric mucosa with mild chronic inflammation present consisting of lymphocytes and plasma cells. The Giemsa stain shows no evidence for Helicobacter pylori. Diagnosis: Part II: 1. Mild chronic gastritis, antrum biopsy. 2. The Giemsa stain is negative for Helicobacter pylori. [facility]# [id number]
--- NOTE | 2019-01-06 14:14 | Pathology Report ---
[id number] Collection Date: 01/02/2019 Surgeon: Dr. Kings Muir Specimen Description: 1. Ascending colon polyp. 2. Transverse colon polyp. Gross Description: Part I: Received in formalin is a single chatterjee soft tissue fragment measuring 0.2 cm in greatest dimension. Totally submitted in one cassette labeled A. Gross Description: Part II: Received in formalin is a single polypoid portion of chatterjee soft tissue measuring 0.4 x 0.3 x 0.2 cm. Totally submitted in one cassette labeled B. Microscopic Description: Part I: The histologic sections show colon mucosa with adenomatous glandular changes present consisting of nuclear enlargement and stratification, with mostly tubules formed consistent with benign tubular adenoma. Diagnosis: Part I: Benign adenomatous polyp consistent with tubular adenoma (ascending colon polyp). Microscopic Description: Part II: The histologic sections show a polypoid portion of colon mucosa with adenomatous glandular changes present consisting of nuclear enlargement and stratification, with mostly tubules and focal villous structures consistent with tubulo-villous adenoma. Diagnosis: Part II: Benign adenomatous polyp consistent with tubulo-villous adenoma (transverse colon polyp). [facility]# [id number] [facility]
--- NOTE | 2019-01-06 16:15 | Internal Medicine Prog Note ---
Internal Medicine Subjective - Subjective Service Date: 01/06/19 Patient is:: awake, in bed, agitated (less agitated, mildly confused today), confused, other (agitated, no signs of pain ) Patient Complaints of:: cough Per staff patient has:: agitated Internal Medicine Objective - Results Result Diagrams: 01/06/19 05:45 01/06/19 05:45 Recent Labs: Laboratory Last Values WBC 21.2 Th/cmm (4.8-10.8) H* 01/06/19 05:45 RBC 3.48 Mil/cmm (4.30-5.70) L 01/06/19 05:45 Hgb 9.8 gm/dL (12-16) L 01/06/19 05:45 Hct 29.9 % (41.0-60) L 01/06/19 05:45 MCV 85.9 fl (80-99) 01/06/19 05:45 MCH 28.1 pg (26.0-30.0) 01/06/19 05:45 MCHC Differential 32.7 pg (28.0-36.0) 01/06/19 05:45 RDW 14.4 % (11.5-20.0) 01/06/19 05:45 Plt Count 219 Th/cmm (150-400) 01/06/19 05:45 MPV 8.6 fl 01/06/19 05:45 Add Manual Diff YES 01/06/19 05:45 Neutrophils % 71.4 % (40.0-80.0) 01/02/19 05:40 Band Neutrophils % 7 % (0-10) 01/06/19 05:45 Lymphocytes % 14.7 % (20.0-50.0) L 01/02/19 05:40 Monocytes % 7.3 % (2.0-10.0) 01/02/19 05:40 Eosinophils % 5.8 % (0.0-5.0) H 01/02/19 05:40 Basophils % 0.8 % (0.0-2.0) 01/02/19 05:40 Neutrophils (Manual) 85 % (40-80) H 01/06/19 05:45 Lymphocytes 4 % (20-50) L 01/06/19 05:45 Monocytes 4 % (2-10) 01/06/19 05:45 Eosinophils 0 % (0-5) 01/06/19 05:45 Basophils 0 % (0-3) 01/06/19 05:45 Platelet Estimate ADEQUATE (NORMAL) 01/06/19 05:45 RBC Morph Micro Appear NORMAL (NORMAL) 01/06/19 05:45 Total Retics Counted 2.2 % (0.5-1.5) H 12/26/18 05:40 Absolute Retic 79.2 Th/cmm 12/26/18 05:40 Corrected Retic Count 1.5 % (0.5-1.5) 12/26/18 05:40 PT 10.9 SECONDS (9.5-11.5) 01/02/19 05:40 INR 1.05 (0.5-1.4) 01/02/19 05:40 Sodium 148 mEq/L (136-145) H 01/06/19 05:45 Potassium 3.0 mEq/L (3.5-5.1) L D 01/06/19 05:45 Chloride 112 mEq/L (98-107) H 01/06/19 05:45 Carbon Dioxide 29.4 mEq/L (21.0-31.0) 01/06/19 05:45 Anion Gap 9.6 (7.0-16.0) 01/06/19 05:45 BUN 20 mg/dL (7-25) 01/06/19 05:45 Creatinine 0.9 mg/dL (0.7-1.3) 01/06/19 05:45 Est GFR ( Amer) > 60.0 ml/min (>90) 01/06/19 05:45 Est GFR (Non-Af Amer) > 60.0 ml/min 01/06/19 05:45 BUN/Creatinine Ratio 22.2 01/06/19 05:45 Glucose 127 mg/dL (70-105) H 01/06/19 05:45 POC Glucose 87 MG/DL (70 - 105) 01/01/19 08:07 Whole Bld Lactic Acid 1.26 mmol/L (0.60-1.99) 01/04/19 12:10 Calcium 9.1 mg/dL (8.6-10.3) 01/06/19 05:45 Magnesium 2.1 mg/dL (1.9-2.7) 01/06/19 05:45 Iron 17 ug/dL (38-169) L 12/26/18 05:40 TIBC 210 ug/dL (250-450) L 12/26/18 05:40 Iron Saturation 8 % (15-55) L 12/26/18 05:40 Unsaturated IBC 193 ug/dL (111-343) 12/26/18 05:40 Ferritin 200 ng/mL (30-400) 12/26/18 05:40 Total Bilirubin 0.6 mg/dL (0.3-1.0) 01/06/19 05:45 AST 32 U/L (13-39) 01/06/19 05:45 ALT 20 U/L (7-52) 01/06/19 05:45 Alkaline Phosphatase 58 U/L (34-104) 01/06/19 05:45 Total Protein 5.2 gm/dL (6.0-8.3) L 01/06/19 05:45 Albumin 2.9 gm/dL (4.2-5.5) L 01/06/19 05:45 Globulin 2.3 gm/dL 01/06/19 05:45 Albumin/Globulin Ratio 1.3 (1.0-1.8) 01/06/19 05:45 Triglycerides 125 mg/dL (<150) 12/25/18 16:11 Cholesterol 154 mg/dL (<200) 12/25/18 16:11 LDL Cholesterol Direct 112 mg/dL (75-193) 12/25/18 16:11 HDL Cholesterol 37 mg/dL (23-92) 12/25/18 16:11 Vitamin B12 848 pg/mL (232-1245) 12/26/18 05:40 Folic Acid 6.9 ng/mL (>3.0) 12/26/18 05:40 TSH 2.61 uIU/ml (0.34-5.60) 12/25/18 16:11 Urine Source CATH 12/25/18 16:25 Urine Color COLORLESS 12/25/18 16:25 Urine Clarity CLEAR (CLEAR) 12/25/18 16:25 Urine pH 6.0 (4.6 - 8.0) 12/25/18 16:25 Ur Specific [place] 1.010 (1.005-1.030) 12/25/18 16:25 Urine Protein NEGATIVE mg/dL (NEGATIVE) 12/25/18 16:25 Urine Glucose (UA) NEGATIVE mg/dL (NEGATIVE) 12/25/18 16:25 Urine Ketones NEGATIVE mg/dL (NEGATIVE) 12/25/18 16:25 Urine Blood NEGATIVE (NEGATIVE) 12/25/18 16:25 Urine Nitrate NEGATIVE (NEGATIVE) 12/25/18 16:25 Urine Bilirubin NEGATIVE (NEGATIVE) 12/25/18 16:25 Urine Urobilinogen 0.2 E.U./dL (0.2 - 1.0) 12/25/18 16:25 Ur Leukocyte Esterase NEGATIVE (NEGATIVE) 12/25/18 16:25 Stool Occult Blood NEGATIVE (NEGATIVE) 01/05/19 18:40 Valproic Acid < 10.0 ug/mL (50.0-100.0) L 12/30/18 04:25 [place] 0.06 mmol/L (0.5-1.0) L 12/30/18 04:25 RPR NONREACTIVE (NONREACTIVE) 12/25/18 16:11 Influenza A (Rapid) NEG FOR INF A 12/25/18 16:30 Influenza B (Rapid) NEG FOR INF B 12/25/18 16:30 - Physical Exam Vitals and I&O: Vital Signs Temp 97.0 F 01/06/19 12:00 Pulse 90 01/06/19 15:09 Resp 18 01/06/19 15:09 BP 120/70 01/06/19 12:00 Pulse Ox 97 01/06/19 15:09 Intake & Output 01/05/19 01/06/19 01/06/19 18:59 06:59 18:59 Intake Total 690 200 Balance 690 200 Weight (lbs) 140 lb 140 lb Intake: Intake, IV Amount 210 200 Piperacillin Sodium/ 100 200 Tazobact 4.5 gm In Sodium Chloride 0.9% 100 ml @ 100 mls/hr IV Q8HR [facility] Rx #:[id number] Sodium Ferric Gluconate 110 125 mg In Sodium Chloride 0.9% 100 ml @ 100 mls/hr IV Q24HR@1000 [facility] Rx#: [id number] Oral 480 Other: # Voids 2 # Bowel Movements 1 Stool Characteristics Soft Brown Weight Source Bedscale Bedscale Active Medications: Current Medications Acetaminophen (Tylenol 650mg Supp) 650 mg RC Q6H PRN PRN Reason: Fever > 101 Stop: 03/05/19 08:02 Last Admin: 01/04/19 08:49 Dose: 650 mg Acetaminophen (Tylenol) 650 mg PO Q4H PRN PRN Reason: Fever > 101 Stop: 03/05/19 08:05 Albuterol/Ipratropium (Duoneb Neb) 3 ml HHN Q4HRT [facility] Stop: 03/05/19 10:59 Last Admin: 01/06/19 15:09 Dose: 3 ml Amlodipine Besylate (Norvasc) 10 mg PO DAILY [facility] Stop: 02/28/19 08:59 Last Admin: 01/06/19 10:05 Dose: 10 mg Ascorbic Acid (Vitamin C) 500 mg PO DAILY [facility] Stop: 03/01/19 08:59 Last Admin: 01/06/19 10:06 Dose: 500 mg Aspirin (Ecotrin) 81 mg PO DAILY [facility] Stop: 02/28/19 08:59 Last Admin: 01/06/19 10:06 Dose: 81 mg Benztropine Mesylate (Cogentin) 1 mg PO TID [facility] Stop: 02/28/19 08:59 Last Admin: 01/06/19 14:46 Dose: 1 mg Bisacodyl (Dulcolax 10 Mg Supp) 10 mg RC DAILY [facility] Stop: 02/28/19 08:59 Last Admin: 01/06/19 14:56 Dose: Not Given Cholecalciferol (Vitamin D3) 5,000 iu PO DAILY [facility] Stop: 02/28/19 08:59 Last Admin: 01/06/19 10:06 Dose: 5,000 iu Clonazepam (Klonopin) 2 mg PO TID [facility]; Protocol Stop: 02/27/19 08:59 Last Admin: 01/06/19 14:46 Dose: 2 mg Clozapine 100 mg/ Clozapine 75 (mg) 175 mg PO BID [facility] Stop: 03/01/19 16:59 Last Admin: 01/06/19 10:04 Dose: 175 mg Famotidine (Pepcid) 40 mg PO DAILY [facility] Stop: 02/28/19 08:59 Last Admin: 01/06/19 10:05 Dose: 40 mg Ferric Sodium Gluconate Complex 125 mg/ Sodium Chloride 110 mls @ 100 mls/hr IV Q24HR@1000 [facility] Stop: 01/08/19 11:59 Last Admin: 01/06/19 11:06 Dose: 100 mls/hr Dextrose/Sodium Chloride (D5-0.45ns) 1,000 mls @ 50 mls/hr IV .Q20H [facility] Stop: 03/02/19 19:37 Last Admin: 01/05/19 06:00 Dose: 50 mls/hr Piperacillin Sod/Tazobactam (Sod 4.5 gm/ Sodium Chloride) 100 mls @ 100 mls/hr IV Q8HR [facility] Stop: 03/05/19 12:59 Last Admin: 01/06/19 14:47 Dose: 100 mls/hr Levothyroxine Sodium 0.025 mg/ (Levothyroxine Sodium 0.112 mg) 0.137 mg PO DAILY@0730 [facility] Stop: 02/28/19 07:29 Last Admin: 01/06/19 06:44 Dose: 0.137 mg [place] Carbonate (Eskalith) 300 mg PO BID [facility]; Protocol Stop: 02/28/19 08:59 Last Admin: 01/06/19 10:06 Dose: 300 mg Magnesium Hydroxide (Milk Of Magnesia) 30 ml PO HS [facility] Stop: 02/28/19 20:59 Last Admin: 01/05/19 20:57 Dose: 30 ml Quetiapine Fumarate (Seroquel) 300 mg PO TID [facility]; Protocol Stop: 03/01/19 08:59 Last Admin: 01/06/19 14:46 Dose: 300 mg Valproate Sodium (Depakene) 500 mg PO BID [facility]; Protocol Stop: 02/28/19 08:59 Last Admin: 01/06/19 10:04 Dose: 500 mg General: alert, other (agitated behavior.) Neck: No JVD Lungs: wheezing, ronchi, other (scattered rhonchi and occasional wheezing.) Cardiovascular: Normal S1 Abdomen: soft, non-distended, positive bowel sound Extremities: other (Patient has restraints in place.) Internal Medicine Assmt/Plan - Assessment Assessment: Agitated with Aggresive Behavior towards others Psychosis. Schizophrenia. Leukocytosis/possible aspiration. Sepsis. Pneumonia. Lactic acidosis. Iron deficiency anemia s/p transfusion. Hypertension. History of Gerd. Hypothyroidism. PUD. GERD. Hypotention - Plan Plan: aspiration precaution continue ivabx as per id am labs cont current plan of care Nutritional Asmnt/Malnutr-PDOC - Dietary Evaluation Malnutrition Findings (Please click <Entered> for more info): Nutritional Asmnt/Malnutrition Start: 12/26/18 15: 09 Text: Status: Complete Freq: Protocol: Document 12/26/18 15:09 HANKSUNIL (Rec: 12/26/18 15:12 HANKSUNIL [email or web address]) Nutritional Asmnt/Malnutrition Patient General Information Nutritional Screening High Risk Diagnosis sepsis Pertinent Medical Hx/Surgical Hx HTN, PUD/GERD, thyroid disorder, anemia, schizophrenia Subjective Information Pt seen in bed, disoriented, yelling, has 1:1 sitter in room. Per sitter, pt consumed 100% of breakfast and lunch today. Current Diet Order/ Nutrition Support soft/bland Pertinent Medications seroquel Pertinent Labs 12/25 BUN 26, Alb 3.5 Nutritional Hx/Data Height 5 ft 7 in Height (Calculated Centimeters) 170.2 Current Weight (lbs) 130 lb Weight (Calculated Kilograms) 59.0 Weight (Calculated Grams) 51466.0 [place] Body Weight 148 Body Mass Index (BMI) 20.3 Weight Status Approriate GI Symptoms GI Symptoms None Last BM not indicated Difficult in: None Skin Integrity/Comment: intact Current %PO Good (75-100%) Estimated Nutritional Goals BEE in Kcals: Using Current wt Calories/Kcals/Kg 30-35 Kcals Calculated 4104-2766 Protein: Using Current wt Protein g/k.2 Protein Calculated 71 Fluid: ml 1620-2065ml (1ml/kcal) Nutritional Problem 1. Problem Problem increased nutritional needs Etiology increased metabolic demand Signs/Symptoms: dx of sepsis Malnutrition Alert Is there a minimum of two criteria No selected? Query Text:Check all the applicable criteria. A minimum of two criteria are recommended for diagnosis of either severe or non-severe malnutrition. Malnutrition Related to Morbid Obesity Malnutrition related to morbid obesity No Intervention/Recommendation Comments 1. Continue with soft/baland diet as ordered. 2. Monitor PO intake, wt, labs and skin integrity 3. F/U as moderate risk in 3-5 days Expected Outcomes/Goals Expected Outcomes/Goals 1. PO intake to meet at least 75% of nutritional needs. 2. Wt stability, skin to remain intact, labs to approach WNL.
--- NOTE | 2019-01-06 16:51 | Infectious Disease Prog Note ---
Infectious Disease Subjective - Review of Systems Service Date: 01/06/19 Subjective: Patient's fever has resolved, some improvement in leukocytosis. Infectious Disease Objective - Results Result Diagrams: 01/06/19 05:45 01/06/19 05:45 Recent Labs: Laboratory Last Values WBC 21.2 Th/cmm (4.8-10.8) H* 01/06/19 05:45 RBC 3.48 Mil/cmm (4.30-5.70) L 01/06/19 05:45 Hgb 9.8 gm/dL (12-16) L 01/06/19 05:45 Hct 29.9 % (41.0-60) L 01/06/19 05:45 MCV 85.9 fl (80-99) 01/06/19 05:45 MCH 28.1 pg (26.0-30.0) 01/06/19 05:45 MCHC Differential 32.7 pg (28.0-36.0) 01/06/19 05:45 RDW 14.4 % (11.5-20.0) 01/06/19 05:45 Plt Count 219 Th/cmm (150-400) 01/06/19 05:45 MPV 8.6 fl 01/06/19 05:45 Add Manual Diff YES 01/06/19 05:45 Neutrophils % 71.4 % (40.0-80.0) 01/02/19 05:40 Band Neutrophils % 7 % (0-10) 01/06/19 05:45 Lymphocytes % 14.7 % (20.0-50.0) L 01/02/19 05:40 Monocytes % 7.3 % (2.0-10.0) 01/02/19 05:40 Eosinophils % 5.8 % (0.0-5.0) H 01/02/19 05:40 Basophils % 0.8 % (0.0-2.0) 01/02/19 05:40 Neutrophils (Manual) 85 % (40-80) H 01/06/19 05:45 Lymphocytes 4 % (20-50) L 01/06/19 05:45 Monocytes 4 % (2-10) 01/06/19 05:45 Eosinophils 0 % (0-5) 01/06/19 05:45 Basophils 0 % (0-3) 01/06/19 05:45 Platelet Estimate ADEQUATE (NORMAL) 01/06/19 05:45 RBC Morph Micro Appear NORMAL (NORMAL) 01/06/19 05:45 Total Retics Counted 2.2 % (0.5-1.5) H 12/26/18 05:40 Absolute Retic 79.2 Th/cmm 12/26/18 05:40 Corrected Retic Count 1.5 % (0.5-1.5) 12/26/18 05:40 PT 10.9 SECONDS (9.5-11.5) 01/02/19 05:40 INR 1.05 (0.5-1.4) 01/02/19 05:40 Sodium 148 mEq/L (136-145) H 01/06/19 05:45 Potassium 3.0 mEq/L (3.5-5.1) L D 01/06/19 05:45 Chloride 112 mEq/L (98-107) H 01/06/19 05:45 Carbon Dioxide 29.4 mEq/L (21.0-31.0) 01/06/19 05:45 Anion Gap 9.6 (7.0-16.0) 01/06/19 05:45 BUN 20 mg/dL (7-25) 01/06/19 05:45 Creatinine 0.9 mg/dL (0.7-1.3) 01/06/19 05:45 Est GFR ( Amer) > 60.0 ml/min (>90) 01/06/19 05:45 Est GFR (Non-Af Amer) > 60.0 ml/min 01/06/19 05:45 BUN/Creatinine Ratio 22.2 01/06/19 05:45 Glucose 127 mg/dL (70-105) H 01/06/19 05:45 POC Glucose 87 MG/DL (70 - 105) 01/01/19 08:07 Whole Bld Lactic Acid 1.26 mmol/L (0.60-1.99) 01/04/19 12:10 Calcium 9.1 mg/dL (8.6-10.3) 01/06/19 05:45 Magnesium 2.1 mg/dL (1.9-2.7) 01/06/19 05:45 Iron 17 ug/dL (38-169) L 12/26/18 05:40 TIBC 210 ug/dL (250-450) L 12/26/18 05:40 Iron Saturation 8 % (15-55) L 12/26/18 05:40 Unsaturated IBC 193 ug/dL (111-343) 12/26/18 05:40 Ferritin 200 ng/mL (30-400) 12/26/18 05:40 Total Bilirubin 0.6 mg/dL (0.3-1.0) 01/06/19 05:45 AST 32 U/L (13-39) 01/06/19 05:45 ALT 20 U/L (7-52) 01/06/19 05:45 Alkaline Phosphatase 58 U/L (34-104) 01/06/19 05:45 Total Protein 5.2 gm/dL (6.0-8.3) L 01/06/19 05:45 Albumin 2.9 gm/dL (4.2-5.5) L 01/06/19 05:45 Globulin 2.3 gm/dL 01/06/19 05:45 Albumin/Globulin Ratio 1.3 (1.0-1.8) 01/06/19 05:45 Triglycerides 125 mg/dL (<150) 12/25/18 16:11 Cholesterol 154 mg/dL (<200) 12/25/18 16:11 LDL Cholesterol Direct 112 mg/dL (75-193) 12/25/18 16:11 HDL Cholesterol 37 mg/dL (23-92) 12/25/18 16:11 Vitamin B12 848 pg/mL (232-1245) 12/26/18 05:40 Folic Acid 6.9 ng/mL (>3.0) 12/26/18 05:40 TSH 2.61 uIU/ml (0.34-5.60) 12/25/18 16:11 Urine Source CATH 12/25/18 16:25 Urine Color COLORLESS 12/25/18 16:25 Urine Clarity CLEAR (CLEAR) 12/25/18 16:25 Urine pH 6.0 (4.6 - 8.0) 12/25/18 16:25 Ur Specific [place] 1.010 (1.005-1.030) 12/25/18 16:25 Urine Protein NEGATIVE mg/dL (NEGATIVE) 12/25/18 16:25 Urine Glucose (UA) NEGATIVE mg/dL (NEGATIVE) 12/25/18 16:25 Urine Ketones NEGATIVE mg/dL (NEGATIVE) 12/25/18 16:25 Urine Blood NEGATIVE (NEGATIVE) 12/25/18 16:25 Urine Nitrate NEGATIVE (NEGATIVE) 12/25/18 16:25 Urine Bilirubin NEGATIVE (NEGATIVE) 12/25/18 16:25 Urine Urobilinogen 0.2 E.U./dL (0.2 - 1.0) 12/25/18 16:25 Ur Leukocyte Esterase NEGATIVE (NEGATIVE) 12/25/18 16:25 Stool Occult Blood NEGATIVE (NEGATIVE) 01/05/19 18:40 Valproic Acid < 10.0 ug/mL (50.0-100.0) L 12/30/18 04:25 [place] 0.06 mmol/L (0.5-1.0) L 12/30/18 04:25 RPR NONREACTIVE (NONREACTIVE) 12/25/18 16:11 Influenza A (Rapid) NEG FOR INF A 12/25/18 16:30 Influenza B (Rapid) NEG FOR INF B 12/25/18 16:30 - Physical Exam Vitals and I&O: Vital Signs Temp 97.0 F 01/06/19 12:00 Pulse 90 01/06/19 15:09 Resp 18 01/06/19 15:09 BP 120/70 01/06/19 12:00 Pulse Ox 97 01/06/19 15:09 Intake & Output 01/05/19 01/06/19 01/06/19 18:59 06:59 18:59 Intake Total 690 200 Balance 690 200 Weight (lbs) 63.503 kg 63.503 kg Intake: Intake, IV Amount 210 200 Piperacillin Sodium/ 100 200 Tazobact 4.5 gm In Sodium Chloride 0.9% 100 ml @ 100 mls/hr IV Q8HR [facility] Rx #:[id number] Sodium Ferric Gluconate 110 125 mg In Sodium Chloride 0.9% 100 ml @ 100 mls/hr IV Q24HR@1000 [facility] Rx#: [id number] Oral 480 Other: # Voids 2 # Bowel Movements 1 Stool Characteristics Soft Brown Weight Source Bedscale Bedscale Active Medications: Current Medications Acetaminophen (Tylenol 650mg Supp) 650 mg RC Q6H PRN PRN Reason: Fever > 101 Stop: 03/05/19 08:02 Last Admin: 01/04/19 08:49 Dose: 650 mg Acetaminophen (Tylenol) 650 mg PO Q4H PRN PRN Reason: Fever > 101 Stop: 03/05/19 08:05 Albuterol/Ipratropium (Duoneb Neb) 3 ml HHN Q4HRT [facility] Stop: 03/05/19 10:59 Last Admin: 01/06/19 15:09 Dose: 3 ml Amlodipine Besylate (Norvasc) 10 mg PO DAILY [facility] Stop: 02/28/19 08:59 Last Admin: 01/06/19 10:05 Dose: 10 mg Ascorbic Acid (Vitamin C) 500 mg PO DAILY [facility] Stop: 03/01/19 08:59 Last Admin: 01/06/19 10:06 Dose: 500 mg Aspirin (Ecotrin) 81 mg PO DAILY [facility] Stop: 02/28/19 08:59 Last Admin: 01/06/19 10:06 Dose: 81 mg Benztropine Mesylate (Cogentin) 1 mg PO TID [facility] Stop: 02/28/19 08:59 Last Admin: 01/06/19 14:46 Dose: 1 mg Bisacodyl (Dulcolax 10 Mg Supp) 10 mg RC DAILY [facility] Stop: 02/28/19 08:59 Last Admin: 01/06/19 14:56 Dose: Not Given Cholecalciferol (Vitamin D3) 5,000 iu PO DAILY [facility] Stop: 02/28/19 08:59 Last Admin: 01/06/19 10:06 Dose: 5,000 iu Clonazepam (Klonopin) 2 mg PO TID [facility]; Protocol Stop: 02/27/19 08:59 Last Admin: 01/06/19 14:46 Dose: 2 mg Clozapine 100 mg/ Clozapine 75 (mg) 175 mg PO BID [facility] Stop: 03/01/19 16:59 Last Admin: 01/06/19 10:04 Dose: 175 mg Famotidine (Pepcid) 40 mg PO DAILY [facility] Stop: 02/28/19 08:59 Last Admin: 01/06/19 10:05 Dose: 40 mg Ferric Sodium Gluconate Complex 125 mg/ Sodium Chloride 110 mls @ 100 mls/hr IV Q24HR@1000 [facility] Stop: 01/08/19 11:59 Last Admin: 01/06/19 11:06 Dose: 100 mls/hr Dextrose/Sodium Chloride (D5-0.45ns) 1,000 mls @ 50 mls/hr IV .Q20H [facility] Stop: 03/02/19 19:37 Last Admin: 01/05/19 06:00 Dose: 50 mls/hr Piperacillin Sod/Tazobactam (Sod 4.5 gm/ Sodium Chloride) 100 mls @ 100 mls/hr IV Q8HR [facility] Stop: 03/05/19 12:59 Last Admin: 01/06/19 14:47 Dose: 100 mls/hr Levothyroxine Sodium 0.025 mg/ (Levothyroxine Sodium 0.112 mg) 0.137 mg PO DAILY@0730 [facility] Stop: 02/28/19 07:29 Last Admin: 01/06/19 06:44 Dose: 0.137 mg [place] Carbonate (Eskalith) 300 mg PO BID [facility]; Protocol Stop: 02/28/19 08:59 Last Admin: 01/06/19 10:06 Dose: 300 mg Magnesium Hydroxide (Milk Of Magnesia) 30 ml PO HS [facility] Stop: 02/28/19 20:59 Last Admin: 01/05/19 20:57 Dose: 30 ml Quetiapine Fumarate (Seroquel) 300 mg PO TID [facility]; Protocol Stop: 03/01/19 08:59 Last Admin: 01/06/19 14:46 Dose: 300 mg Valproate Sodium (Depakene) 500 mg PO BID [facility]; Protocol Stop: 02/28/19 08:59 Last Admin: 01/06/19 10:04 Dose: 500 mg General: no acute distress, cachectic HEENT: atraumatic, normocephalic, PERRLA, EOMI, moist mucous membrane Neck: supple, no thyromegaly Cardiovascular: S1S2, regular Lungs: clear to auscultation bilaterally, clear to percussion, crackles, rhonchi Abdomen: soft, bowel sounds, no tender, no distended, no mass, no hepatomegaly Extremities: no cyanosis, no clubbing, no edema Neurological: awake, alert, oriented Skin: intact Infectious Disease Assmt/Plan - Assessment Assessment: 1. Sepsis. may have aspirated. 2. Pneumonia. 3. Leukocytosis, suspect sepsis as patient also had lactic acidosis and tachycardia on presentation. 4. Hypothyroidism. 5. Anemia. 6. Schizophrenia. 7. Hypertension. 8. History of gastroesophageal reflux disease. 9. Iron deficiency anemia. 10. Aggressive behaviour. - Plan Plan: Continue Zosyn. Sepsis w/u. Lab in am. Nutritional Asmnt/Malnutr-PDOC - Dietary Evaluation Malnutrition Findings (Please click <Entered> for more info): Nutritional Asmnt/Malnutrition Start: 12/26/18 15: 09 Text: Status: Complete Freq: Protocol: Document 12/26/18 15:09 LCHENG (Rec: 12/26/18 15:12 LCMARLENAG [email or web address]) Nutritional Asmnt/Malnutrition Patient General Information Nutritional Screening High Risk Diagnosis sepsis Pertinent Medical Hx/Surgical Hx HTN, PUD/GERD, thyroid disorder, anemia, schizophrenia Subjective Information Pt seen in bed, disoriented, yelling, has 1:1 sitter in room. Per sitter, pt consumed 100% of breakfast and lunch today. Current Diet Order/ Nutrition Support soft/bland Pertinent Medications seroquel Pertinent Labs 12/25 BUN 26, Alb 3.5 Nutritional Hx/Data Height 1.7 m Height (Calculated Centimeters) 170.2 Current Weight (lbs) 58.967 kg Weight (Calculated Kilograms) 59.0 Weight (Calculated Grams) 79042.0 [place] Body Weight 148 Body Mass Index (BMI) 20.3 Weight Status Approriate GI Symptoms GI Symptoms None Last BM not indicated Difficult in: None Skin Integrity/Comment: intact Current %PO Good (75-100%) Estimated Nutritional Goals BEE in Kcals: Using Current wt Calories/Kcals/Kg 30-35 Kcals Calculated 1366-7036 Protein: Using Current wt Protein g/k.2 Protein Calculated 71 Fluid: ml 1620-2065ml (1ml/kcal) Nutritional Problem 1. Problem Problem increased nutritional needs Etiology increased metabolic demand Signs/Symptoms: dx of sepsis Malnutrition Alert Is there a minimum of two criteria No selected? Query Text:Check all the applicable criteria. A minimum of two criteria are recommended for diagnosis of either severe or non-severe malnutrition. Malnutrition Related to Morbid Obesity Malnutrition related to morbid obesity No Intervention/Recommendation Comments 1. Continue with soft/baland diet as ordered. 2. Monitor PO intake, wt, labs and skin integrity 3. F/U as moderate risk in 3-5 days Expected Outcomes/Goals Expected Outcomes/Goals 1. PO intake to meet at least 75% of nutritional needs. 2. Wt stability, skin to remain intact, labs to approach WNL.
--- NOTE | 2019-01-06 17:02 | General Progress Note ---
Subjective - Review of Systems Service Date: 01/06/19 Subjective: not in distress, sleepy, confused Objective - Results Result Diagrams: 01/06/19 05:45 01/06/19 05:45 Recent Labs: Laboratory Last Values WBC 21.2 Th/cmm (4.8-10.8) H* 01/06/19 05:45 RBC 3.48 Mil/cmm (4.30-5.70) L 01/06/19 05:45 Hgb 9.8 gm/dL (12-16) L 01/06/19 05:45 Hct 29.9 % (41.0-60) L 01/06/19 05:45 MCV 85.9 fl (80-99) 01/06/19 05:45 MCH 28.1 pg (26.0-30.0) 01/06/19 05:45 MCHC Differential 32.7 pg (28.0-36.0) 01/06/19 05:45 RDW 14.4 % (11.5-20.0) 01/06/19 05:45 Plt Count 219 Th/cmm (150-400) 01/06/19 05:45 MPV 8.6 fl 01/06/19 05:45 Add Manual Diff YES 01/06/19 05:45 Neutrophils % 71.4 % (40.0-80.0) 01/02/19 05:40 Band Neutrophils % 7 % (0-10) 01/06/19 05:45 Lymphocytes % 14.7 % (20.0-50.0) L 01/02/19 05:40 Monocytes % 7.3 % (2.0-10.0) 01/02/19 05:40 Eosinophils % 5.8 % (0.0-5.0) H 01/02/19 05:40 Basophils % 0.8 % (0.0-2.0) 01/02/19 05:40 Neutrophils (Manual) 85 % (40-80) H 01/06/19 05:45 Lymphocytes 4 % (20-50) L 01/06/19 05:45 Monocytes 4 % (2-10) 01/06/19 05:45 Eosinophils 0 % (0-5) 01/06/19 05:45 Basophils 0 % (0-3) 01/06/19 05:45 Platelet Estimate ADEQUATE (NORMAL) 01/06/19 05:45 RBC Morph Micro Appear NORMAL (NORMAL) 01/06/19 05:45 Total Retics Counted 2.2 % (0.5-1.5) H 12/26/18 05:40 Absolute Retic 79.2 Th/cmm 12/26/18 05:40 Corrected Retic Count 1.5 % (0.5-1.5) 12/26/18 05:40 PT 10.9 SECONDS (9.5-11.5) 01/02/19 05:40 INR 1.05 (0.5-1.4) 01/02/19 05:40 Sodium 148 mEq/L (136-145) H 01/06/19 05:45 Potassium 3.0 mEq/L (3.5-5.1) L D 01/06/19 05:45 Chloride 112 mEq/L (98-107) H 01/06/19 05:45 Carbon Dioxide 29.4 mEq/L (21.0-31.0) 01/06/19 05:45 Anion Gap 9.6 (7.0-16.0) 01/06/19 05:45 BUN 20 mg/dL (7-25) 01/06/19 05:45 Creatinine 0.9 mg/dL (0.7-1.3) 01/06/19 05:45 Est GFR ( Amer) > 60.0 ml/min (>90) 01/06/19 05:45 Est GFR (Non-Af Amer) > 60.0 ml/min 01/06/19 05:45 BUN/Creatinine Ratio 22.2 01/06/19 05:45 Glucose 127 mg/dL (70-105) H 01/06/19 05:45 POC Glucose 87 MG/DL (70 - 105) 01/01/19 08:07 Whole Bld Lactic Acid 1.26 mmol/L (0.60-1.99) 01/04/19 12:10 Calcium 9.1 mg/dL (8.6-10.3) 01/06/19 05:45 Magnesium 2.1 mg/dL (1.9-2.7) 01/06/19 05:45 Iron 17 ug/dL (38-169) L 12/26/18 05:40 TIBC 210 ug/dL (250-450) L 12/26/18 05:40 Iron Saturation 8 % (15-55) L 12/26/18 05:40 Unsaturated IBC 193 ug/dL (111-343) 12/26/18 05:40 Ferritin 200 ng/mL (30-400) 12/26/18 05:40 Total Bilirubin 0.6 mg/dL (0.3-1.0) 01/06/19 05:45 AST 32 U/L (13-39) 01/06/19 05:45 ALT 20 U/L (7-52) 01/06/19 05:45 Alkaline Phosphatase 58 U/L (34-104) 01/06/19 05:45 Total Protein 5.2 gm/dL (6.0-8.3) L 01/06/19 05:45 Albumin 2.9 gm/dL (4.2-5.5) L 01/06/19 05:45 Globulin 2.3 gm/dL 01/06/19 05:45 Albumin/Globulin Ratio 1.3 (1.0-1.8) 01/06/19 05:45 Triglycerides 125 mg/dL (<150) 12/25/18 16:11 Cholesterol 154 mg/dL (<200) 12/25/18 16:11 LDL Cholesterol Direct 112 mg/dL (75-193) 12/25/18 16:11 HDL Cholesterol 37 mg/dL (23-92) 12/25/18 16:11 Vitamin B12 848 pg/mL (232-1245) 12/26/18 05:40 Folic Acid 6.9 ng/mL (>3.0) 12/26/18 05:40 TSH 2.61 uIU/ml (0.34-5.60) 12/25/18 16:11 Urine Source CATH 12/25/18 16:25 Urine Color COLORLESS 12/25/18 16:25 Urine Clarity CLEAR (CLEAR) 12/25/18 16:25 Urine pH 6.0 (4.6 - 8.0) 12/25/18 16:25 Ur Specific [place] 1.010 (1.005-1.030) 12/25/18 16:25 Urine Protein NEGATIVE mg/dL (NEGATIVE) 12/25/18 16:25 Urine Glucose (UA) NEGATIVE mg/dL (NEGATIVE) 12/25/18 16:25 Urine Ketones NEGATIVE mg/dL (NEGATIVE) 12/25/18 16:25 Urine Blood NEGATIVE (NEGATIVE) 12/25/18 16:25 Urine Nitrate NEGATIVE (NEGATIVE) 12/25/18 16:25 Urine Bilirubin NEGATIVE (NEGATIVE) 12/25/18 16:25 Urine Urobilinogen 0.2 E.U./dL (0.2 - 1.0) 12/25/18 16:25 Ur Leukocyte Esterase NEGATIVE (NEGATIVE) 12/25/18 16:25 Stool Occult Blood NEGATIVE (NEGATIVE) 01/05/19 18:40 Valproic Acid < 10.0 ug/mL (50.0-100.0) L 12/30/18 04:25 [place] 0.06 mmol/L (0.5-1.0) L 12/30/18 04:25 RPR NONREACTIVE (NONREACTIVE) 12/25/18 16:11 Influenza A (Rapid) NEG FOR INF A 12/25/18 16:30 Influenza B (Rapid) NEG FOR INF B 12/25/18 16:30 - Physical Exam Vitals and I&O: Vital Signs Temp 97.0 F 01/06/19 12:00 Pulse 90 01/06/19 15:09 Resp 18 01/06/19 15:09 BP 120/70 01/06/19 12:00 Pulse Ox 97 01/06/19 15:09 Intake & Output 01/05/19 01/06/19 01/06/19 18:59 06:59 18:59 Intake Total 690 200 Balance 690 200 Weight (lbs) 63.503 kg 63.503 kg Intake: Intake, IV Amount 210 200 Piperacillin Sodium/ 100 200 Tazobact 4.5 gm In Sodium Chloride 0.9% 100 ml @ 100 mls/hr IV Q8HR [facility] Rx #:[id number] Sodium Ferric Gluconate 110 125 mg In Sodium Chloride 0.9% 100 ml @ 100 mls/hr IV Q24HR@1000 [facility] Rx#: [id number] Oral 480 Other: # Voids 2 # Bowel Movements 1 Stool Characteristics Soft Brown Weight Source Bedscale Bedscale Active Medications: Current Medications Acetaminophen (Tylenol 650mg Supp) 650 mg RC Q6H PRN PRN Reason: Fever > 101 Stop: 03/05/19 08:02 Last Admin: 01/04/19 08:49 Dose: 650 mg Acetaminophen (Tylenol) 650 mg PO Q4H PRN PRN Reason: Fever > 101 Stop: 03/05/19 08:05 Albuterol/Ipratropium (Duoneb Neb) 3 ml HHN Q4HRT [facility] Stop: 03/05/19 10:59 Last Admin: 01/06/19 15:09 Dose: 3 ml Amlodipine Besylate (Norvasc) 10 mg PO DAILY [facility] Stop: 02/28/19 08:59 Last Admin: 01/06/19 10:05 Dose: 10 mg Ascorbic Acid (Vitamin C) 500 mg PO DAILY [facility] Stop: 03/01/19 08:59 Last Admin: 01/06/19 10:06 Dose: 500 mg Aspirin (Ecotrin) 81 mg PO DAILY [facility] Stop: 02/28/19 08:59 Last Admin: 01/06/19 10:06 Dose: 81 mg Benztropine Mesylate (Cogentin) 1 mg PO TID [facility] Stop: 02/28/19 08:59 Last Admin: 01/06/19 14:46 Dose: 1 mg Bisacodyl (Dulcolax 10 Mg Supp) 10 mg RC DAILY [facility] Stop: 02/28/19 08:59 Last Admin: 01/06/19 14:56 Dose: Not Given Cholecalciferol (Vitamin D3) 5,000 iu PO DAILY [facility] Stop: 02/28/19 08:59 Last Admin: 01/06/19 10:06 Dose: 5,000 iu Clonazepam (Klonopin) 2 mg PO TID [facility]; Protocol Stop: 02/27/19 08:59 Last Admin: 01/06/19 14:46 Dose: 2 mg Clozapine 100 mg/ Clozapine 75 (mg) 175 mg PO BID [facility] Stop: 03/01/19 16:59 Last Admin: 01/06/19 10:04 Dose: 175 mg Famotidine (Pepcid) 40 mg PO DAILY [facility] Stop: 02/28/19 08:59 Last Admin: 01/06/19 10:05 Dose: 40 mg Ferric Sodium Gluconate Complex 125 mg/ Sodium Chloride 110 mls @ 100 mls/hr IV Q24HR@1000 [facility] Stop: 01/08/19 11:59 Last Admin: 01/06/19 11:06 Dose: 100 mls/hr Dextrose/Sodium Chloride (D5-0.45ns) 1,000 mls @ 50 mls/hr IV .Q20H [facility] Stop: 03/02/19 19:37 Last Admin: 01/05/19 06:00 Dose: 50 mls/hr Piperacillin Sod/Tazobactam (Sod 4.5 gm/ Sodium Chloride) 100 mls @ 100 mls/hr IV Q8HR [facility] Stop: 03/05/19 12:59 Last Admin: 01/06/19 14:47 Dose: 100 mls/hr Levothyroxine Sodium 0.025 mg/ (Levothyroxine Sodium 0.112 mg) 0.137 mg PO DAILY@0730 [facility] Stop: 02/28/19 07:29 Last Admin: 01/06/19 06:44 Dose: 0.137 mg [place] Carbonate (Eskalith) 300 mg PO BID [facility]; Protocol Stop: 02/28/19 08:59 Last Admin: 01/06/19 10:06 Dose: 300 mg Magnesium Hydroxide (Milk Of Magnesia) 30 ml PO HS [facility] Stop: 02/28/19 20:59 Last Admin: 01/05/19 20:57 Dose: 30 ml Quetiapine Fumarate (Seroquel) 300 mg PO TID [facility]; Protocol Stop: 03/01/19 08:59 Last Admin: 01/06/19 14:46 Dose: 300 mg Valproate Sodium (Depakene) 500 mg PO BID [facility]; Protocol Stop: 02/28/19 08:59 Last Admin: 01/06/19 10:04 Dose: 500 mg General: Alert, No acute distress, Other (confused) HEENT: Atraumatic Neck: Supple Cardiovascular: Regular rate Lungs: Clear to auscultation, Normal air movement Abdomen: Bowel sounds, Soft, no Tender, no Hepatomegaly, no Distended, no Rebound, no Mass, no Guarding Extremities: no Clubbing, no Cyanosis Skin: no Rash Assessment/Plan - Assessment Assessment: The iron studies are suggestive of iron deficiency anemia. Stool occult blood was positive. 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 He will be given iron by IV route because of his poor compliance. The leukocytosis could be secondary to lithium or reactive and the patient is on antibiotics with improvement of the white count. 01/06/19: hgb stable, continue iv iron x 2 more days. s/p EGD/COLO follow cbc Nutritional Asmnt/Malnutr-PDOC - Dietary Evaluation Malnutrition Findings (Please click <Entered> for more info): Nutritional Asmnt/Malnutrition Start: 12/26/18 15: 09 Text: Status: Complete Freq: Protocol: Document 12/26/18 15:09 HANKSUNIL (Rec: 12/26/18 15:12 [email or web address] [email or web address]) Nutritional Asmnt/Malnutrition Patient General Information Nutritional Screening High Risk Diagnosis sepsis Pertinent Medical Hx/Surgical Hx HTN, PUD/GERD, thyroid disorder, anemia, schizophrenia Subjective Information Pt seen in bed, disoriented, yelling, has 1:1 sitter in room. Per sitter, pt consumed 100% of breakfast and lunch today. Current Diet Order/ Nutrition Support soft/bland Pertinent Medications seroquel Pertinent Labs 12/25 BUN 26, Alb 3.5 Nutritional Hx/Data Height 1.7 m Height (Calculated Centimeters) 170.2 Current Weight (lbs) 58.967 kg Weight (Calculated Kilograms) 59.0 Weight (Calculated Grams) 70268.0 [place] Body Weight 148 Body Mass Index (BMI) 20.3 Weight Status Approriate GI Symptoms GI Symptoms None Last BM not indicated Difficult in: None Skin Integrity/Comment: intact Current %PO Good (75-100%) Estimated Nutritional Goals BEE in Kcals: Using Current wt Calories/Kcals/Kg 30-35 Kcals Calculated 3624-3436 Protein: Using Current wt Protein g/k.2 Protein Calculated 71 Fluid: ml 1620-2065ml (1ml/kcal) Nutritional Problem 1. Problem Problem increased nutritional needs Etiology increased metabolic demand Signs/Symptoms: dx of sepsis Malnutrition Alert Is there a minimum of two criteria No selected? Query Text:Check all the applicable criteria. A minimum of two criteria are recommended for diagnosis of either severe or non-severe malnutrition. Malnutrition Related to Morbid Obesity Malnutrition related to morbid obesity No Intervention/Recommendation Comments 1. Continue with soft/baland diet as ordered. 2. Monitor PO intake, wt, labs and skin integrity 3. F/U as moderate risk in 3-5 days Expected Outcomes/Goals Expected Outcomes/Goals 1. PO intake to meet at least 75% of nutritional needs. 2. Wt stability, skin to remain intact, labs to approach WNL.
[2019-01-06] MEDS: Magnesium Hydroxide (MOM) 30 mL UDC PO SCH (22:06)
[2019-01-07] MEDS: Albuterol/Ipratropium Neb 3 ML AERS HHN SCH ×6 (02:30→23:07)
[2019-01-07 06:30] LABS: HEMATOCRIT 32.1 % (41.0-60); HEMOGLOBIN 10.5 gm/dL (12-16); MEAN CELL VOLUME 85.4 fl (80-99); MEAN CORPUSCULAR HEMOGLOBIN 27.9 pg (26.0-30.0); MEAN CORPUSCULAR HGB CONC 32.7 pg (28.0-36.0); MEAN PLATELET VOLUME 8.5 fl; PLATELET COUNT 256 Th/cmm (150-400); RED BLOOD COUNT 3.75 Mil/cmm (4.30-5.70); RED CELL DISTRIBUTION WIDTH 14.3 % (11.5-20.0)
[2019-01-07 06:41] LABS: WHITE BLOOD COUNT 19.4 Th/cmm (4.8-10.8)
[2019-01-07 06:48] LABS: ALB/GLOB RATIO 1.1 (1.0-1.8); ALBUMIN 2.9 gm/dL (4.2-5.5); ALKALINE PHOSPHATASE 68 U/L (34-104); ANION GAP 12.3 (7.0-16.0); BILIRUBIN,TOTAL 0.5 mg/dL (0.3-1.0); BUN - UREA NITROGEN 21 mg/dL (7-25); CALCIUM SERUM 9.4 mg/dL (8.6-10.3); CARBON DIOXIDE 29.5 mEq/L (21.0-31.0); CHLORIDE 115 mEq/L (98-107); CREATININE - SERUM 0.9 mg/dL (0.7-1.3); GFR AFRICAN-AMERICAN > 60.0 ml/min (>90); GFR NON AFRICAN-AMERICAN > 60.0 ml/min; GLUCOSE 159 mg/dL (70-105); POTASSIUM SERUM 3.8 mEq/L (3.5-5.1); SGOT 20 U/L (13-39); SGPT/ALT 20 U/L (7-52); SODIUM SERUM 153 mEq/L (136-145); TOTAL PROTEIN,SERUM 5.5 gm/dL (6.0-8.3)
[2019-01-07 07:49] LABS: BAND NEUTROPHILE 1 % (0-10); BASOPHIL 0 % (0-3); EOSINOPHIL 5 % (0-5); LYMPHOCYTE 7 % (20-50); MONOCYTE 4 % (2-10); NEUTROPHILS 83 % (40-80)
--- NOTE | 2019-01-07 08:34 | Diagnostic Imaging Report ---
Exam: Portable chest x-ray HISTORY: Shortness of breath. COMPARISON: 01/04/2019 Findings: Frontal examination of chest reviewed the study demonstrates left-sided pneumonia. There is a small right pleural effusion. Mediastinal structures midline the heart is not enlarged bony thorax intact. IMPRESSION: Increased left-sided infiltrate. Small right pleural effusion. Follow-up examination recommended.
--- NOTE | 2019-01-07 09:01 | GI Progress Note ---
Subjective - Review of Systems Service Date: 01/07/19 Subjective: No new issues overnight Objective - Results Result Diagrams: 01/07/19 05:55 01/07/19 05:55 Recent Labs: Laboratory Last Values WBC 19.4 Th/cmm (4.8-10.8) H 01/07/19 05:55 RBC 3.75 Mil/cmm (4.30-5.70) L 01/07/19 05:55 Hgb 10.5 gm/dL (12-16) L 01/07/19 05:55 Hct 32.1 % (41.0-60) L 01/07/19 05:55 MCV 85.4 fl (80-99) 01/07/19 05:55 MCH 27.9 pg (26.0-30.0) 01/07/19 05:55 MCHC Differential 32.7 pg (28.0-36.0) 01/07/19 05:55 RDW 14.3 % (11.5-20.0) 01/07/19 05:55 Plt Count 256 Th/cmm (150-400) 01/07/19 05:55 MPV 8.5 fl 01/07/19 05:55 Add Manual Diff YES 01/07/19 05:55 Neutrophils % 71.4 % (40.0-80.0) 01/02/19 05:40 Band Neutrophils % 1 % (0-10) 01/07/19 05:55 Lymphocytes % 14.7 % (20.0-50.0) L 01/02/19 05:40 Monocytes % 7.3 % (2.0-10.0) 01/02/19 05:40 Eosinophils % 5.8 % (0.0-5.0) H 01/02/19 05:40 Basophils % 0.8 % (0.0-2.0) 01/02/19 05:40 Neutrophils (Manual) 83 % (40-80) H 01/07/19 05:55 Lymphocytes 7 % (20-50) L 01/07/19 05:55 Monocytes 4 % (2-10) 01/07/19 05:55 Eosinophils 5 % (0-5) 01/07/19 05:55 Basophils 0 % (0-3) 01/07/19 05:55 Platelet Estimate ADEQUATE (NORMAL) 01/06/19 05:45 RBC Morph Micro Appear NORMAL (NORMAL) 01/06/19 05:45 Total Retics Counted 2.2 % (0.5-1.5) H 12/26/18 05:40 Absolute Retic 79.2 Th/cmm 12/26/18 05:40 Corrected Retic Count 1.5 % (0.5-1.5) 12/26/18 05:40 PT 10.9 SECONDS (9.5-11.5) 01/02/19 05:40 INR 1.05 (0.5-1.4) 01/02/19 05:40 Sodium 153 mEq/L (136-145) H 01/07/19 05:55 Potassium 3.8 mEq/L (3.5-5.1) 01/07/19 05:55 Chloride 115 mEq/L (98-107) H 01/07/19 05:55 Carbon Dioxide 29.5 mEq/L (21.0-31.0) 01/07/19 05:55 Anion Gap 12.3 (7.0-16.0) 01/07/19 05:55 BUN 21 mg/dL (7-25) 01/07/19 05:55 Creatinine 0.9 mg/dL (0.7-1.3) 01/07/19 05:55 Est GFR ( Amer) > 60.0 ml/min (>90) 01/07/19 05:55 Est GFR (Non-Af Amer) > 60.0 ml/min 01/07/19 05:55 BUN/Creatinine Ratio 23.3 01/07/19 05:55 Glucose 159 mg/dL (70-105) H 01/07/19 05:55 POC Glucose 87 MG/DL (70 - 105) 01/01/19 08:07 Whole Bld Lactic Acid 1.26 mmol/L (0.60-1.99) 01/04/19 12:10 Calcium 9.4 mg/dL (8.6-10.3) 01/07/19 05:55 Magnesium 2.1 mg/dL (1.9-2.7) 01/06/19 05:45 Iron 17 ug/dL (38-169) L 12/26/18 05:40 TIBC 210 ug/dL (250-450) L 12/26/18 05:40 Iron Saturation 8 % (15-55) L 12/26/18 05:40 Unsaturated IBC 193 ug/dL (111-343) 12/26/18 05:40 Ferritin 200 ng/mL (30-400) 12/26/18 05:40 Total Bilirubin 0.5 mg/dL (0.3-1.0) 01/07/19 05:55 AST 20 U/L (13-39) 01/07/19 05:55 ALT 20 U/L (7-52) 01/07/19 05:55 Alkaline Phosphatase 68 U/L (34-104) 01/07/19 05:55 Total Protein 5.5 gm/dL (6.0-8.3) L 01/07/19 05:55 Albumin 2.9 gm/dL (4.2-5.5) L 01/07/19 05:55 Globulin 2.6 gm/dL 01/07/19 05:55 Albumin/Globulin Ratio 1.1 (1.0-1.8) 01/07/19 05:55 Triglycerides 125 mg/dL (<150) 12/25/18 16:11 Cholesterol 154 mg/dL (<200) 12/25/18 16:11 LDL Cholesterol Direct 112 mg/dL (75-193) 12/25/18 16:11 HDL Cholesterol 37 mg/dL (23-92) 12/25/18 16:11 Vitamin B12 848 pg/mL (232-1245) 12/26/18 05:40 Folic Acid 6.9 ng/mL (>3.0) 12/26/18 05:40 TSH 2.61 uIU/ml (0.34-5.60) 12/25/18 16:11 Urine Source CATH 12/25/18 16:25 Urine Color COLORLESS 12/25/18 16:25 Urine Clarity CLEAR (CLEAR) 12/25/18 16:25 Urine pH 6.0 (4.6 - 8.0) 12/25/18 16:25 Ur Specific [place] 1.010 (1.005-1.030) 12/25/18 16:25 Urine Protein NEGATIVE mg/dL (NEGATIVE) 12/25/18 16:25 Urine Glucose (UA) NEGATIVE mg/dL (NEGATIVE) 12/25/18 16:25 Urine Ketones NEGATIVE mg/dL (NEGATIVE) 12/25/18 16:25 Urine Blood NEGATIVE (NEGATIVE) 12/25/18 16:25 Urine Nitrate NEGATIVE (NEGATIVE) 12/25/18 16:25 Urine Bilirubin NEGATIVE (NEGATIVE) 12/25/18 16:25 Urine Urobilinogen 0.2 E.U./dL (0.2 - 1.0) 12/25/18 16:25 Ur Leukocyte Esterase NEGATIVE (NEGATIVE) 12/25/18 16:25 Stool Occult Blood NEGATIVE (NEGATIVE) 01/06/19 18:00 Valproic Acid < 10.0 ug/mL (50.0-100.0) L 12/30/18 04:25 [place] 0.06 mmol/L (0.5-1.0) L 12/30/18 04:25 RPR NONREACTIVE (NONREACTIVE) 12/25/18 16:11 Influenza A (Rapid) NEG FOR INF A 12/25/18 16:30 Influenza B (Rapid) NEG FOR INF B 12/25/18 16:30 - Physical Exam Vitals and I&O: Vital Signs Temp 97.6 F 01/07/19 08:00 Pulse 109 01/07/19 08:00 Resp 19 01/07/19 08:00 BP 105/53 01/07/19 08:00 Pulse Ox 92 01/07/19 08:00 Intake & Output 01/06/19 01/07/19 01/07/19 18:59 06:59 18:59 Intake Total 460 100 Balance 460 100 Weight (lbs) 63.503 kg 63.503 kg Intake: Intake, IV Amount 100 100 Piperacillin Sodium/ 100 100 Tazobact 4.5 gm In Sodium Chloride 0.9% 100 ml @ 100 mls/hr IV Q8HR [facility] Rx #:[id number] Oral 360 Other: # Voids 2 2 # Bowel Movements 2 1 Stool Characteristics Soft Soft Brown Brown Weight Source Bedscale Bedscale Active Medications: Current Medications Acetaminophen (Tylenol 650mg Supp) 650 mg RC Q6H PRN PRN Reason: Fever > 101 Stop: 03/05/19 08:02 Last Admin: 01/04/19 08:49 Dose: 650 mg Acetaminophen (Tylenol) 650 mg PO Q4H PRN PRN Reason: Fever > 101 Stop: 03/05/19 08:05 Albuterol/Ipratropium (Duoneb Neb) 3 ml HHN Q4HRT [facility] Stop: 03/05/19 10:59 Last Admin: 01/07/19 06:51 Dose: 3 ml Amlodipine Besylate (Norvasc) 10 mg PO DAILY [facility] Stop: 02/28/19 08:59 Last Admin: 01/06/19 10:05 Dose: 10 mg Ascorbic Acid (Vitamin C) 500 mg PO DAILY [facility] Stop: 03/01/19 08:59 Last Admin: 01/06/19 10:06 Dose: 500 mg Aspirin (Ecotrin) 81 mg PO DAILY [facility] Stop: 02/28/19 08:59 Last Admin: 01/06/19 10:06 Dose: 81 mg Benztropine Mesylate (Cogentin) 1 mg PO TID [facility] Stop: 02/28/19 08:59 Last Admin: 01/06/19 22:06 Dose: Not Given Bisacodyl (Dulcolax 10 Mg Supp) 10 mg RC DAILY [facility] Stop: 02/28/19 08:59 Last Admin: 01/06/19 14:56 Dose: Not Given Cholecalciferol (Vitamin D3) 5,000 iu PO DAILY [facility] Stop: 02/28/19 08:59 Last Admin: 01/06/19 10:06 Dose: 5,000 iu Clonazepam (Klonopin) 2 mg PO TID [facility]; Protocol Stop: 02/27/19 08:59 Last Admin: 01/06/19 22:06 Dose: Not Given Clozapine 100 mg/ Clozapine 75 (mg) 175 mg PO BID [facility] Stop: 03/01/19 16:59 Last Admin: 01/06/19 17:09 Dose: Not Given Famotidine (Pepcid) 40 mg PO DAILY [facility] Stop: 02/28/19 08:59 Last Admin: 01/06/19 10:05 Dose: 40 mg Ferric Sodium Gluconate Complex 125 mg/ Sodium Chloride 110 mls @ 100 mls/hr IV Q24HR@1000 [facility] Stop: 01/08/19 11:59 Last Admin: 01/06/19 11:06 Dose: 100 mls/hr Piperacillin Sod/Tazobactam (Sod 4.5 gm/ Sodium Chloride) 100 mls @ 100 mls/hr IV Q8HR [facility] Stop: 03/05/19 12:59 Last Admin: 01/07/19 05:46 Dose: 100 mls/hr Dextrose/Sodium Chloride (D5-0.45ns) 1,000 mls @ 100 mls/hr IV .Q10H [facility] Stop: 03/07/19 19:59 Levothyroxine Sodium 0.025 mg/ (Levothyroxine Sodium 0.112 mg) 0.137 mg PO DAILY@0730 [facility] Stop: 02/28/19 07:29 Last Admin: 01/07/19 06:37 Dose: 0.137 mg [place] Carbonate (Eskalith) 300 mg PO BID [facility]; Protocol Stop: 02/28/19 08:59 Last Admin: 01/06/19 17:09 Dose: Not Given Magnesium Hydroxide (Milk Of Magnesia) 30 ml PO HS [facility] Stop: 02/28/19 20:59 Last Admin: 01/06/19 22:06 Dose: Not Given Quetiapine Fumarate (Seroquel) 300 mg PO TID [facility]; Protocol Stop: 03/01/19 08:59 Last Admin: 01/06/19 22:06 Dose: Not Given Valproate Sodium (Depakene) 500 mg PO BID [facility]; Protocol Stop: 02/28/19 08:59 Last Admin: 01/06/19 17:09 Dose: Not Given General: Alert, No acute distress, Other (confused) HEENT: Atraumatic Neck: Supple Cardiovascular: Regular rate Lungs: Clear to auscultation, Normal air movement Abdomen: Bowel sounds, Soft, no Tender, no Hepatomegaly, no Distended, no Rebound, no Mass, no Guarding Extremities: no Clubbing, no Cyanosis Skin: no Rash Assessment/Plan - Assessment Assessment: # Anemia # OB positive Plan: 1. Anemia - Stable post transfusion - S/P EGD and colon. No findings to suggest GI blood loss - Polyps, next colonoscopy is due in 3 years - consider outpt capsule endoscopy - Await pathology 2. OB positive - S/P EGD and colon - AWAIT PATHOLOGY 3. Leukocytosis and febrile - Possible aspiration - mgmt as per primary GI to see the pt intermittently, and will follow final pathology results. Please call with any questions
[2019-01-07] MEDS: Benztropine 1 MG TAB PO SCH ×3 (09:12→20:58)
[2019-01-07] MEDS: cloZAPine 100 MG, cloZAPine 75 MG PO SCH ×2 (09:13→16:56)
[2019-01-07] MEDS: Multivitamin w/ Minerals Tab PO SCH (09:13)
[2019-01-07] MEDS: Sodium Ferric Gluconate 125 MG in Sodium Chloride 0.9% 100 ML IV SCH (09:21)
[2019-01-07] MEDS: D5-0.45NS 1,000 ML IV SCH (09:27)
--- NOTE | 2019-01-07 09:58 | General Progress Note ---
Subjective - Review of Systems Service Date: 01/07/19 Subjective: not in distress, sleepy, confused Objective - Results Result Diagrams: 01/07/19 05:55 01/07/19 05:55 Recent Labs: Laboratory Last Values WBC 19.4 Th/cmm (4.8-10.8) H 01/07/19 05:55 RBC 3.75 Mil/cmm (4.30-5.70) L 01/07/19 05:55 Hgb 10.5 gm/dL (12-16) L 01/07/19 05:55 Hct 32.1 % (41.0-60) L 01/07/19 05:55 MCV 85.4 fl (80-99) 01/07/19 05:55 MCH 27.9 pg (26.0-30.0) 01/07/19 05:55 MCHC Differential 32.7 pg (28.0-36.0) 01/07/19 05:55 RDW 14.3 % (11.5-20.0) 01/07/19 05:55 Plt Count 256 Th/cmm (150-400) 01/07/19 05:55 MPV 8.5 fl 01/07/19 05:55 Add Manual Diff YES 01/07/19 05:55 Neutrophils % 71.4 % (40.0-80.0) 01/02/19 05:40 Band Neutrophils % 1 % (0-10) 01/07/19 05:55 Lymphocytes % 14.7 % (20.0-50.0) L 01/02/19 05:40 Monocytes % 7.3 % (2.0-10.0) 01/02/19 05:40 Eosinophils % 5.8 % (0.0-5.0) H 01/02/19 05:40 Basophils % 0.8 % (0.0-2.0) 01/02/19 05:40 Neutrophils (Manual) 83 % (40-80) H 01/07/19 05:55 Lymphocytes 7 % (20-50) L 01/07/19 05:55 Monocytes 4 % (2-10) 01/07/19 05:55 Eosinophils 5 % (0-5) 01/07/19 05:55 Basophils 0 % (0-3) 01/07/19 05:55 Platelet Estimate ADEQUATE (NORMAL) 01/06/19 05:45 RBC Morph Micro Appear NORMAL (NORMAL) 01/06/19 05:45 Total Retics Counted 2.2 % (0.5-1.5) H 12/26/18 05:40 Absolute Retic 79.2 Th/cmm 12/26/18 05:40 Corrected Retic Count 1.5 % (0.5-1.5) 12/26/18 05:40 PT 10.9 SECONDS (9.5-11.5) 01/02/19 05:40 INR 1.05 (0.5-1.4) 01/02/19 05:40 Sodium 153 mEq/L (136-145) H 01/07/19 05:55 Potassium 3.8 mEq/L (3.5-5.1) 01/07/19 05:55 Chloride 115 mEq/L (98-107) H 01/07/19 05:55 Carbon Dioxide 29.5 mEq/L (21.0-31.0) 01/07/19 05:55 Anion Gap 12.3 (7.0-16.0) 01/07/19 05:55 BUN 21 mg/dL (7-25) 01/07/19 05:55 Creatinine 0.9 mg/dL (0.7-1.3) 01/07/19 05:55 Est GFR ( Amer) > 60.0 ml/min (>90) 01/07/19 05:55 Est GFR (Non-Af Amer) > 60.0 ml/min 01/07/19 05:55 BUN/Creatinine Ratio 23.3 01/07/19 05:55 Glucose 159 mg/dL (70-105) H 01/07/19 05:55 POC Glucose 87 MG/DL (70 - 105) 01/01/19 08:07 Whole Bld Lactic Acid 1.26 mmol/L (0.60-1.99) 01/04/19 12:10 Calcium 9.4 mg/dL (8.6-10.3) 01/07/19 05:55 Magnesium 2.1 mg/dL (1.9-2.7) 01/06/19 05:45 Iron 17 ug/dL (38-169) L 12/26/18 05:40 TIBC 210 ug/dL (250-450) L 12/26/18 05:40 Iron Saturation 8 % (15-55) L 12/26/18 05:40 Unsaturated IBC 193 ug/dL (111-343) 12/26/18 05:40 Ferritin 200 ng/mL (30-400) 12/26/18 05:40 Total Bilirubin 0.5 mg/dL (0.3-1.0) 01/07/19 05:55 AST 20 U/L (13-39) 01/07/19 05:55 ALT 20 U/L (7-52) 01/07/19 05:55 Alkaline Phosphatase 68 U/L (34-104) 01/07/19 05:55 Total Protein 5.5 gm/dL (6.0-8.3) L 01/07/19 05:55 Albumin 2.9 gm/dL (4.2-5.5) L 01/07/19 05:55 Globulin 2.6 gm/dL 01/07/19 05:55 Albumin/Globulin Ratio 1.1 (1.0-1.8) 01/07/19 05:55 Triglycerides 125 mg/dL (<150) 12/25/18 16:11 Cholesterol 154 mg/dL (<200) 12/25/18 16:11 LDL Cholesterol Direct 112 mg/dL (75-193) 12/25/18 16:11 HDL Cholesterol 37 mg/dL (23-92) 12/25/18 16:11 Vitamin B12 848 pg/mL (232-1245) 12/26/18 05:40 Folic Acid 6.9 ng/mL (>3.0) 12/26/18 05:40 TSH 2.61 uIU/ml (0.34-5.60) 12/25/18 16:11 Urine Source CATH 12/25/18 16:25 Urine Color COLORLESS 12/25/18 16:25 Urine Clarity CLEAR (CLEAR) 12/25/18 16:25 Urine pH 6.0 (4.6 - 8.0) 12/25/18 16:25 Ur Specific [place] 1.010 (1.005-1.030) 12/25/18 16:25 Urine Protein NEGATIVE mg/dL (NEGATIVE) 12/25/18 16:25 Urine Glucose (UA) NEGATIVE mg/dL (NEGATIVE) 12/25/18 16:25 Urine Ketones NEGATIVE mg/dL (NEGATIVE) 12/25/18 16:25 Urine Blood NEGATIVE (NEGATIVE) 12/25/18 16:25 Urine Nitrate NEGATIVE (NEGATIVE) 12/25/18 16:25 Urine Bilirubin NEGATIVE (NEGATIVE) 12/25/18 16:25 Urine Urobilinogen 0.2 E.U./dL (0.2 - 1.0) 12/25/18 16:25 Ur Leukocyte Esterase NEGATIVE (NEGATIVE) 12/25/18 16:25 Stool Occult Blood NEGATIVE (NEGATIVE) 01/06/19 18:00 Valproic Acid < 10.0 ug/mL (50.0-100.0) L 12/30/18 04:25 [place] 0.06 mmol/L (0.5-1.0) L 12/30/18 04:25 RPR NONREACTIVE (NONREACTIVE) 12/25/18 16:11 Influenza A (Rapid) NEG FOR INF A 12/25/18 16:30 Influenza B (Rapid) NEG FOR INF B 12/25/18 16:30 - Physical Exam Vitals and I&O: Vital Signs Temp 97.6 F 01/07/19 08:00 Pulse 109 01/07/19 09:12 Resp 19 01/07/19 08:00 BP 105/53 01/07/19 09:12 Pulse Ox 92 01/07/19 08:00 Intake & Output 01/06/19 01/07/19 01/07/19 18:59 06:59 18:59 Intake Total 570 100 Balance 570 100 Weight (lbs) 63.503 kg 63.503 kg Intake: Intake, IV Amount 210 100 Piperacillin Sodium/ 100 100 Tazobact 4.5 gm In Sodium Chloride 0.9% 100 ml @ 100 mls/hr IV Q8HR [facility] Rx #:[id number] Sodium Ferric Gluconate 110 125 mg In Sodium Chloride 0.9% 100 ml @ 100 mls/hr IV Q24HR@1000 [facility] Rx#: [id number] Oral 360 Other: # Voids 2 2 # Bowel Movements 2 1 Stool Characteristics Soft Soft Brown Brown Weight Source Bedscale Bedscale Active Medications: Current Medications Acetaminophen (Tylenol 650mg Supp) 650 mg RC Q6H PRN PRN Reason: Fever > 101 Stop: 03/05/19 08:02 Last Admin: 01/04/19 08:49 Dose: 650 mg Acetaminophen (Tylenol) 650 mg PO Q4H PRN PRN Reason: Fever > 101 Stop: 03/05/19 08:05 Albuterol/Ipratropium (Duoneb Neb) 3 ml HHN Q4HRT [facility] Stop: 03/05/19 10:59 Last Admin: 01/07/19 06:51 Dose: 3 ml Amlodipine Besylate (Norvasc) 10 mg PO DAILY [facility] Stop: 02/28/19 08:59 Last Admin: 01/07/19 09:12 Dose: Not Given Ascorbic Acid (Vitamin C) 500 mg PO DAILY [facility] Stop: 03/01/19 08:59 Last Admin: 01/07/19 09:11 Dose: 500 mg Aspirin (Ecotrin) 81 mg PO DAILY [facility] Stop: 02/28/19 08:59 Last Admin: 01/07/19 09:11 Dose: 81 mg Benztropine Mesylate (Cogentin) 1 mg PO TID [facility] Stop: 02/28/19 08:59 Last Admin: 01/07/19 09:12 Dose: Not Given Bisacodyl (Dulcolax 10 Mg Supp) 10 mg RC DAILY [facility] Stop: 02/28/19 08:59 Last Admin: 01/07/19 09:12 Dose: Not Given Cholecalciferol (Vitamin D3) 5,000 iu PO DAILY [facility] Stop: 02/28/19 08:59 Last Admin: 01/07/19 09:11 Dose: 5,000 iu Clonazepam (Klonopin) 2 mg PO TID [facility]; Protocol Stop: 02/27/19 08:59 Last Admin: 01/07/19 09:13 Dose: Not Given Clozapine 100 mg/ Clozapine 75 (mg) 175 mg PO BID [facility] Stop: 03/01/19 16:59 Last Admin: 01/07/19 09:13 Dose: Not Given Famotidine (Pepcid) 40 mg PO DAILY [facility] Stop: 02/28/19 08:59 Last Admin: 01/07/19 09:13 Dose: Not Given Ferric Sodium Gluconate Complex 125 mg/ Sodium Chloride 110 mls @ 100 mls/hr IV Q24HR@1000 [facility] Stop: 01/08/19 11:59 Last Admin: 01/07/19 09:21 Dose: 100 mls/hr Piperacillin Sod/Tazobactam (Sod 4.5 gm/ Sodium Chloride) 100 mls @ 100 mls/hr IV Q8HR [facility] Stop: 03/05/19 12:59 Last Admin: 01/07/19 05:46 Dose: 100 mls/hr Dextrose/Sodium Chloride (D5-0.45ns) 1,000 mls @ 100 mls/hr IV .Q10H [facility] Stop: 03/07/19 19:59 Last Admin: 01/07/19 09:27 Dose: 100 mls/hr Levothyroxine Sodium 0.025 mg/ (Levothyroxine Sodium 0.112 mg) 0.137 mg PO DAILY@0730 [facility] Stop: 02/28/19 07:29 Last Admin: 01/07/19 06:37 Dose: 0.137 mg [place] Carbonate (Eskalith) 300 mg PO BID [facility]; Protocol Stop: 02/28/19 08:59 Last Admin: 01/07/19 09:12 Dose: Not Given Magnesium Hydroxide (Milk Of Magnesia) 30 ml PO HS [facility] Stop: 02/28/19 20:59 Last Admin: 01/06/19 22:06 Dose: Not Given Quetiapine Fumarate (Seroquel) 300 mg PO TID [facility]; Protocol Stop: 03/01/19 08:59 Last Admin: 01/07/19 09:13 Dose: Not Given Valproate Sodium (Depakene) 500 mg PO BID [facility]; Protocol Stop: 02/28/19 08:59 Last Admin: 01/07/19 09:12 Dose: Not Given General: Alert, No acute distress, Other (confused) HEENT: Atraumatic Neck: Supple Cardiovascular: Regular rate Lungs: Clear to auscultation, Normal air movement Abdomen: Bowel sounds, Soft, no Tender, no Hepatomegaly, no Distended, no Rebound, no Mass, no Guarding Extremities: no Clubbing, no Cyanosis Skin: no Rash Assessment/Plan - Assessment Assessment: The iron studies are suggestive of iron deficiency anemia. Stool occult blood was positive. The patient is being evaluated by the acquisition marketing coordinator. He will be given iron by IV route because of his poor compliance. The leukocytosis could be secondary to lithium or reactive and the patient is on antibiotics with improvement of the white count. 01/07/19: hgb stable, continue iv iron x 1 more days. s/p EGD/COLO follow cbc Nutritional Asmnt/Malnutr-PDOC - Dietary Evaluation Malnutrition Findings (Please click <Entered> for more info): Nutritional Asmnt/Malnutrition Start: 12/26/18 15: 09 Text: Status: Complete Freq: Protocol: Document 12/26/18 15:09 HANKSUNIL (Rec: 12/26/18 15:12 HANKSUNIL [email or web address]) Nutritional Asmnt/Malnutrition Patient General Information Nutritional Screening High Risk Diagnosis sepsis Pertinent Medical Hx/Surgical Hx HTN, PUD/GERD, thyroid disorder, anemia, schizophrenia Subjective Information Pt seen in bed, disoriented, yelling, has 1:1 sitter in room. Per sitter, pt consumed 100% of breakfast and lunch today. Current Diet Order/ Nutrition Support soft/bland Pertinent Medications seroquel Pertinent Labs 12/25 BUN 26, Alb 3.5 Nutritional Hx/Data Height 1.7 m Height (Calculated Centimeters) 170.2 Current Weight (lbs) 58.967 kg Weight (Calculated Kilograms) 59.0 Weight (Calculated Grams) 49200.0 [place] Body Weight 148 Body Mass Index (BMI) 20.3 Weight Status Approriate GI Symptoms GI Symptoms None Last BM not indicated Difficult in: None Skin Integrity/Comment: intact Current %PO Good (75-100%) Estimated Nutritional Goals BEE in Kcals: Using Current wt Calories/Kcals/Kg 30-35 Kcals Calculated 1433-1559 Protein: Using Current wt Protein g/k.2 Protein Calculated 71 Fluid: ml 1620-2065ml (1ml/kcal) Nutritional Problem 1. Problem Problem increased nutritional needs Etiology increased metabolic demand Signs/Symptoms: dx of sepsis Malnutrition Alert Is there a minimum of two criteria No selected? Query Text:Check all the applicable criteria. A minimum of two criteria are recommended for diagnosis of either severe or non-severe malnutrition. Malnutrition Related to Morbid Obesity Malnutrition related to morbid obesity No Intervention/Recommendation Comments 1. Continue with soft/baland diet as ordered. 2. Monitor PO intake, wt, labs and skin integrity 3. F/U as moderate risk in 3-5 days Expected Outcomes/Goals Expected Outcomes/Goals 1. PO intake to meet at least 75% of nutritional needs. 2. Wt stability, skin to remain intact, labs to approach WNL.
--- NOTE | 2019-01-07 10:36 | Internal Medicine Prog Note ---
Internal Medicine Subjective - Subjective Service Date: 01/07/19 Patient seen and examined:: chart reviewed Patient is:: awake, verbal, in bed, agitated (less agitated, remains dis- oriented ), confused, other (agitated, no signs of pain ) Patient Complaints of:: cough Per staff patient has:: no adverse event, agitated, confused Internal Medicine Objective - Results Result Diagrams: 01/07/19 05:55 01/07/19 05:55 Recent Labs: Laboratory Last Values WBC 19.4 Th/cmm (4.8-10.8) H 01/07/19 05:55 RBC 3.75 Mil/cmm (4.30-5.70) L 01/07/19 05:55 Hgb 10.5 gm/dL (12-16) L 01/07/19 05:55 Hct 32.1 % (41.0-60) L 01/07/19 05:55 MCV 85.4 fl (80-99) 01/07/19 05:55 MCH 27.9 pg (26.0-30.0) 01/07/19 05:55 MCHC Differential 32.7 pg (28.0-36.0) 01/07/19 05:55 RDW 14.3 % (11.5-20.0) 01/07/19 05:55 Plt Count 256 Th/cmm (150-400) 01/07/19 05:55 MPV 8.5 fl 01/07/19 05:55 Add Manual Diff YES 01/07/19 05:55 Neutrophils % 71.4 % (40.0-80.0) 01/02/19 05:40 Band Neutrophils % 1 % (0-10) 01/07/19 05:55 Lymphocytes % 14.7 % (20.0-50.0) L 01/02/19 05:40 Monocytes % 7.3 % (2.0-10.0) 01/02/19 05:40 Eosinophils % 5.8 % (0.0-5.0) H 01/02/19 05:40 Basophils % 0.8 % (0.0-2.0) 01/02/19 05:40 Neutrophils (Manual) 83 % (40-80) H 01/07/19 05:55 Lymphocytes 7 % (20-50) L 01/07/19 05:55 Monocytes 4 % (2-10) 01/07/19 05:55 Eosinophils 5 % (0-5) 01/07/19 05:55 Basophils 0 % (0-3) 01/07/19 05:55 Platelet Estimate ADEQUATE (NORMAL) 01/06/19 05:45 RBC Morph Micro Appear NORMAL (NORMAL) 01/06/19 05:45 Total Retics Counted 2.2 % (0.5-1.5) H 12/26/18 05:40 Absolute Retic 79.2 Th/cmm 12/26/18 05:40 Corrected Retic Count 1.5 % (0.5-1.5) 12/26/18 05:40 PT 10.9 SECONDS (9.5-11.5) 01/02/19 05:40 INR 1.05 (0.5-1.4) 01/02/19 05:40 Sodium 153 mEq/L (136-145) H 01/07/19 05:55 Potassium 3.8 mEq/L (3.5-5.1) 01/07/19 05:55 Chloride 115 mEq/L (98-107) H 01/07/19 05:55 Carbon Dioxide 29.5 mEq/L (21.0-31.0) 01/07/19 05:55 Anion Gap 12.3 (7.0-16.0) 01/07/19 05:55 BUN 21 mg/dL (7-25) 01/07/19 05:55 Creatinine 0.9 mg/dL (0.7-1.3) 01/07/19 05:55 Est GFR ( Amer) > 60.0 ml/min (>90) 01/07/19 05:55 Est GFR (Non-Af Amer) > 60.0 ml/min 01/07/19 05:55 BUN/Creatinine Ratio 23.3 01/07/19 05:55 Glucose 159 mg/dL (70-105) H 01/07/19 05:55 POC Glucose 87 MG/DL (70 - 105) 01/01/19 08:07 Whole Bld Lactic Acid 1.26 mmol/L (0.60-1.99) 01/04/19 12:10 Calcium 9.4 mg/dL (8.6-10.3) 01/07/19 05:55 Magnesium 2.1 mg/dL (1.9-2.7) 01/06/19 05:45 Iron 17 ug/dL (38-169) L 12/26/18 05:40 TIBC 210 ug/dL (250-450) L 12/26/18 05:40 Iron Saturation 8 % (15-55) L 12/26/18 05:40 Unsaturated IBC 193 ug/dL (111-343) 12/26/18 05:40 Ferritin 200 ng/mL (30-400) 12/26/18 05:40 Total Bilirubin 0.5 mg/dL (0.3-1.0) 01/07/19 05:55 AST 20 U/L (13-39) 01/07/19 05:55 ALT 20 U/L (7-52) 01/07/19 05:55 Alkaline Phosphatase 68 U/L (34-104) 01/07/19 05:55 Total Protein 5.5 gm/dL (6.0-8.3) L 01/07/19 05:55 Albumin 2.9 gm/dL (4.2-5.5) L 01/07/19 05:55 Globulin 2.6 gm/dL 01/07/19 05:55 Albumin/Globulin Ratio 1.1 (1.0-1.8) 01/07/19 05:55 Triglycerides 125 mg/dL (<150) 12/25/18 16:11 Cholesterol 154 mg/dL (<200) 12/25/18 16:11 LDL Cholesterol Direct 112 mg/dL (75-193) 12/25/18 16:11 HDL Cholesterol 37 mg/dL (23-92) 12/25/18 16:11 Vitamin B12 848 pg/mL (232-1245) 12/26/18 05:40 Folic Acid 6.9 ng/mL (>3.0) 12/26/18 05:40 TSH 2.61 uIU/ml (0.34-5.60) 12/25/18 16:11 Urine Source CATH 12/25/18 16:25 Urine Color COLORLESS 12/25/18 16:25 Urine Clarity CLEAR (CLEAR) 12/25/18 16:25 Urine pH 6.0 (4.6 - 8.0) 12/25/18 16:25 Ur Specific [place] 1.010 (1.005-1.030) 12/25/18 16:25 Urine Protein NEGATIVE mg/dL (NEGATIVE) 12/25/18 16:25 Urine Glucose (UA) NEGATIVE mg/dL (NEGATIVE) 12/25/18 16:25 Urine Ketones NEGATIVE mg/dL (NEGATIVE) 12/25/18 16:25 Urine Blood NEGATIVE (NEGATIVE) 12/25/18 16:25 Urine Nitrate NEGATIVE (NEGATIVE) 12/25/18 16:25 Urine Bilirubin NEGATIVE (NEGATIVE) 12/25/18 16:25 Urine Urobilinogen 0.2 E.U./dL (0.2 - 1.0) 12/25/18 16:25 Ur Leukocyte Esterase NEGATIVE (NEGATIVE) 12/25/18 16:25 Stool Occult Blood NEGATIVE (NEGATIVE) 01/06/19 18:00 Valproic Acid < 10.0 ug/mL (50.0-100.0) L 12/30/18 04:25 [place] 0.06 mmol/L (0.5-1.0) L 12/30/18 04:25 RPR NONREACTIVE (NONREACTIVE) 12/25/18 16:11 Influenza A (Rapid) NEG FOR INF A 12/25/18 16:30 Influenza B (Rapid) NEG FOR INF B 12/25/18 16:30 - Physical Exam Vitals and I&O: Vital Signs Temp 97.6 F 01/07/19 08:00 Pulse 109 01/07/19 09:12 Resp 19 01/07/19 08:00 BP 105/53 01/07/19 09:12 Pulse Ox 92 01/07/19 08:00 Intake & Output 01/06/19 01/07/19 01/07/19 18:59 06:59 18:59 Intake Total 570 100 Balance 570 100 Weight (lbs) 63.503 kg 63.503 kg Intake: Intake, IV Amount 210 100 Piperacillin Sodium/ 100 100 Tazobact 4.5 gm In Sodium Chloride 0.9% 100 ml @ 100 mls/hr IV Q8HR [facility] Rx #:[id number] Sodium Ferric Gluconate 110 125 mg In Sodium Chloride 0.9% 100 ml @ 100 mls/hr IV Q24HR@1000 [facility] Rx#: [id number] Oral 360 Other: # Voids 2 2 # Bowel Movements 2 1 Stool Characteristics Soft Soft Brown Brown Weight Source Bedscale Bedscale Active Medications: Current Medications Acetaminophen (Tylenol 650mg Supp) 650 mg RC Q6H PRN PRN Reason: Fever > 101 Stop: 03/05/19 08:02 Last Admin: 01/04/19 08:49 Dose: 650 mg Acetaminophen (Tylenol) 650 mg PO Q4H PRN PRN Reason: Fever > 101 Stop: 03/05/19 08:05 Albuterol/Ipratropium (Duoneb Neb) 3 ml HHN Q4HRT [facility] Stop: 03/05/19 10:59 Last Admin: 01/07/19 06:51 Dose: 3 ml Amlodipine Besylate (Norvasc) 10 mg PO DAILY [facility] Stop: 02/28/19 08:59 Last Admin: 01/07/19 09:12 Dose: Not Given Ascorbic Acid (Vitamin C) 500 mg PO DAILY [facility] Stop: 03/01/19 08:59 Last Admin: 01/07/19 09:11 Dose: 500 mg Aspirin (Ecotrin) 81 mg PO DAILY [facility] Stop: 02/28/19 08:59 Last Admin: 01/07/19 09:11 Dose: 81 mg Benztropine Mesylate (Cogentin) 1 mg PO TID [facility] Stop: 02/28/19 08:59 Last Admin: 01/07/19 09:12 Dose: Not Given Bisacodyl (Dulcolax 10 Mg Supp) 10 mg RC DAILY [facility] Stop: 02/28/19 08:59 Last Admin: 01/07/19 09:12 Dose: Not Given Cholecalciferol (Vitamin D3) 5,000 iu PO DAILY [facility] Stop: 02/28/19 08:59 Last Admin: 01/07/19 09:11 Dose: 5,000 iu Clonazepam (Klonopin) 2 mg PO TID [facility]; Protocol Stop: 02/27/19 08:59 Last Admin: 01/07/19 09:13 Dose: Not Given Clozapine 100 mg/ Clozapine 75 (mg) 175 mg PO BID [facility] Stop: 03/01/19 16:59 Last Admin: 01/07/19 09:13 Dose: Not Given Famotidine (Pepcid) 40 mg PO DAILY [facility] Stop: 02/28/19 08:59 Last Admin: 01/07/19 09:13 Dose: Not Given Ferric Sodium Gluconate Complex 125 mg/ Sodium Chloride 110 mls @ 100 mls/hr IV Q24HR@1000 [facility] Stop: 01/08/19 11:59 Last Admin: 01/07/19 09:21 Dose: 100 mls/hr Piperacillin Sod/Tazobactam (Sod 4.5 gm/ Sodium Chloride) 100 mls @ 100 mls/hr IV Q8HR [facility] Stop: 03/05/19 12:59 Last Admin: 01/07/19 05:46 Dose: 100 mls/hr Dextrose/Sodium Chloride (D5-0.45ns) 1,000 mls @ 100 mls/hr IV .Q10H [facility] Stop: 03/07/19 19:59 Last Admin: 01/07/19 09:27 Dose: 100 mls/hr Levothyroxine Sodium 0.025 mg/ (Levothyroxine Sodium 0.112 mg) 0.137 mg PO DAILY@0730 [facility] Stop: 02/28/19 07:29 Last Admin: 01/07/19 06:37 Dose: 0.137 mg [place] Carbonate (Eskalith) 300 mg PO BID [facility]; Protocol Stop: 02/28/19 08:59 Last Admin: 01/07/19 09:12 Dose: Not Given Magnesium Hydroxide (Milk Of Magnesia) 30 ml PO HS [facility] Stop: 02/28/19 20:59 Last Admin: 01/06/19 22:06 Dose: Not Given Quetiapine Fumarate (Seroquel) 300 mg PO TID [facility]; Protocol Stop: 03/01/19 08:59 Last Admin: 01/07/19 09:13 Dose: Not Given Valproate Sodium (Depakene) 500 mg PO BID [facility]; Protocol Stop: 02/28/19 08:59 Last Admin: 01/07/19 09:12 Dose: Not Given General: alert, other (agitated behavior.) Neck: No JVD Lungs: wheezing, ronchi, other (scattered rhonchi and occasional wheezing.) Cardiovascular: Normal S1 Abdomen: soft, non-distended, positive bowel sound Extremities: other (Patient has restraints in place.) Neurological: lethargic Internal Medicine Assmt/Plan - Assessment Assessment: Agitated with Aggresive Behavior towards others Psychosis. Schizophrenia. Leukocytosis/possible aspiration. Sepsis. Pneumonia. Lactic acidosis. Iron deficiency anemia s/p transfusion. Hypertension. History of Gerd. Hypothyroidism. PUD. GERD. Hypotention - Plan Plan: iv fluids bolus 1l times 2 as per psych will monitor Nutritional Asmnt/Malnutr-PDOC - Dietary Evaluation Malnutrition Findings (Please click <Entered> for more info): Nutritional Asmnt/Malnutrition Start: 12/26/18 15: 09 Text: Status: Complete Freq: Protocol: Document 12/26/18 15:09 LCMARLENAG (Rec: 12/26/18 15:12 LCMARLENAG [email or web address]) Nutritional Asmnt/Malnutrition Patient General Information Nutritional Screening High Risk Diagnosis sepsis Pertinent Medical Hx/Surgical Hx HTN, PUD/GERD, thyroid disorder, anemia, schizophrenia Subjective Information Pt seen in bed, disoriented, yelling, has 1:1 sitter in room. Per sitter, pt consumed 100% of breakfast and lunch today. Current Diet Order/ Nutrition Support soft/bland Pertinent Medications seroquel Pertinent Labs 12/25 BUN 26, Alb 3.5 Nutritional Hx/Data Height 1.7 m Height (Calculated Centimeters) 170.2 Current Weight (lbs) 58.967 kg Weight (Calculated Kilograms) 59.0 Weight (Calculated Grams) 33994.0 [place] Body Weight 148 Body Mass Index (BMI) 20.3 Weight Status Approriate GI Symptoms GI Symptoms None Last BM not indicated Difficult in: None Skin Integrity/Comment: intact Current %PO Good (75-100%) Estimated Nutritional Goals BEE in Kcals: Using Current wt Calories/Kcals/Kg 30-35 Kcals Calculated 7569-8882 Protein: Using Current wt Protein g/k.2 Protein Calculated 71 Fluid: ml 1620-2065ml (1ml/kcal) Nutritional Problem 1. Problem Problem increased nutritional needs Etiology increased metabolic demand Signs/Symptoms: dx of sepsis Malnutrition Alert Is there a minimum of two criteria No selected? Query Text:Check all the applicable criteria. A minimum of two criteria are recommended for diagnosis of either severe or non-severe malnutrition. Malnutrition Related to Morbid Obesity Malnutrition related to morbid obesity No Intervention/Recommendation Comments 1. Continue with soft/baland diet as ordered. 2. Monitor PO intake, wt, labs and skin integrity 3. F/U as moderate risk in 3-5 days Expected Outcomes/Goals Expected Outcomes/Goals 1. PO intake to meet at least 75% of nutritional needs. 2. Wt stability, skin to remain intact, labs to approach WNL.
--- NOTE | 2019-01-07 17:19 | Consultation ---
DATE OF CONSULTATION: 01/05/2019 PULMONARY CONSULTATION REFERRING PHYSICIAN: Dr. Farah. Thank you very much for this consultation. HISTORY OF PRESENT ILLNESS: This is a 58-year-old female with history of dementia, dysphagia, hypertension, and psychosis; who was having some desaturation, hypotension, earlier has improved after breathing treatment. The patient unable to give any meaningful history, appears to be comfortable now. According to nursing staff, was awake earlier today and was able to feed himself. PAST MEDICAL HISTORY: Schizophrenia, hypertension, reflux disease, and hypothyroidism. SOCIAL HISTORY: As above. Rest are available. REVIEW OF SYSTEMS: Unable to obtain because of the patient's condition. PHYSICAL EXAMINATION: GENERAL: The patient is arousable, not in acute distress. VITAL SIGNS: Temperature 98.6, pulse is 101, respirations 16, blood pressure 92/53, saturation 98%. HEENT: Atraumatic, normocephalic. Pupils react to light and accommodation. Ears, nose and throat normal. NECK: Supple. No JVD. CHEST: There are a few rhonchi bilaterally. HEART: Regular rate and rhythm. ABDOMEN: Soft. EXTREMITIES: No edema. LABORATORY DATA: WBC is 21.2, hemoglobin is 9.8, hematocrit 29.9, and platelets 219. Sodium 148, potassium 3.0, BUN is 20, creatinine 0.9. One of the recent blood cultures have grown gram-positive cocci in clusters, not sure if this is a contamination or not, this is the other one, other culture shows no growth. Seen a recent chest x-ray. IMPRESSION: 1. Respiratory failure. 2. Leukocytosis. 3. Pneumonia. 4. Schizophrenia. 5. Rule out any bacteremia. PLAN: 1. Continue antibiotics per ID. 2. Follow up chest x-ray. 3. Oxygen titrate to oxygenation. 4. Nebulizer treatment. 5. Consider giving a dose of vancomycin. 6. Follow up cultures. Thank you very much for this consultation. We will follow the patient with you. JOB# [id number]
[2019-01-07] MEDS ORDERED: Vancomycin HCl 1.5 GM in Sodium Chloride 0.9% 500 ML IV ONE (20:00)
[2019-01-07] MEDS: Magnesium Hydroxide (MOM) 30 mL UDC PO SCH (20:58)
[2019-01-08] MEDS: Albuterol/Ipratropium Neb 3 ML AERS HHN SCH ×6 (05:07→23:46)
--- NOTE | 2019-01-08 08:15 | GI Progress Note ---
Subjective - Review of Systems Service Date: 01/08/19 Subjective: No new issues overnight Objective - Results Result Diagrams: 01/07/19 05:55 01/07/19 05:55 Recent Labs: Laboratory Last Values WBC 19.4 Th/cmm (4.8-10.8) H 01/07/19 05:55 RBC 3.75 Mil/cmm (4.30-5.70) L 01/07/19 05:55 Hgb 10.5 gm/dL (12-16) L 01/07/19 05:55 Hct 32.1 % (41.0-60) L 01/07/19 05:55 MCV 85.4 fl (80-99) 01/07/19 05:55 MCH 27.9 pg (26.0-30.0) 01/07/19 05:55 MCHC Differential 32.7 pg (28.0-36.0) 01/07/19 05:55 RDW 14.3 % (11.5-20.0) 01/07/19 05:55 Plt Count 256 Th/cmm (150-400) 01/07/19 05:55 MPV 8.5 fl 01/07/19 05:55 Add Manual Diff YES 01/07/19 05:55 Neutrophils % 71.4 % (40.0-80.0) 01/02/19 05:40 Band Neutrophils % 1 % (0-10) 01/07/19 05:55 Lymphocytes % 14.7 % (20.0-50.0) L 01/02/19 05:40 Monocytes % 7.3 % (2.0-10.0) 01/02/19 05:40 Eosinophils % 5.8 % (0.0-5.0) H 01/02/19 05:40 Basophils % 0.8 % (0.0-2.0) 01/02/19 05:40 Neutrophils (Manual) 83 % (40-80) H 01/07/19 05:55 Lymphocytes 7 % (20-50) L 01/07/19 05:55 Monocytes 4 % (2-10) 01/07/19 05:55 Eosinophils 5 % (0-5) 01/07/19 05:55 Basophils 0 % (0-3) 01/07/19 05:55 Platelet Estimate ADEQUATE (NORMAL) 01/06/19 05:45 RBC Morph Micro Appear NORMAL (NORMAL) 01/06/19 05:45 Total Retics Counted 2.2 % (0.5-1.5) H 12/26/18 05:40 Absolute Retic 79.2 Th/cmm 12/26/18 05:40 Corrected Retic Count 1.5 % (0.5-1.5) 12/26/18 05:40 PT 10.9 SECONDS (9.5-11.5) 01/02/19 05:40 INR 1.05 (0.5-1.4) 01/02/19 05:40 Sodium 153 mEq/L (136-145) H 01/07/19 05:55 Potassium 3.8 mEq/L (3.5-5.1) 01/07/19 05:55 Chloride 115 mEq/L (98-107) H 01/07/19 05:55 Carbon Dioxide 29.5 mEq/L (21.0-31.0) 01/07/19 05:55 Anion Gap 12.3 (7.0-16.0) 01/07/19 05:55 BUN 21 mg/dL (7-25) 01/07/19 05:55 Creatinine 0.9 mg/dL (0.7-1.3) 01/07/19 05:55 Est GFR ( Amer) > 60.0 ml/min (>90) 01/07/19 05:55 Est GFR (Non-Af Amer) > 60.0 ml/min 01/07/19 05:55 BUN/Creatinine Ratio 23.3 01/07/19 05:55 Glucose 159 mg/dL (70-105) H 01/07/19 05:55 POC Glucose 87 MG/DL (70 - 105) 01/01/19 08:07 Whole Bld Lactic Acid 1.26 mmol/L (0.60-1.99) 01/04/19 12:10 Calcium 9.4 mg/dL (8.6-10.3) 01/07/19 05:55 Magnesium 2.1 mg/dL (1.9-2.7) 01/06/19 05:45 Iron 17 ug/dL (38-169) L 12/26/18 05:40 TIBC 210 ug/dL (250-450) L 12/26/18 05:40 Iron Saturation 8 % (15-55) L 12/26/18 05:40 Unsaturated IBC 193 ug/dL (111-343) 12/26/18 05:40 Ferritin 200 ng/mL (30-400) 12/26/18 05:40 Total Bilirubin 0.5 mg/dL (0.3-1.0) 01/07/19 05:55 AST 20 U/L (13-39) 01/07/19 05:55 ALT 20 U/L (7-52) 01/07/19 05:55 Alkaline Phosphatase 68 U/L (34-104) 01/07/19 05:55 Total Protein 5.5 gm/dL (6.0-8.3) L 01/07/19 05:55 Albumin 2.9 gm/dL (4.2-5.5) L 01/07/19 05:55 Globulin 2.6 gm/dL 01/07/19 05:55 Albumin/Globulin Ratio 1.1 (1.0-1.8) 01/07/19 05:55 Triglycerides 125 mg/dL (<150) 12/25/18 16:11 Cholesterol 154 mg/dL (<200) 12/25/18 16:11 LDL Cholesterol Direct 112 mg/dL (75-193) 12/25/18 16:11 HDL Cholesterol 37 mg/dL (23-92) 12/25/18 16:11 Vitamin B12 848 pg/mL (232-1245) 12/26/18 05:40 Folic Acid 6.9 ng/mL (>3.0) 12/26/18 05:40 TSH 2.61 uIU/ml (0.34-5.60) 12/25/18 16:11 Urine Source CATH 12/25/18 16:25 Urine Color COLORLESS 12/25/18 16:25 Urine Clarity CLEAR (CLEAR) 12/25/18 16:25 Urine pH 6.0 (4.6 - 8.0) 12/25/18 16:25 Ur Specific [place] 1.010 (1.005-1.030) 12/25/18 16:25 Urine Protein NEGATIVE mg/dL (NEGATIVE) 12/25/18 16:25 Urine Glucose (UA) NEGATIVE mg/dL (NEGATIVE) 12/25/18 16:25 Urine Ketones NEGATIVE mg/dL (NEGATIVE) 12/25/18 16:25 Urine Blood NEGATIVE (NEGATIVE) 12/25/18 16:25 Urine Nitrate NEGATIVE (NEGATIVE) 12/25/18 16:25 Urine Bilirubin NEGATIVE (NEGATIVE) 12/25/18 16:25 Urine Urobilinogen 0.2 E.U./dL (0.2 - 1.0) 12/25/18 16:25 Ur Leukocyte Esterase NEGATIVE (NEGATIVE) 12/25/18 16:25 Stool Occult Blood NEGATIVE (NEGATIVE) 01/06/19 18:00 Valproic Acid < 10.0 ug/mL (50.0-100.0) L 12/30/18 04:25 [place] 0.06 mmol/L (0.5-1.0) L 12/30/18 04:25 RPR NONREACTIVE (NONREACTIVE) 12/25/18 16:11 Influenza A (Rapid) NEG FOR INF A 12/25/18 16:30 Influenza B (Rapid) NEG FOR INF B 12/25/18 16:30 - Physical Exam Vitals and I&O: Vital Signs Temp 97.4 F 01/08/19 04:00 Pulse 83 01/08/19 07:21 Resp 20 01/08/19 07:21 BP 134/67 01/08/19 04:00 Pulse Ox 95 01/08/19 07:21 Intake & Output 01/07/19 01/08/19 01/08/19 18:59 06:59 18:59 Intake Total 1210 100 Balance 1210 100 Weight (lbs) 63.503 kg 65.317 kg Intake: Intake, IV Amount 210 100 Piperacillin Sodium/ 100 100 Tazobact 4.5 gm In Sodium Chloride 0.9% 100 ml @ 100 mls/hr IV Q8HR [facility] Rx #:[id number] Sodium Ferric Gluconate 110 125 mg In Sodium Chloride 0.9% 100 ml @ 100 mls/hr IV Q24HR@1000 [facility] Rx#: [id number] Oral 1000 Other: # Voids 3 3 # Bowel Movements 0 3 Stool Characteristics Soft Formed Brown Weight Source Bedscale Bedscale Active Medications: Current Medications Acetaminophen (Tylenol 650mg Supp) 650 mg RC Q6H PRN PRN Reason: Fever > 101 Stop: 03/05/19 08:02 Last Admin: 01/04/19 08:49 Dose: 650 mg Acetaminophen (Tylenol) 650 mg PO Q4H PRN PRN Reason: Fever > 101 Stop: 03/05/19 08:05 Albuterol/Ipratropium (Duoneb Neb) 3 ml HHN Q4HRT [facility] Stop: 03/05/19 10:59 Last Admin: 01/08/19 07:20 Dose: 3 ml Amlodipine Besylate (Norvasc) 10 mg PO DAILY [facility] Stop: 02/28/19 08:59 Last Admin: 01/07/19 09:12 Dose: Not Given Ascorbic Acid (Vitamin C) 500 mg PO DAILY [facility] Stop: 03/01/19 08:59 Last Admin: 01/07/19 09:11 Dose: 500 mg Aspirin (Ecotrin) 81 mg PO DAILY [facility] Stop: 02/28/19 08:59 Last Admin: 01/07/19 09:11 Dose: 81 mg Benztropine Mesylate (Cogentin) 1 mg PO TID [facility] Stop: 02/28/19 08:59 Last Admin: 01/07/19 20:58 Dose: 1 mg Bisacodyl (Dulcolax 10 Mg Supp) 10 mg RC DAILY [facility] Stop: 02/28/19 08:59 Last Admin: 01/07/19 09:12 Dose: Not Given Cholecalciferol (Vitamin D3) 5,000 iu PO DAILY [facility] Stop: 02/28/19 08:59 Last Admin: 01/07/19 09:11 Dose: 5,000 iu Clonazepam (Klonopin) 2 mg PO TID [facility]; Protocol Stop: 02/27/19 08:59 Last Admin: 01/07/19 20:59 Dose: 2 mg Clozapine 100 mg/ Clozapine 75 (mg) 175 mg PO BID [facility] Stop: 03/01/19 16:59 Last Admin: 01/07/19 16:56 Dose: 175 mg Famotidine (Pepcid) 40 mg PO DAILY [facility] Stop: 02/28/19 08:59 Last Admin: 01/07/19 09:13 Dose: Not Given Ferric Sodium Gluconate Complex 125 mg/ Sodium Chloride 110 mls @ 100 mls/hr IV Q24HR@1000 [facility] Stop: 01/08/19 11:59 Last Infusion: 01/07/19 10:27 Dose: Infused Piperacillin Sod/Tazobactam (Sod 4.5 gm/ Sodium Chloride) 100 mls @ 100 mls/hr IV Q8HR [facility] Stop: 03/05/19 12:59 Last Admin: 01/08/19 06:33 Dose: 100 mls/hr Dextrose/Sodium Chloride (D5-0.45ns) 1,000 mls @ 100 mls/hr IV .Q10H [facility] Stop: 03/07/19 19:59 Last Admin: 01/07/19 09:27 Dose: 100 mls/hr Levothyroxine Sodium 0.025 mg/ (Levothyroxine Sodium 0.112 mg) 0.137 mg PO DAILY@0730 [facility] Stop: 02/28/19 07:29 Last Admin: 01/08/19 06:35 Dose: 0.137 mg [place] Carbonate (Eskalith) 300 mg PO BID [facility]; Protocol Stop: 02/28/19 08:59 Last Admin: 01/07/19 16:56 Dose: 300 mg Magnesium Hydroxide (Milk Of Magnesia) 30 ml PO HS [facility] Stop: 02/28/19 20:59 Last Admin: 01/07/19 20:58 Dose: 30 ml Miscellaneous (Vancomycin Iv Per Pharmacy) 1 ea MC PRN PRN PRN Reason: PROTOCOL Stop: 03/08/19 19:27 Quetiapine Fumarate (Seroquel) 300 mg PO TID [facility]; Protocol Stop: 03/01/19 08:59 Last Admin: 01/07/19 20:58 Dose: 300 mg Valproate Sodium (Depakene) 500 mg PO BID [facility]; Protocol Stop: 02/28/19 08:59 Last Admin: 01/07/19 16:56 Dose: 500 mg General: Alert, No acute distress, Other (confused) HEENT: Atraumatic Neck: Supple Cardiovascular: Regular rate Lungs: Clear to auscultation, Normal air movement Abdomen: Bowel sounds, Soft, no Tender, no Hepatomegaly, no Distended, no Rebound, no Mass, no Guarding Extremities: no Clubbing, no Cyanosis Skin: no Rash Assessment/Plan - Assessment Assessment: # Anemia # OB positive Plan: 1. Anemia - Stable post transfusion - S/P EGD and colon. No findings to suggest GI blood loss - Polyps, next colonoscopy is due in 3 years - consider outpt capsule endoscopy - Pathology shows gastritis (no HP), and adenomatous polyps. No malignancy 2. OB positive - S/P EGD and colon 3. Leukocytosis and febrile - Possible aspiration - mgmt as per primary GI to see the pt intermittently. Please call with any questions
--- NOTE | 2019-01-08 08:50 | Diagnostic Imaging Report ---
CHEST X-RAY: AP view INDICATION: Shortness of breath COMPARISON: 01/07/2019 FINDINGS: There is worsening extensive left lung infiltrates with volume loss of the left lung and likely left pleural effusion. Heart size cannot be well assessed. IMPRESSION: Worsening extensive infiltrates of the left lung with decreasing aeration and volume loss with probable left effusion. Clinical correlation and follow-up is recommended.
[2019-01-08] MEDS: Benztropine 1 MG TAB PO SCH ×3 (09:25→20:58)
[2019-01-08] MEDS: Multivitamin w/ Minerals Tab PO SCH (09:27)
[2019-01-08] MEDS: cloZAPine 100 MG, cloZAPine 75 MG PO SCH ×2 (09:28→17:03)
[2019-01-08] MEDS: Sodium Ferric Gluconate 125 MG in Sodium Chloride 0.9% 100 ML IV SCH (09:45)
[2019-01-08] MEDS: D5-0.45NS 1,000 ML IV SCH ×2 (09:46→23:07)
--- NOTE | 2019-01-08 10:04 | General Progress Note ---
Subjective - Review of Systems Service Date: 01/08/19 Subjective: not in distress, awake, confused Objective - Results Result Diagrams: 01/07/19 05:55 01/07/19 05:55 Recent Labs: Laboratory Last Values WBC 19.4 Th/cmm (4.8-10.8) H 01/07/19 05:55 RBC 3.75 Mil/cmm (4.30-5.70) L 01/07/19 05:55 Hgb 10.5 gm/dL (12-16) L 01/07/19 05:55 Hct 32.1 % (41.0-60) L 01/07/19 05:55 MCV 85.4 fl (80-99) 01/07/19 05:55 MCH 27.9 pg (26.0-30.0) 01/07/19 05:55 MCHC Differential 32.7 pg (28.0-36.0) 01/07/19 05:55 RDW 14.3 % (11.5-20.0) 01/07/19 05:55 Plt Count 256 Th/cmm (150-400) 01/07/19 05:55 MPV 8.5 fl 01/07/19 05:55 Add Manual Diff YES 01/07/19 05:55 Neutrophils % 71.4 % (40.0-80.0) 01/02/19 05:40 Band Neutrophils % 1 % (0-10) 01/07/19 05:55 Lymphocytes % 14.7 % (20.0-50.0) L 01/02/19 05:40 Monocytes % 7.3 % (2.0-10.0) 01/02/19 05:40 Eosinophils % 5.8 % (0.0-5.0) H 01/02/19 05:40 Basophils % 0.8 % (0.0-2.0) 01/02/19 05:40 Neutrophils (Manual) 83 % (40-80) H 01/07/19 05:55 Lymphocytes 7 % (20-50) L 01/07/19 05:55 Monocytes 4 % (2-10) 01/07/19 05:55 Eosinophils 5 % (0-5) 01/07/19 05:55 Basophils 0 % (0-3) 01/07/19 05:55 Platelet Estimate ADEQUATE (NORMAL) 01/06/19 05:45 RBC Morph Micro Appear NORMAL (NORMAL) 01/06/19 05:45 Total Retics Counted 2.2 % (0.5-1.5) H 12/26/18 05:40 Absolute Retic 79.2 Th/cmm 12/26/18 05:40 Corrected Retic Count 1.5 % (0.5-1.5) 12/26/18 05:40 PT 10.9 SECONDS (9.5-11.5) 01/02/19 05:40 INR 1.05 (0.5-1.4) 01/02/19 05:40 Sodium 153 mEq/L (136-145) H 01/07/19 05:55 Potassium 3.8 mEq/L (3.5-5.1) 01/07/19 05:55 Chloride 115 mEq/L (98-107) H 01/07/19 05:55 Carbon Dioxide 29.5 mEq/L (21.0-31.0) 01/07/19 05:55 Anion Gap 12.3 (7.0-16.0) 01/07/19 05:55 BUN 21 mg/dL (7-25) 01/07/19 05:55 Creatinine 0.9 mg/dL (0.7-1.3) 01/07/19 05:55 Est GFR ( Amer) > 60.0 ml/min (>90) 01/07/19 05:55 Est GFR (Non-Af Amer) > 60.0 ml/min 01/07/19 05:55 BUN/Creatinine Ratio 23.3 01/07/19 05:55 Glucose 159 mg/dL (70-105) H 01/07/19 05:55 POC Glucose 87 MG/DL (70 - 105) 01/01/19 08:07 Whole Bld Lactic Acid 1.26 mmol/L (0.60-1.99) 01/04/19 12:10 Calcium 9.4 mg/dL (8.6-10.3) 01/07/19 05:55 Magnesium 2.1 mg/dL (1.9-2.7) 01/06/19 05:45 Iron 17 ug/dL (38-169) L 12/26/18 05:40 TIBC 210 ug/dL (250-450) L 12/26/18 05:40 Iron Saturation 8 % (15-55) L 12/26/18 05:40 Unsaturated IBC 193 ug/dL (111-343) 12/26/18 05:40 Ferritin 200 ng/mL (30-400) 12/26/18 05:40 Total Bilirubin 0.5 mg/dL (0.3-1.0) 01/07/19 05:55 AST 20 U/L (13-39) 01/07/19 05:55 ALT 20 U/L (7-52) 01/07/19 05:55 Alkaline Phosphatase 68 U/L (34-104) 01/07/19 05:55 Total Protein 5.5 gm/dL (6.0-8.3) L 01/07/19 05:55 Albumin 2.9 gm/dL (4.2-5.5) L 01/07/19 05:55 Globulin 2.6 gm/dL 01/07/19 05:55 Albumin/Globulin Ratio 1.1 (1.0-1.8) 01/07/19 05:55 Triglycerides 125 mg/dL (<150) 12/25/18 16:11 Cholesterol 154 mg/dL (<200) 12/25/18 16:11 LDL Cholesterol Direct 112 mg/dL (75-193) 12/25/18 16:11 HDL Cholesterol 37 mg/dL (23-92) 12/25/18 16:11 Vitamin B12 848 pg/mL (232-1245) 12/26/18 05:40 Folic Acid 6.9 ng/mL (>3.0) 12/26/18 05:40 TSH 2.61 uIU/ml (0.34-5.60) 12/25/18 16:11 Urine Source CATH 12/25/18 16:25 Urine Color COLORLESS 12/25/18 16:25 Urine Clarity CLEAR (CLEAR) 12/25/18 16:25 Urine pH 6.0 (4.6 - 8.0) 12/25/18 16:25 Ur Specific [place] 1.010 (1.005-1.030) 12/25/18 16:25 Urine Protein NEGATIVE mg/dL (NEGATIVE) 12/25/18 16:25 Urine Glucose (UA) NEGATIVE mg/dL (NEGATIVE) 12/25/18 16:25 Urine Ketones NEGATIVE mg/dL (NEGATIVE) 12/25/18 16:25 Urine Blood NEGATIVE (NEGATIVE) 12/25/18 16:25 Urine Nitrate NEGATIVE (NEGATIVE) 12/25/18 16:25 Urine Bilirubin NEGATIVE (NEGATIVE) 12/25/18 16:25 Urine Urobilinogen 0.2 E.U./dL (0.2 - 1.0) 12/25/18 16:25 Ur Leukocyte Esterase NEGATIVE (NEGATIVE) 12/25/18 16:25 Stool Occult Blood NEGATIVE (NEGATIVE) 01/06/19 18:00 Valproic Acid < 10.0 ug/mL (50.0-100.0) L 12/30/18 04:25 [place] 0.06 mmol/L (0.5-1.0) L 12/30/18 04:25 RPR NONREACTIVE (NONREACTIVE) 12/25/18 16:11 Influenza A (Rapid) NEG FOR INF A 12/25/18 16:30 Influenza B (Rapid) NEG FOR INF B 12/25/18 16:30 - Physical Exam Vitals and I&O: Vital Signs Temp 97.4 F 01/08/19 04:00 Pulse 99 01/08/19 09:25 Resp 20 01/08/19 07:21 BP 129/70 01/08/19 09:25 Pulse Ox 95 01/08/19 07:21 Intake & Output 01/07/19 01/08/19 01/08/19 18:59 06:59 18:59 Intake Total 1210 1100 Balance 1210 1100 Weight (lbs) 63.503 kg 65.317 kg Intake: Intake, IV Amount 210 1100 D5-0.45NS 1,000 ml @ 100 1000 mls/hr IV .Q10H [facility] Rx#: [id number] Piperacillin Sodium/ 100 100 Tazobact 4.5 gm In Sodium Chloride 0.9% 100 ml @ 100 mls/hr IV Q8HR [facility] Rx #:[id number] Sodium Ferric Gluconate 110 125 mg In Sodium Chloride 0.9% 100 ml @ 100 mls/hr IV Q24HR@1000 [facility] Rx#: [id number] Oral 1000 Other: # Voids 3 3 # Bowel Movements 0 3 Stool Characteristics Soft Formed Brown Weight Source Bedscale Bedscale Active Medications: Current Medications Acetaminophen (Tylenol 650mg Supp) 650 mg RC Q6H PRN PRN Reason: Fever > 101 Stop: 03/05/19 08:02 Last Admin: 01/04/19 08:49 Dose: 650 mg Acetaminophen (Tylenol) 650 mg PO Q4H PRN PRN Reason: Fever > 101 Stop: 03/05/19 08:05 Albuterol/Ipratropium (Duoneb Neb) 3 ml HHN Q4HRT [facility] Stop: 03/05/19 10:59 Last Admin: 01/08/19 07:20 Dose: 3 ml Amlodipine Besylate (Norvasc) 10 mg PO DAILY [facility] Stop: 02/28/19 08:59 Last Admin: 01/08/19 09:25 Dose: 10 mg Ascorbic Acid (Vitamin C) 500 mg PO DAILY [facility] Stop: 03/01/19 08:59 Last Admin: 01/08/19 09:25 Dose: 500 mg Aspirin (Ecotrin) 81 mg PO DAILY [facility] Stop: 02/28/19 08:59 Last Admin: 01/08/19 09:25 Dose: 81 mg Benztropine Mesylate (Cogentin) 1 mg PO TID [facility] Stop: 02/28/19 08:59 Last Admin: 01/08/19 09:25 Dose: 1 mg Bisacodyl (Dulcolax 10 Mg Supp) 10 mg RC DAILY [facility] Stop: 02/28/19 08:59 Last Admin: 01/08/19 09:29 Dose: 10 mg Cholecalciferol (Vitamin D3) 5,000 iu PO DAILY [facility] Stop: 02/28/19 08:59 Last Admin: 01/08/19 09:27 Dose: 5,000 iu Clonazepam (Klonopin) 2 mg PO TID [facility]; Protocol Stop: 02/27/19 08:59 Last Admin: 01/08/19 09:29 Dose: 2 mg Clozapine 100 mg/ Clozapine 75 (mg) 175 mg PO BID [facility] Stop: 03/01/19 16:59 Last Admin: 01/08/19 09:28 Dose: 175 mg Famotidine (Pepcid) 40 mg PO DAILY [facility] Stop: 02/28/19 08:59 Last Admin: 01/08/19 09:29 Dose: 40 mg Ferric Sodium Gluconate Complex 125 mg/ Sodium Chloride 110 mls @ 100 mls/hr IV Q24HR@1000 [facility] Stop: 01/08/19 11:59 Last Admin: 01/08/19 09:45 Dose: 100 mls/hr Piperacillin Sod/Tazobactam (Sod 4.5 gm/ Sodium Chloride) 100 mls @ 100 mls/hr IV Q8HR [facility] Stop: 03/05/19 12:59 Last Admin: 01/08/19 06:33 Dose: 100 mls/hr Dextrose/Sodium Chloride (D5-0.45ns) 1,000 mls @ 100 mls/hr IV .Q10H [facility] Stop: 03/07/19 19:59 Last Admin: 01/08/19 09:46 Dose: 100 mls/hr Levothyroxine Sodium 0.025 mg/ (Levothyroxine Sodium 0.112 mg) 0.137 mg PO DAILY@0730 [facility] Stop: 02/28/19 07:29 Last Admin: 01/08/19 06:35 Dose: 0.137 mg [place] Carbonate (Eskalith) 300 mg PO BID [facility]; Protocol Stop: 02/28/19 08:59 Last Admin: 01/08/19 09:27 Dose: 300 mg Magnesium Hydroxide (Milk Of Magnesia) 30 ml PO HS [facility] Stop: 02/28/19 20:59 Last Admin: 01/07/19 20:58 Dose: 30 ml Miscellaneous (Vancomycin Iv Per Pharmacy) 1 ea [facility] PRN PRN PRN Reason: PROTOCOL Stop: 03/08/19 19:27 Quetiapine Fumarate (Seroquel) 300 mg PO TID [facility]; Protocol Stop: 03/01/19 08:59 Last Admin: 01/08/19 09:29 Dose: 300 mg Valproate Sodium (Depakene) 500 mg PO BID [facility]; Protocol Stop: 02/28/19 08:59 Last Admin: 01/08/19 09:30 Dose: 500 mg General: Alert, No acute distress, Other (confused) HEENT: Atraumatic Neck: Supple Cardiovascular: Regular rate Lungs: Clear to auscultation, Normal air movement Abdomen: Bowel sounds, Soft, no Tender, no Hepatomegaly, no Distended, no Rebound, no Mass, no Guarding Extremities: no Clubbing, no Cyanosis Skin: no Rash Assessment/Plan - Assessment Assessment: The iron studies are suggestive of iron deficiency anemia. Stool occult blood was positive. The patient is being evaluated by the professional architect. He will be given iron by IV route because of his poor compliance. The leukocytosis could be secondary to lithium or reactive and the patient is on antibiotics with improvement of the white count. 01/08/19: hgb stable, completing iv iron today. s/p EGD/COLO. leukocytosis per ID follow cbc Nutritional Asmnt/Malnutr-PDOC - Dietary Evaluation Malnutrition Findings (Please click <Entered> for more info): Nutritional Asmnt/Malnutrition Start: 12/26/18 15: 09 Text: Status: Complete Freq: Protocol: Document 12/26/18 15:09 [facility] (Rec: 12/26/18 15:12 [facility] [id number]) Nutritional Asmnt/Malnutrition Patient General Information Nutritional Screening High Risk Diagnosis sepsis Pertinent Medical Hx/Surgical Hx HTN, PUD/GERD, thyroid disorder, anemia, schizophrenia Subjective Information Pt seen in bed, disoriented, yelling, has 1:1 sitter in room. Per sitter, pt consumed 100% of breakfast and lunch today. Current Diet Order/ Nutrition Support soft/bland Pertinent Medications seroquel Pertinent Labs 12/25 BUN 26, Alb 3.5 Nutritional Hx/Data Height 1.7 m Height (Calculated Centimeters) 170.2 Current Weight (lbs) 58.967 kg Weight (Calculated Kilograms) 59.0 Weight (Calculated Grams) 20885.0 [place] Body Weight 148 Body Mass Index (BMI) 20.3 Weight Status Approriate GI Symptoms GI Symptoms None Last BM not indicated Difficult in: None Skin Integrity/Comment: intact Current %PO Good (75-100%) Estimated Nutritional Goals BEE in Kcals: Using Current wt Calories/Kcals/Kg 30-35 Kcals Calculated [id number] Protein: Using Current wt Protein g/k.2 Protein Calculated 71 Fluid: ml 1620-2065ml (1ml/kcal) Nutritional Problem 1. Problem Problem increased nutritional needs Etiology increased metabolic demand Signs/Symptoms: dx of sepsis Malnutrition Alert Is there a minimum of two criteria No selected? Query Text:Check all the applicable criteria. A minimum of two criteria are recommended for diagnosis of either severe or non-severe malnutrition. Malnutrition Related to Morbid Obesity Malnutrition related to morbid obesity No Intervention/Recommendation Comments 1. Continue with soft/baland diet as ordered. 2. Monitor PO intake, wt, labs and skin integrity 3. F/U as moderate risk in 3-5 days Expected Outcomes/Goals Expected Outcomes/Goals 1. PO intake to meet at least 75% of nutritional needs. 2. Wt stability, skin to remain intact, labs to approach WNL.
--- NOTE | 2019-01-08 14:00 | Infectious Disease Prog Note ---
Infectious Disease Subjective - Review of Systems Service Date: 01/08/19 Subjective: Patient's fever has resolved, some improvement in leukocytosis. Blood culture grew Staph aureus. Infectious Disease Objective - Results Result Diagrams: 01/07/19 05:55 01/07/19 05:55 Recent Labs: Laboratory Last Values WBC 19.4 Th/cmm (4.8-10.8) H 01/07/19 05:55 RBC 3.75 Mil/cmm (4.30-5.70) L 01/07/19 05:55 Hgb 10.5 gm/dL (12-16) L 01/07/19 05:55 Hct 32.1 % (41.0-60) L 01/07/19 05:55 MCV 85.4 fl (80-99) 01/07/19 05:55 MCH 27.9 pg (26.0-30.0) 01/07/19 05:55 MCHC Differential 32.7 pg (28.0-36.0) 01/07/19 05:55 RDW 14.3 % (11.5-20.0) 01/07/19 05:55 Plt Count 256 Th/cmm (150-400) 01/07/19 05:55 MPV 8.5 fl 01/07/19 05:55 Add Manual Diff YES 01/07/19 05:55 Neutrophils % 71.4 % (40.0-80.0) 01/02/19 05:40 Band Neutrophils % 1 % (0-10) 01/07/19 05:55 Lymphocytes % 14.7 % (20.0-50.0) L 01/02/19 05:40 Monocytes % 7.3 % (2.0-10.0) 01/02/19 05:40 Eosinophils % 5.8 % (0.0-5.0) H 01/02/19 05:40 Basophils % 0.8 % (0.0-2.0) 01/02/19 05:40 Neutrophils (Manual) 83 % (40-80) H 01/07/19 05:55 Lymphocytes 7 % (20-50) L 01/07/19 05:55 Monocytes 4 % (2-10) 01/07/19 05:55 Eosinophils 5 % (0-5) 01/07/19 05:55 Basophils 0 % (0-3) 01/07/19 05:55 Platelet Estimate ADEQUATE (NORMAL) 01/06/19 05:45 RBC Morph Micro Appear NORMAL (NORMAL) 01/06/19 05:45 Total Retics Counted 2.2 % (0.5-1.5) H 12/26/18 05:40 Absolute Retic 79.2 Th/cmm 12/26/18 05:40 Corrected Retic Count 1.5 % (0.5-1.5) 12/26/18 05:40 PT 10.9 SECONDS (9.5-11.5) 01/02/19 05:40 INR 1.05 (0.5-1.4) 01/02/19 05:40 Sodium 153 mEq/L (136-145) H 01/07/19 05:55 Potassium 3.8 mEq/L (3.5-5.1) 01/07/19 05:55 Chloride 115 mEq/L (98-107) H 01/07/19 05:55 Carbon Dioxide 29.5 mEq/L (21.0-31.0) 01/07/19 05:55 Anion Gap 12.3 (7.0-16.0) 01/07/19 05:55 BUN 21 mg/dL (7-25) 01/07/19 05:55 Creatinine 0.9 mg/dL (0.7-1.3) 01/07/19 05:55 Est GFR ( Amer) > 60.0 ml/min (>90) 01/07/19 05:55 Est GFR (Non-Af Amer) > 60.0 ml/min 01/07/19 05:55 BUN/Creatinine Ratio 23.3 01/07/19 05:55 Glucose 159 mg/dL (70-105) H 01/07/19 05:55 POC Glucose 87 MG/DL (70 - 105) 01/01/19 08:07 Whole Bld Lactic Acid 1.26 mmol/L (0.60-1.99) 01/04/19 12:10 Calcium 9.4 mg/dL (8.6-10.3) 01/07/19 05:55 Magnesium 2.1 mg/dL (1.9-2.7) 01/06/19 05:45 Iron 17 ug/dL (38-169) L 12/26/18 05:40 TIBC 210 ug/dL (250-450) L 12/26/18 05:40 Iron Saturation 8 % (15-55) L 12/26/18 05:40 Unsaturated IBC 193 ug/dL (111-343) 12/26/18 05:40 Ferritin 200 ng/mL (30-400) 12/26/18 05:40 Total Bilirubin 0.5 mg/dL (0.3-1.0) 01/07/19 05:55 AST 20 U/L (13-39) 01/07/19 05:55 ALT 20 U/L (7-52) 01/07/19 05:55 Alkaline Phosphatase 68 U/L (34-104) 01/07/19 05:55 Total Protein 5.5 gm/dL (6.0-8.3) L 01/07/19 05:55 Albumin 2.9 gm/dL (4.2-5.5) L 01/07/19 05:55 Globulin 2.6 gm/dL 01/07/19 05:55 Albumin/Globulin Ratio 1.1 (1.0-1.8) 01/07/19 05:55 Triglycerides 125 mg/dL (<150) 12/25/18 16:11 Cholesterol 154 mg/dL (<200) 12/25/18 16:11 LDL Cholesterol Direct 112 mg/dL (75-193) 12/25/18 16:11 HDL Cholesterol 37 mg/dL (23-92) 12/25/18 16:11 Vitamin B12 848 pg/mL (232-1245) 12/26/18 05:40 Folic Acid 6.9 ng/mL (>3.0) 12/26/18 05:40 TSH 2.61 uIU/ml (0.34-5.60) 12/25/18 16:11 Urine Source CATH 12/25/18 16:25 Urine Color COLORLESS 12/25/18 16:25 Urine Clarity CLEAR (CLEAR) 12/25/18 16:25 Urine pH 6.0 (4.6 - 8.0) 12/25/18 16:25 Ur Specific [place] 1.010 (1.005-1.030) 12/25/18 16:25 Urine Protein NEGATIVE mg/dL (NEGATIVE) 12/25/18 16:25 Urine Glucose (UA) NEGATIVE mg/dL (NEGATIVE) 12/25/18 16:25 Urine Ketones NEGATIVE mg/dL (NEGATIVE) 12/25/18 16:25 Urine Blood NEGATIVE (NEGATIVE) 12/25/18 16:25 Urine Nitrate NEGATIVE (NEGATIVE) 12/25/18 16:25 Urine Bilirubin NEGATIVE (NEGATIVE) 12/25/18 16:25 Urine Urobilinogen 0.2 E.U./dL (0.2 - 1.0) 12/25/18 16:25 Ur Leukocyte Esterase NEGATIVE (NEGATIVE) 12/25/18 16:25 Stool Occult Blood NEGATIVE (NEGATIVE) 01/06/19 18:00 Valproic Acid < 10.0 ug/mL (50.0-100.0) L 12/30/18 04:25 [place] 0.06 mmol/L (0.5-1.0) L 12/30/18 04:25 RPR NONREACTIVE (NONREACTIVE) 12/25/18 16:11 Influenza A (Rapid) NEG FOR INF A 12/25/18 16:30 Influenza B (Rapid) NEG FOR INF B 12/25/18 16:30 - Physical Exam Vitals and I&O: Vital Signs Temp 99.4 F 01/08/19 12:00 Pulse 99 01/08/19 12:00 Resp 18 01/08/19 13:00 BP 125/64 01/08/19 12:00 Pulse Ox 100 01/08/19 12:00 Intake & Output 01/07/19 01/08/19 01/08/19 18:59 06:59 18:59 Intake Total 1210 1100 100 Balance 1210 1100 100 Weight (lbs) 63.503 kg 65.317 kg Intake: Intake, IV Amount 210 1100 100 D5-0.45NS 1,000 ml @ 100 1000 mls/hr IV .Q10H [facility] Rx#: [id number] Piperacillin Sodium/ 100 100 100 Tazobact 4.5 gm In Sodium Chloride 0.9% 100 ml @ 100 mls/hr IV Q8HR [facility] Rx #:[id number] Sodium Ferric Gluconate 110 125 mg In Sodium Chloride 0.9% 100 ml @ 100 mls/hr IV Q24HR@1000 [facility] Rx#: [id number] Oral 1000 Other: # Voids 3 3 # Bowel Movements 0 3 Stool Characteristics Soft Formed Brown Weight Source Bedscale Bedscale Active Medications: Current Medications Acetaminophen (Tylenol 650mg Supp) 650 mg RC Q6H PRN PRN Reason: Fever > 101 Stop: 03/05/19 08:02 Last Admin: 01/04/19 08:49 Dose: 650 mg Acetaminophen (Tylenol) 650 mg PO Q4H PRN PRN Reason: Fever > 101 Stop: 03/05/19 08:05 Albuterol/Ipratropium (Duoneb Neb) 3 ml HHN Q4HRT [facility] Stop: 03/05/19 10:59 Last Admin: 01/08/19 11:46 Dose: 3 ml Amlodipine Besylate (Norvasc) 10 mg PO DAILY [facility] Stop: 02/28/19 08:59 Last Admin: 01/08/19 09:25 Dose: 10 mg Ascorbic Acid (Vitamin C) 500 mg PO DAILY [facility] Stop: 03/01/19 08:59 Last Admin: 01/08/19 09:25 Dose: 500 mg Aspirin (Ecotrin) 81 mg PO DAILY [facility] Stop: 02/28/19 08:59 Last Admin: 01/08/19 09:25 Dose: 81 mg Benztropine Mesylate (Cogentin) 1 mg PO TID [facility] Stop: 02/28/19 08:59 Last Admin: 01/08/19 09:25 Dose: 1 mg Bisacodyl (Dulcolax 10 Mg Supp) 10 mg RC DAILY [facility] Stop: 02/28/19 08:59 Last Admin: 01/08/19 09:29 Dose: 10 mg Cholecalciferol (Vitamin D3) 5,000 iu PO DAILY [facility] Stop: 02/28/19 08:59 Last Admin: 01/08/19 09:27 Dose: 5,000 iu Clonazepam (Klonopin) 2 mg PO TID [facility]; Protocol Stop: 02/27/19 08:59 Last Admin: 01/08/19 09:29 Dose: 2 mg Clozapine 100 mg/ Clozapine 75 (mg) 175 mg PO BID [facility] Stop: 03/01/19 16:59 Last Admin: 01/08/19 09:28 Dose: 175 mg Famotidine (Pepcid) 40 mg PO DAILY [facility] Stop: 02/28/19 08:59 Last Admin: 01/08/19 09:29 Dose: 40 mg Piperacillin Sod/Tazobactam (Sod 4.5 gm/ Sodium Chloride) 100 mls @ 100 mls/hr IV Q8HR [facility] Stop: 03/05/19 12:59 Last Admin: 01/08/19 12:29 Dose: 100 mls/hr Dextrose/Sodium Chloride (D5-0.45ns) 1,000 mls @ 100 mls/hr IV .Q10H [facility] Stop: 03/07/19 19:59 Last Admin: 01/08/19 09:46 Dose: 100 mls/hr Vancomycin HCl 1 gm/ Sodium (Chloride) 250 mls @ 165 mls/hr IV Q12H [facility] Stop: 03/09/19 10:59 Last Admin: 01/08/19 10:46 Dose: 165 mls/hr Levothyroxine Sodium 0.025 mg/ (Levothyroxine Sodium 0.112 mg) 0.137 mg PO DAILY@0730 [facility] Stop: 02/28/19 07:29 Last Admin: 01/08/19 06:35 Dose: 0.137 mg [place] Carbonate (Eskalith) 300 mg PO BID [facility]; Protocol Stop: 02/28/19 08:59 Last Admin: 01/08/19 09:27 Dose: 300 mg Magnesium Hydroxide (Milk Of Magnesia) 30 ml PO HS [facility] Stop: 02/28/19 20:59 Last Admin: 01/07/19 20:58 Dose: 30 ml Miscellaneous (Vancomycin Iv Per Pharmacy) 1 ea [facility] PRN PRN PRN Reason: PROTOCOL Stop: 03/08/19 19:27 Quetiapine Fumarate (Seroquel) 300 mg PO TID [facility]; Protocol Stop: 03/01/19 08:59 Last Admin: 01/08/19 09:29 Dose: 300 mg Valproate Sodium (Depakene) 500 mg PO BID [facility]; Protocol Stop: 02/28/19 08:59 Last Admin: 01/08/19 09:30 Dose: 500 mg General: no acute distress, well developed, well nourished HEENT: atraumatic, normocephalic, PERRLA, EOMI Neck: supple, no thyromegaly, no lymphadenopathy Cardiovascular: S1S2, regular Lungs: clear to auscultation bilaterally, clear to percussion Abdomen: soft, no tender, no distended, no rebound Extremities: no cyanosis, no clubbing Neurological: other (asleep) Skin: intact Infectious Disease Assmt/Plan - Assessment Assessment: 1. Sepsis. staph aureus sepsis. 2. Pneumonia. 3. Leukocytosis, suspect sepsis as patient also had lactic acidosis and tachycardia on presentation. 4. Hypothyroidism. 5. Anemia. 6. Schizophrenia. 7. Hypertension. 8. History of gastroesophageal reflux disease. 9. Iron deficiency anemia. 10. Aggressive behaviour. - Plan Plan: Continue Zosyn and Vanco IV. Sepsis w/u. Repeat the blood cs. Lab in am. Depending on the culture report will define final antibiotic therapy. Nutritional Asmnt/Malnutr-PDOC - Dietary Evaluation Malnutrition Findings (Please click <Entered> for more info): Nutritional Asmnt/Malnutrition Start: 12/26/18 15: 09 Text: Status: Complete Freq: Protocol: Document 12/26/18 15:09 ESPERANZAG (Rec: 12/26/18 15:12 [email or web address]) Nutritional Asmnt/Malnutrition Patient General Information Nutritional Screening High Risk Diagnosis sepsis Pertinent Medical Hx/Surgical Hx HTN, PUD/GERD, thyroid disorder, anemia, schizophrenia Subjective Information Pt seen in bed, disoriented, yelling, has 1:1 sitter in room. Per sitter, pt consumed 100% of breakfast and lunch today. Current Diet Order/ Nutrition Support soft/bland Pertinent Medications seroquel Pertinent Labs 12/25 BUN 26, Alb 3.5 Nutritional Hx/Data Height 1.7 m Height (Calculated Centimeters) 170.2 Current Weight (lbs) 58.967 kg Weight (Calculated Kilograms) 59.0 Weight (Calculated Grams) 70533.0 [place] Body Weight 148 Body Mass Index (BMI) 20.3 Weight Status Approriate GI Symptoms GI Symptoms None Last BM not indicated Difficult in: None Skin Integrity/Comment: intact Current %PO Good (75-100%) Estimated Nutritional Goals BEE in Kcals: Using Current wt Calories/Kcals/Kg 30-35 Kcals Calculated 5433-0370 Protein: Using Current wt Protein g/k.2 Protein Calculated 71 Fluid: ml 1620-2065ml (1ml/kcal) Nutritional Problem 1. Problem Problem increased nutritional needs Etiology increased metabolic demand Signs/Symptoms: dx of sepsis Malnutrition Alert Is there a minimum of two criteria No selected? Query Text:Check all the applicable criteria. A minimum of two criteria are recommended for diagnosis of either severe or non-severe malnutrition. Malnutrition Related to Morbid Obesity Malnutrition related to morbid obesity No Intervention/Recommendation Comments 1. Continue with soft/baland diet as ordered. 2. Monitor PO intake, wt, labs and skin integrity 3. F/U as moderate risk in 3-5 days Expected Outcomes/Goals Expected Outcomes/Goals 1. PO intake to meet at least 75% of nutritional needs. 2. Wt stability, skin to remain intact, labs to approach WNL.
--- NOTE | 2019-01-08 18:12 | Internal Medicine Prog Note ---
Internal Medicine Subjective - Subjective Service Date: 01/08/19 Patient seen and examined:: with staff, chart reviewed Patient is:: awake, verbal, in bed, agitated, confused, other (remains agitated and restless, no signs of pain ) Patient Complaints of:: cough, SOB Per staff patient has:: no adverse event, agitated, confused Internal Medicine Objective - Results Result Diagrams: 01/07/19 05:55 01/07/19 05:55 Recent Labs: Laboratory Last Values WBC 19.4 Th/cmm (4.8-10.8) H 01/07/19 05:55 RBC 3.75 Mil/cmm (4.30-5.70) L 01/07/19 05:55 Hgb 10.5 gm/dL (12-16) L 01/07/19 05:55 Hct 32.1 % (41.0-60) L 01/07/19 05:55 MCV 85.4 fl (80-99) 01/07/19 05:55 MCH 27.9 pg (26.0-30.0) 01/07/19 05:55 MCHC Differential 32.7 pg (28.0-36.0) 01/07/19 05:55 RDW 14.3 % (11.5-20.0) 01/07/19 05:55 Plt Count 256 Th/cmm (150-400) 01/07/19 05:55 MPV 8.5 fl 01/07/19 05:55 Add Manual Diff YES 01/07/19 05:55 Neutrophils % 71.4 % (40.0-80.0) 01/02/19 05:40 Band Neutrophils % 1 % (0-10) 01/07/19 05:55 Lymphocytes % 14.7 % (20.0-50.0) L 01/02/19 05:40 Monocytes % 7.3 % (2.0-10.0) 01/02/19 05:40 Eosinophils % 5.8 % (0.0-5.0) H 01/02/19 05:40 Basophils % 0.8 % (0.0-2.0) 01/02/19 05:40 Neutrophils (Manual) 83 % (40-80) H 01/07/19 05:55 Lymphocytes 7 % (20-50) L 01/07/19 05:55 Monocytes 4 % (2-10) 01/07/19 05:55 Eosinophils 5 % (0-5) 01/07/19 05:55 Basophils 0 % (0-3) 01/07/19 05:55 Platelet Estimate ADEQUATE (NORMAL) 01/06/19 05:45 RBC Morph Micro Appear NORMAL (NORMAL) 01/06/19 05:45 Total Retics Counted 2.2 % (0.5-1.5) H 12/26/18 05:40 Absolute Retic 79.2 Th/cmm 12/26/18 05:40 Corrected Retic Count 1.5 % (0.5-1.5) 12/26/18 05:40 PT 10.9 SECONDS (9.5-11.5) 01/02/19 05:40 INR 1.05 (0.5-1.4) 01/02/19 05:40 Sodium 153 mEq/L (136-145) H 01/07/19 05:55 Potassium 3.8 mEq/L (3.5-5.1) 01/07/19 05:55 Chloride 115 mEq/L (98-107) H 01/07/19 05:55 Carbon Dioxide 29.5 mEq/L (21.0-31.0) 01/07/19 05:55 Anion Gap 12.3 (7.0-16.0) 01/07/19 05:55 BUN 21 mg/dL (7-25) 01/07/19 05:55 Creatinine 0.9 mg/dL (0.7-1.3) 01/07/19 05:55 Est GFR ( Amer) > 60.0 ml/min (>90) 01/07/19 05:55 Est GFR (Non-Af Amer) > 60.0 ml/min 01/07/19 05:55 BUN/Creatinine Ratio 23.3 01/07/19 05:55 Glucose 159 mg/dL (70-105) H 01/07/19 05:55 POC Glucose 87 MG/DL (70 - 105) 01/01/19 08:07 Whole Bld Lactic Acid 1.26 mmol/L (0.60-1.99) 01/04/19 12:10 Calcium 9.4 mg/dL (8.6-10.3) 01/07/19 05:55 Magnesium 2.1 mg/dL (1.9-2.7) 01/06/19 05:45 Iron 17 ug/dL (38-169) L 12/26/18 05:40 TIBC 210 ug/dL (250-450) L 12/26/18 05:40 Iron Saturation 8 % (15-55) L 12/26/18 05:40 Unsaturated IBC 193 ug/dL (111-343) 12/26/18 05:40 Ferritin 200 ng/mL (30-400) 12/26/18 05:40 Total Bilirubin 0.5 mg/dL (0.3-1.0) 01/07/19 05:55 AST 20 U/L (13-39) 01/07/19 05:55 ALT 20 U/L (7-52) 01/07/19 05:55 Alkaline Phosphatase 68 U/L (34-104) 01/07/19 05:55 Total Protein 5.5 gm/dL (6.0-8.3) L 01/07/19 05:55 Albumin 2.9 gm/dL (4.2-5.5) L 01/07/19 05:55 Globulin 2.6 gm/dL 01/07/19 05:55 Albumin/Globulin Ratio 1.1 (1.0-1.8) 01/07/19 05:55 Triglycerides 125 mg/dL (<150) 12/25/18 16:11 Cholesterol 154 mg/dL (<200) 12/25/18 16:11 LDL Cholesterol Direct 112 mg/dL (75-193) 12/25/18 16:11 HDL Cholesterol 37 mg/dL (23-92) 12/25/18 16:11 Vitamin B12 848 pg/mL (232-1245) 12/26/18 05:40 Folic Acid 6.9 ng/mL (>3.0) 12/26/18 05:40 TSH 2.61 uIU/ml (0.34-5.60) 12/25/18 16:11 Urine Source CATH 12/25/18 16:25 Urine Color COLORLESS 12/25/18 16:25 Urine Clarity CLEAR (CLEAR) 12/25/18 16:25 Urine pH 6.0 (4.6 - 8.0) 12/25/18 16:25 Ur Specific [place] 1.010 (1.005-1.030) 12/25/18 16:25 Urine Protein NEGATIVE mg/dL (NEGATIVE) 12/25/18 16:25 Urine Glucose (UA) NEGATIVE mg/dL (NEGATIVE) 12/25/18 16:25 Urine Ketones NEGATIVE mg/dL (NEGATIVE) 12/25/18 16:25 Urine Blood NEGATIVE (NEGATIVE) 12/25/18 16:25 Urine Nitrate NEGATIVE (NEGATIVE) 12/25/18 16:25 Urine Bilirubin NEGATIVE (NEGATIVE) 12/25/18 16:25 Urine Urobilinogen 0.2 E.U./dL (0.2 - 1.0) 12/25/18 16:25 Ur Leukocyte Esterase NEGATIVE (NEGATIVE) 12/25/18 16:25 Stool Occult Blood NEGATIVE (NEGATIVE) 01/06/19 18:00 Valproic Acid < 10.0 ug/mL (50.0-100.0) L 12/30/18 04:25 [place] 0.06 mmol/L (0.5-1.0) L 12/30/18 04:25 RPR NONREACTIVE (NONREACTIVE) 12/25/18 16:11 Influenza A (Rapid) NEG FOR INF A 12/25/18 16:30 Influenza B (Rapid) NEG FOR INF B 12/25/18 16:30 - Physical Exam Vitals and I&O: Vital Signs Temp 98.2 F 01/08/19 17:00 Pulse 90 01/08/19 17:00 Resp 20 01/08/19 17:00 BP 96/51 01/08/19 17:00 Pulse Ox 98 01/08/19 16:00 Intake & Output 01/07/19 01/08/19 01/08/19 18:59 06:59 18:59 Intake Total 1210 1100 100 Balance 1210 1100 100 Weight (lbs) 63.503 kg 65.317 kg Intake: Intake, IV Amount 210 1100 100 D5-0.45NS 1,000 ml @ 100 1000 mls/hr IV .Q10H [facility] Rx#: [id number] Piperacillin Sodium/ 100 100 100 Tazobact 4.5 gm In Sodium Chloride 0.9% 100 ml @ 100 mls/hr IV Q8HR [facility] Rx #:[id number] Sodium Ferric Gluconate 110 125 mg In Sodium Chloride 0.9% 100 ml @ 100 mls/hr IV Q24HR@1000 [facility] Rx#: [id number] Oral 1000 Other: # Voids 3 3 # Bowel Movements 0 3 Stool Characteristics Soft Formed Brown Weight Source Bedscale Bedscale Active Medications: Current Medications Acetaminophen (Tylenol 650mg Supp) 650 mg RC Q6H PRN PRN Reason: Fever > 101 Stop: 03/05/19 08:02 Last Admin: 01/04/19 08:49 Dose: 650 mg Acetaminophen (Tylenol) 650 mg PO Q4H PRN PRN Reason: Fever > 101 Stop: 03/05/19 08:05 Acetylcysteine (Mucomyst 20%) 3 ml HHN Q4HRT [facility] Stop: 03/09/19 14:59 Albuterol/Ipratropium (Duoneb Neb) 3 ml HHN Q4HRT [facility] Stop: 03/05/19 10:59 Last Admin: 01/08/19 15:11 Dose: 3 ml Amlodipine Besylate (Norvasc) 10 mg PO DAILY [facility] Stop: 02/28/19 08:59 Last Admin: 01/08/19 09:25 Dose: 10 mg Ascorbic Acid (Vitamin C) 500 mg PO DAILY [facility] Stop: 03/01/19 08:59 Last Admin: 01/08/19 09:25 Dose: 500 mg Aspirin (Ecotrin) 81 mg PO DAILY [facility] Stop: 02/28/19 08:59 Last Admin: 01/08/19 09:25 Dose: 81 mg Benztropine Mesylate (Cogentin) 1 mg PO TID [facility] Stop: 02/28/19 08:59 Last Admin: 01/08/19 15:11 Dose: 1 mg Bisacodyl (Dulcolax 10 Mg Supp) 10 mg RC DAILY [facility] Stop: 02/28/19 08:59 Last Admin: 01/08/19 09:29 Dose: 10 mg Cholecalciferol (Vitamin D3) 5,000 iu PO DAILY [facility] Stop: 02/28/19 08:59 Last Admin: 01/08/19 09:27 Dose: 5,000 iu Clonazepam (Klonopin) 2 mg PO TID [facility]; Protocol Stop: 02/27/19 08:59 Last Admin: 01/08/19 14:57 Dose: Not Given Clozapine 100 mg/ Clozapine 75 (mg) 175 mg PO BID [facility] Stop: 03/01/19 16:59 Last Admin: 01/08/19 17:03 Dose: Not Given Famotidine (Pepcid) 40 mg PO DAILY [facility] Stop: 02/28/19 08:59 Last Admin: 01/08/19 09:29 Dose: 40 mg Piperacillin Sod/Tazobactam (Sod 4.5 gm/ Sodium Chloride) 100 mls @ 100 mls/hr IV Q8HR [facility] Stop: 03/05/19 12:59 Last Admin: 01/08/19 12:29 Dose: 100 mls/hr Dextrose/Sodium Chloride (D5-0.45ns) 1,000 mls @ 100 mls/hr IV .Q10H [facility] Stop: 03/07/19 19:59 Last Admin: 01/08/19 09:46 Dose: 100 mls/hr Vancomycin HCl 1 gm/ Sodium (Chloride) 250 mls @ 165 mls/hr IV Q12H [facility] Stop: 03/09/19 10:59 Last Admin: 01/08/19 10:46 Dose: 165 mls/hr Levothyroxine Sodium 0.025 mg/ (Levothyroxine Sodium 0.112 mg) 0.137 mg PO DAILY@0730 [facility] Stop: 02/28/19 07:29 Last Admin: 01/08/19 06:35 Dose: 0.137 mg [place] Carbonate (Eskalith) 300 mg PO BID [facility]; Protocol Stop: 02/28/19 08:59 Last Admin: 01/08/19 17:03 Dose: Not Given Magnesium Hydroxide (Milk Of Magnesia) 30 ml PO HS [facility] Stop: 02/28/19 20:59 Last Admin: 01/07/19 20:58 Dose: 30 ml Miscellaneous (Vancomycin Iv Per Pharmacy) 1 ea [facility] PRN PRN PRN Reason: PROTOCOL Stop: 03/08/19 19:27 Quetiapine Fumarate (Seroquel) 300 mg PO TID [facility]; Protocol Stop: 03/01/19 08:59 Last Admin: 01/08/19 14:57 Dose: Not Given Valproate Sodium (Depakene) 500 mg PO BID [facility]; Protocol Stop: 02/28/19 08:59 Last Admin: 01/08/19 17:44 Dose: Not Given General: alert, other (Patient still has agitated behavior.) HEENT: PERRLA, throat clear Neck: No JVD Lungs: wheezing, ronchi, other (scattered rhonchi and occasional wheezing.) Cardiovascular: Normal S1 Abdomen: soft, non-distended, positive bowel sound Extremities: clear, other (Patient has restraints in place.) Neurological: disorganized Internal Medicine Assmt/Plan - Assessment Assessment: Agitated with Aggresive Behavior towards others Psychosis. Schizophrenia. Leukocytosis/possible aspiration. SOB. Sepsis. Pneumonia. Lactic acidosis. Iron deficiency anemia s/p transfusion. Hypertension. History of Gerd. Hypothyroidism. PUD. GERD. Hypotention - Plan Plan: Continuation of care Monitor Labs, Hemoglobin levels Continue present meds as prescribed Monitor Diet,Nutritional support Respiratory treatment and pulmonary support Aspiration precaution Followup with Dr. Craven for Psych Management Continue present treatment plan Nutritional Asmnt/Malnutr-PDOC - Dietary Evaluation Malnutrition Findings (Please click <Entered> for more info): Nutritional Asmnt/Malnutrition Start: 12/26/18 15: 09 Text: Status: Complete Freq: Protocol: Document 12/26/18 15:09 LCHENG (Rec: 12/26/18 15:12 [email or web address] [email or web address]) Nutritional Asmnt/Malnutrition Patient General Information Nutritional Screening High Risk Diagnosis sepsis Pertinent Medical Hx/Surgical Hx HTN, PUD/GERD, thyroid disorder, anemia, schizophrenia Subjective Information Pt seen in bed, disoriented, yelling, has 1:1 sitter in room. Per sitter, pt consumed 100% of breakfast and lunch today. Current Diet Order/ Nutrition Support soft/bland Pertinent Medications seroquel Pertinent Labs 12/25 BUN 26, Alb 3.5 Nutritional Hx/Data Height 1.7 m Height (Calculated Centimeters) 170.2 Current Weight (lbs) 58.967 kg Weight (Calculated Kilograms) 59.0 Weight (Calculated Grams) 41161.0 [place] Body Weight 148 Body Mass Index (BMI) 20.3 Weight Status Approriate GI Symptoms GI Symptoms None Last BM not indicated Difficult in: None Skin Integrity/Comment: intact Current %PO Good (75-100%) Estimated Nutritional Goals BEE in Kcals: Using Current wt Calories/Kcals/Kg 30-35 Kcals Calculated 0156-6981 Protein: Using Current wt Protein g/k.2 Protein Calculated 71 Fluid: ml 1620-2065ml (1ml/kcal) Nutritional Problem 1. Problem Problem increased nutritional needs Etiology increased metabolic demand Signs/Symptoms: dx of sepsis Malnutrition Alert Is there a minimum of two criteria No selected? Query Text:Check all the applicable criteria. A minimum of two criteria are recommended for diagnosis of either severe or non-severe malnutrition. Malnutrition Related to Morbid Obesity Malnutrition related to morbid obesity No Intervention/Recommendation Comments 1. Continue with soft/baland diet as ordered. 2. Monitor PO intake, wt, labs and skin integrity 3. F/U as moderate risk in 3-5 days Expected Outcomes/Goals Expected Outcomes/Goals 1. PO intake to meet at least 75% of nutritional needs. 2. Wt stability, skin to remain intact, labs to approach WNL.
[2019-01-08] MEDS: Magnesium Hydroxide (MOM) 30 mL UDC PO SCH (20:58)
--- NOTE | 2019-01-08 22:14 | Progress Notes ---
DATE: 01/07/2019 SUBJECTIVE: The patient appears to be doing okay, comfortable, agitated, more awake today. PHYSICAL EXAMINATION: VITAL SIGNS: Temperature 97.7, pulse ___, respiration is 18, blood pressure 92/61, saturation 97% on oxygen, and 92% on room air. CHEST: Good breath sounds, rhonchi bilaterally. HEART: Regular rate and rhythm. ABDOMEN: Soft, tenderness. EXTREMITIES: No edema. LABORATORY DATA: WBC is 19.4, hemoglobin 10.5. Sodium 152, potassium 3.8, BUN is 21, creatinine 0.9. ASSESSMENT: 1. Respiratory failure. 2. Pneumonia. 3. Weakness. 4. Dysphagia. 5. Psychosis. PLAN: 1. Continue antibiotics. 2. Nebulizer. 3. Pulmonary toilet, supportive care. There is an improvement on the chest x-ray on the left side in the infiltrate. 4. Aspiration precaution. JOB# [id number]
[2019-01-09] MEDS: Albuterol/Ipratropium Neb 3 ML AERS HHN SCH ×6 (03:11→23:16)
[2019-01-09 04:37] LABS: % EOSINOPHILS 3.3 % (0.0-5.0); % LYMPHOCYTES 10.7 % (20.0-50.0); % MONOCYTES 12.4 % (2.0-10.0); % NEUTROPHILS 73.6 % (40.0-80.0); EOSINOPHILE ABSOLUTE 0.5 Th/cmm (0.1-0.4); HEMATOCRIT 29.8 % (41.0-60); HEMOGLOBIN 9.7 gm/dL (12-16); LYMPHOCYTE ABSOLUTE 1.5 Th/cmm (1.5-3.0); MEAN CELL VOLUME 86.1 fl (80-99); MEAN CORPUSCULAR HEMOGLOBIN 27.9 pg (26.0-30.0); MEAN CORPUSCULAR HGB CONC 32.4 pg (28.0-36.0); MEAN PLATELET VOLUME 8.4 fl; MONOCYTE ABSOLUTE 1.7 Th/cmm (0.3-1.0); PLATELET COUNT 275 Th/cmm (150-400); RED BLOOD COUNT 3.46 Mil/cmm (4.30-5.70); RED CELL DISTRIBUTION WIDTH 14.5 % (11.5-20.0); WHITE BLOOD COUNT 13.7 Th/cmm (4.8-10.8)
--- NOTE | 2019-01-09 06:46 | Progress Notes ---
DATE: 01/08/2019 SUBJECTIVE: The patient appears to be doing okay, comfortable, agitated when awake, no distress, eating. OBJECTIVE: VITAL SIGNS: Temperature 99.4, pulse 99, respirations 20, blood pressure 125/64, saturation is 100%. CHEST: Good breath sounds. No wheezing, decreased rhonchi. HEART: Regular rate and rhythm. No murmurs. ABDOMEN: Soft, ____. EXTREMITIES: No edema. IMAGING: Chest x-ray showed extensive infiltrate on the left side, worsening. IMPRESSION: 1. Respiratory failure. 2. Pneumonia. 3. Mucus plugging. PLAN: 1. Continue nebulizer. 2. Add Mucomyst. 3. Add CPT and elevate left side of the chest. 4. Followup chest x-ray. JOB# [id number]
--- NOTE | 2019-01-09 08:08 | Diagnostic Imaging Report ---
Exam: Portable chest x-ray HISTORY: Shortness of breath COMPARISON: 01/08/2019 Findings: Portable exam of chest was reviewed. The study demonstrates increased opacification of left hemithorax compared to prior study the study day earlier. Mediastinal structures midline, the heart is not enlarged. There is evidence for mild interstitial infiltrate in the right lung. The visualized bony thorax is intact. IMPRESSION: Increased opacification left hemithorax most likely due to pneumonia and atelectasis. Mild right-sided infiltrate. Follow-up examination recommended.
[2019-01-09] MEDS: Multivitamin w/ Minerals Tab PO SCH (09:15)
[2019-01-09] MEDS: Benztropine 1 MG TAB PO SCH ×3 (09:16→20:52)
[2019-01-09] MEDS: cloZAPine 100 MG, cloZAPine 75 MG PO SCH ×2 (09:18→16:27)
[2019-01-09] MEDS: D5-0.45NS 1,000 ML IV SCH ×2 (12:33→22:35)
--- NOTE | 2019-01-09 13:18 | Internal Medicine Prog Note ---
Internal Medicine Subjective - Subjective Service Date: 01/09/19 Patient is:: awake, verbal, in bed, agitated, confused, other (remains agitated and restless, no signs of pain ) Patient Complaints of:: cough, SOB Per staff patient has:: no adverse event, agitated, confused Internal Medicine Objective - Results Result Diagrams: 01/09/19 03:55 01/07/19 05:55 Recent Labs: Laboratory Last Values WBC 13.7 Th/cmm (4.8-10.8) H 01/09/19 03:55 RBC 3.46 Mil/cmm (4.30-5.70) L 01/09/19 03:55 Hgb 9.7 gm/dL (12-16) L 01/09/19 03:55 Hct 29.8 % (41.0-60) L 01/09/19 03:55 MCV 86.1 fl (80-99) 01/09/19 03:55 MCH 27.9 pg (26.0-30.0) 01/09/19 03:55 MCHC Differential 32.4 pg (28.0-36.0) 01/09/19 03:55 RDW 14.5 % (11.5-20.0) 01/09/19 03:55 Plt Count 275 Th/cmm (150-400) 01/09/19 03:55 MPV 8.4 fl 01/09/19 03:55 Add Manual Diff YES 01/07/19 05:55 Neutrophils % 73.6 % (40.0-80.0) 01/09/19 03:55 Band Neutrophils % 1 % (0-10) 01/07/19 05:55 Lymphocytes % 10.7 % (20.0-50.0) L 01/09/19 03:55 Monocytes % 12.4 % (2.0-10.0) H 01/09/19 03:55 Eosinophils % 3.3 % (0.0-5.0) 01/09/19 03:55 Basophils % 0.0 % (0.0-2.0) 01/09/19 03:55 Neutrophils (Manual) 83 % (40-80) H 01/07/19 05:55 Lymphocytes 7 % (20-50) L 01/07/19 05:55 Monocytes 4 % (2-10) 01/07/19 05:55 Eosinophils 5 % (0-5) 01/07/19 05:55 Basophils 0 % (0-3) 01/07/19 05:55 Platelet Estimate ADEQUATE (NORMAL) 01/06/19 05:45 RBC Morph Micro Appear NORMAL (NORMAL) 01/06/19 05:45 Total Retics Counted 2.2 % (0.5-1.5) H 12/26/18 05:40 Absolute Retic 79.2 Th/cmm 12/26/18 05:40 Corrected Retic Count 1.5 % (0.5-1.5) 12/26/18 05:40 PT 10.9 SECONDS (9.5-11.5) 01/02/19 05:40 INR 1.05 (0.5-1.4) 01/02/19 05:40 Sodium 153 mEq/L (136-145) H 01/07/19 05:55 Potassium 3.8 mEq/L (3.5-5.1) 01/07/19 05:55 Chloride 115 mEq/L (98-107) H 01/07/19 05:55 Carbon Dioxide 29.5 mEq/L (21.0-31.0) 01/07/19 05:55 Anion Gap 12.3 (7.0-16.0) 01/07/19 05:55 BUN 21 mg/dL (7-25) 01/07/19 05:55 Creatinine 0.9 mg/dL (0.7-1.3) 01/07/19 05:55 Est GFR ( Amer) > 60.0 ml/min (>90) 01/07/19 05:55 Est GFR (Non-Af Amer) > 60.0 ml/min 01/07/19 05:55 BUN/Creatinine Ratio 23.3 01/07/19 05:55 Glucose 159 mg/dL (70-105) H 01/07/19 05:55 POC Glucose 87 MG/DL (70 - 105) 01/01/19 08:07 Whole Bld Lactic Acid 1.26 mmol/L (0.60-1.99) 01/04/19 12:10 Calcium 9.4 mg/dL (8.6-10.3) 01/07/19 05:55 Magnesium 2.1 mg/dL (1.9-2.7) 01/06/19 05:45 Iron 17 ug/dL (38-169) L 12/26/18 05:40 TIBC 210 ug/dL (250-450) L 12/26/18 05:40 Iron Saturation 8 % (15-55) L 12/26/18 05:40 Unsaturated IBC 193 ug/dL (111-343) 12/26/18 05:40 Ferritin 200 ng/mL (30-400) 12/26/18 05:40 Total Bilirubin 0.5 mg/dL (0.3-1.0) 01/07/19 05:55 AST 20 U/L (13-39) 01/07/19 05:55 ALT 20 U/L (7-52) 01/07/19 05:55 Alkaline Phosphatase 68 U/L (34-104) 01/07/19 05:55 Total Protein 5.5 gm/dL (6.0-8.3) L 01/07/19 05:55 Albumin 2.9 gm/dL (4.2-5.5) L 01/07/19 05:55 Globulin 2.6 gm/dL 01/07/19 05:55 Albumin/Globulin Ratio 1.1 (1.0-1.8) 01/07/19 05:55 Triglycerides 125 mg/dL (<150) 12/25/18 16:11 Cholesterol 154 mg/dL (<200) 12/25/18 16:11 LDL Cholesterol Direct 112 mg/dL (75-193) 12/25/18 16:11 HDL Cholesterol 37 mg/dL (23-92) 12/25/18 16:11 Vitamin B12 848 pg/mL (232-1245) 12/26/18 05:40 Folic Acid 6.9 ng/mL (>3.0) 12/26/18 05:40 TSH 2.61 uIU/ml (0.34-5.60) 12/25/18 16:11 Urine Source CATH 12/25/18 16:25 Urine Color COLORLESS 12/25/18 16:25 Urine Clarity CLEAR (CLEAR) 12/25/18 16:25 Urine pH 6.0 (4.6 - 8.0) 12/25/18 16:25 Ur Specific [place] 1.010 (1.005-1.030) 12/25/18 16:25 Urine Protein NEGATIVE mg/dL (NEGATIVE) 12/25/18 16:25 Urine Glucose (UA) NEGATIVE mg/dL (NEGATIVE) 12/25/18 16:25 Urine Ketones NEGATIVE mg/dL (NEGATIVE) 12/25/18 16:25 Urine Blood NEGATIVE (NEGATIVE) 12/25/18 16:25 Urine Nitrate NEGATIVE (NEGATIVE) 12/25/18 16:25 Urine Bilirubin NEGATIVE (NEGATIVE) 12/25/18 16:25 Urine Urobilinogen 0.2 E.U./dL (0.2 - 1.0) 12/25/18 16:25 Ur Leukocyte Esterase NEGATIVE (NEGATIVE) 12/25/18 16:25 Stool Occult Blood NEGATIVE (NEGATIVE) 01/06/19 18:00 Valproic Acid < 10.0 ug/mL (50.0-100.0) L 12/30/18 04:25 Mcmurray 0.06 mmol/L (0.5-1.0) L 12/30/18 04:25 RPR NONREACTIVE (NONREACTIVE) 12/25/18 16:11 Influenza A (Rapid) NEG FOR INF A 12/25/18 16:30 Influenza B (Rapid) NEG FOR INF B 12/25/18 16:30 - Physical Exam Vitals and I&O: Vital Signs Temp 99 F 01/09/19 12:39 Pulse 99 01/09/19 12:39 Resp 18 01/09/19 12:39 BP 133/71 01/09/19 12:39 Pulse Ox 97 01/09/19 12:05 Intake & Output 01/08/19 01/09/19 01/09/19 18:59 06:59 18:59 Intake Total 950 1550 1000 Balance 950 1550 1000 Weight (lbs) 144 lb 9.6 oz 144 lb Intake: Intake, IV Amount 450 1450 1000 D5-0.45NS 1,000 ml @ 100 1000 1000 mls/hr IV .Q10H [facility] Rx#: [id number] Piperacillin Sodium/ 200 200 Tazobact 4.5 gm In Sodium Chloride 0.9% 100 ml @ 100 mls/hr IV Q8HR [facility] Rx #:[id number] Vancomycin HCl 1 gm In 250 250 Sodium Chloride 0.9% 250 ml @ 165 mls/hr IV Q12H [facility] Rx#:[id number] Oral 500 100 Other: # Voids 3 2 # Bowel Movements 0 1 Weight Source Bedscale Bedscale Active Medications: Current Medications Acetaminophen (Tylenol 650mg Supp) 650 mg RC Q6H PRN PRN Reason: Fever > 101 Stop: 03/05/19 08:02 Last Admin: 01/04/19 08:49 Dose: 650 mg Acetaminophen (Tylenol) 650 mg PO Q4H PRN PRN Reason: Fever > 101 Stop: 03/05/19 08:05 Acetylcysteine (Mucomyst 20%) 3 ml HHN Q4HRT [facility] Stop: 03/09/19 14:59 Last Admin: 01/09/19 12:03 Dose: 3 ml Albuterol/Ipratropium (Duoneb Neb) 3 ml HHN Q4HRT [facility] Stop: 03/05/19 10:59 Last Admin: 01/09/19 12:03 Dose: 3 ml Amlodipine Besylate (Norvasc) 10 mg PO DAILY [facility] Stop: 02/28/19 08:59 Last Admin: 01/09/19 09:18 Dose: 10 mg Ascorbic Acid (Vitamin C) 500 mg PO DAILY [facility] Stop: 03/01/19 08:59 Last Admin: 01/09/19 09:15 Dose: 500 mg Aspirin (Ecotrin) 81 mg PO DAILY [facility] Stop: 02/28/19 08:59 Last Admin: 01/09/19 09:16 Dose: 81 mg Benztropine Mesylate (Cogentin) 1 mg PO TID [facility] Stop: 02/28/19 08:59 Last Admin: 01/09/19 09:16 Dose: 1 mg Bisacodyl (Dulcolax 10 Mg Supp) 10 mg RC DAILY [facility] Stop: 02/28/19 08:59 Last Admin: 01/09/19 09:16 Dose: 10 mg Cholecalciferol (Vitamin D3) 5,000 iu PO DAILY [facility] Stop: 02/28/19 08:59 Last Admin: 01/09/19 09:15 Dose: 5,000 iu Clonazepam (Klonopin) 2 mg PO TID [facility]; Protocol Stop: 02/27/19 08:59 Last Admin: 01/09/19 09:18 Dose: 2 mg Clozapine 100 mg/ Clozapine 75 (mg) 175 mg PO BID [facility] Stop: 03/01/19 16:59 Last Admin: 01/09/19 09:18 Dose: 175 mg Famotidine (Pepcid) 40 mg PO DAILY [facility] Stop: 02/28/19 08:59 Last Admin: 01/09/19 09:15 Dose: 40 mg Piperacillin Sod/Tazobactam (Sod 4.5 gm/ Sodium Chloride) 100 mls @ 100 mls/hr IV Q8HR [facility] Stop: 03/05/19 12:59 Last Admin: 01/09/19 12:32 Dose: 100 mls/hr Dextrose/Sodium Chloride (D5-0.45ns) 1,000 mls @ 100 mls/hr IV .Q10H [facility] Stop: 03/07/19 19:59 Last Admin: 01/09/19 12:33 Dose: 100 mls/hr Vancomycin HCl 1 gm/ Sodium (Chloride) 250 mls @ 165 mls/hr IV Q12H [facility] Stop: 03/09/19 10:59 Last Admin: 01/09/19 10:37 Dose: 165 mls/hr Levothyroxine Sodium 0.025 mg/ (Levothyroxine Sodium 0.112 mg) 0.137 mg PO DAILY@0730 [facility] Stop: 02/28/19 07:29 Last Admin: 01/09/19 06:54 Dose: 0.137 mg [place]murray Carbonate (Eskalith) 300 mg PO BID [facility]; Protocol Stop: 02/28/19 08:59 Last Admin: 01/09/19 09:16 Dose: 300 mg Magnesium Hydroxide (Milk Of Magnesia) 30 ml PO HS [facility] Stop: 02/28/19 20:59 Last Admin: 01/08/19 20:58 Dose: Not Given Miscellaneous (Vancomycin Iv Per Pharmacy) 1 ea MC PRN PRN PRN Reason: PROTOCOL Stop: 03/08/19 19:27 Quetiapine Fumarate (Seroquel) 300 mg PO TID [facility]; Protocol Stop: 03/01/19 08:59 Last Admin: 01/09/19 09:16 Dose: 300 mg Valproate Sodium (Depakene) 500 mg PO BID [facility]; Protocol Stop: 02/28/19 08:59 Last Admin: 01/09/19 09:15 Dose: 500 mg General: alert, other (Patient still has agitated behavior.) HEENT: PERRLA, throat clear Neck: No JVD Lungs: wheezing, ronchi, other (scattered rhonchi and occasional wheezing.) Cardiovascular: Normal S1 Abdomen: soft, non-distended, positive bowel sound Extremities: clear, other (Patient has restraints in place.) Neurological: disorganized Internal Medicine Assmt/Plan - Assessment Assessment: Agitated with Aggresive Behavior towards others Psychosis. Schizophrenia. Leukocytosis/possible aspiration. Sepsis. Pneumonia. Lactic acidosis. Iron deficiency anemia s/p transfusion. Hypertension. History of Gerd. Hypothyroidism. PUD. GERD. Hypotention - Plan Plan: aspiration precaution continue ivabx as per id am labs cont current plan of care Nutritional Asmnt/Malnutr-PDOC - Dietary Evaluation Malnutrition Findings (Please click <Entered> for more info): Nutritional Asmnt/Malnutrition Start: 12/26/18 15: 09 Text: Status: Complete Freq: Protocol: Document 12/26/18 15:09 ESPERANZAG (Rec: 12/26/18 15:12 [email or web address]) Nutritional Asmnt/Malnutrition Patient General Information Nutritional Screening High Risk Diagnosis sepsis Pertinent Medical Hx/Surgical Hx HTN, PUD/GERD, thyroid disorder, anemia, schizophrenia Subjective Information Pt seen in bed, disoriented, yelling, has 1:1 sitter in room. Per sitter, pt consumed 100% of breakfast and lunch today. Current Diet Order/ Nutrition Support soft/bland Pertinent Medications seroquel Pertinent Labs 12/25 BUN 26, Alb 3.5 Nutritional Hx/Data Height 5 ft 7 in Height (Calculated Centimeters) 170.2 Current Weight (lbs) 130 lb Weight (Calculated Kilograms) 59.0 Weight (Calculated Grams) [address].0 [place] Body Weight 148 Body Mass Index (BMI) 20.3 Weight Status Approriate GI Symptoms GI Symptoms None Last BM not indicated Difficult in: None Skin Integrity/Comment: intact Current %PO Good (75-100%) Estimated Nutritional Goals BEE in Kcals: Using Current wt Calories/Kcals/Kg 30-35 Kcals Calculated 4651-1892 Protein: Using Current wt Protein g/k.2 Protein Calculated 71 Fluid: ml 1620-2065ml (1ml/kcal) Nutritional Problem 1. Problem Problem increased nutritional needs Etiology increased metabolic demand Signs/Symptoms: dx of sepsis Malnutrition Alert Is there a minimum of two criteria No selected? Query Text:Check all the applicable criteria. A minimum of two criteria are recommended for diagnosis of either severe or non-severe malnutrition. Malnutrition Related to Morbid Obesity Malnutrition related to morbid obesity No Intervention/Recommendation Comments 1. Continue with soft/baland diet as ordered. 2. Monitor PO intake, wt, labs and skin integrity 3. F/U as moderate risk in 3-5 days Expected Outcomes/Goals Expected Outcomes/Goals 1. PO intake to meet at least 75% of nutritional needs. 2. Wt stability, skin to remain intact, labs to approach WNL.
--- NOTE | 2019-01-09 14:40 | General Progress Note ---
Subjective - Review of Systems Service Date: 01/09/19 Subjective: not in distress, awake, confused Objective - Results Result Diagrams: 01/09/19 03:55 01/07/19 05:55 Recent Labs: Laboratory Last Values WBC 13.7 Th/cmm (4.8-10.8) H 01/09/19 03:55 RBC 3.46 Mil/cmm (4.30-5.70) L 01/09/19 03:55 Hgb 9.7 gm/dL (12-16) L 01/09/19 03:55 Hct 29.8 % (41.0-60) L 01/09/19 03:55 MCV 86.1 fl (80-99) 01/09/19 03:55 MCH 27.9 pg (26.0-30.0) 01/09/19 03:55 MCHC Differential 32.4 pg (28.0-36.0) 01/09/19 03:55 RDW 14.5 % (11.5-20.0) 01/09/19 03:55 Plt Count 275 Th/cmm (150-400) 01/09/19 03:55 MPV 8.4 fl 01/09/19 03:55 Add Manual Diff YES 01/07/19 05:55 Neutrophils % 73.6 % (40.0-80.0) 01/09/19 03:55 Band Neutrophils % 1 % (0-10) 01/07/19 05:55 Lymphocytes % 10.7 % (20.0-50.0) L 01/09/19 03:55 Monocytes % 12.4 % (2.0-10.0) H 01/09/19 03:55 Eosinophils % 3.3 % (0.0-5.0) 01/09/19 03:55 Basophils % 0.0 % (0.0-2.0) 01/09/19 03:55 Neutrophils (Manual) 83 % (40-80) H 01/07/19 05:55 Lymphocytes 7 % (20-50) L 01/07/19 05:55 Monocytes 4 % (2-10) 01/07/19 05:55 Eosinophils 5 % (0-5) 01/07/19 05:55 Basophils 0 % (0-3) 01/07/19 05:55 Platelet Estimate ADEQUATE (NORMAL) 01/06/19 05:45 RBC Morph Micro Appear NORMAL (NORMAL) 01/06/19 05:45 Total Retics Counted 2.2 % (0.5-1.5) H 12/26/18 05:40 Absolute Retic 79.2 Th/cmm 12/26/18 05:40 Corrected Retic Count 1.5 % (0.5-1.5) 12/26/18 05:40 PT 10.9 SECONDS (9.5-11.5) 01/02/19 05:40 INR 1.05 (0.5-1.4) 01/02/19 05:40 Sodium 153 mEq/L (136-145) H 01/07/19 05:55 Potassium 3.8 mEq/L (3.5-5.1) 01/07/19 05:55 Chloride 115 mEq/L (98-107) H 01/07/19 05:55 Carbon Dioxide 29.5 mEq/L (21.0-31.0) 01/07/19 05:55 Anion Gap 12.3 (7.0-16.0) 01/07/19 05:55 BUN 21 mg/dL (7-25) 01/07/19 05:55 Creatinine 0.9 mg/dL (0.7-1.3) 01/07/19 05:55 Est GFR ( Amer) > 60.0 ml/min (>90) 01/07/19 05:55 Est GFR (Non-Af Amer) > 60.0 ml/min 01/07/19 05:55 BUN/Creatinine Ratio 23.3 01/07/19 05:55 Glucose 159 mg/dL (70-105) H 01/07/19 05:55 POC Glucose 87 MG/DL (70 - 105) 01/01/19 08:07 Whole Bld Lactic Acid 1.26 mmol/L (0.60-1.99) 01/04/19 12:10 Calcium 9.4 mg/dL (8.6-10.3) 01/07/19 05:55 Magnesium 2.1 mg/dL (1.9-2.7) 01/06/19 05:45 Iron 17 ug/dL (38-169) L 12/26/18 05:40 TIBC 210 ug/dL (250-450) L 12/26/18 05:40 Iron Saturation 8 % (15-55) L 12/26/18 05:40 Unsaturated IBC 193 ug/dL (111-343) 12/26/18 05:40 Ferritin 200 ng/mL (30-400) 12/26/18 05:40 Total Bilirubin 0.5 mg/dL (0.3-1.0) 01/07/19 05:55 AST 20 U/L (13-39) 01/07/19 05:55 ALT 20 U/L (7-52) 01/07/19 05:55 Alkaline Phosphatase 68 U/L (34-104) 01/07/19 05:55 Total Protein 5.5 gm/dL (6.0-8.3) L 01/07/19 05:55 Albumin 2.9 gm/dL (4.2-5.5) L 01/07/19 05:55 Globulin 2.6 gm/dL 01/07/19 05:55 Albumin/Globulin Ratio 1.1 (1.0-1.8) 01/07/19 05:55 Triglycerides 125 mg/dL (<150) 12/25/18 16:11 Cholesterol 154 mg/dL (<200) 12/25/18 16:11 LDL Cholesterol Direct 112 mg/dL (75-193) 12/25/18 16:11 HDL Cholesterol 37 mg/dL (23-92) 12/25/18 16:11 Vitamin B12 848 pg/mL (232-1245) 12/26/18 05:40 Folic Acid 6.9 ng/mL (>3.0) 12/26/18 05:40 TSH 2.61 uIU/ml (0.34-5.60) 12/25/18 16:11 Urine Source CATH 12/25/18 16:25 Urine Color COLORLESS 12/25/18 16:25 Urine Clarity CLEAR (CLEAR) 12/25/18 16:25 Urine pH 6.0 (4.6 - 8.0) 12/25/18 16:25 Ur Specific [place] 1.010 (1.005-1.030) 12/25/18 16:25 Urine Protein NEGATIVE mg/dL (NEGATIVE) 12/25/18 16:25 Urine Glucose (UA) NEGATIVE mg/dL (NEGATIVE) 12/25/18 16:25 Urine Ketones NEGATIVE mg/dL (NEGATIVE) 12/25/18 16:25 Urine Blood NEGATIVE (NEGATIVE) 12/25/18 16:25 Urine Nitrate NEGATIVE (NEGATIVE) 12/25/18 16:25 Urine Bilirubin NEGATIVE (NEGATIVE) 12/25/18 16:25 Urine Urobilinogen 0.2 E.U./dL (0.2 - 1.0) 12/25/18 16:25 Ur Leukocyte Esterase NEGATIVE (NEGATIVE) 12/25/18 16:25 Stool Occult Blood NEGATIVE (NEGATIVE) 01/06/19 18:00 Valproic Acid < 10.0 ug/mL (50.0-100.0) L 12/30/18 04:25 Carri[place] 0.06 mmol/L (0.5-1.0) L 12/30/18 04:25 RPR NONREACTIVE (NONREACTIVE) 12/25/18 16:11 Influenza A (Rapid) NEG FOR INF A 12/25/18 16:30 Influenza B (Rapid) NEG FOR INF B 12/25/18 16:30 - Physical Exam Vitals and I&O: Vital Signs Temp 99 F 01/09/19 12:39 Pulse 99 01/09/19 12:39 Resp 18 01/09/19 12:39 BP 133/71 01/09/19 12:39 Pulse Ox 97 01/09/19 12:05 Intake & Output 01/08/19 01/09/19 01/09/19 18:59 06:59 18:59 Intake Total 950 1550 1000 Balance 950 1550 1000 Weight (lbs) 65.589 kg 65.317 kg Intake: Intake, IV Amount 450 1450 1000 D5-0.45NS 1,000 ml @ 100 1000 1000 mls/hr IV .Q10H [facility] Rx#: [id number] Piperacillin Sodium/ 200 200 Tazobact 4.5 gm In Sodium Chloride 0.9% 100 ml @ 100 mls/hr IV Q8HR [facility] Rx #:[id number] Vancomycin HCl 1 gm In 250 250 Sodium Chloride 0.9% 250 ml @ 165 mls/hr IV Q12H [facility] Rx#:[id number] Oral 500 100 Other: # Voids 3 2 # Bowel Movements 0 1 Weight Source Bedscale Bedscale Active Medications: Current Medications Acetaminophen (Tylenol 650mg Supp) 650 mg RC Q6H PRN PRN Reason: Fever > 101 Stop: 03/05/19 08:02 Last Admin: 01/04/19 08:49 Dose: 650 mg Acetaminophen (Tylenol) 650 mg PO Q4H PRN PRN Reason: Fever > 101 Stop: 03/05/19 08:05 Acetylcysteine (Mucomyst 20%) 3 ml HHN Q4HRT [facility] Stop: 03/09/19 14:59 Last Admin: 01/09/19 12:03 Dose: 3 ml Albuterol/Ipratropium (Duoneb Neb) 3 ml HHN Q4HRT [facility] Stop: 03/05/19 10:59 Last Admin: 01/09/19 12:03 Dose: 3 ml Amlodipine Besylate (Norvasc) 10 mg PO DAILY [facility] Stop: 02/28/19 08:59 Last Admin: 01/09/19 09:18 Dose: 10 mg Ascorbic Acid (Vitamin C) 500 mg PO DAILY [facility] Stop: 03/01/19 08:59 Last Admin: 01/09/19 09:15 Dose: 500 mg Aspirin (Ecotrin) 81 mg PO DAILY [facility] Stop: 02/28/19 08:59 Last Admin: 01/09/19 09:16 Dose: 81 mg Benztropine Mesylate (Cogentin) 1 mg PO TID [facility] Stop: 02/28/19 08:59 Last Admin: 01/09/19 13:47 Dose: 1 mg Bisacodyl (Dulcolax 10 Mg Supp) 10 mg RC DAILY [facility] Stop: 02/28/19 08:59 Last Admin: 01/09/19 09:16 Dose: 10 mg Cholecalciferol (Vitamin D3) 5,000 iu PO DAILY [facility] Stop: 02/28/19 08:59 Last Admin: 01/09/19 09:15 Dose: 5,000 iu Clonazepam (Klonopin) 2 mg PO TID [facility]; Protocol Stop: 02/27/19 08:59 Last Admin: 01/09/19 13:47 Dose: 2 mg Clozapine 100 mg/ Clozapine 75 (mg) 175 mg PO BID [facility] Stop: 03/01/19 16:59 Last Admin: 01/09/19 09:18 Dose: 175 mg Famotidine (Pepcid) 40 mg PO DAILY [facility] Stop: 02/28/19 08:59 Last Admin: 01/09/19 09:15 Dose: 40 mg Piperacillin Sod/Tazobactam (Sod 4.5 gm/ Sodium Chloride) 100 mls @ 100 mls/hr IV Q8HR [facility] Stop: 03/05/19 12:59 Last Admin: 01/09/19 12:32 Dose: 100 mls/hr Dextrose/Sodium Chloride (D5-0.45ns) 1,000 mls @ 100 mls/hr IV .Q10H [facility] Stop: 03/07/19 19:59 Last Admin: 01/09/19 12:33 Dose: 100 mls/hr Vancomycin HCl 1 gm/ Sodium (Chloride) 250 mls @ 165 mls/hr IV Q12H [facility] Stop: 03/09/19 10:59 Last Admin: 01/09/19 10:37 Dose: 165 mls/hr Levothyroxine Sodium 0.025 mg/ (Levothyroxine Sodium 0.112 mg) 0.137 mg PO DAILY@0730 [facility] Stop: 02/28/19 07:29 Last Admin: 01/09/19 06:54 Dose: 0.137 mg Carrizo Carbonate (Eskalith) 300 mg PO BID [facility]; Protocol Stop: 02/28/19 08:59 Last Admin: 01/09/19 09:16 Dose: 300 mg Magnesium Hydroxide (Milk Of Magnesia) 30 ml PO HS [facility] Stop: 02/28/19 20:59 Last Admin: 01/08/19 20:58 Dose: Not Given Miscellaneous (Vancomycin Iv Per Pharmacy) 1 ea MC PRN PRN PRN Reason: PROTOCOL Stop: 03/08/19 19:27 Quetiapine Fumarate (Seroquel) 300 mg PO TID [facility]; Protocol Stop: 03/01/19 08:59 Last Admin: 01/09/19 13:47 Dose: 300 mg Valproate Sodium (Depakene) 500 mg PO BID [facility]; Protocol Stop: 02/28/19 08:59 Last Admin: 01/09/19 09:15 Dose: 500 mg General: Alert, No acute distress, Other (confused) HEENT: Atraumatic Neck: Supple Cardiovascular: Regular rate Lungs: Clear to auscultation, Normal air movement Abdomen: Bowel sounds, Soft, no Tender, no Hepatomegaly, no Distended, no Rebound, no Mass, no Guarding Extremities: no Clubbing, no Cyanosis Skin: no Rash Assessment/Plan - Assessment Assessment: The iron studies are suggestive of iron deficiency anemia. Stool occult blood was positive. The patient is being evaluated by the hand hardener. He will be given iron by IV route because of his poor compliance. The leukocytosis could be secondary to lithium or reactive and the patient is on antibiotics with improvement of the white count. 01/09/19: hgb stable, completed iv iron. s/p EGD/COLO. leukocytosis improving per ID. follow cbc Nutritional Asmnt/Malnutr-PDOC - Dietary Evaluation Malnutrition Findings (Please click <Entered> for more info): Nutritional Asmnt/Malnutrition Start: 12/26/18 15: 09 Text: Status: Complete Freq: Protocol: Document 12/26/18 15:09 ESPERANZAG (Rec: 12/26/18 15:12 BONITA [email or web address]) Nutritional Asmnt/Malnutrition Patient General Information Nutritional Screening High Risk Diagnosis sepsis Pertinent Medical Hx/Surgical Hx HTN, PUD/GERD, thyroid disorder, anemia, schizophrenia Subjective Information Pt seen in bed, disoriented, yelling, has 1:1 sitter in room. Per sitter, pt consumed 100% of breakfast and lunch today. Current Diet Order/ Nutrition Support soft/bland Pertinent Medications seroquel Pertinent Labs 12/25 BUN 26, Alb 3.5 Nutritional Hx/Data Height 1.7 m Height (Calculated Centimeters) 170.2 Current Weight (lbs) 58.967 kg Weight (Calculated Kilograms) 59.0 Weight (Calculated Grams) 32997.0 [place] Body Weight 148 Body Mass Index (BMI) 20.3 Weight Status Approriate GI Symptoms GI Symptoms None Last BM not indicated Difficult in: None Skin Integrity/Comment: intact Current %PO Good (75-100%) Estimated Nutritional Goals BEE in Kcals: Using Current wt Calories/Kcals/Kg 30-35 Kcals Calculated 8768-5759 Protein: Using Current wt Protein g/k.2 Protein Calculated 71 Fluid: ml 1620-2065ml (1ml/kcal) Nutritional Problem 1. Problem Problem increased nutritional needs Etiology increased metabolic demand Signs/Symptoms: dx of sepsis Malnutrition Alert Is there a minimum of two criteria No selected? Query Text:Check all the applicable criteria. A minimum of two criteria are recommended for diagnosis of either severe or non-severe malnutrition. Malnutrition Related to Morbid Obesity Malnutrition related to morbid obesity No Intervention/Recommendation Comments 1. Continue with soft/baland diet as ordered. 2. Monitor PO intake, wt, labs and skin integrity 3. F/U as moderate risk in 3-5 days Expected Outcomes/Goals Expected Outcomes/Goals 1. PO intake to meet at least 75% of nutritional needs. 2. Wt stability, skin to remain intact, labs to approach WNL.
--- NOTE | 2019-01-09 20:17 | Progress Notes ---
DATE: 01/09/2019 PULMONARY PROGRESS NOTE SUBJECTIVE: The patient appears to be doing okay, no distress. OBJECTIVE: VITAL SIGNS: Temperature 98.8, pulse 91, respirations 18, blood pressure 135/88, saturations 97%. CHEST: Good breath sounds, no wheezing, few rhonchi. HEART: Regular rate and rhythm. ABDOMEN: Soft. EXTREMITIES: No edema. LABORATORY DATA: WBC 13.7, hemoglobin 9.7, hematocrit 29.8, platelets 275. Chest x-ray showed extensive infiltrate in the left side. IMPRESSION: 1. Respiratory failure. 2. Pneumonia, improving. 3. Weakness. 4. Dementia, psychosis. 5. Lung atelectasis/infiltrates. PLAN: 1. Nebulizer treatment. 2. Pulmonary toilet. 3. Antibiotics. 4. CPT. 5. Mucomyst. 6. CT of the chest for better evaluation. JOB# [id number]
[2019-01-09] MEDS: Magnesium Hydroxide (MOM) 30 mL UDC PO SCH (20:52)
[2019-01-10] MEDS: Albuterol/Ipratropium Neb 3 ML AERS HHN SCH ×5 (02:08→23:08)
[2019-01-10 06:35] LABS: HEMATOCRIT 30.9 % (41.0-60); HEMOGLOBIN 10.2 gm/dL (12-16); MEAN CELL VOLUME 84.9 fl (80-99); MEAN CORPUSCULAR HEMOGLOBIN 27.9 pg (26.0-30.0); MEAN CORPUSCULAR HGB CONC 32.9 pg (28.0-36.0); MEAN PLATELET VOLUME 8.4 fl; RED BLOOD COUNT 3.64 Mil/cmm (4.30-5.70); RED CELL DISTRIBUTION WIDTH 14.4 % (11.5-20.0); WHITE BLOOD COUNT 14.6 Th/cmm (4.8-10.8)
[2019-01-10 06:54] LABS: ANION GAP 9.9 (7.0-16.0); BUN - UREA NITROGEN 13 mg/dL (7-25); CALCIUM SERUM 8.9 mg/dL (8.6-10.3); CHLORIDE 115 mEq/L (98-107); CREATININE - SERUM 0.8 mg/dL (0.7-1.3); GFR AFRICAN-AMERICAN > 60.0 ml/min (>90); GFR NON AFRICAN-AMERICAN > 60.0 ml/min; GLUCOSE 120 mg/dL (70-105); SODIUM SERUM 153 mEq/L (136-145)
[2019-01-10 07:22] LABS: POTASSIUM SERUM 2.9 mEq/L (3.5-5.1)
[2019-01-10] MEDS ORDERED: Potassium Chloride 20 mEq ER Tab PO ONE ×2 (07:25→10:00)
[2019-01-10] MEDS: Benztropine 1 MG TAB PO SCH ×3 (09:12→21:28)
[2019-01-10] MEDS: Multivitamin w/ Minerals Tab PO SCH (09:13)
[2019-01-10] MEDS: cloZAPine 100 MG, cloZAPine 75 MG PO SCH ×2 (09:15→16:21)
--- NOTE | 2019-01-10 09:19 | Diagnostic Imaging Report ---
CT scan of the chest without intravenous contrast HISTORY: Pneumonia Total DLP equals 235 CTDI equals 7.2 Axial sections were obtained from a level above the clavicles down to level below the diaphragm. Evaluation of the vascular and hilar structures limited due to the absence of intravenous contrast. Heart size is somewhat generous. There is extensive abnormal parenchymal density/infiltrate noted throughout the left lung. Findings result in obscuration of margins of the left hilum. Narrowing of left main bronchus as well as the left upper and left lower lobe bronchi. Hilar pathology cannot be excluded. Ill-defined infiltrate noted within the right lower lobe with suggestion of subcentimeter nodules. Neoplastic involvement cannot be excluded. Right hilar fullness. Small bilateral pleural effusions. IMPRESSION: 1. Extensive abnormal pulmonary parenchymal density which occupies the majority of the left lung along with diffuse infiltrate. Findings result in obscuration of the margins the left hilum with narrowing of the left main bronchus and left upper and lower lobe bronchi. Left hilar pathology including neoplasm cannot be excluded. 2. Ill-defined somewhat multifocal infiltrate within the right lower lobe along with subcentimeter nodules. Again, neoplasm cannot be excluded. 3. Small bilateral pleural effusions
[2019-01-10] MEDS: D5-0.45NS 1,000 ML IV SCH (10:42)
[2019-01-10 12:04] LABS: NEUTROPHILS 73 % (40-80); PLATELET COUNT 290 Th/cmm (150-400)
[2019-01-10 12:05] LABS: BAND NEUTROPHILE 5 % (0-10); BASOPHIL 0 % (0-3); EOSINOPHIL 7 % (0-5); LYMPHOCYTE 5 % (20-50); MONOCYTE 10 % (2-10)
--- NOTE | 2019-01-10 17:17 | Progress Notes ---
DATE: 01/10/2019 SUBJECTIVE: The patient was seen in his room. The patient is awake, confused. He states he is frustrated and agitated. The patient currently on bilateral soft wrist restraints for safety. Otherwise, the patient appears to be in no acute distress. OBJECTIVE: VITAL SIGNS: Temperature 98.8, heart rate 92, blood pressure 106/55, respirations 18, 97% on 2 liters via nasal cannula. HEENT: Head is atraumatic and normocephalic. Eyes: Bilateral conjunctivae are clear. Bilateral pupils are equally round and reactive. NECK: Supple. No JVD. CARDIOVASCULAR: S1 and S2 without murmur. PULMONARY: Decreased breath sounds. GASTROINTESTINAL: Soft and nontender without guarding. Positive bowel sounds. MUSCULOSKELETAL: No clubbing. No cyanosis noted. ASSESSMENT: 1. Pneumonia. 2. Schizophrenia. 3. Iron deficiency anemia. 4. Hypothyroidism. 5. Hypertension. PLAN: We will continue current treatment. Continue current antibiotics. We will put the patient on aspiration precaution and put the patient on fall precautions as well. Treatment were discussed with the patient's nurse. Treatment plans were discussed with Dr. Farah. JOB# [id number]
--- NOTE | 2019-01-10 18:11 | Infectious Disease Prog Note ---
Infectious Disease Subjective - Review of Systems Service Date: 01/10/19 Subjective: Patient's fever has resolved, some improvement in leukocytosis. Blood culture grew Staph aureus. Infectious Disease Objective - Results Result Diagrams: 01/10/19 06:08 01/10/19 06:08 Recent Labs: Laboratory Last Values WBC 14.6 Th/cmm (4.8-10.8) H 01/10/19 06:08 RBC 3.64 Mil/cmm (4.30-5.70) L 01/10/19 06:08 Hgb 10.2 gm/dL (12-16) L 01/10/19 06:08 Hct 30.9 % (41.0-60) L 01/10/19 06:08 MCV 84.9 fl (80-99) 01/10/19 06:08 MCH 27.9 pg (26.0-30.0) 01/10/19 06:08 MCHC Differential 32.9 pg (28.0-36.0) 01/10/19 06:08 RDW 14.4 % (11.5-20.0) 01/10/19 06:08 Plt Count 290 Th/cmm (150-400) 01/10/19 06:08 MPV 8.4 fl 01/10/19 06:08 Add Manual Diff YES 01/10/19 06:08 Neutrophils % 73.6 % (40.0-80.0) 01/09/19 03:55 Band Neutrophils % 5 % (0-10) 01/10/19 06:08 Lymphocytes % 10.7 % (20.0-50.0) L 01/09/19 03:55 Monocytes % 12.4 % (2.0-10.0) H 01/09/19 03:55 Eosinophils % 3.3 % (0.0-5.0) 01/09/19 03:55 Basophils % 0.0 % (0.0-2.0) 01/09/19 03:55 Neutrophils (Manual) 73 % (40-80) 01/10/19 06:08 Lymphocytes 5 % (20-50) L 01/10/19 06:08 Monocytes 10 % (2-10) 01/10/19 06:08 Eosinophils 7 % (0-5) H 01/10/19 06:08 Basophils 0 % (0-3) 01/10/19 06:08 Platelet Estimate ADEQUATE (NORMAL) 01/06/19 05:45 RBC Morph Micro Appear NORMAL (NORMAL) 01/06/19 05:45 Total Retics Counted 2.2 % (0.5-1.5) H 12/26/18 05:40 Absolute Retic 79.2 Th/cmm 12/26/18 05:40 Corrected Retic Count 1.5 % (0.5-1.5) 12/26/18 05:40 PT 10.9 SECONDS (9.5-11.5) 01/02/19 05:40 INR 1.05 (0.5-1.4) 01/02/19 05:40 Sodium 153 mEq/L (136-145) H 01/10/19 06:08 Potassium 2.9 mEq/L (3.5-5.1) L* 01/10/19 06:08 Chloride 115 mEq/L (98-107) H 01/10/19 06:08 Carbon Dioxide 31.0 mEq/L (21.0-31.0) 01/10/19 06:08 Anion Gap 9.9 (7.0-16.0) 01/10/19 06:08 BUN 13 mg/dL (7-25) 01/10/19 06:08 Creatinine 0.8 mg/dL (0.7-1.3) 01/10/19 06:08 Est GFR ( Amer) > 60.0 ml/min (>90) 01/10/19 06:08 Est GFR (Non-Af Amer) > 60.0 ml/min 01/10/19 06:08 BUN/Creatinine Ratio 16.3 01/10/19 06:08 Glucose 120 mg/dL (70-105) H 01/10/19 06:08 POC Glucose 87 MG/DL (70 - 105) 01/01/19 08:07 Whole Bld Lactic Acid 1.26 mmol/L (0.60-1.99) 01/04/19 12:10 Calcium 8.9 mg/dL (8.6-10.3) 01/10/19 06:08 Magnesium 2.1 mg/dL (1.9-2.7) 01/06/19 05:45 Iron 17 ug/dL (38-169) L 12/26/18 05:40 TIBC 210 ug/dL (250-450) L 12/26/18 05:40 Iron Saturation 8 % (15-55) L 12/26/18 05:40 Unsaturated IBC 193 ug/dL (111-343) 12/26/18 05:40 Ferritin 200 ng/mL (30-400) 12/26/18 05:40 Total Bilirubin 0.5 mg/dL (0.3-1.0) 01/07/19 05:55 AST 20 U/L (13-39) 01/07/19 05:55 ALT 20 U/L (7-52) 01/07/19 05:55 Alkaline Phosphatase 68 U/L (34-104) 01/07/19 05:55 Total Protein 5.5 gm/dL (6.0-8.3) L 01/07/19 05:55 Albumin 2.9 gm/dL (4.2-5.5) L 01/07/19 05:55 Globulin 2.6 gm/dL 01/07/19 05:55 Albumin/Globulin Ratio 1.1 (1.0-1.8) 01/07/19 05:55 Triglycerides 125 mg/dL (<150) 12/25/18 16:11 Cholesterol 154 mg/dL (<200) 12/25/18 16:11 LDL Cholesterol Direct 112 mg/dL (75-193) 12/25/18 16:11 HDL Cholesterol 37 mg/dL (23-92) 12/25/18 16:11 Vitamin B12 848 pg/mL (232-1245) 12/26/18 05:40 Folic Acid 6.9 ng/mL (>3.0) 12/26/18 05:40 TSH 2.61 uIU/ml (0.34-5.60) 12/25/18 16:11 Urine Source CATH 12/25/18 16:25 Urine Color COLORLESS 12/25/18 16:25 Urine Clarity CLEAR (CLEAR) 12/25/18 16:25 Urine pH 6.0 (4.6 - 8.0) 12/25/18 16:25 Ur Specific [place] 1.010 (1.005-1.030) 12/25/18 16:25 Urine Protein NEGATIVE mg/dL (NEGATIVE) 12/25/18 16:25 Urine Glucose (UA) NEGATIVE mg/dL (NEGATIVE) 12/25/18 16:25 Urine Ketones NEGATIVE mg/dL (NEGATIVE) 12/25/18 16:25 Urine Blood NEGATIVE (NEGATIVE) 12/25/18 16:25 Urine Nitrate NEGATIVE (NEGATIVE) 12/25/18 16:25 Urine Bilirubin NEGATIVE (NEGATIVE) 12/25/18 16:25 Urine Urobilinogen 0.2 E.U./dL (0.2 - 1.0) 12/25/18 16:25 Ur Leukocyte Esterase NEGATIVE (NEGATIVE) 12/25/18 16:25 Stool Occult Blood NEGATIVE (NEGATIVE) 01/06/19 18:00 Vancomycin Trough 8.2 ug/mL (5-10) 01/09/19 22:00 Valproic Acid < 10.0 ug/mL (50.0-100.0) L 12/30/18 04:25 Cochrane 0.06 mmol/L (0.5-1.0) L 12/30/18 04:25 RPR NONREACTIVE (NONREACTIVE) 12/25/18 16:11 Influenza A (Rapid) NEG FOR INF A 12/25/18 16:30 Influenza B (Rapid) NEG FOR INF B 12/25/18 16:30 - Physical Exam Vitals and I&O: Vital Signs Temp 98 F 01/10/19 15:57 Pulse 86 01/10/19 15:57 Resp 18 01/10/19 15:57 BP 103/57 01/10/19 15:57 Pulse Ox 92 01/10/19 15:56 Intake & Output 01/09/19 01/10/19 01/10/19 18:59 06:59 18:59 Intake Total 2350 1690 1800 Balance 2350 1690 1800 Weight (lbs) 68.946 kg 68.946 kg 70.307 kg Intake: Intake, IV Amount 1350 1450 1000 D5-0.45NS 1,000 ml @ 100 1000 1000 1000 mls/hr IV .Q10H [facility] Rx#: [id number] Piperacillin Sodium/ 100 200 Tazobact 4.5 gm In Sodium Chloride 0.9% 100 ml @ 100 mls/hr IV Q8HR [facility] Rx #:[id number] Vancomycin HCl 1 gm In 250 250 Sodium Chloride 0.9% 250 ml @ 165 mls/hr IV Q12H [facility] Rx#:[id number] Oral 1000 240 800 Other: # Voids 4 2 6 # Bowel Movements 1 0 1 Weight Source Bedscale Bedscale Bedscale Active Medications: Current Medications Acetaminophen (Tylenol 650mg Supp) 650 mg RC Q6H PRN PRN Reason: Fever > 101 Stop: 03/05/19 08:02 Last Admin: 01/04/19 08:49 Dose: 650 mg Acetaminophen (Tylenol) 650 mg PO Q4H PRN PRN Reason: Fever > 101 Stop: 03/05/19 08:05 Last Admin: 01/10/19 07:43 Dose: 650 mg Acetylcysteine (Mucomyst 20%) 3 ml HHN Q4HRT [facility] Stop: 03/09/19 14:59 Last Admin: 01/10/19 14:39 Dose: 3 ml Albuterol/Ipratropium (Duoneb Neb) 3 ml HHN Q4HRT [facility] Stop: 03/05/19 10:59 Last Admin: 01/10/19 14:39 Dose: 3 ml Amlodipine Besylate (Norvasc) 10 mg PO DAILY [facility] Stop: 02/28/19 08:59 Last Admin: 01/10/19 09:12 Dose: 10 mg Ascorbic Acid (Vitamin C) 500 mg PO DAILY [facility] Stop: 03/01/19 08:59 Last Admin: 01/10/19 09:12 Dose: 500 mg Aspirin (Ecotrin) 81 mg PO DAILY [facility] Stop: 02/28/19 08:59 Last Admin: 01/10/19 09:12 Dose: 81 mg Benztropine Mesylate (Cogentin) 1 mg PO TID [facility] Stop: 02/28/19 08:59 Last Admin: 01/10/19 13:01 Dose: 1 mg Bisacodyl (Dulcolax 10 Mg Supp) 10 mg RC DAILY [facility] Stop: 02/28/19 08:59 Last Admin: 01/10/19 09:11 Dose: 10 mg Cholecalciferol (Vitamin D3) 5,000 iu PO DAILY [facility] Stop: 02/28/19 08:59 Last Admin: 01/10/19 09:12 Dose: 5,000 iu Clonazepam (Klonopin) 2 mg PO TID [facility]; Protocol Stop: 02/27/19 08:59 Last Admin: 01/10/19 13:01 Dose: 2 mg Clozapine 100 mg/ Clozapine 75 (mg) 175 mg PO BID [facility] Stop: 03/01/19 16:59 Last Admin: 01/10/19 16:21 Dose: Not Given Famotidine (Pepcid) 40 mg PO DAILY [facility] Stop: 02/28/19 08:59 Last Admin: 01/10/19 09:13 Dose: 40 mg Piperacillin Sod/Tazobactam (Sod 4.5 gm/ Sodium Chloride) 100 mls @ 100 mls/hr IV Q8HR [facility] Stop: 03/05/19 12:59 Last Admin: 01/10/19 13:00 Dose: 100 mls/hr Dextrose/Sodium Chloride (D5-0.45ns) 1,000 mls @ 100 mls/hr IV .Q10H [facility] Stop: 03/07/19 19:59 Last Admin: 01/10/19 10:42 Dose: 100 mls/hr Vancomycin HCl 1.25 gm/ Sodium (Chloride) 250 mls @ 165 mls/hr IV Q12H [facility] Stop: 03/11/19 10:59 Last Admin: 01/10/19 10:42 Dose: 165 mls/hr Levothyroxine Sodium 0.025 mg/ (Levothyroxine Sodium 0.112 mg) 0.137 mg PO DAILY@0730 [facility] Stop: 02/28/19 07:29 Last Admin: 01/10/19 06:35 Dose: 0.137 mg Cochrane Carbonate (Eskalith) 300 mg PO BID [facility]; Protocol Stop: 02/28/19 08:59 Last Admin: 01/10/19 16:21 Dose: 300 mg Magnesium Hydroxide (Milk Of Magnesia) 30 ml PO HS [facility] Stop: 02/28/19 20:59 Last Admin: 01/09/19 20:52 Dose: 30 ml Miscellaneous (Vancomycin Iv Per Pharmacy) 1 ea MC PRN PRN PRN Reason: PROTOCOL Stop: 03/08/19 19:27 Quetiapine Fumarate (Seroquel) 300 mg PO TID [facility]; Protocol Stop: 03/01/19 08:59 Last Admin: 01/10/19 13:01 Dose: 300 mg Valproate Sodium (Depakene) 500 mg PO BID [facility]; Protocol Stop: 02/28/19 08:59 Last Admin: 01/10/19 16:20 Dose: 500 mg General: no acute distress, well developed, well nourished HEENT: atraumatic, normocephalic, PERRLA, EOMI Neck: supple, no thyromegaly Cardiovascular: S1S2, regular Lungs: clear to auscultation bilaterally, clear to percussion Abdomen: soft, no tender, no distended Extremities: no cyanosis, no clubbing, no edema Neurological: awake, alert, oriented Skin: intact Infectious Disease Assmt/Plan - Assessment Assessment: 1. Sepsis. staph aureus sepsis. 2. Pneumonia. 3. Leukocytosis, suspect sepsis as patient also had lactic acidosis and tachycardia on presentation. 4. Hypothyroidism. 5. Anemia. 6. Schizophrenia. 7. Hypertension. 8. History of gastroesophageal reflux disease. 9. Iron deficiency anemia. 10. Aggressive behaviour. - Plan Plan: Continue Zosyn and Vanco IV for 12 more days.. Sepsis w/u. Repeat the blood cs. Lab in am. Nutritional Asmnt/Malnutr-PDOC - Dietary Evaluation Malnutrition Findings (Please click <Entered> for more info): Nutritional Asmnt/Malnutrition Start: 12/26/18 15: 09 Text: Status: Complete Freq: Protocol: Document 12/26/18 15:09 LCHENG (Rec: 12/26/18 15:12 [email or web address]) Nutritional Asmnt/Malnutrition Patient General Information Nutritional Screening High Risk Diagnosis sepsis Pertinent Medical Hx/Surgical Hx HTN, PUD/GERD, thyroid disorder, anemia, schizophrenia Subjective Information Pt seen in bed, disoriented, yelling, has 1:1 sitter in room. Per sitter, pt consumed 100% of breakfast and lunch today. Current Diet Order/ Nutrition Support soft/bland Pertinent Medications seroquel Pertinent Labs 12/25 BUN 26, Alb 3.5 Nutritional Hx/Data Height 1.7 m Height (Calculated Centimeters) 170.2 Current Weight (lbs) 58.967 kg Weight (Calculated Kilograms) 59.0 Weight (Calculated Grams) 33171.0 [place] Body Weight 148 Body Mass Index (BMI) 20.3 Weight Status Approriate GI Symptoms GI Symptoms None Last BM not indicated Difficult in: None Skin Integrity/Comment: intact Current %PO Good (75-100%) Estimated Nutritional Goals BEE in Kcals: Using Current wt Calories/Kcals/Kg 30-35 Kcals Calculated 5906-2454 Protein: Using Current wt Protein g/k.2 Protein Calculated 71 Fluid: ml 1620-2065ml (1ml/kcal) Nutritional Problem 1. Problem Problem increased nutritional needs Etiology increased metabolic demand Signs/Symptoms: dx of sepsis Malnutrition Alert Is there a minimum of two criteria No selected? Query Text:Check all the applicable criteria. A minimum of two criteria are recommended for diagnosis of either severe or non-severe malnutrition. Malnutrition Related to Morbid Obesity Malnutrition related to morbid obesity No Intervention/Recommendation Comments 1. Continue with soft/baland diet as ordered. 2. Monitor PO intake, wt, labs and skin integrity 3. F/U as moderate risk in 3-5 days Expected Outcomes/Goals Expected Outcomes/Goals 1. PO intake to meet at least 75% of nutritional needs. 2. Wt stability, skin to remain intact, labs to approach WNL.
[2019-01-10] MEDS: Magnesium Hydroxide (MOM) 30 mL UDC PO SCH (21:30)
--- NOTE | 2019-01-10 23:00 | Progress Notes ---
DATE: 01/10/2019 PHYSICAL EXAMIMATION GENERAL: The patient appears to be comfortable, confused, no distress. VITAL SIGNS: Temperature is 98.0, pulse 91, respiration 18, blood pressure 132/68, saturation 97%. CHEST: Good breath sounds, decreased in the left side. HEART: Regular rate and rhythm. ABDOMEN: Soft. EXTREMITIES: Edema. Extensive infiltrate in the left side and pneumonia on the right base. Not much effusion. LABORATORY DATA: WBC is 14.6, hemoglobin 10.2, platelets 290. Sodium 153, potassium 2.9, BUN 13, creatinine 0.8. IMRESSION: 1. Respiratory failure. 2. Pneumonia. 3. Chronic obstructive pulmonary disease. 4. Weakness. PLAN: 1. Nebulizer treatment. 2. Antibiotics. 3. Follow up chest x-ray. 4. Supportive care. 5. My treatment benefit from long-term acute care evaluation. JOB# [id number]
[2019-01-11] MEDS: Albuterol/Ipratropium Neb 3 ML AERS HHN SCH ×6 (02:23→22:42)
[2019-01-11 06:40] LABS: ANION GAP 9.2 (7.0-16.0); BUN - UREA NITROGEN 13 mg/dL (7-25); CALCIUM SERUM 8.8 mg/dL (8.6-10.3); CARBON DIOXIDE 32.3 mEq/L (21.0-31.0); CHLORIDE 114 mEq/L (98-107); CREATININE - SERUM 0.7 mg/dL (0.7-1.3); GFR AFRICAN-AMERICAN > 60.0 ml/min (>90); GFR NON AFRICAN-AMERICAN > 60.0 ml/min; GLUCOSE 119 mg/dL (70-105); POTASSIUM SERUM 3.5 mEq/L (3.5-5.1); SODIUM SERUM 152 mEq/L (136-145)
[2019-01-11] MEDS: Benztropine 1 MG TAB PO SCH ×3 (08:39→22:35)
[2019-01-11] MEDS: cloZAPine 100 MG, cloZAPine 75 MG PO SCH ×2 (08:41→17:00)
[2019-01-11] MEDS: Multivitamin w/ Minerals Tab PO SCH (08:44)
--- NOTE | 2019-01-11 09:15 | Internal Medicine Prog Note ---
Internal Medicine Subjective - Subjective Patient seen and examined:: chart reviewed Patient is:: awake, verbal, in bed, confused, other Patient Complaints of:: cough, SOB Per staff patient has:: no adverse event, agitated, confused Internal Medicine Objective - Results Result Diagrams: 01/10/19 06:08 01/11/19 06:10 Recent Labs: Laboratory Last Values WBC 14.6 Th/cmm (4.8-10.8) H 01/10/19 06:08 RBC 3.64 Mil/cmm (4.30-5.70) L 01/10/19 06:08 Hgb 10.2 gm/dL (12-16) L 01/10/19 06:08 Hct 30.9 % (41.0-60) L 01/10/19 06:08 MCV 84.9 fl (80-99) 01/10/19 06:08 MCH 27.9 pg (26.0-30.0) 01/10/19 06:08 MCHC Differential 32.9 pg (28.0-36.0) 01/10/19 06:08 RDW 14.4 % (11.5-20.0) 01/10/19 06:08 Plt Count 290 Th/cmm (150-400) 01/10/19 06:08 MPV 8.4 fl 01/10/19 06:08 Add Manual Diff YES 01/10/19 06:08 Neutrophils % 73.6 % (40.0-80.0) 01/09/19 03:55 Band Neutrophils % 5 % (0-10) 01/10/19 06:08 Lymphocytes % 10.7 % (20.0-50.0) L 01/09/19 03:55 Monocytes % 12.4 % (2.0-10.0) H 01/09/19 03:55 Eosinophils % 3.3 % (0.0-5.0) 01/09/19 03:55 Basophils % 0.0 % (0.0-2.0) 01/09/19 03:55 Neutrophils (Manual) 73 % (40-80) 01/10/19 06:08 Lymphocytes 5 % (20-50) L 01/10/19 06:08 Monocytes 10 % (2-10) 01/10/19 06:08 Eosinophils 7 % (0-5) H 01/10/19 06:08 Basophils 0 % (0-3) 01/10/19 06:08 Platelet Estimate ADEQUATE (NORMAL) 01/06/19 05:45 RBC Morph Micro Appear NORMAL (NORMAL) 01/06/19 05:45 Total Retics Counted 2.2 % (0.5-1.5) H 12/26/18 05:40 Absolute Retic 79.2 Th/cmm 12/26/18 05:40 Corrected Retic Count 1.5 % (0.5-1.5) 12/26/18 05:40 PT 10.9 SECONDS (9.5-11.5) 01/02/19 05:40 INR 1.05 (0.5-1.4) 01/02/19 05:40 Sodium 152 mEq/L (136-145) H 01/11/19 06:10 Potassium 3.5 mEq/L (3.5-5.1) 01/11/19 06:10 Chloride 114 mEq/L (98-107) H 01/11/19 06:10 Carbon Dioxide 32.3 mEq/L (21.0-31.0) H 01/11/19 06:10 Anion Gap 9.2 (7.0-16.0) 01/11/19 06:10 BUN 13 mg/dL (7-25) 01/11/19 06:10 Creatinine 0.7 mg/dL (0.7-1.3) 01/11/19 06:10 Est GFR ( Amer) > 60.0 ml/min (>90) 01/11/19 06:10 Est GFR (Non-Af Amer) > 60.0 ml/min 01/11/19 06:10 BUN/Creatinine Ratio 18.6 01/11/19 06:10 Glucose 119 mg/dL (70-105) H 01/11/19 06:10 POC Glucose 87 MG/DL (70 - 105) 01/01/19 08:07 Whole Bld Lactic Acid 1.26 mmol/L (0.60-1.99) 01/04/19 12:10 Calcium 8.8 mg/dL (8.6-10.3) 01/11/19 06:10 Magnesium 2.1 mg/dL (1.9-2.7) 01/06/19 05:45 Iron 17 ug/dL (38-169) L 12/26/18 05:40 TIBC 210 ug/dL (250-450) L 12/26/18 05:40 Iron Saturation 8 % (15-55) L 12/26/18 05:40 Unsaturated IBC 193 ug/dL (111-343) 12/26/18 05:40 Ferritin 200 ng/mL (30-400) 12/26/18 05:40 Total Bilirubin 0.5 mg/dL (0.3-1.0) 01/07/19 05:55 AST 20 U/L (13-39) 01/07/19 05:55 ALT 20 U/L (7-52) 01/07/19 05:55 Alkaline Phosphatase 68 U/L (34-104) 01/07/19 05:55 Total Protein 5.5 gm/dL (6.0-8.3) L 01/07/19 05:55 Albumin 2.9 gm/dL (4.2-5.5) L 01/07/19 05:55 Globulin 2.6 gm/dL 01/07/19 05:55 Albumin/Globulin Ratio 1.1 (1.0-1.8) 01/07/19 05:55 Triglycerides 125 mg/dL (<150) 12/25/18 16:11 Cholesterol 154 mg/dL (<200) 12/25/18 16:11 LDL Cholesterol Direct 112 mg/dL (75-193) 12/25/18 16:11 HDL Cholesterol 37 mg/dL (23-92) 12/25/18 16:11 Vitamin B12 848 pg/mL (232-1245) 12/26/18 05:40 Folic Acid 6.9 ng/mL (>3.0) 12/26/18 05:40 TSH 2.61 uIU/ml (0.34-5.60) 12/25/18 16:11 Urine Source CATH 12/25/18 16:25 Urine Color COLORLESS 12/25/18 16:25 Urine Clarity CLEAR (CLEAR) 12/25/18 16:25 Urine pH 6.0 (4.6 - 8.0) 12/25/18 16:25 Ur Specific [place] 1.010 (1.005-1.030) 12/25/18 16:25 Urine Protein NEGATIVE mg/dL (NEGATIVE) 12/25/18 16:25 Urine Glucose (UA) NEGATIVE mg/dL (NEGATIVE) 12/25/18 16:25 Urine Ketones NEGATIVE mg/dL (NEGATIVE) 12/25/18 16:25 Urine Blood NEGATIVE (NEGATIVE) 12/25/18 16:25 Urine Nitrate NEGATIVE (NEGATIVE) 12/25/18 16:25 Urine Bilirubin NEGATIVE (NEGATIVE) 12/25/18 16:25 Urine Urobilinogen 0.2 E.U./dL (0.2 - 1.0) 12/25/18 16:25 Ur Leukocyte Esterase NEGATIVE (NEGATIVE) 12/25/18 16:25 Stool Occult Blood NEGATIVE (NEGATIVE) 01/06/19 18:00 Vancomycin Trough 8.2 ug/mL (5-10) 01/09/19 22:00 Valproic Acid < 10.0 ug/mL (50.0-100.0) L 12/30/18 04:25 [place] 0.06 mmol/L (0.5-1.0) L 12/30/18 04:25 RPR NONREACTIVE (NONREACTIVE) 12/25/18 16:11 Influenza A (Rapid) NEG FOR INF A 12/25/18 16:30 Influenza B (Rapid) NEG FOR INF B 12/25/18 16:30 - Physical Exam Vitals and I&O: Vital Signs Temp 98.2 F 01/11/19 08:00 Pulse 85 01/11/19 08:00 Resp 19 01/11/19 08:00 BP 108/64 01/11/19 08:00 Pulse Ox 91 01/11/19 08:00 Intake & Output 01/10/19 01/11/19 01/11/19 18:59 06:59 18:59 Intake Total 2150 200 Balance 2150 200 Weight (lbs) 70.307 kg 70.307 kg Intake: Intake, IV Amount 1350 100 D5-0.45NS 1,000 ml @ 100 1000 mls/hr IV .Q10H [facility] Rx#: [id number] Piperacillin Sodium/ 100 100 Tazobact 4.5 gm In Sodium Chloride 0.9% 100 ml @ 100 mls/hr IV Q8HR [facility] Rx #:[id number] Vancomycin HCl 1.25 gm In 250 Sodium Chloride 0.9% 250 ml @ 165 mls/hr IV Q12H [facility] Rx#:[id number] Oral 800 100 Other: # Voids 6 5 # Bowel Movements 1 1 Weight Source Bedscale Bedscale Active Medications: Current Medications Acetaminophen (Tylenol 650mg Supp) 650 mg RC Q6H PRN PRN Reason: Fever > 101 Stop: 03/05/19 08:02 Last Admin: 01/04/19 08:49 Dose: 650 mg Acetaminophen (Tylenol) 650 mg PO Q4H PRN PRN Reason: Fever > 101 Stop: 03/05/19 08:05 Last Admin: 01/10/19 07:43 Dose: 650 mg Acetylcysteine (Mucomyst 20%) 3 ml HHN Q4HRT [facility] Stop: 03/09/19 14:59 Last Admin: 01/11/19 06:04 Dose: 3 ml Albuterol/Ipratropium (Duoneb Neb) 3 ml HHN Q4HRT [facility] Stop: 03/05/19 10:59 Last Admin: 01/11/19 06:02 Dose: 3 ml Amlodipine Besylate (Norvasc) 10 mg PO DAILY [facility] Stop: 02/28/19 08:59 Last Admin: 01/11/19 08:35 Dose: Not Given Ascorbic Acid (Vitamin C) 500 mg PO DAILY [facility] Stop: 03/01/19 08:59 Last Admin: 01/11/19 08:37 Dose: Not Given Aspirin (Ecotrin) 81 mg PO DAILY [facility] Stop: 02/28/19 08:59 Last Admin: 01/11/19 08:38 Dose: Not Given Benztropine Mesylate (Cogentin) 1 mg PO TID [facility] Stop: 02/28/19 08:59 Last Admin: 01/11/19 08:39 Dose: Not Given Bisacodyl (Dulcolax 10 Mg Supp) 10 mg RC DAILY [facility] Stop: 02/28/19 08:59 Last Admin: 01/10/19 09:11 Dose: 10 mg Cholecalciferol (Vitamin D3) 5,000 iu PO DAILY [facility] Stop: 02/28/19 08:59 Last Admin: 01/11/19 08:39 Dose: Not Given Clonazepam (Klonopin) 2 mg PO TID [facility]; Protocol Stop: 02/27/19 08:59 Last Admin: 01/11/19 08:40 Dose: Not Given Clozapine 100 mg/ Clozapine 75 (mg) 175 mg PO BID [facility] Stop: 03/01/19 16:59 Last Admin: 01/11/19 08:41 Dose: Not Given Famotidine (Pepcid) 40 mg PO DAILY [facility] Stop: 02/28/19 08:59 Last Admin: 01/11/19 08:42 Dose: Not Given Piperacillin Sod/Tazobactam (Sod 4.5 gm/ Sodium Chloride) 100 mls @ 100 mls/hr IV Q8HR [facility] Stop: 03/05/19 12:59 Last Admin: 01/11/19 04:41 Dose: 100 mls/hr Dextrose/Sodium Chloride (D5-0.45ns) 1,000 mls @ 100 mls/hr IV .Q10H [facility] Stop: 03/07/19 19:59 Last Admin: 01/10/19 10:42 Dose: 100 mls/hr Vancomycin HCl 1.25 gm/ Sodium (Chloride) 250 mls @ 165 mls/hr IV Q12H [facility] Stop: 03/11/19 10:59 Last Admin: 01/10/19 23:44 Dose: 165 mls/hr Levothyroxine Sodium 0.025 mg/ (Levothyroxine Sodium 0.112 mg) 0.137 mg PO DAILY@0730 [facility] Stop: 02/28/19 07:29 Last Admin: 01/11/19 07:00 Dose: Not Given [place] Carbonate (Eskalith) 300 mg PO BID [facility]; Protocol Stop: 02/28/19 08:59 Last Admin: 01/11/19 08:43 Dose: Not Given Magnesium Hydroxide (Milk Of Magnesia) 30 ml PO HS [facility] Stop: 02/28/19 20:59 Last Admin: 01/10/19 21:30 Dose: 30 ml Miscellaneous (Vancomycin Iv Per Pharmacy) 1 ea MC PRN PRN PRN Reason: PROTOCOL Stop: 03/08/19 19:27 Quetiapine Fumarate (Seroquel) 300 mg PO TID [facility]; Protocol Stop: 03/01/19 08:59 Last Admin: 01/11/19 08:44 Dose: Not Given Valproate Sodium (Depakene) 500 mg PO BID [facility]; Protocol Stop: 02/28/19 08:59 Last Admin: 01/11/19 08:45 Dose: Not Given General: alert, other (Patient still has agitated behavior.) HEENT: PERRLA, throat clear Neck: No JVD Lungs: wheezing, ronchi, other (scattered rhonchi and occasional wheezing.) Cardiovascular: Normal S1 Abdomen: soft, non-distended, positive bowel sound Extremities: clear, other (Patient has restraints in place.) Neurological: disorganized Internal Medicine Assmt/Plan - Assessment Assessment: Agitated with Aggresive Behavior towards others Psychosis. Schizophrenia. Leukocytosis/possible aspiration. SOB. Sepsis. Pneumonia. Lactic acidosis. Iron deficiency anemia s/p transfusion. Hypertension. History of Gerd. Hypothyroidism. PUD. GERD. Hypotention - Plan Plan: Continuation of care Monitor Labs, Hemoglobin levels Continue present meds as prescribed Monitor Diet,Nutritional support pulmonary support Aspiration precaution Followup with Dr. Craven for Psych Management Continue present treatment plan Nutritional Asmnt/Malnutr-PDOC - Dietary Evaluation Malnutrition Findings (Please click <Entered> for more info): Nutritional Asmnt/Malnutrition Start: 12/26/18 15: 09 Text: Status: Complete Freq: Protocol: Document 12/26/18 15:09 BONITA (Rec: 12/26/18 15:12 SUNIL [email or web address]) Nutritional Asmnt/Malnutrition Patient General Information Nutritional Screening High Risk Diagnosis sepsis Pertinent Medical Hx/Surgical Hx HTN, PUD/GERD, thyroid disorder, anemia, schizophrenia Subjective Information Pt seen in bed, disoriented, yelling, has 1:1 sitter in room. Per sitter, pt consumed 100% of breakfast and lunch today. Current Diet Order/ Nutrition Support soft/bland Pertinent Medications seroquel Pertinent Labs 12/25 BUN 26, Alb 3.5 Nutritional Hx/Data Height 1.7 m Height (Calculated Centimeters) 170.2 Current Weight (lbs) 58.967 kg Weight (Calculated Kilograms) 59.0 Weight (Calculated Grams) 46849.0 [place] Body Weight 148 Body Mass Index (BMI) 20.3 Weight Status Approriate GI Symptoms GI Symptoms None Last BM not indicated Difficult in: None Skin Integrity/Comment: intact Current %PO Good (75-100%) Estimated Nutritional Goals BEE in Kcals: Using Current wt Calories/Kcals/Kg 30-35 Kcals Calculated 6733-0421 Protein: Using Current wt Protein g/k.2 Protein Calculated 71 Fluid: ml 1620-2065ml (1ml/kcal) Nutritional Problem 1. Problem Problem increased nutritional needs Etiology increased metabolic demand Signs/Symptoms: dx of sepsis Malnutrition Alert Is there a minimum of two criteria No selected? Query Text:Check all the applicable criteria. A minimum of two criteria are recommended for diagnosis of either severe or non-severe malnutrition. Malnutrition Related to Morbid Obesity Malnutrition related to morbid obesity No Intervention/Recommendation Comments 1. Continue with soft/baland diet as ordered. 2. Monitor PO intake, wt, labs and skin integrity 3. F/U as moderate risk in 3-5 days Expected Outcomes/Goals Expected Outcomes/Goals 1. PO intake to meet at least 75% of nutritional needs. 2. Wt stability, skin to remain intact, labs to approach WNL.
--- NOTE | 2019-01-11 09:37 | GI Progress Note ---
Subjective - Review of Systems Service Date: 01/11/19 Events since last encounter: No events, nurse reporting some swallowing difficulties Objective - Results Result Diagrams: 01/10/19 06:08 01/11/19 06:10 Recent Labs: Laboratory Last Values WBC 14.6 Th/cmm (4.8-10.8) H 01/10/19 06:08 RBC 3.64 Mil/cmm (4.30-5.70) L 01/10/19 06:08 Hgb 10.2 gm/dL (12-16) L 01/10/19 06:08 Hct 30.9 % (41.0-60) L 01/10/19 06:08 MCV 84.9 fl (80-99) 01/10/19 06:08 MCH 27.9 pg (26.0-30.0) 01/10/19 06:08 MCHC Differential 32.9 pg (28.0-36.0) 01/10/19 06:08 RDW 14.4 % (11.5-20.0) 01/10/19 06:08 Plt Count 290 Th/cmm (150-400) 01/10/19 06:08 MPV 8.4 fl 01/10/19 06:08 Add Manual Diff YES 01/10/19 06:08 Neutrophils % 73.6 % (40.0-80.0) 01/09/19 03:55 Band Neutrophils % 5 % (0-10) 01/10/19 06:08 Lymphocytes % 10.7 % (20.0-50.0) L 01/09/19 03:55 Monocytes % 12.4 % (2.0-10.0) H 01/09/19 03:55 Eosinophils % 3.3 % (0.0-5.0) 01/09/19 03:55 Basophils % 0.0 % (0.0-2.0) 01/09/19 03:55 Neutrophils (Manual) 73 % (40-80) 01/10/19 06:08 Lymphocytes 5 % (20-50) L 01/10/19 06:08 Monocytes 10 % (2-10) 01/10/19 06:08 Eosinophils 7 % (0-5) H 01/10/19 06:08 Basophils 0 % (0-3) 01/10/19 06:08 Platelet Estimate ADEQUATE (NORMAL) 01/06/19 05:45 RBC Morph Micro Appear NORMAL (NORMAL) 01/06/19 05:45 Total Retics Counted 2.2 % (0.5-1.5) H 12/26/18 05:40 Absolute Retic 79.2 Th/cmm 12/26/18 05:40 Corrected Retic Count 1.5 % (0.5-1.5) 12/26/18 05:40 PT 10.9 SECONDS (9.5-11.5) 01/02/19 05:40 INR 1.05 (0.5-1.4) 01/02/19 05:40 Sodium 152 mEq/L (136-145) H 01/11/19 06:10 Potassium 3.5 mEq/L (3.5-5.1) 01/11/19 06:10 Chloride 114 mEq/L (98-107) H 01/11/19 06:10 Carbon Dioxide 32.3 mEq/L (21.0-31.0) H 01/11/19 06:10 Anion Gap 9.2 (7.0-16.0) 01/11/19 06:10 BUN 13 mg/dL (7-25) 01/11/19 06:10 Creatinine 0.7 mg/dL (0.7-1.3) 01/11/19 06:10 Est GFR ( Amer) > 60.0 ml/min (>90) 01/11/19 06:10 Est GFR (Non-Af Amer) > 60.0 ml/min 01/11/19 06:10 BUN/Creatinine Ratio 18.6 01/11/19 06:10 Glucose 119 mg/dL (70-105) H 01/11/19 06:10 POC Glucose 87 MG/DL (70 - 105) 01/01/19 08:07 Whole Bld Lactic Acid 1.26 mmol/L (0.60-1.99) 01/04/19 12:10 Calcium 8.8 mg/dL (8.6-10.3) 01/11/19 06:10 Magnesium 2.1 mg/dL (1.9-2.7) 01/06/19 05:45 Iron 17 ug/dL (38-169) L 12/26/18 05:40 TIBC 210 ug/dL (250-450) L 12/26/18 05:40 Iron Saturation 8 % (15-55) L 12/26/18 05:40 Unsaturated IBC 193 ug/dL (111-343) 12/26/18 05:40 Ferritin 200 ng/mL (30-400) 12/26/18 05:40 Total Bilirubin 0.5 mg/dL (0.3-1.0) 01/07/19 05:55 AST 20 U/L (13-39) 01/07/19 05:55 ALT 20 U/L (7-52) 01/07/19 05:55 Alkaline Phosphatase 68 U/L (34-104) 01/07/19 05:55 Total Protein 5.5 gm/dL (6.0-8.3) L 01/07/19 05:55 Albumin 2.9 gm/dL (4.2-5.5) L 01/07/19 05:55 Globulin 2.6 gm/dL 01/07/19 05:55 Albumin/Globulin Ratio 1.1 (1.0-1.8) 01/07/19 05:55 Triglycerides 125 mg/dL (<150) 12/25/18 16:11 Cholesterol 154 mg/dL (<200) 12/25/18 16:11 LDL Cholesterol Direct 112 mg/dL (75-193) 12/25/18 16:11 HDL Cholesterol 37 mg/dL (23-92) 12/25/18 16:11 Vitamin B12 848 pg/mL (232-1245) 12/26/18 05:40 Folic Acid 6.9 ng/mL (>3.0) 12/26/18 05:40 TSH 2.61 uIU/ml (0.34-5.60) 12/25/18 16:11 Urine Source CATH 12/25/18 16:25 Urine Color COLORLESS 12/25/18 16:25 Urine Clarity CLEAR (CLEAR) 12/25/18 16:25 Urine pH 6.0 (4.6 - 8.0) 12/25/18 16:25 Ur Specific [place] 1.010 (1.005-1.030) 12/25/18 16:25 Urine Protein NEGATIVE mg/dL (NEGATIVE) 12/25/18 16:25 Urine Glucose (UA) NEGATIVE mg/dL (NEGATIVE) 12/25/18 16:25 Urine Ketones NEGATIVE mg/dL (NEGATIVE) 12/25/18 16:25 Urine Blood NEGATIVE (NEGATIVE) 12/25/18 16:25 Urine Nitrate NEGATIVE (NEGATIVE) 12/25/18 16:25 Urine Bilirubin NEGATIVE (NEGATIVE) 12/25/18 16:25 Urine Urobilinogen 0.2 E.U./dL (0.2 - 1.0) 12/25/18 16:25 Ur Leukocyte Esterase NEGATIVE (NEGATIVE) 12/25/18 16:25 Stool Occult Blood NEGATIVE (NEGATIVE) 01/06/19 18:00 Vancomycin Trough 8.2 ug/mL (5-10) 01/09/19 22:00 Valproic Acid < 10.0 ug/mL (50.0-100.0) L 12/30/18 04:25 [place] 0.06 mmol/L (0.5-1.0) L 12/30/18 04:25 RPR NONREACTIVE (NONREACTIVE) 12/25/18 16:11 Influenza A (Rapid) NEG FOR INF A 12/25/18 16:30 Influenza B (Rapid) NEG FOR INF B 12/25/18 16:30 - Physical Exam Vitals and I&O: Vital Signs Temp 98.2 F 01/11/19 08:00 Pulse 85 01/11/19 08:00 Resp 19 01/11/19 08:00 BP 108/64 01/11/19 08:00 Pulse Ox 91 01/11/19 08:00 Intake & Output 01/10/19 01/11/19 01/11/19 18:59 06:59 18:59 Intake Total 2150 200 Balance 2150 200 Weight (lbs) 70.307 kg 70.307 kg Intake: Intake, IV Amount 1350 100 D5-0.45NS 1,000 ml @ 100 1000 mls/hr IV .Q10H [facility] Rx#: [id number] Piperacillin Sodium/ 100 100 Tazobact 4.5 gm In Sodium Chloride 0.9% 100 ml @ 100 mls/hr IV Q8HR [facility] Rx #:[id number] Vancomycin HCl 1.25 gm In 250 Sodium Chloride 0.9% 250 ml @ 165 mls/hr IV Q12H [facility] Rx#:[id number] Oral 800 100 Other: # Voids 6 5 # Bowel Movements 1 1 Weight Source Bedscale Bedscale Active Medications: Current Medications Acetaminophen (Tylenol 650mg Supp) 650 mg RC Q6H PRN PRN Reason: Fever > 101 Stop: 03/05/19 08:02 Last Admin: 01/04/19 08:49 Dose: 650 mg Acetaminophen (Tylenol) 650 mg PO Q4H PRN PRN Reason: Fever > 101 Stop: 03/05/19 08:05 Last Admin: 01/10/19 07:43 Dose: 650 mg Acetylcysteine (Mucomyst 20%) 3 ml HHN Q4HRT [facility] Stop: 03/09/19 14:59 Last Admin: 01/11/19 06:04 Dose: 3 ml Albuterol/Ipratropium (Duoneb Neb) 3 ml HHN Q4HRT [facility] Stop: 03/05/19 10:59 Last Admin: 01/11/19 06:02 Dose: 3 ml Amlodipine Besylate (Norvasc) 10 mg PO DAILY [facility] Stop: 02/28/19 08:59 Last Admin: 01/11/19 08:35 Dose: Not Given Ascorbic Acid (Vitamin C) 500 mg PO DAILY [facility] Stop: 03/01/19 08:59 Last Admin: 01/11/19 08:37 Dose: Not Given Aspirin (Ecotrin) 81 mg PO DAILY [facility] Stop: 02/28/19 08:59 Last Admin: 01/11/19 08:38 Dose: Not Given Benztropine Mesylate (Cogentin) 1 mg PO TID [facility] Stop: 02/28/19 08:59 Last Admin: 01/11/19 08:39 Dose: Not Given Bisacodyl (Dulcolax 10 Mg Supp) 10 mg RC DAILY [facility] Stop: 02/28/19 08:59 Last Admin: 01/10/19 09:11 Dose: 10 mg Cholecalciferol (Vitamin D3) 5,000 iu PO DAILY [facility] Stop: 02/28/19 08:59 Last Admin: 01/11/19 08:39 Dose: Not Given Clonazepam (Klonopin) 2 mg PO TID [facility]; Protocol Stop: 02/27/19 08:59 Last Admin: 01/11/19 08:40 Dose: Not Given Clozapine 100 mg/ Clozapine 75 (mg) 175 mg PO BID [facility] Stop: 03/01/19 16:59 Last Admin: 01/11/19 08:41 Dose: Not Given Famotidine (Pepcid) 40 mg PO DAILY [facility] Stop: 02/28/19 08:59 Last Admin: 01/11/19 08:42 Dose: Not Given Piperacillin Sod/Tazobactam (Sod 4.5 gm/ Sodium Chloride) 100 mls @ 100 mls/hr IV Q8HR [facility] Stop: 03/05/19 12:59 Last Admin: 01/11/19 04:41 Dose: 100 mls/hr Dextrose/Sodium Chloride (D5-0.45ns) 1,000 mls @ 100 mls/hr IV .Q10H [facility] Stop: 03/07/19 19:59 Last Admin: 01/10/19 10:42 Dose: 100 mls/hr Vancomycin HCl 1.25 gm/ Sodium (Chloride) 250 mls @ 165 mls/hr IV Q12H [facility] Stop: 03/11/19 10:59 Last Admin: 01/10/19 23:44 Dose: 165 mls/hr Levothyroxine Sodium 0.025 mg/ (Levothyroxine Sodium 0.112 mg) 0.137 mg PO DAILY@0730 [facility] Stop: 02/28/19 07:29 Last Admin: 01/11/19 07:00 Dose: Not Given [place] Carbonate (Eskalith) 300 mg PO BID [facility]; Protocol Stop: 02/28/19 08:59 Last Admin: 01/11/19 08:43 Dose: Not Given Magnesium Hydroxide (Milk Of Magnesia) 30 ml PO HS [facility] Stop: 02/28/19 20:59 Last Admin: 01/10/19 21:30 Dose: 30 ml Miscellaneous (Vancomycin Iv Per Pharmacy) 1 ea MC PRN PRN PRN Reason: PROTOCOL Stop: 03/08/19 19:27 Quetiapine Fumarate (Seroquel) 300 mg PO TID [facility]; Protocol Stop: 03/01/19 08:59 Last Admin: 01/11/19 08:44 Dose: Not Given Valproate Sodium (Depakene) 500 mg PO BID [facility]; Protocol Stop: 02/28/19 08:59 Last Admin: 01/11/19 08:45 Dose: Not Given General: Alert, No acute distress, Other (confused) HEENT: Atraumatic Neck: Supple Cardiovascular: Regular rate Lungs: Clear to auscultation, Normal air movement Abdomen: Bowel sounds, Soft, no Tender, no Hepatomegaly, no Distended, no Rebound, no Mass, no Guarding Extremities: no Clubbing, no Cyanosis Skin: no Rash Assessment/Plan - Assessment Assessment: # Anemia # OB positive Plan: 1. Concern for dysphagia - likely oropharyngeal -Swallow evaluation 2. Anemia - Stable post transfusion - S/P EGD and colon. No findings to suggest GI blood loss - Polyps, next colonoscopy is due in 3 years - consider outpt capsule endoscopy - Pathology shows gastritis (no HP), and adenomatous polyps. No malignancy 3. OB positive - S/P EGD and colon 4. Leukocytosis and febrile - Possible aspiration - mgmt as per primary
--- NOTE | 2019-01-11 10:41 | Diagnostic Imaging Report ---
Portable chest x-ray HISTORY: Shortness of breath Compared to prior exam of January 09, 2019, there is developed complete opacification of the left hemithorax. Fine loss suggest changes associated with extensive atelectasis/collapse. Mucous plug cannot be excluded. Infiltrate noted through the right lower lobe along with evidence of a small right pleural effusion. IMPRESSION: 1. Interval development of complete opacification the left hemithorax volume loss. In view the radiographic changes and findings noted on a prior CT scan of January 09, 2019, changes may be associated with collapse of the left lung. Pleural fluid cannot be excluded. 2. Increasing infiltrate within the right lower lobe
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
[2019-01-11] MEDS: Magnesium Hydroxide (MOM) 30 mL UDC PO SCH (22:35)
[2019-01-11] MEDS: D5-0.45NS 1,000 ML IV SCH (23:36)
[2019-01-12] MEDS: Albuterol/Ipratropium Neb 3 ML AERS HHN SCH ×6 (02:29→22:33)
[2019-01-12 05:04] LABS: % BASOPHILS 0.5 % (0.0-2.0); % EOSINOPHILS 3.2 % (0.0-5.0); % MONOCYTES 6.3 % (2.0-10.0); BASOPHILE ABSOLUTE 0.1 Th/cumm (0-0.2); EOSINOPHILE ABSOLUTE 0.5 Th/cmm (0.1-0.4); HEMATOCRIT 28.1 % (41.0-60); LYMPHOCYTE ABSOLUTE 1.5 Th/cmm (1.5-3.0); MEAN CELL VOLUME 85.6 fl (80-99); MEAN CORPUSCULAR HEMOGLOBIN 27.4 pg (26.0-30.0); MEAN PLATELET VOLUME 8.4 fl; MONOCYTE ABSOLUTE 0.9 Th/cmm (0.3-1.0); NEUTROPHILE ABSOLUTE 11.9 Th/cmm (1.8-8.0); PLATELET COUNT 327 Th/cmm (150-400); RED BLOOD COUNT 3.28 Mil/cmm (4.30-5.70); RED CELL DISTRIBUTION WIDTH 14.9 % (11.5-20.0); WHITE BLOOD COUNT 14.9 Th/cmm (4.8-10.8)
[2019-01-12 05:12] LABS: ANION GAP 12.6 (7.0-16.0); BUN - UREA NITROGEN 14 mg/dL (7-25); CHLORIDE 111 mEq/L (98-107); GLUCOSE 88 mg/dL (70-105); POTASSIUM SERUM 3.6 mEq/L (3.5-5.1); SODIUM SERUM 150 mEq/L (136-145)
[2019-01-12 05:13] LABS: ALBUMIN 2.7 gm/dL (4.2-5.5); ALKALINE PHOSPHATASE 52 U/L (34-104); BILIRUBIN,TOTAL 0.4 mg/dL (0.3-1.0); CALCIUM SERUM 8.8 mg/dL (8.6-10.3); CREATININE - SERUM 0.9 mg/dL (0.7-1.3); GFR AFRICAN-AMERICAN > 60.0 ml/min (>90); GFR NON AFRICAN-AMERICAN > 60.0 ml/min; SGOT 24 U/L (13-39); SGPT/ALT 24 U/L (7-52); TOTAL PROTEIN,SERUM 5.5 gm/dL (6.0-8.3)
--- NOTE | 2019-01-12 07:55 | Diagnostic Imaging Report ---
CHEST X-RAY: AP view INDICATION: Shortness of breath COMPARISON: Chest x-ray 01/11/[address] on 01/09/2019 FINDINGS: Again seen is almost complete opacification of the left hemithorax with overall improved aeration since prior exam.. Persistent volume loss of the left lung is also noted with leftward mediastinal shift. Small bilateral effusions are noted. Right lower lung focal infiltrate is noted. IMPRESSION: Again noted is complete opacification left hemithorax with overall improved aeration since prior exam. This is probably due to extensive pneumonia when compared to recent CT chest exam. Persistent volume loss, however is noted. Small bilateral pleural effusions are noted. Right lower lung focal infiltrate.
[2019-01-12] MEDS: Benztropine 1 MG TAB PO SCH ×3 (09:00→21:16)
[2019-01-12] MEDS: cloZAPine 100 MG, cloZAPine 75 MG PO SCH ×2 (09:01→16:21)
[2019-01-12] MEDS: Multivitamin w/ Minerals Tab PO SCH (09:03)
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
--- NOTE | 2019-01-12 14:13 | GI Progress Note ---
Subjective - Review of Systems Service Date: 01/12/19 Events since last encounter: No new events, passed swallow study Objective - Results Result Diagrams: 01/12/19 04:25 01/12/19 04:25 Recent Labs: Laboratory Last Values WBC 14.9 Th/cmm (4.8-10.8) H 01/12/19 04:25 RBC 3.28 Mil/cmm (4.30-5.70) L 01/12/19 04:25 Hgb 9.0 gm/dL (12-16) L 01/12/19 04:25 Hct 28.1 % (41.0-60) L 01/12/19 04:25 MCV 85.6 fl (80-99) 01/12/19 04:25 MCH 27.4 pg (26.0-30.0) 01/12/19 04:25 MCHC Differential 32.0 pg (28.0-36.0) 01/12/19 04:25 RDW 14.9 % (11.5-20.0) 01/12/19 04:25 Plt Count 327 Th/cmm (150-400) 01/12/19 04:25 MPV 8.4 fl 01/12/19 04:25 Add Manual Diff YES 01/10/19 06:08 Neutrophils % 80.0 % (40.0-80.0) 01/12/19 04:25 Band Neutrophils % 5 % (0-10) 01/10/19 06:08 Lymphocytes % 10.0 % (20.0-50.0) L 01/12/19 04:25 Monocytes % 6.3 % (2.0-10.0) 01/12/19 04:25 Eosinophils % 3.2 % (0.0-5.0) 01/12/19 04:25 Basophils % 0.5 % (0.0-2.0) 01/12/19 04:25 Neutrophils (Manual) 73 % (40-80) 01/10/19 06:08 Lymphocytes 5 % (20-50) L 01/10/19 06:08 Monocytes 10 % (2-10) 01/10/19 06:08 Eosinophils 7 % (0-5) H 01/10/19 06:08 Basophils 0 % (0-3) 01/10/19 06:08 Platelet Estimate ADEQUATE (NORMAL) 01/06/19 05:45 RBC Morph Micro Appear NORMAL (NORMAL) 01/06/19 05:45 Total Retics Counted 2.2 % (0.5-1.5) H 12/26/18 05:40 Absolute Retic 79.2 Th/cmm 12/26/18 05:40 Corrected Retic Count 1.5 % (0.5-1.5) 12/26/18 05:40 PT 10.9 SECONDS (9.5-11.5) 01/02/19 05:40 INR 1.05 (0.5-1.4) 01/02/19 05:40 Sodium 150 mEq/L (136-145) H 01/12/19 04:25 Potassium 3.6 mEq/L (3.5-5.1) 01/12/19 04:25 Chloride 111 mEq/L (98-107) H 01/12/19 04:25 Carbon Dioxide 30.0 mEq/L (21.0-31.0) 01/12/19 04:25 Anion Gap 12.6 (7.0-16.0) 01/12/19 04:25 BUN 14 mg/dL (7-25) 01/12/19 04:25 Creatinine 0.9 mg/dL (0.7-1.3) 01/12/19 04:25 Est GFR ( Amer) > 60.0 ml/min (>90) 01/12/19 04:25 Est GFR (Non-Af Amer) > 60.0 ml/min 01/12/19 04:25 BUN/Creatinine Ratio 15.6 01/12/19 04:25 Glucose 88 mg/dL (70-105) 01/12/19 04:25 POC Glucose 87 MG/DL (70 - 105) 01/01/19 08:07 Whole Bld Lactic Acid 1.26 mmol/L (0.60-1.99) 01/04/19 12:10 Calcium 8.8 mg/dL (8.6-10.3) 01/12/19 04:25 Magnesium 2.1 mg/dL (1.9-2.7) 01/06/19 05:45 Iron 17 ug/dL (38-169) L 12/26/18 05:40 TIBC 210 ug/dL (250-450) L 12/26/18 05:40 Iron Saturation 8 % (15-55) L 12/26/18 05:40 Unsaturated IBC 193 ug/dL (111-343) 12/26/18 05:40 Ferritin 200 ng/mL (30-400) 12/26/18 05:40 Total Bilirubin 0.4 mg/dL (0.3-1.0) 01/12/19 04:25 AST 24 U/L (13-39) 01/12/19 04:25 ALT 24 U/L (7-52) 01/12/19 04:25 Alkaline Phosphatase 52 U/L (34-104) 01/12/19 04:25 Total Protein 5.5 gm/dL (6.0-8.3) L 01/12/19 04:25 Albumin 2.7 gm/dL (4.2-5.5) L 01/12/19 04:25 Globulin 2.8 gm/dL 01/12/19 04:25 Albumin/Globulin Ratio 1.0 (1.0-1.8) 01/12/19 04:25 Triglycerides 125 mg/dL (<150) 12/25/18 16:11 Cholesterol 154 mg/dL (<200) 12/25/18 16:11 LDL Cholesterol Direct 112 mg/dL (75-193) 12/25/18 16:11 HDL Cholesterol 37 mg/dL (23-92) 12/25/18 16:11 Vitamin B12 848 pg/mL (232-1245) 12/26/18 05:40 Folic Acid 6.9 ng/mL (>3.0) 12/26/18 05:40 TSH 2.61 uIU/ml (0.34-5.60) 12/25/18 16:11 Urine Source CATH 12/25/18 16:25 Urine Color COLORLESS 12/25/18 16:25 Urine Clarity CLEAR (CLEAR) 12/25/18 16:25 Urine pH 6.0 (4.6 - 8.0) 12/25/18 16:25 Ur Specific [place] 1.010 (1.005-1.030) 12/25/18 16:25 Urine Protein NEGATIVE mg/dL (NEGATIVE) 12/25/18 16:25 Urine Glucose (UA) NEGATIVE mg/dL (NEGATIVE) 12/25/18 16:25 Urine Ketones NEGATIVE mg/dL (NEGATIVE) 12/25/18 16:25 Urine Blood NEGATIVE (NEGATIVE) 12/25/18 16:25 Urine Nitrate NEGATIVE (NEGATIVE) 12/25/18 16:25 Urine Bilirubin NEGATIVE (NEGATIVE) 12/25/18 16:25 Urine Urobilinogen 0.2 E.U./dL (0.2 - 1.0) 12/25/18 16:25 Ur Leukocyte Esterase NEGATIVE (NEGATIVE) 12/25/18 16:25 Stool Occult Blood NEGATIVE (NEGATIVE) 01/06/19 18:00 Vancomycin Trough 15.1 ug/mL (5-10) H 01/11/19 22:05 Valproic Acid < 10.0 ug/mL (50.0-100.0) L 12/30/18 04:25 [place] 0.06 mmol/L (0.5-1.0) L 12/30/18 04:25 RPR NONREACTIVE (NONREACTIVE) 12/25/18 16:11 Influenza A (Rapid) NEG FOR INF A 12/25/18 16:30 Influenza B (Rapid) NEG FOR INF B 12/25/18 16:30 - Physical Exam Vitals and I&O: Vital Signs Temp 99.4 F 01/12/19 06:53 Pulse 95 01/12/19 11:12 Resp 19 01/12/19 12:00 BP 142/64 01/12/19 06:53 Pulse Ox 96 01/12/19 11:12 Intake & Output 01/11/19 01/12/19 01/12/19 18:59 06:59 18:59 Intake Total 350 850 100 Balance 350 850 100 Weight (lbs) 63.503 kg Intake: Intake, IV Amount 350 100 100 Piperacillin Sodium/ 100 100 100 Tazobact 4.5 gm In Sodium Chloride 0.9% 100 ml @ 100 mls/hr IV Q8HR [facility] Rx #:[id number] Vancomycin HCl 1.25 gm In 250 Sodium Chloride 0.9% 250 ml @ 165 mls/hr IV Q12H [facility] Rx#:[id number] Oral 0 Tube Feeding 750 Other: # Voids 3 # Bowel Movements 0 Weight Source Bedscale Active Medications: Current Medications Acetaminophen (Tylenol 650mg Supp) 650 mg RC Q6H PRN PRN Reason: Fever > 101 Stop: 03/05/19 08:02 Last Admin: 01/04/19 08:49 Dose: 650 mg Acetaminophen (Tylenol) 650 mg PO Q4H PRN PRN Reason: Fever > 101 Stop: 03/05/19 08:05 Last Admin: 01/10/19 07:43 Dose: 650 mg Acetylcysteine (Mucomyst 20%) 3 ml HHN Q4HRT [facility] Stop: 03/09/19 14:59 Last Admin: 01/12/19 11:04 Dose: 3 ml Albuterol/Ipratropium (Duoneb Neb) 3 ml HHN Q4HRT [facility] Stop: 03/05/19 10:59 Last Admin: 01/12/19 11:04 Dose: 3 ml Amlodipine Besylate (Norvasc) 10 mg PO DAILY [facility] Stop: 02/28/19 08:59 Last Admin: 01/12/19 08:59 Dose: Not Given Ascorbic Acid (Vitamin C) 500 mg PO DAILY [facility] Stop: 03/01/19 08:59 Last Admin: 01/12/19 09:00 Dose: Not Given Aspirin (Ecotrin) 81 mg PO DAILY [facility] Stop: 02/28/19 08:59 Last Admin: 01/12/19 09:00 Dose: Not Given Benztropine Mesylate (Cogentin) 1 mg PO TID [facility] Stop: 02/28/19 08:59 Last Admin: 01/12/19 14:12 Dose: 1 mg Bisacodyl (Dulcolax 10 Mg Supp) 10 mg RC DAILY [facility] Stop: 02/28/19 08:59 Last Admin: 01/12/19 10:17 Dose: Not Given Cholecalciferol (Vitamin D3) 5,000 iu PO DAILY [facility] Stop: 02/28/19 08:59 Last Admin: 01/12/19 09:00 Dose: Not Given Clonazepam (Klonopin) 2 mg PO TID [facility]; Protocol Stop: 02/27/19 08:59 Last Admin: 01/12/19 14:12 Dose: 2 mg Clozapine 100 mg/ Clozapine 75 (mg) 175 mg PO BID [facility] Stop: 03/01/19 16:59 Last Admin: 01/12/19 09:01 Dose: Not Given Famotidine (Pepcid) 40 mg PO DAILY [facility] Stop: 02/28/19 08:59 Last Admin: 01/12/19 09:01 Dose: Not Given Piperacillin Sod/Tazobactam (Sod 4.5 gm/ Sodium Chloride) 100 mls @ 100 mls/hr IV Q8HR [facility] Stop: 03/05/19 12:59 Last Admin: 01/12/19 12:16 Dose: 100 mls/hr Dextrose/Sodium Chloride (D5-0.45ns) 1,000 mls @ 50 mls/hr IV .Q20H [facility] Stop: 03/12/19 18:29 Last Admin: 01/11/19 23:36 Dose: 50 mls/hr Vancomycin HCl 1.25 gm/ Sodium (Chloride) 250 mls @ 165 mls/hr IV Q12H [facility] Stop: 03/13/19 09:59 Last Admin: 01/12/19 11:23 Dose: 165 mls/hr Levothyroxine Sodium 0.025 mg/ (Levothyroxine Sodium 0.112 mg) 0.137 mg PO DAILY@0730 [facility] Stop: 02/28/19 07:29 Last Admin: 01/12/19 06:36 Dose: Not Given [place] Carbonate (Eskalith) 300 mg PO BID [facility]; Protocol Stop: 02/28/19 08:59 Last Admin: 01/12/19 09:01 Dose: Not Given Magnesium Hydroxide (Milk Of Magnesia) 30 ml PO HS [facility] Stop: 02/28/19 20:59 Last Admin: 01/11/19 22:35 Dose: Not Given Miscellaneous (Vancomycin Iv Per Pharmacy) 1 ea MC PRN PRN PRN Reason: PROTOCOL Stop: 03/08/19 19:27 Quetiapine Fumarate (Seroquel) 300 mg PO TID [facility]; Protocol Stop: 03/01/19 08:59 Last Admin: 01/12/19 14:12 Dose: 300 mg Valproate Sodium (Depakene) 500 mg PO BID [facility]; Protocol Stop: 02/28/19 08:59 Last Admin: 01/12/19 09:03 Dose: Not Given General: Alert, No acute distress, Other (confused) HEENT: Atraumatic Neck: Supple Cardiovascular: Regular rate Lungs: Clear to auscultation, Normal air movement Abdomen: Bowel sounds, Soft, no Tender, no Hepatomegaly, no Distended, no Rebound, no Mass, no Guarding Extremities: no Clubbing, no Cyanosis Skin: no Rash Assessment/Plan - Assessment Assessment: # Anemia # OB positive Plan: 1. Concern for dysphagia - likely oropharyngeal -Swallow evaluation: patient passed 2. Anemia - Stable post transfusion - S/P EGD and colon. No findings to suggest GI blood loss - Polyps, next colonoscopy is due in 3 years - consider outpt capsule endoscopy - Pathology shows gastritis (no HP), and adenomatous polyps. No malignancy 3. OB positive - S/P EGD and colon 4. Leukocytosis and febrile - Possible aspiration - mgmt as per primary
--- NOTE | 2019-01-12 15:11 | Infectious Disease Prog Note ---
Infectious Disease Subjective - Review of Systems Service Date: 01/12/19 Subjective: Patient's fever has resolved, some improvement in leukocytosis. Blood culture grew Staph aureus/MSSA. Infectious Disease Objective - Results Result Diagrams: 01/12/19 04:25 01/12/19 04:25 Recent Labs: Laboratory Last Values WBC 14.9 Th/cmm (4.8-10.8) H 01/12/19 04:25 RBC 3.28 Mil/cmm (4.30-5.70) L 01/12/19 04:25 Hgb 9.0 gm/dL (12-16) L 01/12/19 04:25 Hct 28.1 % (41.0-60) L 01/12/19 04:25 MCV 85.6 fl (80-99) 01/12/19 04:25 MCH 27.4 pg (26.0-30.0) 01/12/19 04:25 MCHC Differential 32.0 pg (28.0-36.0) 01/12/19 04:25 RDW 14.9 % (11.5-20.0) 01/12/19 04:25 Plt Count 327 Th/cmm (150-400) 01/12/19 04:25 MPV 8.4 fl 01/12/19 04:25 Add Manual Diff YES 01/10/19 06:08 Neutrophils % 80.0 % (40.0-80.0) 01/12/19 04:25 Band Neutrophils % 5 % (0-10) 01/10/19 06:08 Lymphocytes % 10.0 % (20.0-50.0) L 01/12/19 04:25 Monocytes % 6.3 % (2.0-10.0) 01/12/19 04:25 Eosinophils % 3.2 % (0.0-5.0) 01/12/19 04:25 Basophils % 0.5 % (0.0-2.0) 01/12/19 04:25 Neutrophils (Manual) 73 % (40-80) 01/10/19 06:08 Lymphocytes 5 % (20-50) L 01/10/19 06:08 Monocytes 10 % (2-10) 01/10/19 06:08 Eosinophils 7 % (0-5) H 01/10/19 06:08 Basophils 0 % (0-3) 01/10/19 06:08 Platelet Estimate ADEQUATE (NORMAL) 01/06/19 05:45 RBC Morph Micro Appear NORMAL (NORMAL) 01/06/19 05:45 Total Retics Counted 2.2 % (0.5-1.5) H 12/26/18 05:40 Absolute Retic 79.2 Th/cmm 12/26/18 05:40 Corrected Retic Count 1.5 % (0.5-1.5) 12/26/18 05:40 PT 10.9 SECONDS (9.5-11.5) 01/02/19 05:40 INR 1.05 (0.5-1.4) 01/02/19 05:40 Sodium 150 mEq/L (136-145) H 01/12/19 04:25 Potassium 3.6 mEq/L (3.5-5.1) 01/12/19 04:25 Chloride 111 mEq/L (98-107) H 01/12/19 04:25 Carbon Dioxide 30.0 mEq/L (21.0-31.0) 01/12/19 04:25 Anion Gap 12.6 (7.0-16.0) 01/12/19 04:25 BUN 14 mg/dL (7-25) 01/12/19 04:25 Creatinine 0.9 mg/dL (0.7-1.3) 01/12/19 04:25 Est GFR ( Amer) > 60.0 ml/min (>90) 01/12/19 04:25 Est GFR (Non-Af Amer) > 60.0 ml/min 01/12/19 04:25 BUN/Creatinine Ratio 15.6 01/12/19 04:25 Glucose 88 mg/dL (70-105) 01/12/19 04:25 POC Glucose 87 MG/DL (70 - 105) 01/01/19 08:07 Whole Bld Lactic Acid 1.26 mmol/L (0.60-1.99) 01/04/19 12:10 Calcium 8.8 mg/dL (8.6-10.3) 01/12/19 04:25 Magnesium 2.1 mg/dL (1.9-2.7) 01/06/19 05:45 Iron 17 ug/dL (38-169) L 12/26/18 05:40 TIBC 210 ug/dL (250-450) L 12/26/18 05:40 Iron Saturation 8 % (15-55) L 12/26/18 05:40 Unsaturated IBC 193 ug/dL (111-343) 12/26/18 05:40 Ferritin 200 ng/mL (30-400) 12/26/18 05:40 Total Bilirubin 0.4 mg/dL (0.3-1.0) 01/12/19 04:25 AST 24 U/L (13-39) 01/12/19 04:25 ALT 24 U/L (7-52) 01/12/19 04:25 Alkaline Phosphatase 52 U/L (34-104) 01/12/19 04:25 Total Protein 5.5 gm/dL (6.0-8.3) L 01/12/19 04:25 Albumin 2.7 gm/dL (4.2-5.5) L 01/12/19 04:25 Globulin 2.8 gm/dL 01/12/19 04:25 Albumin/Globulin Ratio 1.0 (1.0-1.8) 01/12/19 04:25 Triglycerides 125 mg/dL (<150) 12/25/18 16:11 Cholesterol 154 mg/dL (<200) 12/25/18 16:11 LDL Cholesterol Direct 112 mg/dL (75-193) 12/25/18 16:11 HDL Cholesterol 37 mg/dL (23-92) 12/25/18 16:11 Vitamin B12 848 pg/mL (232-1245) 12/26/18 05:40 Folic Acid 6.9 ng/mL (>3.0) 12/26/18 05:40 TSH 2.61 uIU/ml (0.34-5.60) 12/25/18 16:11 Urine Source CATH 12/25/18 16:25 Urine Color COLORLESS 12/25/18 16:25 Urine Clarity CLEAR (CLEAR) 12/25/18 16:25 Urine pH 6.0 (4.6 - 8.0) 12/25/18 16:25 Ur Specific [place] 1.010 (1.005-1.030) 12/25/18 16:25 Urine Protein NEGATIVE mg/dL (NEGATIVE) 12/25/18 16:25 Urine Glucose (UA) NEGATIVE mg/dL (NEGATIVE) 12/25/18 16:25 Urine Ketones NEGATIVE mg/dL (NEGATIVE) 12/25/18 16:25 Urine Blood NEGATIVE (NEGATIVE) 12/25/18 16:25 Urine Nitrate NEGATIVE (NEGATIVE) 12/25/18 16:25 Urine Bilirubin NEGATIVE (NEGATIVE) 12/25/18 16:25 Urine Urobilinogen 0.2 E.U./dL (0.2 - 1.0) 12/25/18 16:25 Ur Leukocyte Esterase NEGATIVE (NEGATIVE) 12/25/18 16:25 Stool Occult Blood NEGATIVE (NEGATIVE) 01/06/19 18:00 Vancomycin Trough 15.1 ug/mL (5-10) H 01/11/19 22:05 Valproic Acid < 10.0 ug/mL (50.0-100.0) L 12/30/18 04:25 [place] 0.06 mmol/L (0.5-1.0) L 12/30/18 04:25 RPR NONREACTIVE (NONREACTIVE) 12/25/18 16:11 Influenza A (Rapid) NEG FOR INF A 12/25/18 16:30 Influenza B (Rapid) NEG FOR INF B 12/25/18 16:30 - Physical Exam Vitals and I&O: Vital Signs Temp 99.4 F 01/12/19 06:53 Pulse 99 01/12/19 14:30 Resp 18 01/12/19 14:30 BP 142/64 01/12/19 06:53 Pulse Ox 93 01/12/19 14:30 Intake & Output 01/11/19 01/12/19 01/12/19 18:59 06:59 18:59 Intake Total 350 850 100 Balance 350 850 100 Weight (lbs) 63.503 kg Intake: Intake, IV Amount 350 100 100 Piperacillin Sodium/ 100 100 100 Tazobact 4.5 gm In Sodium Chloride 0.9% 100 ml @ 100 mls/hr IV Q8HR [facility] Rx #:[id number] Vancomycin HCl 1.25 gm In 250 Sodium Chloride 0.9% 250 ml @ 165 mls/hr IV Q12H [facility] Rx#:[id number] Oral 0 Tube Feeding 750 Other: # Voids 3 # Bowel Movements 0 Weight Source Bedscale Active Medications: Current Medications Acetaminophen (Tylenol 650mg Supp) 650 mg RC Q6H PRN PRN Reason: Fever > 101 Stop: 03/05/19 08:02 Last Admin: 01/04/19 08:49 Dose: 650 mg Acetaminophen (Tylenol) 650 mg PO Q4H PRN PRN Reason: Fever > 101 Stop: 03/05/19 08:05 Last Admin: 01/10/19 07:43 Dose: 650 mg Acetylcysteine (Mucomyst 20%) 3 ml HHN Q4HRT [facility] Stop: 03/09/19 14:59 Last Admin: 01/12/19 14:24 Dose: 3 ml Albuterol/Ipratropium (Duoneb Neb) 3 ml HHN Q4HRT [facility] Stop: 03/05/19 10:59 Last Admin: 01/12/19 14:24 Dose: 3 ml Amlodipine Besylate (Norvasc) 10 mg PO DAILY [facility] Stop: 02/28/19 08:59 Last Admin: 01/12/19 08:59 Dose: Not Given Ascorbic Acid (Vitamin C) 500 mg PO DAILY [facility] Stop: 03/01/19 08:59 Last Admin: 01/12/19 09:00 Dose: Not Given Aspirin (Ecotrin) 81 mg PO DAILY [facility] Stop: 02/28/19 08:59 Last Admin: 01/12/19 09:00 Dose: Not Given Benztropine Mesylate (Cogentin) 1 mg PO TID [facility] Stop: 02/28/19 08:59 Last Admin: 01/12/19 14:12 Dose: 1 mg Bisacodyl (Dulcolax 10 Mg Supp) 10 mg RC DAILY [facility] Stop: 02/28/19 08:59 Last Admin: 01/12/19 10:17 Dose: Not Given Cholecalciferol (Vitamin D3) 5,000 iu PO DAILY [facility] Stop: 02/28/19 08:59 Last Admin: 01/12/19 09:00 Dose: Not Given Clonazepam (Klonopin) 2 mg PO TID [facility]; Protocol Stop: 02/27/19 08:59 Last Admin: 01/12/19 14:12 Dose: 2 mg Clozapine 100 mg/ Clozapine 75 (mg) 175 mg PO BID [facility] Stop: 03/01/19 16:59 Last Admin: 01/12/19 09:01 Dose: Not Given Famotidine (Pepcid) 40 mg PO DAILY [facility] Stop: 02/28/19 08:59 Last Admin: 01/12/19 09:01 Dose: Not Given Piperacillin Sod/Tazobactam (Sod 4.5 gm/ Sodium Chloride) 100 mls @ 100 mls/hr IV Q8HR [facility] Stop: 03/05/19 12:59 Last Admin: 01/12/19 12:16 Dose: 100 mls/hr Dextrose/Sodium Chloride (D5-0.45ns) 1,000 mls @ 50 mls/hr IV .Q20H [facility] Stop: 03/12/19 18:29 Last Admin: 01/11/19 23:36 Dose: 50 mls/hr Levothyroxine Sodium 0.025 mg/ (Levothyroxine Sodium 0.112 mg) 0.137 mg PO DAILY@0730 [facility] Stop: 02/28/19 07:29 Last Admin: 01/12/19 06:36 Dose: Not Given [place] Carbonate (Eskalith) 300 mg PO BID [facility]; Protocol Stop: 02/28/19 08:59 Last Admin: 01/12/19 09:01 Dose: Not Given Magnesium Hydroxide (Milk Of Magnesia) 30 ml PO HS [facility] Stop: 02/28/19 20:59 Last Admin: 01/11/19 22:35 Dose: Not Given Quetiapine Fumarate (Seroquel) 300 mg PO TID [facility]; Protocol Stop: 03/01/19 08:59 Last Admin: 01/12/19 14:12 Dose: 300 mg Valproate Sodium (Depakene) 500 mg PO BID [facility]; Protocol Stop: 02/28/19 08:59 Last Admin: 01/12/19 09:03 Dose: Not Given General: no acute distress, well developed, well nourished HEENT: atraumatic, normocephalic, PERRLA, EOMI Neck: supple, no thyromegaly Cardiovascular: S1S2, regular Lungs: clear to auscultation bilaterally, clear to percussion Abdomen: soft, no tender, no distended, no mass Extremities: no cyanosis, no clubbing, no edema Neurological: awake, alert Skin: intact Infectious Disease Assmt/Plan - Assessment Assessment: 1. Sepsis. staph aureus MSSA sepsis. 2. Pneumonia. 3. Leukocytosis, suspect sepsis as patient also had lactic acidosis and tachycardia on presentation. 4. Hypothyroidism. 5. Anemia. 6. Schizophrenia. 7. Hypertension. 8. History of gastroesophageal reflux disease. 9. Iron deficiency anemia. 10. Aggressive behaviour. - Plan Plan: Continue Zosyn IV for 10 more days. Discontinue continue Vanco. Nutritional Asmnt/Malnutr-PDOC - Dietary Evaluation Malnutrition Findings (Please click <Entered> for more info): Nutritional Asmnt/Malnutrition Start: 12/26/18 15: 09 Text: Status: Complete Freq: Protocol: Document 12/26/18 15:09 LCHENG (Rec: 12/26/18 15:12 [email or web address]) Nutritional Asmnt/Malnutrition Patient General Information Nutritional Screening High Risk Diagnosis sepsis Pertinent Medical Hx/Surgical Hx HTN, PUD/GERD, thyroid disorder, anemia, schizophrenia Subjective Information Pt seen in bed, disoriented, yelling, has 1:1 sitter in room. Per sitter, pt consumed 100% of breakfast and lunch today. Current Diet Order/ Nutrition Support soft/bland Pertinent Medications seroquel Pertinent Labs 12/25 BUN 26, Alb 3.5 Nutritional Hx/Data Height 1.7 m Height (Calculated Centimeters) 170.2 Current Weight (lbs) 58.967 kg Weight (Calculated Kilograms) 59.0 Weight (Calculated Grams) 92261.0 [place] Body Weight 148 Body Mass Index (BMI) 20.3 Weight Status Approriate GI Symptoms GI Symptoms None Last BM not indicated Difficult in: None Skin Integrity/Comment: intact Current %PO Good (75-100%) Estimated Nutritional Goals BEE in Kcals: Using Current wt Calories/Kcals/Kg 30-35 Kcals Calculated 0142-2239 Protein: Using Current wt Protein g/k.2 Protein Calculated 71 Fluid: ml 1620-2065ml (1ml/kcal) Nutritional Problem 1. Problem Problem increased nutritional needs Etiology increased metabolic demand Signs/Symptoms: dx of sepsis Malnutrition Alert Is there a minimum of two criteria No selected? Query Text:Check all the applicable criteria. A minimum of two criteria are recommended for diagnosis of either severe or non-severe malnutrition. Malnutrition Related to Morbid Obesity Malnutrition related to morbid obesity No Intervention/Recommendation Comments 1. Continue with soft/baland diet as ordered. 2. Monitor PO intake, wt, labs and skin integrity 3. F/U as moderate risk in 3-5 days Expected Outcomes/Goals Expected Outcomes/Goals 1. PO intake to meet at least 75% of nutritional needs. 2. Wt stability, skin to remain intact, labs to approach WNL.
[2019-01-12] MEDS: Magnesium Hydroxide (MOM) 30 mL UDC PO SCH (21:17)
--- NOTE | 2019-01-13 00:20 | Progress Notes ---
DATE: 01/12/2019 The patient is screaming and agitated. No distress. PHYSICALEXAMINATION: VITAL SIGNS: Temperature 97.2, pulse 72, respiration 19, blood pressure 110/67, saturation 93% on room air, 2 liters nasal cannula. CHEST: Better air entry on the left side, rhonchi bilaterally. HEART: Regular rate and rhythm. ABDOMEN: Soft. EXTREMITIES: No edema. Chest x-ray, still limited air exchange, but a little bit better than yesterday. LABORATORY DATA: WBC is 14.9, hemoglobin 9.0, platelets is 327. Sodium 15____, potassium 3.6, BUN is 14, creatinine 0.9. IMPRESSION: This is a 58-year-old male with: 1. Respiratory failure. 2. Pneumonia. 3. Possible aspiration. 4. Very hard to deal with this patient. He is very noncompliant, unable to suction. We will do CPT. Eating is questionable. PLAN: We will continue supportive care. Conservative management. JOB# [id number]
[2019-01-13] MEDS: Albuterol/Ipratropium Neb 3 ML AERS HHN SCH ×6 (02:15→23:02)
[2019-01-13 08:54] LABS: HEMATOCRIT 30.1 % (41.0-60); HEMOGLOBIN 9.8 gm/dL (12-16); MEAN CELL VOLUME 84.9 fl (80-99); MEAN CORPUSCULAR HEMOGLOBIN 27.7 pg (26.0-30.0); MEAN CORPUSCULAR HGB CONC 32.7 pg (28.0-36.0); MEAN PLATELET VOLUME 8.1 fl; PLATELET COUNT 343 Th/cmm (150-400); RED BLOOD COUNT 3.55 Mil/cmm (4.30-5.70); RED CELL DISTRIBUTION WIDTH 14.7 % (11.5-20.0)
[2019-01-13] MEDS: Benztropine 1 MG TAB PO SCH ×3 (09:07→20:51)
[2019-01-13] MEDS: cloZAPine 100 MG, cloZAPine 75 MG PO SCH ×2 (09:08→16:12)
[2019-01-13] MEDS: Multivitamin w/ Minerals Tab PO SCH (09:10)
[2019-01-13 10:00] LABS: BAND NEUTROPHILE 1 % (0-10); BASOPHIL 0 % (0-3); EOSINOPHIL 5 % (0-5); LYMPHOCYTE 10 % (20-50); MONOCYTE 3 % (2-10); NEUTROPHILS 81 % (40-80)
[2019-01-13 10:35] LABS: ANION GAP 12.8 (7.0-16.0); BUN - UREA NITROGEN 18 mg/dL (7-25); CALCIUM SERUM 8.8 mg/dL (8.6-10.3); CARBON DIOXIDE 30.8 mEq/L (21.0-31.0); CHLORIDE 108 mEq/L (98-107); CREATININE - SERUM 0.9 mg/dL (0.7-1.3); GFR AFRICAN-AMERICAN > 60.0 ml/min (>90); GFR NON AFRICAN-AMERICAN > 60.0 ml/min; GLUCOSE 92 mg/dL (70-105); POTASSIUM SERUM 3.6 mEq/L (3.5-5.1); SODIUM SERUM 148 mEq/L (136-145)
--- NOTE | 2019-01-13 15:13 | GI Progress Note ---
Subjective - Review of Systems Service Date: 01/13/19 Events since last encounter: No events Objective - Results Result Diagrams: 01/13/19 08:48 01/13/19 08:48 Recent Labs: Laboratory Last Values WBC 16.0 Th/cmm (4.8-10.8) H 01/13/19 08:48 RBC 3.55 Mil/cmm (4.30-5.70) L 01/13/19 08:48 Hgb 9.8 gm/dL (12-16) L 01/13/19 08:48 Hct 30.1 % (41.0-60) L 01/13/19 08:48 MCV 84.9 fl (80-99) 01/13/19 08:48 MCH 27.7 pg (26.0-30.0) 01/13/19 08:48 MCHC Differential 32.7 pg (28.0-36.0) 01/13/19 08:48 RDW 14.7 % (11.5-20.0) 01/13/19 08:48 Plt Count 343 Th/cmm (150-400) 01/13/19 08:48 MPV 8.1 fl 01/13/19 08:48 Add Manual Diff YES 01/13/19 08:48 Neutrophils % 80.0 % (40.0-80.0) 01/12/19 04:25 Band Neutrophils % 1 % (0-10) 01/13/19 08:48 Lymphocytes % 10.0 % (20.0-50.0) L 01/12/19 04:25 Monocytes % 6.3 % (2.0-10.0) 01/12/19 04:25 Eosinophils % 3.2 % (0.0-5.0) 01/12/19 04:25 Basophils % 0.5 % (0.0-2.0) 01/12/19 04:25 Neutrophils (Manual) 81 % (40-80) H 01/13/19 08:48 Lymphocytes 10 % (20-50) L 01/13/19 08:48 Monocytes 3 % (2-10) 01/13/19 08:48 Eosinophils 5 % (0-5) 01/13/19 08:48 Basophils 0 % (0-3) 01/13/19 08:48 Platelet Estimate ADEQUATE (NORMAL) 01/06/19 05:45 RBC Morph Micro Appear NORMAL (NORMAL) 01/06/19 05:45 Total Retics Counted 2.2 % (0.5-1.5) H 12/26/18 05:40 Absolute Retic 79.2 Th/cmm 12/26/18 05:40 Corrected Retic Count 1.5 % (0.5-1.5) 12/26/18 05:40 PT 10.9 SECONDS (9.5-11.5) 01/02/19 05:40 INR 1.05 (0.5-1.4) 01/02/19 05:40 Sodium 148 mEq/L (136-145) H 01/13/19 08:48 Potassium 3.6 mEq/L (3.5-5.1) 01/13/19 08:48 Chloride 108 mEq/L (98-107) H 01/13/19 08:48 Carbon Dioxide 30.8 mEq/L (21.0-31.0) 01/13/19 08:48 Anion Gap 12.8 (7.0-16.0) 01/13/19 08:48 BUN 18 mg/dL (7-25) 01/13/19 08:48 Creatinine 0.9 mg/dL (0.7-1.3) 01/13/19 08:48 Est GFR ( Amer) > 60.0 ml/min (>90) 01/13/19 08:48 Est GFR (Non-Af Amer) > 60.0 ml/min 01/13/19 08:48 BUN/Creatinine Ratio 20.0 01/13/19 08:48 Glucose 92 mg/dL (70-105) 01/13/19 08:48 POC Glucose 87 MG/DL (70 - 105) 01/01/19 08:07 Whole Bld Lactic Acid 1.26 mmol/L (0.60-1.99) 01/04/19 12:10 Calcium 8.8 mg/dL (8.6-10.3) 01/13/19 08:48 Magnesium 2.1 mg/dL (1.9-2.7) 01/06/19 05:45 Iron 17 ug/dL (38-169) L 12/26/18 05:40 TIBC 210 ug/dL (250-450) L 12/26/18 05:40 Iron Saturation 8 % (15-55) L 12/26/18 05:40 Unsaturated IBC 193 ug/dL (111-343) 12/26/18 05:40 Ferritin 200 ng/mL (30-400) 12/26/18 05:40 Total Bilirubin 0.4 mg/dL (0.3-1.0) 01/12/19 04:25 AST 24 U/L (13-39) 01/12/19 04:25 ALT 24 U/L (7-52) 01/12/19 04:25 Alkaline Phosphatase 52 U/L (34-104) 01/12/19 04:25 Total Protein 5.5 gm/dL (6.0-8.3) L 01/12/19 04:25 Albumin 2.7 gm/dL (4.2-5.5) L 01/12/19 04:25 Globulin 2.8 gm/dL 01/12/19 04:25 Albumin/Globulin Ratio 1.0 (1.0-1.8) 01/12/19 04:25 Triglycerides 125 mg/dL (<150) 12/25/18 16:11 Cholesterol 154 mg/dL (<200) 12/25/18 16:11 LDL Cholesterol Direct 112 mg/dL (75-193) 12/25/18 16:11 HDL Cholesterol 37 mg/dL (23-92) 12/25/18 16:11 Vitamin B12 848 pg/mL (232-1245) 12/26/18 05:40 Folic Acid 6.9 ng/mL (>3.0) 12/26/18 05:40 TSH 2.61 uIU/ml (0.34-5.60) 12/25/18 16:11 Urine Source CATH 12/25/18 16:25 Urine Color COLORLESS 12/25/18 16:25 Urine Clarity CLEAR (CLEAR) 12/25/18 16:25 Urine pH 6.0 (4.6 - 8.0) 12/25/18 16:25 Ur Specific [place] 1.010 (1.005-1.030) 12/25/18 16:25 Urine Protein NEGATIVE mg/dL (NEGATIVE) 12/25/18 16:25 Urine Glucose (UA) NEGATIVE mg/dL (NEGATIVE) 12/25/18 16:25 Urine Ketones NEGATIVE mg/dL (NEGATIVE) 12/25/18 16:25 Urine Blood NEGATIVE (NEGATIVE) 12/25/18 16:25 Urine Nitrate NEGATIVE (NEGATIVE) 12/25/18 16:25 Urine Bilirubin NEGATIVE (NEGATIVE) 12/25/18 16:25 Urine Urobilinogen 0.2 E.U./dL (0.2 - 1.0) 12/25/18 16:25 Ur Leukocyte Esterase NEGATIVE (NEGATIVE) 12/25/18 16:25 Stool Occult Blood NEGATIVE (NEGATIVE) 01/06/19 18:00 Vancomycin Trough 15.1 ug/mL (5-10) H 01/11/19 22:05 Valproic Acid < 10.0 ug/mL (50.0-100.0) L 12/30/18 04:25 [place] 0.06 mmol/L (0.5-1.0) L 12/30/18 04:25 RPR NONREACTIVE (NONREACTIVE) 12/25/18 16:11 Influenza A (Rapid) NEG FOR INF A 12/25/18 16:30 Influenza B (Rapid) NEG FOR INF B 12/25/18 16:30 - Physical Exam Vitals and I&O: Vital Signs Temp 96.9 F 01/13/19 09:00 Pulse 87 01/13/19 09:09 Resp 18 01/13/19 12:00 BP 138/75 01/13/19 09:09 Pulse Ox 96 01/13/19 09:00 Intake & Output 01/12/19 01/13/19 01/13/19 18:59 06:59 18:59 Intake Total 650 100 100 Balance 650 100 100 Weight (lbs) 63.957 kg 63.957 kg Intake: Intake, IV Amount 200 100 100 Piperacillin Sodium/ 200 100 100 Tazobact 4.5 gm In Sodium Chloride 0.9% 100 ml @ 100 mls/hr IV Q8HR [facility] Rx #:[id number] Oral 450 Other: # Voids 3 2 # Bowel Movements 1 0 Weight Source Bedscale Bedscale Active Medications: Current Medications Acetaminophen (Tylenol 650mg Supp) 650 mg RC Q6H PRN PRN Reason: Fever > 101 Stop: 03/05/19 08:02 Last Admin: 01/04/19 08:49 Dose: 650 mg Acetaminophen (Tylenol) 650 mg PO Q4H PRN PRN Reason: Fever > 101 Stop: 03/05/19 08:05 Last Admin: 01/12/19 21:17 Dose: 650 mg Acetylcysteine (Mucomyst 20%) 3 ml HHN Q4HRT [facility] Stop: 03/09/19 14:59 Last Admin: 01/13/19 11:17 Dose: Not Given Albuterol/Ipratropium (Duoneb Neb) 3 ml HHN Q4HRT [facility] Stop: 03/05/19 10:59 Last Admin: 01/13/19 11:17 Dose: Not Given Amlodipine Besylate (Norvasc) 10 mg PO DAILY [facility] Stop: 02/28/19 08:59 Last Admin: 01/13/19 09:09 Dose: 10 mg Ascorbic Acid (Vitamin C) 500 mg PO DAILY [facility] Stop: 03/01/19 08:59 Last Admin: 01/13/19 09:07 Dose: 500 mg Aspirin (Ecotrin) 81 mg PO DAILY [facility] Stop: 02/28/19 08:59 Last Admin: 01/13/19 09:08 Dose: 81 mg Benztropine Mesylate (Cogentin) 1 mg PO TID [facility] Stop: 02/28/19 08:59 Last Admin: 01/13/19 13:19 Dose: 1 mg Bisacodyl (Dulcolax 10 Mg Supp) 10 mg RC DAILY [facility] Stop: 02/28/19 08:59 Last Admin: 01/13/19 09:10 Dose: Not Given Cholecalciferol (Vitamin D3) 5,000 iu PO DAILY [facility] Stop: 02/28/19 08:59 Last Admin: 01/13/19 09:07 Dose: 5,000 iu Clonazepam (Klonopin) 2 mg PO TID [facility]; Protocol Stop: 02/27/19 08:59 Last Admin: 01/13/19 13:19 Dose: 2 mg Clozapine 100 mg/ Clozapine 75 (mg) 175 mg PO BID [facility] Stop: 03/01/19 16:59 Last Admin: 01/13/19 09:08 Dose: 175 mg Famotidine (Pepcid) 40 mg PO DAILY [facility] Stop: 02/28/19 08:59 Last Admin: 01/13/19 09:08 Dose: 40 mg Piperacillin Sod/Tazobactam (Sod 4.5 gm/ Sodium Chloride) 100 mls @ 100 mls/hr IV Q8HR [facility] Stop: 03/05/19 12:59 Last Admin: 01/13/19 13:18 Dose: 100 mls/hr Dextrose/Sodium Chloride (D5-0.45ns) 1,000 mls @ 50 mls/hr IV .Q20H [facility] Stop: 03/12/19 18:29 Last Admin: 01/11/19 23:36 Dose: 50 mls/hr Levothyroxine Sodium 0.025 mg/ (Levothyroxine Sodium 0.112 mg) 0.137 mg PO DAILY@0730 [facility] Stop: 02/28/19 07:29 Last Admin: 01/13/19 07:23 Dose: 0.137 mg [place] Carbonate (Eskalith) 300 mg PO BID [facility]; Protocol Stop: 02/28/19 08:59 Last Admin: 01/13/19 09:07 Dose: 300 mg Magnesium Hydroxide (Milk Of Magnesia) 30 ml PO HS [facility] Stop: 02/28/19 20:59 Last Admin: 01/12/19 21:17 Dose: 30 ml Quetiapine Fumarate (Seroquel) 300 mg PO TID [facility]; Protocol Stop: 03/01/19 08:59 Last Admin: 01/13/19 13:19 Dose: 300 mg Valproate Sodium (Depakene) 500 mg PO BID [facility]; Protocol Stop: 02/28/19 08:59 Last Admin: 01/13/19 09:07 Dose: 500 mg General: Alert, No acute distress, Other (confused) HEENT: Atraumatic Neck: Supple Cardiovascular: Regular rate Lungs: Clear to auscultation, Normal air movement Abdomen: Bowel sounds, Soft, no Tender, no Hepatomegaly, no Distended, no Rebound, no Mass, no Guarding Extremities: no Clubbing, no Cyanosis Skin: no Rash Assessment/Plan - Assessment Assessment: # Anemia # OB positive Plan: 1. Concern for dysphagia - likely oropharyngeal -Swallow evaluation: patient passed 2. Anemia - Stable post transfusion - S/P EGD and colon. No findings to suggest GI blood loss - Polyps, next colonoscopy is due in 3 years - consider outpt capsule endoscopy - Pathology shows gastritis (no HP), and adenomatous polyps. No malignancy 3. OB positive - S/P EGD and colon 4. Leukocytosis and febrile - Possible aspiration - mgmt as per primary
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
--- NOTE | 2019-01-13 18:42 | General Progress Note ---
Subjective - Review of Systems Service Date: 01/13/19 Subjective: not in distress, confused Objective - Results Result Diagrams: 01/13/19 08:48 01/13/19 08:48 Recent Labs: Laboratory Last Values WBC 16.0 Th/cmm (4.8-10.8) H 01/13/19 08:48 RBC 3.55 Mil/cmm (4.30-5.70) L 01/13/19 08:48 Hgb 9.8 gm/dL (12-16) L 01/13/19 08:48 Hct 30.1 % (41.0-60) L 01/13/19 08:48 MCV 84.9 fl (80-99) 01/13/19 08:48 MCH 27.7 pg (26.0-30.0) 01/13/19 08:48 MCHC Differential 32.7 pg (28.0-36.0) 01/13/19 08:48 RDW 14.7 % (11.5-20.0) 01/13/19 08:48 Plt Count 343 Th/cmm (150-400) 01/13/19 08:48 MPV 8.1 fl 01/13/19 08:48 Add Manual Diff YES 01/13/19 08:48 Neutrophils % 80.0 % (40.0-80.0) 01/12/19 04:25 Band Neutrophils % 1 % (0-10) 01/13/19 08:48 Lymphocytes % 10.0 % (20.0-50.0) L 01/12/19 04:25 Monocytes % 6.3 % (2.0-10.0) 01/12/19 04:25 Eosinophils % 3.2 % (0.0-5.0) 01/12/19 04:25 Basophils % 0.5 % (0.0-2.0) 01/12/19 04:25 Neutrophils (Manual) 81 % (40-80) H 01/13/19 08:48 Lymphocytes 10 % (20-50) L 01/13/19 08:48 Monocytes 3 % (2-10) 01/13/19 08:48 Eosinophils 5 % (0-5) 01/13/19 08:48 Basophils 0 % (0-3) 01/13/19 08:48 Platelet Estimate ADEQUATE (NORMAL) 01/06/19 05:45 RBC Morph Micro Appear NORMAL (NORMAL) 01/06/19 05:45 Total Retics Counted 2.2 % (0.5-1.5) H 12/26/18 05:40 Absolute Retic 79.2 Th/cmm 12/26/18 05:40 Corrected Retic Count 1.5 % (0.5-1.5) 12/26/18 05:40 PT 10.9 SECONDS (9.5-11.5) 01/02/19 05:40 INR 1.05 (0.5-1.4) 01/02/19 05:40 Sodium 148 mEq/L (136-145) H 01/13/19 08:48 Potassium 3.6 mEq/L (3.5-5.1) 01/13/19 08:48 Chloride 108 mEq/L (98-107) H 01/13/19 08:48 Carbon Dioxide 30.8 mEq/L (21.0-31.0) 01/13/19 08:48 Anion Gap 12.8 (7.0-16.0) 01/13/19 08:48 BUN 18 mg/dL (7-25) 01/13/19 08:48 Creatinine 0.9 mg/dL (0.7-1.3) 01/13/19 08:48 Est GFR ( Amer) > 60.0 ml/min (>90) 01/13/19 08:48 Est GFR (Non-Af Amer) > 60.0 ml/min 01/13/19 08:48 BUN/Creatinine Ratio 20.0 01/13/19 08:48 Glucose 92 mg/dL (70-105) 01/13/19 08:48 POC Glucose 87 MG/DL (70 - 105) 01/01/19 08:07 Whole Bld Lactic Acid 1.26 mmol/L (0.60-1.99) 01/04/19 12:10 Calcium 8.8 mg/dL (8.6-10.3) 01/13/19 08:48 Magnesium 2.1 mg/dL (1.9-2.7) 01/06/19 05:45 Iron 17 ug/dL (38-169) L 12/26/18 05:40 TIBC 210 ug/dL (250-450) L 12/26/18 05:40 Iron Saturation 8 % (15-55) L 12/26/18 05:40 Unsaturated IBC 193 ug/dL (111-343) 12/26/18 05:40 Ferritin 200 ng/mL (30-400) 12/26/18 05:40 Total Bilirubin 0.4 mg/dL (0.3-1.0) 01/12/19 04:25 AST 24 U/L (13-39) 01/12/19 04:25 ALT 24 U/L (7-52) 01/12/19 04:25 Alkaline Phosphatase 52 U/L (34-104) 01/12/19 04:25 Total Protein 5.5 gm/dL (6.0-8.3) L 01/12/19 04:25 Albumin 2.7 gm/dL (4.2-5.5) L 01/12/19 04:25 Globulin 2.8 gm/dL 01/12/19 04:25 Albumin/Globulin Ratio 1.0 (1.0-1.8) 01/12/19 04:25 Triglycerides 125 mg/dL (<150) 12/25/18 16:11 Cholesterol 154 mg/dL (<200) 12/25/18 16:11 LDL Cholesterol Direct 112 mg/dL (75-193) 12/25/18 16:11 HDL Cholesterol 37 mg/dL (23-92) 12/25/18 16:11 Vitamin B12 848 pg/mL (232-1245) 12/26/18 05:40 Folic Acid 6.9 ng/mL (>3.0) 12/26/18 05:40 TSH 2.61 uIU/ml (0.34-5.60) 12/25/18 16:11 Urine Source CATH 12/25/18 16:25 Urine Color COLORLESS 12/25/18 16:25 Urine Clarity CLEAR (CLEAR) 12/25/18 16:25 Urine pH 6.0 (4.6 - 8.0) 12/25/18 16:25 Ur Specific [place] 1.010 (1.005-1.030) 12/25/18 16:25 Urine Protein NEGATIVE mg/dL (NEGATIVE) 12/25/18 16:25 Urine Glucose (UA) NEGATIVE mg/dL (NEGATIVE) 12/25/18 16:25 Urine Ketones NEGATIVE mg/dL (NEGATIVE) 12/25/18 16:25 Urine Blood NEGATIVE (NEGATIVE) 12/25/18 16:25 Urine Nitrate NEGATIVE (NEGATIVE) 12/25/18 16:25 Urine Bilirubin NEGATIVE (NEGATIVE) 12/25/18 16:25 Urine Urobilinogen 0.2 E.U./dL (0.2 - 1.0) 12/25/18 16:25 Ur Leukocyte Esterase NEGATIVE (NEGATIVE) 12/25/18 16:25 Stool Occult Blood NEGATIVE (NEGATIVE) 01/06/19 18:00 Vancomycin Trough 15.1 ug/mL (5-10) H 01/11/19 22:05 Valproic Acid < 10.0 ug/mL (50.0-100.0) L 12/30/18 04:25 [place] 0.06 mmol/L (0.5-1.0) L 12/30/18 04:25 RPR NONREACTIVE (NONREACTIVE) 12/25/18 16:11 Influenza A (Rapid) NEG FOR INF A 12/25/18 16:30 Influenza B (Rapid) NEG FOR INF B 12/25/18 16:30 - Physical Exam Vitals and I&O: Vital Signs Temp 97.8 F 01/13/19 16:00 Pulse 79 01/13/19 18:35 Resp 20 01/13/19 18:35 BP 112/61 01/13/19 16:00 Pulse Ox 94 01/13/19 18:35 Intake & Output 01/12/19 01/13/19 01/13/19 18:59 06:59 18:59 Intake Total 716 383 9019 Balance 515 206 7272 Weight (lbs) 63.957 kg 63.957 kg 63.957 kg Intake: Intake, IV Amount 200 100 200 Piperacillin Sodium/ 200 100 200 Tazobact 4.5 gm In Sodium Chloride 0.9% 100 ml @ 100 mls/hr IV Q8HR [facility] Rx #:[id number] Oral 450 900 Other: # Voids 3 2 3 # Bowel Movements 1 0 1 Weight Source Bedscale Bedscale Bedscale Active Medications: Current Medications Acetaminophen (Tylenol 650mg Supp) 650 mg RC Q6H PRN PRN Reason: Fever > 101 Stop: 03/05/19 08:02 Last Admin: 01/04/19 08:49 Dose: 650 mg Acetaminophen (Tylenol) 650 mg PO Q4H PRN PRN Reason: Fever > 101 Stop: 04/11/19 08:05 Last Admin: 01/12/19 21:17 Dose: 650 mg Acetylcysteine (Mucomyst 20%) 3 ml HHN Q4HRT [facility] Stop: 03/09/19 14:59 Last Admin: 01/13/19 18:34 Dose: 3 ml Albuterol/Ipratropium (Duoneb Neb) 3 ml HHN Q4HRT [facility] Stop: 03/05/19 10:59 Last Admin: 01/13/19 18:34 Dose: 3 ml Amlodipine Besylate (Norvasc) 10 mg PO DAILY [facility] Stop: 02/28/19 08:59 Last Admin: 01/13/19 09:09 Dose: 10 mg Ascorbic Acid (Vitamin C) 500 mg PO DAILY [facility] Stop: 03/01/19 08:59 Last Admin: 01/13/19 09:07 Dose: 500 mg Aspirin (Ecotrin) 81 mg PO DAILY [facility] Stop: 02/28/19 08:59 Last Admin: 01/13/19 09:08 Dose: 81 mg Benztropine Mesylate (Cogentin) 1 mg PO TID [facility] Stop: 02/28/19 08:59 Last Admin: 01/13/19 13:19 Dose: 1 mg Bisacodyl (Dulcolax 10 Mg Supp) 10 mg RC DAILY [facility] Stop: 02/28/19 08:59 Last Admin: 01/13/19 09:10 Dose: Not Given Cholecalciferol (Vitamin D3) 5,000 iu PO DAILY [facility] Stop: 02/28/19 08:59 Last Admin: 01/13/19 09:07 Dose: 5,000 iu Clonazepam (Klonopin) 2 mg PO TID [facility]; Protocol Stop: 02/27/19 08:59 Last Admin: 01/13/19 13:19 Dose: 2 mg Clozapine 100 mg/ Clozapine 75 (mg) 175 mg PO BID [facility] Stop: 03/01/19 16:59 Last Admin: 01/13/19 16:12 Dose: Not Given Famotidine (Pepcid) 40 mg PO DAILY [facility] Stop: 02/28/19 08:59 Last Admin: 01/13/19 09:08 Dose: 40 mg Piperacillin Sod/Tazobactam (Sod 4.5 gm/ Sodium Chloride) 100 mls @ 100 mls/hr IV Q8HR [facility] Stop: 03/05/19 12:59 Last Infusion: 01/13/19 14:18 Dose: Infused Dextrose/Sodium Chloride (D5-0.45ns) 1,000 mls @ 50 mls/hr IV .Q20H [facility] Stop: 03/12/19 18:29 Last Admin: 01/11/19 23:36 Dose: 50 mls/hr Levothyroxine Sodium 0.025 mg/ (Levothyroxine Sodium 0.112 mg) 0.137 mg PO DAILY@0730 [facility] Stop: 02/28/19 07:29 Last Admin: 01/13/19 07:23 Dose: 0.137 mg [place] Carbonate (Eskalith) 300 mg PO BID [facility]; Protocol Stop: 02/28/19 08:59 Last Admin: 01/13/19 16:12 Dose: Not Given Magnesium Hydroxide (Milk Of Magnesia) 30 ml PO HS [facility] Stop: 02/28/19 20:59 Last Admin: 01/12/19 21:17 Dose: 30 ml Quetiapine Fumarate (Seroquel) 300 mg PO TID [facility]; Protocol Stop: 03/01/19 08:59 Last Admin: 01/13/19 13:19 Dose: 300 mg Valproate Sodium (Depakene) 500 mg PO BID [facility]; Protocol Stop: 02/28/19 08:59 Last Admin: 01/13/19 16:12 Dose: Not Given General: Alert, No acute distress, Other (confused) HEENT: Atraumatic Neck: Supple Cardiovascular: Regular rate Lungs: Clear to auscultation, Normal air movement Abdomen: Bowel sounds, Soft, no Tender, no Hepatomegaly, no Distended, no Rebound, no Mass, no Guarding Extremities: no Clubbing, no Cyanosis Skin: no Rash Assessment/Plan - Assessment Assessment: The iron studies are suggestive of iron deficiency anemia. Stool occult blood was positive. The patient is being evaluated by the laundry helper. He will be given iron by IV route because of his poor compliance. The leukocytosis could be secondary to lithium or reactive and the patient is on antibiotics with improvement of the white count. 01/13/19: hgb stable, completed iv iron. s/p EGD/COLO. leukocytosis improving per ID. follow cbc, ferritin Nutritional Asmnt/Malnutr-PDOC - Dietary Evaluation Malnutrition Findings (Please click <Entered> for more info): Nutritional Asmnt/Malnutrition Start: 12/26/18 15: 09 Text: Status: Complete Freq: Protocol: Document 12/26/18 15:09 HANKSUNIL (Rec: 12/26/18 15:12 HANKSUNIL [email or web address]) Nutritional Asmnt/Malnutrition Patient General Information Nutritional Screening High Risk Diagnosis sepsis Pertinent Medical Hx/Surgical Hx HTN, PUD/GERD, thyroid disorder, anemia, schizophrenia Subjective Information Pt seen in bed, disoriented, yelling, has 1:1 sitter in room. Per sitter, pt consumed 100% of breakfast and lunch today. Current Diet Order/ Nutrition Support soft/bland Pertinent Medications seroquel Pertinent Labs 12/25 BUN 26, Alb 3.5 Nutritional Hx/Data Height 1.7 m Height (Calculated Centimeters) 170.2 Current Weight (lbs) 58.967 kg Weight (Calculated Kilograms) 59.0 Weight (Calculated Grams) 21702.0 [place] Body Weight 148 Body Mass Index (BMI) 20.3 Weight Status Approriate GI Symptoms GI Symptoms None Last BM not indicated Difficult in: None Skin Integrity/Comment: intact Current %PO Good (75-100%) Estimated Nutritional Goals BEE in Kcals: Using Current wt Calories/Kcals/Kg 30-35 Kcals Calculated 2933-8969 Protein: Using Current wt Protein g/k.2 Protein Calculated 71 Fluid: ml 1620-2065ml (1ml/kcal) Nutritional Problem 1. Problem Problem increased nutritional needs Etiology increased metabolic demand Signs/Symptoms: dx of sepsis Malnutrition Alert Is there a minimum of two criteria No selected? Query Text:Check all the applicable criteria. A minimum of two criteria are recommended for diagnosis of either severe or non-severe malnutrition. Malnutrition Related to Morbid Obesity Malnutrition related to morbid obesity No Intervention/Recommendation Comments 1. Continue with soft/baland diet as ordered. 2. Monitor PO intake, wt, labs and skin integrity 3. F/U as moderate risk in 3-5 days Expected Outcomes/Goals Expected Outcomes/Goals 1. PO intake to meet at least 75% of nutritional needs. 2. Wt stability, skin to remain intact, labs to approach WNL.
[2019-01-13] MEDS: D5-0.45NS 1,000 ML IV SCH (18:51)
[2019-01-13] MEDS: Magnesium Hydroxide (MOM) 30 mL UDC PO SCH (20:51)
--- NOTE | 2019-01-14 03:12 | Consultation ---
DATE OF CONSULTATION: 01/13/2019 SUBJECTIVE: The patient is still poorly cooperative, agitated. PHYSICAL EXAMINATION: VITAL SIGNS: Temperature now 97.8, pulse 97, respiration 20, blood pressure 112/61, saturation 94-96%. CHEST: Decreased breath sounds left base, better air entry on the right side. HEART: Regular rate. ABDOMEN: Soft. EXTREMITIES: No edema. LABORATORY DATA: WBC 16.0, hemoglobin 9.8. Sodium 143, potassium 3.6, BUN is 13, creatinine 0.9. IMPRESSION: 1. Respiratory failure. 2. Pneumonia. 3. Dysphagia. 4. Weakness. 5. Agitation and psychosis. 6. Lung atelectasis. PLAN: Continue IV antibiotics, nebulizer treatment. Follow up chest x-ray. If conservative treatment is not effective, patient might need to have a bronchoscopy under heavy sedation or intubation attempts under general anesthesia. Discussed the case with Dr. Farah. Agree with LTAC evaluation for now. JOB# [id number]
[2019-01-14] MEDS: Albuterol/Ipratropium Neb 3 ML AERS HHN SCH ×6 (03:16→22:34)
[2019-01-14 08:00] LABS: % BASOPHILS 0.1 % (0.0-2.0); % EOSINOPHILS 5.8 % (0.0-5.0); % LYMPHOCYTES 10.3 % (20.0-50.0); % MONOCYTES 4.9 % (2.0-10.0); % NEUTROPHILS 78.9 % (40.0-80.0); EOSINOPHILE ABSOLUTE 0.8 Th/cmm (0.1-0.4); HEMATOCRIT 30.6 % (41.0-60); LYMPHOCYTE ABSOLUTE 1.4 Th/cmm (1.5-3.0); MEAN CELL VOLUME 85.2 fl (80-99); MEAN CORPUSCULAR HEMOGLOBIN 27.9 pg (26.0-30.0); MEAN CORPUSCULAR HGB CONC 32.8 pg (28.0-36.0); MEAN PLATELET VOLUME 8.4 fl; MONOCYTE ABSOLUTE 0.7 Th/cmm (0.3-1.0); NEUTROPHILE ABSOLUTE 10.4 Th/cmm (1.8-8.0); PLATELET COUNT 344 Th/cmm (150-400); RED BLOOD COUNT 3.59 Mil/cmm (4.30-5.70); RED CELL DISTRIBUTION WIDTH 14.7 % (11.5-20.0); WHITE BLOOD COUNT 13.3 Th/cmm (4.8-10.8)
[2019-01-14 08:20] LABS: ANION GAP 10.4 (7.0-16.0); BUN - UREA NITROGEN 15 mg/dL (7-25); CALCIUM SERUM 8.5 mg/dL (8.6-10.3); CARBON DIOXIDE 30.8 mEq/L (21.0-31.0); CHLORIDE 110 mEq/L (98-107); CREATININE - SERUM 0.9 mg/dL (0.7-1.3); GFR AFRICAN-AMERICAN > 60.0 ml/min (>90); GFR NON AFRICAN-AMERICAN > 60.0 ml/min; GLUCOSE 161 mg/dL (70-105); POTASSIUM SERUM 3.2 mEq/L (3.5-5.1); SODIUM SERUM 148 mEq/L (136-145)
--- NOTE | 2019-01-14 08:25 | Diagnostic Imaging Report ---
Portable chest x-ray HISTORY: Shortness of breath Compared with prior exam of January 12, 2019, there is improved aeration and expansion of the left lung. Persistent density/infiltrate noted in the left upper lobe. IMPRESSION: 1. Improved pulmonary status as noted above
[2019-01-14] MEDS: Multivitamin w/ Minerals Tab PO SCH (09:07)
--- NOTE | 2019-01-14 10:03 | Internal Medicine Prog Note ---
Internal Medicine Subjective - Subjective Service Date: 01/14/19 Patient seen and examined:: chart reviewed Patient is:: awake, verbal, in bed, agitated, confused, other (Easily agitated.) Patient Complaints of:: cough, SOB Per staff patient has:: no adverse event, no episodes of fall, agitated, confused Internal Medicine Objective - Results Result Diagrams: 01/14/19 07:45 01/14/19 07:45 Recent Labs: Laboratory Last Values WBC 13.3 Th/cmm (4.8-10.8) H 01/14/19 07:45 RBC 3.59 Mil/cmm (4.30-5.70) L 01/14/19 07:45 Hgb 10.0 gm/dL (12-16) L 01/14/19 07:45 Hct 30.6 % (41.0-60) L 01/14/19 07:45 MCV 85.2 fl (80-99) 01/14/19 07:45 MCH 27.9 pg (26.0-30.0) 01/14/19 07:45 MCHC Differential 32.8 pg (28.0-36.0) 01/14/19 07:45 RDW 14.7 % (11.5-20.0) 01/14/19 07:45 Plt Count 344 Th/cmm (150-400) 01/14/19 07:45 MPV 8.4 fl 01/14/19 07:45 Add Manual Diff YES 01/13/19 08:48 Neutrophils % 78.9 % (40.0-80.0) 01/14/19 07:45 Band Neutrophils % 1 % (0-10) 01/13/19 08:48 Lymphocytes % 10.3 % (20.0-50.0) L 01/14/19 07:45 Monocytes % 4.9 % (2.0-10.0) 01/14/19 07:45 Eosinophils % 5.8 % (0.0-5.0) H 01/14/19 07:45 Basophils % 0.1 % (0.0-2.0) 01/14/19 07:45 Neutrophils (Manual) 81 % (40-80) H 01/13/19 08:48 Lymphocytes 10 % (20-50) L 01/13/19 08:48 Monocytes 3 % (2-10) 01/13/19 08:48 Eosinophils 5 % (0-5) 01/13/19 08:48 Basophils 0 % (0-3) 01/13/19 08:48 Platelet Estimate ADEQUATE (NORMAL) 01/06/19 05:45 RBC Morph Micro Appear NORMAL (NORMAL) 01/06/19 05:45 Total Retics Counted 2.2 % (0.5-1.5) H 12/26/18 05:40 Absolute Retic 79.2 Th/cmm 12/26/18 05:40 Corrected Retic Count 1.5 % (0.5-1.5) 12/26/18 05:40 PT 10.9 SECONDS (9.5-11.5) 01/02/19 05:40 INR 1.05 (0.5-1.4) 01/02/19 05:40 Sodium 148 mEq/L (136-145) H 01/14/19 07:45 Potassium 3.2 mEq/L (3.5-5.1) L 01/14/19 07:45 Chloride 110 mEq/L (98-107) H 01/14/19 07:45 Carbon Dioxide 30.8 mEq/L (21.0-31.0) 01/14/19 07:45 Anion Gap 10.4 (7.0-16.0) 01/14/19 07:45 BUN 15 mg/dL (7-25) 01/14/19 07:45 Creatinine 0.9 mg/dL (0.7-1.3) 01/14/19 07:45 Est GFR ( Amer) > 60.0 ml/min (>90) 01/14/19 07:45 Est GFR (Non-Af Amer) > 60.0 ml/min 01/14/19 07:45 BUN/Creatinine Ratio 16.7 01/14/19 07:45 Glucose 161 mg/dL (70-105) H 01/14/19 07:45 POC Glucose 87 MG/DL (70 - 105) 01/01/19 08:07 Whole Bld Lactic Acid 1.26 mmol/L (0.60-1.99) 01/04/19 12:10 Calcium 8.5 mg/dL (8.6-10.3) L 01/14/19 07:45 Magnesium 2.1 mg/dL (1.9-2.7) 01/06/19 05:45 Iron 17 ug/dL (38-169) L 12/26/18 05:40 TIBC 210 ug/dL (250-450) L 12/26/18 05:40 Iron Saturation 8 % (15-55) L 12/26/18 05:40 Unsaturated IBC 193 ug/dL (111-343) 12/26/18 05:40 Ferritin 200 ng/mL (30-400) 12/26/18 05:40 Total Bilirubin 0.4 mg/dL (0.3-1.0) 01/12/19 04:25 AST 24 U/L (13-39) 01/12/19 04:25 ALT 24 U/L (7-52) 01/12/19 04:25 Alkaline Phosphatase 52 U/L (34-104) 01/12/19 04:25 Total Protein 5.5 gm/dL (6.0-8.3) L 01/12/19 04:25 Albumin 2.7 gm/dL (4.2-5.5) L 01/12/19 04:25 Globulin 2.8 gm/dL 01/12/19 04:25 Albumin/Globulin Ratio 1.0 (1.0-1.8) 01/12/19 04:25 Triglycerides 125 mg/dL (<150) 12/25/18 16:11 Cholesterol 154 mg/dL (<200) 12/25/18 16:11 LDL Cholesterol Direct 112 mg/dL (75-193) 12/25/18 16:11 HDL Cholesterol 37 mg/dL (23-92) 12/25/18 16:11 Vitamin B12 848 pg/mL (232-1245) 12/26/18 05:40 Folic Acid 6.9 ng/mL (>3.0) 12/26/18 05:40 TSH 2.61 uIU/ml (0.34-5.60) 12/25/18 16:11 Urine Source CATH 12/25/18 16:25 Urine Color COLORLESS 12/25/18 16:25 Urine Clarity CLEAR (CLEAR) 12/25/18 16:25 Urine pH 6.0 (4.6 - 8.0) 12/25/18 16:25 Ur Specific [place] 1.010 (1.005-1.030) 12/25/18 16:25 Urine Protein NEGATIVE mg/dL (NEGATIVE) 12/25/18 16:25 Urine Glucose (UA) NEGATIVE mg/dL (NEGATIVE) 12/25/18 16:25 Urine Ketones NEGATIVE mg/dL (NEGATIVE) 12/25/18 16:25 Urine Blood NEGATIVE (NEGATIVE) 12/25/18 16:25 Urine Nitrate NEGATIVE (NEGATIVE) 12/25/18 16:25 Urine Bilirubin NEGATIVE (NEGATIVE) 12/25/18 16:25 Urine Urobilinogen 0.2 E.U./dL (0.2 - 1.0) 12/25/18 16:25 Ur Leukocyte Esterase NEGATIVE (NEGATIVE) 12/25/18 16:25 Stool Occult Blood NEGATIVE (NEGATIVE) 01/06/19 18:00 Vancomycin Trough 15.1 ug/mL (5-10) H 01/11/19 22:05 Valproic Acid < 10.0 ug/mL (50.0-100.0) L 12/30/18 04:25 [place] 0.06 mmol/L (0.5-1.0) L 12/30/18 04:25 RPR NONREACTIVE (NONREACTIVE) 12/25/18 16:11 Influenza A (Rapid) NEG FOR INF A 12/25/18 16:30 Influenza B (Rapid) NEG FOR INF B 12/25/18 16:30 - Physical Exam Vitals and I&O: Vital Signs Temp 99.1 F 01/14/19 08:00 Pulse 66 01/14/19 09:25 Resp 20 01/14/19 08:00 BP 117/65 01/14/19 09:25 Pulse Ox 98 01/14/19 08:00 Intake & Output 01/13/19 01/14/19 01/14/19 18:59 06:59 18:59 Intake Total 1100 400 Balance 1100 400 Weight (lbs) 63.957 kg 62.596 kg Intake: Intake, IV Amount 200 100 Piperacillin Sodium/ 200 100 Tazobact 4.5 gm In Sodium Chloride 0.9% 100 ml @ 100 mls/hr IV Q8HR [facility] Rx #:[id number] Oral 900 300 Other: # Voids 3 3 # Bowel Movements 1 0 Weight Source Bedscale Bedscale Active Medications: Current Medications Acetaminophen (Tylenol 650mg Supp) 650 mg RC Q6H PRN PRN Reason: Fever > 101 Stop: 03/05/19 08:02 Last Admin: 01/04/19 08:49 Dose: 650 mg Acetaminophen (Tylenol) 650 mg PO Q4H PRN PRN Reason: Fever > 101 Stop: 03/05/19 08:05 Last Admin: 01/12/19 21:17 Dose: 650 mg Acetylcysteine (Mucomyst 20%) 3 ml HHN Q4HRT [facility] Stop: 03/09/19 14:59 Last Admin: 01/14/19 06:50 Dose: 3 ml Albuterol/Ipratropium (Duoneb Neb) 3 ml HHN Q4HRT [facility] Stop: 03/05/19 10:59 Last Admin: 01/14/19 06:50 Dose: 3 ml Amlodipine Besylate (Norvasc) 10 mg PO DAILY [facility] Stop: 02/28/19 08:59 Last Admin: 01/13/19 09:09 Dose: 10 mg Ascorbic Acid (Vitamin C) 500 mg PO DAILY [facility] Stop: 03/01/19 08:59 Last Admin: 01/14/19 09:07 Dose: 500 mg Aspirin (Ecotrin) 81 mg PO DAILY [facility] Stop: 02/28/19 08:59 Last Admin: 01/14/19 09:07 Dose: 81 mg Benztropine Mesylate (Cogentin) 1 mg PO TID [facility] Stop: 02/28/19 08:59 Last Admin: 01/13/19 20:51 Dose: 1 mg Bisacodyl (Dulcolax 10 Mg Supp) 10 mg RC DAILY [facility] Stop: 02/28/19 08:59 Last Admin: 01/13/19 09:10 Dose: Not Given Cholecalciferol (Vitamin D3) 5,000 iu PO DAILY [facility] Stop: 02/28/19 08:59 Last Admin: 01/14/19 09:06 Dose: 5,000 iu Clonazepam (Klonopin) 2 mg PO TID [facility]; Protocol Stop: 02/27/19 08:59 Last Admin: 01/13/19 20:51 Dose: 2 mg Clozapine 100 mg/ Clozapine 75 (mg) 175 mg PO BID [facility] Stop: 03/01/19 16:59 Last Admin: 01/13/19 16:12 Dose: Not Given Famotidine (Pepcid) 40 mg PO DAILY [facility] Stop: 02/28/19 08:59 Last Admin: 01/14/19 09:07 Dose: 40 mg Piperacillin Sod/Tazobactam (Sod 4.5 gm/ Sodium Chloride) 100 mls @ 100 mls/hr IV Q8HR [facility] Stop: 03/05/19 12:59 Last Admin: 01/14/19 05:13 Dose: 100 mls/hr Dextrose/Sodium Chloride (D5-0.45ns) 1,000 mls @ 50 mls/hr IV .Q20H [facility] Stop: 03/12/19 18:29 Last Admin: 01/13/19 18:51 Dose: 50 mls/hr Levothyroxine Sodium 0.025 mg/ (Levothyroxine Sodium 0.112 mg) 0.137 mg PO DAILY@0730 [facility] Stop: 02/28/19 07:29 Last Admin: 01/13/19 07:23 Dose: 0.137 mg [place] Carbonate (Eskalith) 300 mg PO BID [facility]; Protocol Stop: 02/28/19 08:59 Last Admin: 01/13/19 16:12 Dose: Not Given Magnesium Hydroxide (Milk Of Magnesia) 30 ml PO HS [facility] Stop: 02/28/19 20:59 Last Admin: 01/13/19 20:51 Dose: 30 ml Quetiapine Fumarate (Seroquel) 300 mg PO TID [facility]; Protocol Stop: 03/01/19 08:59 Last Admin: 01/14/19 09:28 Dose: 300 mg Valproate Sodium (Depakene) 500 mg PO BID [facility]; Protocol Stop: 02/28/19 08:59 Last Admin: 01/13/19 16:12 Dose: Not Given General: congested, alert, other (Patient still has agitated behavior.) HEENT: PERRLA, throat clear Neck: No JVD Lungs: congested, wheezing, ronchi, other (scattered rhonchi and occasional wheezing.) Cardiovascular: Normal S1 Abdomen: soft, non-distended, positive bowel sound Extremities: clear, other (Patient has restraints in place.) Neurological: lethargic, disorganized, muscle weakness Internal Medicine Assmt/Plan - Assessment Assessment: Agitated with Aggresive Behavior towards others Psychosis. Schizophrenia. Respiratory failure. Lung Atelectasis. Poor Compliance. Sepsis. Pneumonia. Lactic acidosis. Iron deficiency anemia s/p transfusion. Hypertension. History of Gerd. Hypothyroidism. PUD. GERD. Weakness. Hypotention - Plan Plan: Continuation of care Monitor Labs, Hemoglobin levels, Reviewed Chest x-ray Continue present IV Antibiotics and meds as prescribed Monitor Diet,Nutritional support Continue Nebulizer treatments and Mucomyst Pulmonary support Aspiration precaution Followup with Dr. Craven for Psych Management Continue present treatment plan Nutritional Asmnt/Malnutr-PDOC - Dietary Evaluation Malnutrition Findings (Please click <Entered> for more info): Nutritional Asmnt/Malnutrition Start: 12/26/18 15: 09 Text: Status: Complete Freq: Protocol: Document 12/26/18 15:09 LCHENG (Rec: 12/26/18 15:12 [email or web address]) Nutritional Asmnt/Malnutrition Patient General Information Nutritional Screening High Risk Diagnosis sepsis Pertinent Medical Hx/Surgical Hx HTN, PUD/GERD, thyroid disorder, anemia, schizophrenia Subjective Information Pt seen in bed, disoriented, yelling, has 1:1 sitter in room. Per sitter, pt consumed 100% of breakfast and lunch today. Current Diet Order/ Nutrition Support soft/bland Pertinent Medications seroquel Pertinent Labs 12/25 BUN 26, Alb 3.5 Nutritional Hx/Data Height 1.7 m Height (Calculated Centimeters) 170.2 Current Weight (lbs) 58.967 kg Weight (Calculated Kilograms) 59.0 Weight (Calculated Grams) 94046.0 [place] Body Weight 148 Body Mass Index (BMI) 20.3 Weight Status Approriate GI Symptoms GI Symptoms None Last BM not indicated Difficult in: None Skin Integrity/Comment: intact Current %PO Good (75-100%) Estimated Nutritional Goals BEE in Kcals: Using Current wt Calories/Kcals/Kg 30-35 Kcals Calculated 4137-9056 Protein: Using Current wt Protein g/k.2 Protein Calculated 71 Fluid: ml 1620-2065ml (1ml/kcal) Nutritional Problem 1. Problem Problem increased nutritional needs Etiology increased metabolic demand Signs/Symptoms: dx of sepsis Malnutrition Alert Is there a minimum of two criteria No selected? Query Text:Check all the applicable criteria. A minimum of two criteria are recommended for diagnosis of either severe or non-severe malnutrition. Malnutrition Related to Morbid Obesity Malnutrition related to morbid obesity No Intervention/Recommendation Comments 1. Continue with soft/baland diet as ordered. 2. Monitor PO intake, wt, labs and skin integrity 3. F/U as moderate risk in 3-5 days Expected Outcomes/Goals Expected Outcomes/Goals 1. PO intake to meet at least 75% of nutritional needs. 2. Wt stability, skin to remain intact, labs to approach WNL.
--- NOTE | 2019-01-14 11:55 | General Progress Note ---
Subjective - Review of Systems Service Date: 01/14/19 Subjective: not in distress, confused Objective - Results Result Diagrams: 01/14/19 07:45 01/14/19 07:45 Recent Labs: Laboratory Last Values WBC 13.3 Th/cmm (4.8-10.8) H 01/14/19 07:45 RBC 3.59 Mil/cmm (4.30-5.70) L 01/14/19 07:45 Hgb 10.0 gm/dL (12-16) L 01/14/19 07:45 Hct 30.6 % (41.0-60) L 01/14/19 07:45 MCV 85.2 fl (80-99) 01/14/19 07:45 MCH 27.9 pg (26.0-30.0) 01/14/19 07:45 MCHC Differential 32.8 pg (28.0-36.0) 01/14/19 07:45 RDW 14.7 % (11.5-20.0) 01/14/19 07:45 Plt Count 344 Th/cmm (150-400) 01/14/19 07:45 MPV 8.4 fl 01/14/19 07:45 Add Manual Diff YES 01/13/19 08:48 Neutrophils % 78.9 % (40.0-80.0) 01/14/19 07:45 Band Neutrophils % 1 % (0-10) 01/13/19 08:48 Lymphocytes % 10.3 % (20.0-50.0) L 01/14/19 07:45 Monocytes % 4.9 % (2.0-10.0) 01/14/19 07:45 Eosinophils % 5.8 % (0.0-5.0) H 01/14/19 07:45 Basophils % 0.1 % (0.0-2.0) 01/14/19 07:45 Neutrophils (Manual) 81 % (40-80) H 01/13/19 08:48 Lymphocytes 10 % (20-50) L 01/13/19 08:48 Monocytes 3 % (2-10) 01/13/19 08:48 Eosinophils 5 % (0-5) 01/13/19 08:48 Basophils 0 % (0-3) 01/13/19 08:48 Platelet Estimate ADEQUATE (NORMAL) 01/06/19 05:45 RBC Morph Micro Appear NORMAL (NORMAL) 01/06/19 05:45 Total Retics Counted 2.2 % (0.5-1.5) H 12/26/18 05:40 Absolute Retic 79.2 Th/cmm 12/26/18 05:40 Corrected Retic Count 1.5 % (0.5-1.5) 12/26/18 05:40 PT 10.9 SECONDS (9.5-11.5) 01/02/19 05:40 INR 1.05 (0.5-1.4) 01/02/19 05:40 Sodium 148 mEq/L (136-145) H 01/14/19 07:45 Potassium 3.2 mEq/L (3.5-5.1) L 01/14/19 07:45 Chloride 110 mEq/L (98-107) H 01/14/19 07:45 Carbon Dioxide 30.8 mEq/L (21.0-31.0) 01/14/19 07:45 Anion Gap 10.4 (7.0-16.0) 01/14/19 07:45 BUN 15 mg/dL (7-25) 01/14/19 07:45 Creatinine 0.9 mg/dL (0.7-1.3) 01/14/19 07:45 Est GFR ( Amer) > 60.0 ml/min (>90) 01/14/19 07:45 Est GFR (Non-Af Amer) > 60.0 ml/min 01/14/19 07:45 BUN/Creatinine Ratio 16.7 01/14/19 07:45 Glucose 161 mg/dL (70-105) H 01/14/19 07:45 POC Glucose 87 MG/DL (70 - 105) 01/01/19 08:07 Whole Bld Lactic Acid 1.26 mmol/L (0.60-1.99) 01/04/19 12:10 Calcium 8.5 mg/dL (8.6-10.3) L 01/14/19 07:45 Magnesium 2.1 mg/dL (1.9-2.7) 01/06/19 05:45 Iron 17 ug/dL (38-169) L 12/26/18 05:40 TIBC 210 ug/dL (250-450) L 12/26/18 05:40 Iron Saturation 8 % (15-55) L 12/26/18 05:40 Unsaturated IBC 193 ug/dL (111-343) 12/26/18 05:40 Ferritin 200 ng/mL (30-400) 12/26/18 05:40 Total Bilirubin 0.4 mg/dL (0.3-1.0) 01/12/19 04:25 AST 24 U/L (13-39) 01/12/19 04:25 ALT 24 U/L (7-52) 01/12/19 04:25 Alkaline Phosphatase 52 U/L (34-104) 01/12/19 04:25 Total Protein 5.5 gm/dL (6.0-8.3) L 01/12/19 04:25 Albumin 2.7 gm/dL (4.2-5.5) L 01/12/19 04:25 Globulin 2.8 gm/dL 01/12/19 04:25 Albumin/Globulin Ratio 1.0 (1.0-1.8) 01/12/19 04:25 Triglycerides 125 mg/dL (<150) 12/25/18 16:11 Cholesterol 154 mg/dL (<200) 12/25/18 16:11 LDL Cholesterol Direct 112 mg/dL (75-193) 12/25/18 16:11 HDL Cholesterol 37 mg/dL (23-92) 12/25/18 16:11 Vitamin B12 848 pg/mL (232-1245) 12/26/18 05:40 Folic Acid 6.9 ng/mL (>3.0) 12/26/18 05:40 TSH 2.61 uIU/ml (0.34-5.60) 12/25/18 16:11 Urine Source CATH 12/25/18 16:25 Urine Color COLORLESS 12/25/18 16:25 Urine Clarity CLEAR (CLEAR) 12/25/18 16:25 Urine pH 6.0 (4.6 - 8.0) 12/25/18 16:25 Ur Specific [place] 1.010 (1.005-1.030) 12/25/18 16:25 Urine Protein NEGATIVE mg/dL (NEGATIVE) 12/25/18 16:25 Urine Glucose (UA) NEGATIVE mg/dL (NEGATIVE) 12/25/18 16:25 Urine Ketones NEGATIVE mg/dL (NEGATIVE) 12/25/18 16:25 Urine Blood NEGATIVE (NEGATIVE) 12/25/18 16:25 Urine Nitrate NEGATIVE (NEGATIVE) 12/25/18 16:25 Urine Bilirubin NEGATIVE (NEGATIVE) 12/25/18 16:25 Urine Urobilinogen 0.2 E.U./dL (0.2 - 1.0) 12/25/18 16:25 Ur Leukocyte Esterase NEGATIVE (NEGATIVE) 12/25/18 16:25 Stool Occult Blood NEGATIVE (NEGATIVE) 01/06/19 18:00 Vancomycin Trough 15.1 ug/mL (5-10) H 01/11/19 22:05 Valproic Acid < 10.0 ug/mL (50.0-100.0) L 12/30/18 04:25 [place] 0.06 mmol/L (0.5-1.0) L 12/30/18 04:25 RPR NONREACTIVE (NONREACTIVE) 12/25/18 16:11 Influenza A (Rapid) NEG FOR INF A 12/25/18 16:30 Influenza B (Rapid) NEG FOR INF B 12/25/18 16:30 - Physical Exam Vitals and I&O: Vital Signs Temp 99.1 F 01/14/19 08:00 Pulse 90 01/14/19 11:21 Resp 20 01/14/19 11:21 BP 117/65 01/14/19 09:25 Pulse Ox 94 01/14/19 11:21 Intake & Output 01/13/19 01/14/19 01/14/19 18:59 06:59 18:59 Intake Total 1100 400 Balance 1100 400 Weight (lbs) 63.957 kg 62.596 kg Intake: Intake, IV Amount 200 100 Piperacillin Sodium/ 200 100 Tazobact 4.5 gm In Sodium Chloride 0.9% 100 ml @ 100 mls/hr IV Q8HR [facility] Rx #:[id number] Oral 900 300 Other: # Voids 3 3 # Bowel Movements 1 0 Weight Source Bedscale Bedscale Active Medications: Current Medications Acetaminophen (Tylenol 650mg Supp) 650 mg RC Q6H PRN PRN Reason: Fever > 101 Stop: 03/05/19 08:02 Last Admin: 01/04/19 08:49 Dose: 650 mg Acetaminophen (Tylenol) 650 mg PO Q4H PRN PRN Reason: Fever > 101 Stop: 03/05/19 08:05 Last Admin: 01/12/19 21:17 Dose: 650 mg Acetylcysteine (Mucomyst 20%) 3 ml HHN Q4HRT [facility] Stop: 03/09/19 14:59 Last Admin: 01/14/19 11:20 Dose: 3 ml Albuterol/Ipratropium (Duoneb Neb) 3 ml HHN Q4HRT [facility] Stop: 03/05/19 10:59 Last Admin: 01/14/19 11:19 Dose: 3 ml Amlodipine Besylate (Norvasc) 10 mg PO DAILY [facility] Stop: 02/28/19 08:59 Last Admin: 01/13/19 09:09 Dose: 10 mg Ascorbic Acid (Vitamin C) 500 mg PO DAILY [facility] Stop: 03/01/19 08:59 Last Admin: 01/14/19 09:07 Dose: 500 mg Aspirin (Ecotrin) 81 mg PO DAILY [facility] Stop: 02/28/19 08:59 Last Admin: 01/14/19 09:07 Dose: 81 mg Benztropine Mesylate (Cogentin) 1 mg PO TID [facility] Stop: 02/28/19 08:59 Last Admin: 01/13/19 20:51 Dose: 1 mg Bisacodyl (Dulcolax 10 Mg Supp) 10 mg RC DAILY [facility] Stop: 02/28/19 08:59 Last Admin: 01/13/19 09:10 Dose: Not Given Cholecalciferol (Vitamin D3) 5,000 iu PO DAILY [facility] Stop: 02/28/19 08:59 Last Admin: 01/14/19 09:06 Dose: 5,000 iu Clonazepam (Klonopin) 2 mg PO TID [facility]; Protocol Stop: 02/27/19 08:59 Last Admin: 01/13/19 20:51 Dose: 2 mg Clozapine 100 mg/ Clozapine 75 (mg) 175 mg PO BID [facility] Stop: 03/01/19 16:59 Last Admin: 01/13/19 16:12 Dose: Not Given Famotidine (Pepcid) 40 mg PO DAILY [facility] Stop: 02/28/19 08:59 Last Admin: 01/14/19 09:07 Dose: 40 mg Piperacillin Sod/Tazobactam (Sod 4.5 gm/ Sodium Chloride) 100 mls @ 100 mls/hr IV Q8HR [facility] Stop: 03/05/19 12:59 Last Admin: 01/14/19 05:13 Dose: 100 mls/hr Dextrose/Sodium Chloride (D5-0.45ns) 1,000 mls @ 50 mls/hr IV .Q20H [facility] Stop: 03/12/19 18:29 Last Admin: 01/13/19 18:51 Dose: 50 mls/hr Levothyroxine Sodium 0.025 mg/ (Levothyroxine Sodium 0.112 mg) 0.137 mg PO DAILY@0730 [facility] Stop: 02/28/19 07:29 Last Admin: 01/13/19 07:23 Dose: 0.137 mg [place] Carbonate (Eskalith) 300 mg PO BID [facility]; Protocol Stop: 02/28/19 08:59 Last Admin: 01/13/19 16:12 Dose: Not Given Magnesium Hydroxide (Milk Of Magnesia) 30 ml PO HS [facility] Stop: 02/28/19 20:59 Last Admin: 01/13/19 20:51 Dose: 30 ml Quetiapine Fumarate (Seroquel) 300 mg PO TID [facility]; Protocol Stop: 03/01/19 08:59 Last Admin: 01/14/19 09:28 Dose: 300 mg Valproate Sodium (Depakene) 500 mg PO BID [facility]; Protocol Stop: 02/28/19 08:59 Last Admin: 01/13/19 16:12 Dose: Not Given General: Alert, No acute distress, Other (confused) HEENT: Atraumatic Neck: Supple Cardiovascular: Regular rate Lungs: Clear to auscultation, Normal air movement Abdomen: Bowel sounds, Soft, no Tender, no Hepatomegaly, no Distended, no Rebound, no Mass, no Guarding Extremities: no Clubbing, no Cyanosis Skin: no Rash Assessment/Plan - Assessment Assessment: The iron studies are suggestive of iron deficiency anemia. Stool occult blood was positive. The patient is being evaluated by the digital engineer. He will be given iron by IV route because of his poor compliance. The leukocytosis could be secondary to lithium or reactive and the patient is on antibiotics with improvement of the white count. 01/14/19: hgb stable, completed iv iron. s/p EGD/COLO. leukocytosis improving per ID. follow ferritin Nutritional Asmnt/Malnutr-PDOC - Dietary Evaluation Malnutrition Findings (Please click <Entered> for more info): Nutritional Asmnt/Malnutrition Start: 12/26/18 15: 09 Text: Status: Complete Freq: Protocol: Document 12/26/18 15:09 ESPERANZAG (Rec: 12/26/18 15:12 LCSUNIL [email or web address]) Nutritional Asmnt/Malnutrition Patient General Information Nutritional Screening High Risk Diagnosis sepsis Pertinent Medical Hx/Surgical Hx HTN, PUD/GERD, thyroid disorder, anemia, schizophrenia Subjective Information Pt seen in bed, disoriented, yelling, has 1:1 sitter in room. Per sitter, pt consumed 100% of breakfast and lunch today. Current Diet Order/ Nutrition Support soft/bland Pertinent Medications seroquel Pertinent Labs 12/25 BUN 26, Alb 3.5 Nutritional Hx/Data Height 1.7 m Height (Calculated Centimeters) 170.2 Current Weight (lbs) 58.967 kg Weight (Calculated Kilograms) 59.0 Weight (Calculated Grams) 35488.0 [place] Body Weight 148 Body Mass Index (BMI) 20.3 Weight Status Approriate GI Symptoms GI Symptoms None Last BM not indicated Difficult in: None Skin Integrity/Comment: intact Current %PO Good (75-100%) Estimated Nutritional Goals BEE in Kcals: Using Current wt Calories/Kcals/Kg 30-35 Kcals Calculated 4958-7921 Protein: Using Current wt Protein g/k.2 Protein Calculated 71 Fluid: ml 1620-2065ml (1ml/kcal) Nutritional Problem 1. Problem Problem increased nutritional needs Etiology increased metabolic demand Signs/Symptoms: dx of sepsis Malnutrition Alert Is there a minimum of two criteria No selected? Query Text:Check all the applicable criteria. A minimum of two criteria are recommended for diagnosis of either severe or non-severe malnutrition. Malnutrition Related to Morbid Obesity Malnutrition related to morbid obesity No Intervention/Recommendation Comments 1. Continue with soft/baland diet as ordered. 2. Monitor PO intake, wt, labs and skin integrity 3. F/U as moderate risk in 3-5 days Expected Outcomes/Goals Expected Outcomes/Goals 1. PO intake to meet at least 75% of nutritional needs. 2. Wt stability, skin to remain intact, labs to approach WNL.
[2019-01-14] MEDS: Benztropine 1 MG TAB PO SCH ×3 (12:56→21:20)
[2019-01-14] MEDS: cloZAPine 100 MG, cloZAPine 75 MG PO SCH ×2 (12:57→17:01)
--- NOTE | 2019-01-14 12:59 | Infectious Disease Prog Note ---
Infectious Disease Subjective - Review of Systems Service Date: 01/14/19 Subjective: Patient's fever has resolved, some improvement in leukocytosis. Blood culture grew Staph aureus/MSSA. Infectious Disease Objective - Results Result Diagrams: 01/14/19 07:45 01/14/19 07:45 Recent Labs: Laboratory Last Values WBC 13.3 Th/cmm (4.8-10.8) H 01/14/19 07:45 RBC 3.59 Mil/cmm (4.30-5.70) L 01/14/19 07:45 Hgb 10.0 gm/dL (12-16) L 01/14/19 07:45 Hct 30.6 % (41.0-60) L 01/14/19 07:45 MCV 85.2 fl (80-99) 01/14/19 07:45 MCH 27.9 pg (26.0-30.0) 01/14/19 07:45 MCHC Differential 32.8 pg (28.0-36.0) 01/14/19 07:45 RDW 14.7 % (11.5-20.0) 01/14/19 07:45 Plt Count 344 Th/cmm (150-400) 01/14/19 07:45 MPV 8.4 fl 01/14/19 07:45 Add Manual Diff YES 01/13/19 08:48 Neutrophils % 78.9 % (40.0-80.0) 01/14/19 07:45 Band Neutrophils % 1 % (0-10) 01/13/19 08:48 Lymphocytes % 10.3 % (20.0-50.0) L 01/14/19 07:45 Monocytes % 4.9 % (2.0-10.0) 01/14/19 07:45 Eosinophils % 5.8 % (0.0-5.0) H 01/14/19 07:45 Basophils % 0.1 % (0.0-2.0) 01/14/19 07:45 Neutrophils (Manual) 81 % (40-80) H 01/13/19 08:48 Lymphocytes 10 % (20-50) L 01/13/19 08:48 Monocytes 3 % (2-10) 01/13/19 08:48 Eosinophils 5 % (0-5) 01/13/19 08:48 Basophils 0 % (0-3) 01/13/19 08:48 Platelet Estimate ADEQUATE (NORMAL) 01/06/19 05:45 RBC Morph Micro Appear NORMAL (NORMAL) 01/06/19 05:45 Total Retics Counted 2.2 % (0.5-1.5) H 12/26/18 05:40 Absolute Retic 79.2 Th/cmm 12/26/18 05:40 Corrected Retic Count 1.5 % (0.5-1.5) 12/26/18 05:40 PT 10.9 SECONDS (9.5-11.5) 01/02/19 05:40 INR 1.05 (0.5-1.4) 01/02/19 05:40 Sodium 148 mEq/L (136-145) H 01/14/19 07:45 Potassium 3.2 mEq/L (3.5-5.1) L 01/14/19 07:45 Chloride 110 mEq/L (98-107) H 01/14/19 07:45 Carbon Dioxide 30.8 mEq/L (21.0-31.0) 01/14/19 07:45 Anion Gap 10.4 (7.0-16.0) 01/14/19 07:45 BUN 15 mg/dL (7-25) 01/14/19 07:45 Creatinine 0.9 mg/dL (0.7-1.3) 01/14/19 07:45 Est GFR ( Amer) > 60.0 ml/min (>90) 01/14/19 07:45 Est GFR (Non-Af Amer) > 60.0 ml/min 01/14/19 07:45 BUN/Creatinine Ratio 16.7 01/14/19 07:45 Glucose 161 mg/dL (70-105) H 01/14/19 07:45 POC Glucose 87 MG/DL (70 - 105) 01/01/19 08:07 Whole Bld Lactic Acid 1.26 mmol/L (0.60-1.99) 01/04/19 12:10 Calcium 8.5 mg/dL (8.6-10.3) L 01/14/19 07:45 Magnesium 2.1 mg/dL (1.9-2.7) 01/06/19 05:45 Iron 17 ug/dL (38-169) L 12/26/18 05:40 TIBC 210 ug/dL (250-450) L 12/26/18 05:40 Iron Saturation 8 % (15-55) L 12/26/18 05:40 Unsaturated IBC 193 ug/dL (111-343) 12/26/18 05:40 Ferritin 200 ng/mL (30-400) 12/26/18 05:40 Total Bilirubin 0.4 mg/dL (0.3-1.0) 01/12/19 04:25 AST 24 U/L (13-39) 01/12/19 04:25 ALT 24 U/L (7-52) 01/12/19 04:25 Alkaline Phosphatase 52 U/L (34-104) 01/12/19 04:25 Total Protein 5.5 gm/dL (6.0-8.3) L 01/12/19 04:25 Albumin 2.7 gm/dL (4.2-5.5) L 01/12/19 04:25 Globulin 2.8 gm/dL 01/12/19 04:25 Albumin/Globulin Ratio 1.0 (1.0-1.8) 01/12/19 04:25 Triglycerides 125 mg/dL (<150) 12/25/18 16:11 Cholesterol 154 mg/dL (<200) 12/25/18 16:11 LDL Cholesterol Direct 112 mg/dL (75-193) 12/25/18 16:11 HDL Cholesterol 37 mg/dL (23-92) 12/25/18 16:11 Vitamin B12 848 pg/mL (232-1245) 12/26/18 05:40 Folic Acid 6.9 ng/mL (>3.0) 12/26/18 05:40 TSH 2.61 uIU/ml (0.34-5.60) 12/25/18 16:11 Urine Source CATH 12/25/18 16:25 Urine Color COLORLESS 12/25/18 16:25 Urine Clarity CLEAR (CLEAR) 12/25/18 16:25 Urine pH 6.0 (4.6 - 8.0) 12/25/18 16:25 Ur Specific [place] 1.010 (1.005-1.030) 12/25/18 16:25 Urine Protein NEGATIVE mg/dL (NEGATIVE) 12/25/18 16:25 Urine Glucose (UA) NEGATIVE mg/dL (NEGATIVE) 12/25/18 16:25 Urine Ketones NEGATIVE mg/dL (NEGATIVE) 12/25/18 16:25 Urine Blood NEGATIVE (NEGATIVE) 12/25/18 16:25 Urine Nitrate NEGATIVE (NEGATIVE) 12/25/18 16:25 Urine Bilirubin NEGATIVE (NEGATIVE) 12/25/18 16:25 Urine Urobilinogen 0.2 E.U./dL (0.2 - 1.0) 12/25/18 16:25 Ur Leukocyte Esterase NEGATIVE (NEGATIVE) 12/25/18 16:25 Stool Occult Blood NEGATIVE (NEGATIVE) 01/06/19 18:00 Vancomycin Trough 15.1 ug/mL (5-10) H 01/11/19 22:05 Valproic Acid < 10.0 ug/mL (50.0-100.0) L 12/30/18 04:25 [place] 0.06 mmol/L (0.5-1.0) L 12/30/18 04:25 RPR NONREACTIVE (NONREACTIVE) 12/25/18 16:11 Influenza A (Rapid) NEG FOR INF A 12/25/18 16:30 Influenza B (Rapid) NEG FOR INF B 12/25/18 16:30 - Physical Exam Vitals and I&O: Vital Signs Temp 99.1 F 01/14/19 08:00 Pulse 90 01/14/19 11:21 Resp 20 01/14/19 11:21 BP 117/65 01/14/19 09:25 Pulse Ox 94 01/14/19 11:21 Intake & Output 01/13/19 01/14/19 01/14/19 18:59 06:59 18:59 Intake Total 1100 400 Balance 1100 400 Weight (lbs) 63.957 kg 62.596 kg Intake: Intake, IV Amount 200 100 Piperacillin Sodium/ 200 100 Tazobact 4.5 gm In Sodium Chloride 0.9% 100 ml @ 100 mls/hr IV Q8HR COUNTS INCLUDE 234 BEDS AT THE [facility] Rx #:[id number] Oral 900 300 Other: # Voids 3 3 # Bowel Movements 1 0 Weight Source Bedscale Bedscale Active Medications: Current Medications Acetaminophen (Tylenol 650mg Supp) 650 mg RC Q6H PRN PRN Reason: Fever > 101 Stop: 03/05/19 08:02 Last Admin: 01/04/19 08:49 Dose: 650 mg Acetaminophen (Tylenol) 650 mg PO Q4H PRN PRN Reason: Fever > 101 Stop: 03/05/19 08:05 Last Admin: 01/12/19 21:17 Dose: 650 mg Acetylcysteine (Mucomyst 20%) 3 ml HHN Q4HRT COUNTS INCLUDE 234 BEDS AT THE [facility] Stop: 03/09/19 14:59 Last Admin: 01/14/19 11:20 Dose: 3 ml Albuterol/Ipratropium (Duoneb Neb) 3 ml HHN Q4HRT COUNTS INCLUDE 234 BEDS AT THE [facility] Stop: 03/05/19 10:59 Last Admin: 01/14/19 11:19 Dose: 3 ml Amlodipine Besylate (Norvasc) 10 mg PO DAILY COUNTS INCLUDE 234 BEDS AT THE [facility] Stop: 02/28/19 08:59 Last Admin: 01/13/19 09:09 Dose: 10 mg Ascorbic Acid (Vitamin C) 500 mg PO DAILY COUNTS INCLUDE 234 BEDS AT THE [facility] Stop: 03/01/19 08:59 Last Admin: 01/14/19 09:07 Dose: 500 mg Aspirin (Ecotrin) 81 mg PO DAILY COUNTS INCLUDE 234 BEDS AT THE [facility] Stop: 02/28/19 08:59 Last Admin: 01/14/19 09:07 Dose: 81 mg Benztropine Mesylate (Cogentin) 1 mg PO TID COUNTS INCLUDE 234 BEDS AT THE [facility] Stop: 02/28/19 08:59 Last Admin: 01/13/19 20:51 Dose: 1 mg Bisacodyl (Dulcolax 10 Mg Supp) 10 mg RC DAILY COUNTS INCLUDE 234 BEDS AT THE [facility] Stop: 02/28/19 08:59 Last Admin: 01/13/19 09:10 Dose: Not Given Cholecalciferol (Vitamin D3) 5,000 iu PO DAILY COUNTS INCLUDE 234 BEDS AT THE [facility] Stop: 02/28/19 08:59 Last Admin: 01/14/19 09:06 Dose: 5,000 iu Clonazepam (Klonopin) 2 mg PO TID COUNTS INCLUDE 234 BEDS AT THE [facility]; Protocol Stop: 02/27/19 08:59 Last Admin: 01/13/19 20:51 Dose: 2 mg Clozapine 100 mg/ Clozapine 75 (mg) 175 mg PO BID COUNTS INCLUDE 234 BEDS AT THE [facility] Stop: 03/01/19 16:59 Last Admin: 01/13/19 16:12 Dose: Not Given Famotidine (Pepcid) 40 mg PO DAILY COUNTS INCLUDE 234 BEDS AT THE [facility] Stop: 02/28/19 08:59 Last Admin: 01/14/19 09:07 Dose: 40 mg Piperacillin Sod/Tazobactam (Sod 4.5 gm/ Sodium Chloride) 100 mls @ 100 mls/hr IV Q8HR COUNTS INCLUDE 234 BEDS AT THE [facility] Stop: 03/05/19 12:59 Last Admin: 01/14/19 05:13 Dose: 100 mls/hr Dextrose/Sodium Chloride (D5-0.45ns) 1,000 mls @ 50 mls/hr IV .Q20H COUNTS INCLUDE 234 BEDS AT THE [facility] Stop: 03/12/19 18:29 Last Admin: 01/13/19 18:51 Dose: 50 mls/hr Levothyroxine Sodium 0.025 mg/ (Levothyroxine Sodium 0.112 mg) 0.137 mg PO DAILY@0730 COUNTS INCLUDE 234 BEDS AT THE [facility] Stop: 02/28/19 07:29 Last Admin: 01/13/19 07:23 Dose: 0.137 mg [place] Carbonate (Eskalith) 300 mg PO BID COUNTS INCLUDE 234 BEDS AT THE [facility]; Protocol Stop: 02/28/19 08:59 Last Admin: 01/13/19 16:12 Dose: Not Given Magnesium Hydroxide (Milk Of Magnesia) 30 ml PO HS COUNTS INCLUDE 234 BEDS AT THE [facility] Stop: 02/28/19 20:59 Last Admin: 01/13/19 20:51 Dose: 30 ml Quetiapine Fumarate (Seroquel) 300 mg PO TID COUNTS INCLUDE 234 BEDS AT THE [facility]; Protocol Stop: 03/01/19 08:59 Last Admin: 01/14/19 09:28 Dose: 300 mg Valproate Sodium (Depakene) 500 mg PO BID COUNTS INCLUDE 234 BEDS AT THE [facility]; Protocol Stop: 02/28/19 08:59 Last Admin: 01/13/19 16:12 Dose: Not Given General: no acute distress, well developed, well nourished HEENT: atraumatic, normocephalic, PERRLA, EOMI Neck: supple, no thyromegaly, no rigid Cardiovascular: S1S2, regular Lungs: clear to auscultation bilaterally, clear to percussion Abdomen: soft, no tender, no distended Extremities: no cyanosis, no clubbing, no edema Neurological: awake, alert Skin: intact Infectious Disease Assmt/Plan - Assessment Assessment: 1. Sepsis. staph aureus MSSA sepsis. 2. Pneumonia. 3. Leukocytosis, suspect sepsis as patient also had lactic acidosis and tachycardia on presentation. 4. Hypothyroidism. 5. Anemia. 6. Schizophrenia. 7. Hypertension. 8. History of gastroesophageal reflux disease. 9. Iron deficiency anemia. 10. Aggressive behaviour. - Plan Plan: Continue Zosyn IV for 8 more days. Discontinue continue Vanco. Nutritional Asmnt/Malnutr-PDOC - Dietary Evaluation Malnutrition Findings (Please click <Entered> for more info): Nutritional Asmnt/Malnutrition Start: 12/26/18 15: 09 Text: Status: Complete Freq: Protocol: Document 12/26/18 15:09 LCHENG (Rec: 12/26/18 15:12 [email or web address] [id number]) Nutritional Asmnt/Malnutrition Patient General Information Nutritional Screening High Risk Diagnosis sepsis Pertinent Medical Hx/Surgical Hx HTN, PUD/GERD, thyroid disorder, anemia, schizophrenia Subjective Information Pt seen in bed, disoriented, yelling, has 1:1 sitter in room. Per sitter, pt consumed 100% of breakfast and lunch today. Current Diet Order/ Nutrition Support soft/bland Pertinent Medications seroquel Pertinent Labs 12/25 BUN 26, Alb 3.5 Nutritional Hx/Data Height 1.7 m Height (Calculated Centimeters) 170.2 Current Weight (lbs) 58.967 kg Weight (Calculated Kilograms) 59.0 Weight (Calculated Grams) 36467.0 [place] Body Weight 148 Body Mass Index (BMI) 20.3 Weight Status Approriate GI Symptoms GI Symptoms None Last BM not indicated Difficult in: None Skin Integrity/Comment: intact Current %PO Good (75-100%) Estimated Nutritional Goals BEE in Kcals: Using Current wt Calories/Kcals/Kg 30-35 Kcals Calculated 2607-0737 Protein: Using Current wt Protein g/k.2 Protein Calculated 71 Fluid: ml 1620-2065ml (1ml/kcal) Nutritional Problem 1. Problem Problem increased nutritional needs Etiology increased metabolic demand Signs/Symptoms: dx of sepsis Malnutrition Alert Is there a minimum of two criteria No selected? Query Text:Check all the applicable criteria. A minimum of two criteria are recommended for diagnosis of either severe or non-severe malnutrition. Malnutrition Related to Morbid Obesity Malnutrition related to morbid obesity No Intervention/Recommendation Comments 1. Continue with soft/baland diet as ordered. 2. Monitor PO intake, wt, labs and skin integrity 3. F/U as moderate risk in 3-5 days Expected Outcomes/Goals Expected Outcomes/Goals 1. PO intake to meet at least 75% of nutritional needs. 2. Wt stability, skin to remain intact, labs to approach WNL.
[2019-01-14] MEDS ORDERED: Potassium Chloride 20 mEq ER Tab PO ONE (17:48)
[2019-01-14] MEDS: D5-0.45NS 1,000 ML IV SCH (21:20)
[2019-01-14] MEDS: Magnesium Hydroxide (MOM) 30 mL UDC PO SCH (21:21)
--- NOTE | 2019-01-14 22:31 | Progress Notes ---
DATE: 01/14/2019 SUBJECTIVE: The patient appears to be doing okay, comfortable, in no distress. She is confused, but not as agitated. PHYSICAL EXAMINATION: VITAL SIGNS: Temperature is 99.1, pulse is 64, respirations 18, blood pressure 133/66, saturation is 94%. CHEST: Good breath sounds, decrease in left side. HEART: Regular rate and rhythm. ABDOMEN: Soft. EXTREMITIES: No edema. LABORATORY DATA: WBC is 13.3, hemoglobin is 10.0, sodium 142, potassium 3.2, creatinine 0.9. Chest x-ray: There is a significant improvement and infiltrate on the left side compared to the previous one. IMPRESSION: 1. Respiratory failure. 2. Pneumonia, improving finally, there is no significant lung atelectasis. 3. Weakness. 4. Dementia, psychosis. PLAN: 1. Continue antibiotics. 2. nebulizer. 3. Waiting LT[facility] evaluation. JOB# [id number] MTDD
--- NOTE | 2019-01-14 22:35 | GI Progress Note ---
Subjective - Review of Systems Service Date: 01/14/19 Events since last encounter: no events recently Objective - Results Result Diagrams: 01/14/19 07:45 01/14/19 07:45 Recent Labs: Laboratory Last Values WBC 13.3 Th/cmm (4.8-10.8) H 01/14/19 07:45 RBC 3.59 Mil/cmm (4.30-5.70) L 01/14/19 07:45 Hgb 10.0 gm/dL (12-16) L 01/14/19 07:45 Hct 30.6 % (41.0-60) L 01/14/19 07:45 MCV 85.2 fl (80-99) 01/14/19 07:45 MCH 27.9 pg (26.0-30.0) 01/14/19 07:45 MCHC Differential 32.8 pg (28.0-36.0) 01/14/19 07:45 RDW 14.7 % (11.5-20.0) 01/14/19 07:45 Plt Count 344 Th/cmm (150-400) 01/14/19 07:45 MPV 8.4 fl 01/14/19 07:45 Add Manual Diff YES 01/13/19 08:48 Neutrophils % 78.9 % (40.0-80.0) 01/14/19 07:45 Band Neutrophils % 1 % (0-10) 01/13/19 08:48 Lymphocytes % 10.3 % (20.0-50.0) L 01/14/19 07:45 Monocytes % 4.9 % (2.0-10.0) 01/14/19 07:45 Eosinophils % 5.8 % (0.0-5.0) H 01/14/19 07:45 Basophils % 0.1 % (0.0-2.0) 01/14/19 07:45 Neutrophils (Manual) 81 % (40-80) H 01/13/19 08:48 Lymphocytes 10 % (20-50) L 01/13/19 08:48 Monocytes 3 % (2-10) 01/13/19 08:48 Eosinophils 5 % (0-5) 01/13/19 08:48 Basophils 0 % (0-3) 01/13/19 08:48 Platelet Estimate ADEQUATE (NORMAL) 01/06/19 05:45 RBC Morph Micro Appear NORMAL (NORMAL) 01/06/19 05:45 Total Retics Counted 2.2 % (0.5-1.5) H 12/26/18 05:40 Absolute Retic 79.2 Th/cmm 12/26/18 05:40 Corrected Retic Count 1.5 % (0.5-1.5) 12/26/18 05:40 PT 10.9 SECONDS (9.5-11.5) 01/02/19 05:40 INR 1.05 (0.5-1.4) 01/02/19 05:40 Sodium 148 mEq/L (136-145) H 01/14/19 07:45 Potassium 3.2 mEq/L (3.5-5.1) L 01/14/19 07:45 Chloride 110 mEq/L (98-107) H 01/14/19 07:45 Carbon Dioxide 30.8 mEq/L (21.0-31.0) 01/14/19 07:45 Anion Gap 10.4 (7.0-16.0) 01/14/19 07:45 BUN 15 mg/dL (7-25) 01/14/19 07:45 Creatinine 0.9 mg/dL (0.7-1.3) 01/14/19 07:45 Est GFR ( Amer) > 60.0 ml/min (>90) 01/14/19 07:45 Est GFR (Non-Af Amer) > 60.0 ml/min 01/14/19 07:45 BUN/Creatinine Ratio 16.7 01/14/19 07:45 Glucose 161 mg/dL (70-105) H 01/14/19 07:45 POC Glucose 87 MG/DL (70 - 105) 01/01/19 08:07 Whole Bld Lactic Acid 1.26 mmol/L (0.60-1.99) 01/04/19 12:10 Calcium 8.5 mg/dL (8.6-10.3) L 01/14/19 07:45 Magnesium 2.1 mg/dL (1.9-2.7) 01/06/19 05:45 Iron 17 ug/dL (38-169) L 12/26/18 05:40 TIBC 210 ug/dL (250-450) L 12/26/18 05:40 Iron Saturation 8 % (15-55) L 12/26/18 05:40 Unsaturated IBC 193 ug/dL (111-343) 12/26/18 05:40 Ferritin 200 ng/mL (30-400) 12/26/18 05:40 Total Bilirubin 0.4 mg/dL (0.3-1.0) 01/12/19 04:25 AST 24 U/L (13-39) 01/12/19 04:25 ALT 24 U/L (7-52) 01/12/19 04:25 Alkaline Phosphatase 52 U/L (34-104) 01/12/19 04:25 Total Protein 5.5 gm/dL (6.0-8.3) L 01/12/19 04:25 Albumin 2.7 gm/dL (4.2-5.5) L 01/12/19 04:25 Globulin 2.8 gm/dL 01/12/19 04:25 Albumin/Globulin Ratio 1.0 (1.0-1.8) 01/12/19 04:25 Triglycerides 125 mg/dL (<150) 12/25/18 16:11 Cholesterol 154 mg/dL (<200) 12/25/18 16:11 LDL Cholesterol Direct 112 mg/dL (75-193) 12/25/18 16:11 HDL Cholesterol 37 mg/dL (23-92) 12/25/18 16:11 Vitamin B12 848 pg/mL (232-1245) 12/26/18 05:40 Folic Acid 6.9 ng/mL (>3.0) 12/26/18 05:40 TSH 2.61 uIU/ml (0.34-5.60) 12/25/18 16:11 Urine Source CATH 12/25/18 16:25 Urine Color COLORLESS 12/25/18 16:25 Urine Clarity CLEAR (CLEAR) 12/25/18 16:25 Urine pH 6.0 (4.6 - 8.0) 12/25/18 16:25 Ur Specific [place] 1.010 (1.005-1.030) 12/25/18 16:25 Urine Protein NEGATIVE mg/dL (NEGATIVE) 12/25/18 16:25 Urine Glucose (UA) NEGATIVE mg/dL (NEGATIVE) 12/25/18 16:25 Urine Ketones NEGATIVE mg/dL (NEGATIVE) 12/25/18 16:25 Urine Blood NEGATIVE (NEGATIVE) 12/25/18 16:25 Urine Nitrate NEGATIVE (NEGATIVE) 12/25/18 16:25 Urine Bilirubin NEGATIVE (NEGATIVE) 12/25/18 16:25 Urine Urobilinogen 0.2 E.U./dL (0.2 - 1.0) 12/25/18 16:25 Ur Leukocyte Esterase NEGATIVE (NEGATIVE) 12/25/18 16:25 Stool Occult Blood NEGATIVE (NEGATIVE) 01/06/19 18:00 Vancomycin Trough 15.1 ug/mL (5-10) H 01/11/19 22:05 Valproic Acid < 10.0 ug/mL (50.0-100.0) L 12/30/18 04:25 [place] 0.06 mmol/L (0.5-1.0) L 12/30/18 04:25 RPR NONREACTIVE (NONREACTIVE) 12/25/18 16:11 Influenza A (Rapid) NEG FOR INF A 12/25/18 16:30 Influenza B (Rapid) NEG FOR INF B 12/25/18 16:30 - Physical Exam Vitals and I&O: Vital Signs Temp 99.1 F 01/14/19 08:00 Pulse 83 01/14/19 19:17 Resp 18 01/14/19 20:00 BP 136/99 01/14/19 17:35 Pulse Ox 95 01/14/19 19:17 Intake & Output 01/14/19 01/14/19 01/15/19 06:59 18:59 06:59 Intake Total 500 1900 0 Balance 500 1900 0 Weight (lbs) 62.596 kg 62.596 kg 62.596 kg Intake: Intake, IV Amount 200 1100 D5-0.45NS 1,000 ml @ 50 1000 mls/hr IV .Q20H [facility] Rx#: [id number] Piperacillin Sodium/ 200 100 Tazobact 4.5 gm In Sodium Chloride 0.9% 100 ml @ 100 mls/hr IV Q8HR [facility] Rx #:[id number] Oral 300 800 0 Other: # Voids 3 3 1 # Bowel Movements 0 1 Weight Source Bedscale Bedscale Bedscale Active Medications: Current Medications Acetaminophen (Tylenol 650mg Supp) 650 mg RC Q6H PRN PRN Reason: Fever > 101 Stop: 03/05/19 08:02 Last Admin: 02/10/19 08:49 Dose: 650 mg Acetaminophen (Tylenol) 650 mg PO Q4H PRN PRN Reason: Fever > 101 Stop: 03/05/19 08:05 Last Admin: 01/12/19 21:17 Dose: 650 mg Acetylcysteine (Mucomyst 20%) 3 ml HHN Q4HRT [facility] Stop: 03/09/19 14:59 Last Admin: 01/14/19 19:09 Dose: 3 ml Albuterol/Ipratropium (Duoneb Neb) 3 ml HHN Q4HRT [facility] Stop: 03/05/19 10:59 Last Admin: 01/14/19 19:08 Dose: 3 ml Amlodipine Besylate (Norvasc) 10 mg PO DAILY [facility] Stop: 02/28/19 08:59 Last Admin: 01/14/19 12:56 Dose: Not Given Ascorbic Acid (Vitamin C) 500 mg PO DAILY [facility] Stop: 03/01/19 08:59 Last Admin: 01/14/19 09:07 Dose: 500 mg Aspirin (Ecotrin) 81 mg PO DAILY [facility] Stop: 02/28/19 08:59 Last Admin: 01/14/19 09:07 Dose: 81 mg Benztropine Mesylate (Cogentin) 1 mg PO TID [facility] Stop: 02/28/19 08:59 Last Admin: 01/14/19 21:20 Dose: Not Given Bisacodyl (Dulcolax 10 Mg Supp) 10 mg RC DAILY [facility] Stop: 02/28/19 08:59 Last Admin: 01/14/19 12:56 Dose: Not Given Cholecalciferol (Vitamin D3) 5,000 iu PO DAILY [facility] Stop: 02/28/19 08:59 Last Admin: 01/14/19 09:06 Dose: 5,000 iu Clonazepam (Klonopin) 2 mg PO TID [facility]; Protocol Stop: 02/27/19 08:59 Last Admin: 01/14/19 21:21 Dose: Not Given Clozapine 100 mg/ Clozapine 75 (mg) 175 mg PO BID [facility] Stop: 03/01/19 16:59 Last Admin: 01/14/19 17:01 Dose: 175 mg Famotidine (Pepcid) 40 mg PO DAILY [facility] Stop: 02/28/19 08:59 Last Admin: 01/14/19 09:07 Dose: 40 mg Piperacillin Sod/Tazobactam (Sod 4.5 gm/ Sodium Chloride) 100 mls @ 100 mls/hr IV Q8HR [facility] Stop: 03/05/19 12:59 Last Admin: 01/14/19 21:21 Dose: 100 mls/hr Dextrose/Sodium Chloride (D5-0.45ns) 1,000 mls @ 50 mls/hr IV .Q20H [facility] Stop: 03/12/19 18:29 Last Admin: 01/14/19 21:20 Dose: 50 mls/hr Levothyroxine Sodium 0.025 mg/ (Levothyroxine Sodium 0.112 mg) 0.137 mg PO DAILY@0730 [facility] Stop: 02/28/19 07:29 Last Admin: 01/14/19 12:56 Dose: Not Given [place] Carbonate (Eskalith) 300 mg PO BID [facility]; Protocol Stop: 02/28/19 08:59 Last Admin: 01/14/19 17:02 Dose: 300 mg Magnesium Hydroxide (Milk Of Magnesia) 30 ml PO HS [facility] Stop: 02/28/19 20:59 Last Admin: 01/14/19 21:21 Dose: Not Given Quetiapine Fumarate (Seroquel) 300 mg PO TID [facility]; Protocol Stop: 03/01/19 08:59 Last Admin: 01/14/19 21:22 Dose: Not Given Valproate Sodium (Depakene) 500 mg PO BID [facility]; Protocol Stop: 02/28/19 08:59 Last Admin: 01/14/19 17:02 Dose: 500 mg General: Alert, No acute distress, Other (confused) HEENT: Atraumatic Neck: Supple Cardiovascular: Regular rate Lungs: Clear to auscultation, Normal air movement Abdomen: Bowel sounds, Soft, no Tender, no Hepatomegaly, no Distended, no Rebound, no Mass, no Guarding Extremities: no Clubbing, no Cyanosis Skin: no Rash Assessment/Plan - Assessment Assessment: # Anemia # OB positive Plan: 1. Concern for dysphagia - likely oropharyngeal -Swallow evaluation: patient passed 2. Anemia - Stable post transfusion - S/P EGD and colon. No findings to suggest GI blood loss - Polyps, next colonoscopy is due in 3 years - consider outpt capsule endoscopy - Pathology shows gastritis (no HP), and adenomatous polyps. No malignancy 3. OB positive - S/P EGD and colon 4. Leukocytosis and febrile - Possible aspiration - mgmt as per primary
[2019-01-15] MEDS: Benztropine 1 MG TAB PO SCH ×4 (00:01→20:47)
[2019-01-15] MEDS: Albuterol/Ipratropium Neb 3 ML AERS HHN SCH ×6 (04:32→22:01)
[2019-01-15 06:58] LABS: % BASOPHILS 0.4 % (0.0-2.0); % EOSINOPHILS 3.5 % (0.0-5.0); % LYMPHOCYTES 9.4 % (20.0-50.0); % MONOCYTES 3.8 % (2.0-10.0); % NEUTROPHILS 82.9 % (40.0-80.0); BASOPHILE ABSOLUTE 0.1 Th/cumm (0-0.2); EOSINOPHILE ABSOLUTE 0.5 Th/cmm (0.1-0.4); HEMATOCRIT 28.1 % (41.0-60); HEMOGLOBIN 9.1 gm/dL (12-16); LYMPHOCYTE ABSOLUTE 1.3 Th/cmm (1.5-3.0); MEAN CORPUSCULAR HEMOGLOBIN 27.9 pg (26.0-30.0); MEAN CORPUSCULAR HGB CONC 32.5 pg (28.0-36.0); MEAN PLATELET VOLUME 8.3 fl; MONOCYTE ABSOLUTE 0.5 Th/cmm (0.3-1.0); NEUTROPHILE ABSOLUTE 11.5 Th/cmm (1.8-8.0); PLATELET COUNT 296 Th/cmm (150-400); RED BLOOD COUNT 3.27 Mil/cmm (4.30-5.70); RED CELL DISTRIBUTION WIDTH 14.3 % (11.5-20.0); WHITE BLOOD COUNT 13.9 Th/cmm (4.8-10.8)
--- NOTE | 2019-01-15 08:06 | Diagnostic Imaging Report ---
Portable chest x-ray HISTORY: Shortness of breath Compared with prior exam of January 14, 2019, the overall heart size appears normal. Diffuse infiltrate and pleural reaction noted in the left upper hemithorax. Pneumonia cannot be excluded. Generalized accentuation of interstitial markings in the right lung. IMPRESSION: Little change in the pulmonary status since January 14, 2019.
[2019-01-15 08:40] LABS: ANION GAP 10.6 (7.0-16.0); BUN - UREA NITROGEN 13 mg/dL (7-25); CALCIUM SERUM 8.5 mg/dL (8.6-10.3); CARBON DIOXIDE 29.8 mEq/L (21.0-31.0); CHLORIDE 111 mEq/L (98-107); CREATININE - SERUM 0.8 mg/dL (0.7-1.3); GFR AFRICAN-AMERICAN > 60.0 ml/min (>90); GFR NON AFRICAN-AMERICAN > 60.0 ml/min; GLUCOSE 100 mg/dL (70-105); POTASSIUM SERUM 3.4 mEq/L (3.5-5.1); SODIUM SERUM 148 mEq/L (136-145)
[2019-01-15] MEDS: cloZAPine 100 MG, cloZAPine 75 MG PO SCH ×2 (09:54→17:22)
[2019-01-15] MEDS: Multivitamin w/ Minerals Tab PO SCH (09:55)
--- NOTE | 2019-01-15 11:37 | General Progress Note ---
Subjective - Review of Systems Service Date: 01/15/19 Subjective: not in distress, confused Objective - Results Result Diagrams: 01/15/19 06:36 01/15/19 06:36 Recent Labs: Laboratory Last Values WBC 13.9 Th/cmm (4.8-10.8) H 01/15/19 06:36 RBC 3.27 Mil/cmm (4.30-5.70) L 01/15/19 06:36 Hgb 9.1 gm/dL (12-16) L 01/15/19 06:36 Hct 28.1 % (41.0-60) L 01/15/19 06:36 MCV 86.0 fl (80-99) 01/15/19 06:36 MCH 27.9 pg (26.0-30.0) 01/15/19 06:36 MCHC Differential 32.5 pg (28.0-36.0) 01/15/19 06:36 RDW 14.3 % (11.5-20.0) 01/15/19 06:36 Plt Count 296 Th/cmm (150-400) 01/15/19 06:36 MPV 8.3 fl 01/15/19 06:36 Add Manual Diff YES 01/13/19 08:48 Neutrophils % 82.9 % (40.0-80.0) H 01/15/19 06:36 Band Neutrophils % 1 % (0-10) 01/13/19 08:48 Lymphocytes % 9.4 % (20.0-50.0) L 01/15/19 06:36 Monocytes % 3.8 % (2.0-10.0) 01/15/19 06:36 Eosinophils % 3.5 % (0.0-5.0) 01/15/19 06:36 Basophils % 0.4 % (0.0-2.0) 01/15/19 06:36 Neutrophils (Manual) 81 % (40-80) H 01/13/19 08:48 Lymphocytes 10 % (20-50) L 01/13/19 08:48 Monocytes 3 % (2-10) 01/13/19 08:48 Eosinophils 5 % (0-5) 01/13/19 08:48 Basophils 0 % (0-3) 01/13/19 08:48 Platelet Estimate ADEQUATE (NORMAL) 01/06/19 05:45 RBC Morph Micro Appear NORMAL (NORMAL) 01/06/19 05:45 Total Retics Counted 2.2 % (0.5-1.5) H 12/26/18 05:40 Absolute Retic 79.2 Th/cmm 12/26/18 05:40 Corrected Retic Count 1.5 % (0.5-1.5) 12/26/18 05:40 PT 10.9 SECONDS (9.5-11.5) 01/02/19 05:40 INR 1.05 (0.5-1.4) 01/02/19 05:40 Sodium 148 mEq/L (136-145) H 01/15/19 06:36 Potassium 3.4 mEq/L (3.5-5.1) L 01/15/19 06:36 Chloride 111 mEq/L (98-107) H 01/15/19 06:36 Carbon Dioxide 29.8 mEq/L (21.0-31.0) 01/15/19 06:36 Anion Gap 10.6 (7.0-16.0) 01/15/19 06:36 BUN 13 mg/dL (7-25) 01/15/19 06:36 Creatinine 0.8 mg/dL (0.7-1.3) 01/15/19 06:36 Est GFR ( Amer) > 60.0 ml/min (>90) 01/15/19 06:36 Est GFR (Non-Af Amer) > 60.0 ml/min 01/15/19 06:36 BUN/Creatinine Ratio 16.3 01/15/19 06:36 Glucose 100 mg/dL (70-105) 01/15/19 06:36 POC Glucose 87 MG/DL (70 - 105) 01/01/19 08:07 Whole Bld Lactic Acid 1.26 mmol/L (0.60-1.99) 01/04/19 12:10 Calcium 8.5 mg/dL (8.6-10.3) L 01/15/19 06:36 Magnesium 2.1 mg/dL (1.9-2.7) 01/06/19 05:45 Iron 17 ug/dL (38-169) L 12/26/18 05:40 TIBC 210 ug/dL (250-450) L 12/26/18 05:40 Iron Saturation 8 % (15-55) L 12/26/18 05:40 Unsaturated IBC 193 ug/dL (111-343) 12/26/18 05:40 Ferritin 746 ng/mL (30-400) H 01/14/19 07:45 Total Bilirubin 0.4 mg/dL (0.3-1.0) 01/12/19 04:25 AST 24 U/L (13-39) 01/12/19 04:25 ALT 24 U/L (7-52) 01/12/19 04:25 Alkaline Phosphatase 52 U/L (34-104) 01/12/19 04:25 Total Protein 5.5 gm/dL (6.0-8.3) L 01/12/19 04:25 Albumin 2.7 gm/dL (4.2-5.5) L 01/12/19 04:25 Globulin 2.8 gm/dL 01/12/19 04:25 Albumin/Globulin Ratio 1.0 (1.0-1.8) 01/12/19 04:25 Triglycerides 125 mg/dL (<150) 12/25/18 16:11 Cholesterol 154 mg/dL (<200) 12/25/18 16:11 LDL Cholesterol Direct 112 mg/dL (75-193) 12/25/18 16:11 HDL Cholesterol 37 mg/dL (23-92) 12/25/18 16:11 Vitamin B12 848 pg/mL (232-1245) 12/26/18 05:40 Folic Acid 6.9 ng/mL (>3.0) 12/26/18 05:40 TSH 2.61 uIU/ml (0.34-5.60) 12/25/18 16:11 Urine Source CATH 12/25/18 16:25 Urine Color COLORLESS 12/25/18 16:25 Urine Clarity CLEAR (CLEAR) 12/25/18 16:25 Urine pH 6.0 (4.6 - 8.0) 12/25/18 16:25 Ur Specific [place] 1.010 (1.005-1.030) 12/25/18 16:25 Urine Protein NEGATIVE mg/dL (NEGATIVE) 12/25/18 16:25 Urine Glucose (UA) NEGATIVE mg/dL (NEGATIVE) 12/25/18 16:25 Urine Ketones NEGATIVE mg/dL (NEGATIVE) 12/25/18 16:25 Urine Blood NEGATIVE (NEGATIVE) 12/25/18 16:25 Urine Nitrate NEGATIVE (NEGATIVE) 12/25/18 16:25 Urine Bilirubin NEGATIVE (NEGATIVE) 12/25/18 16:25 Urine Urobilinogen 0.2 E.U./dL (0.2 - 1.0) 12/25/18 16:25 Ur Leukocyte Esterase NEGATIVE (NEGATIVE) 12/25/18 16:25 Stool Occult Blood NEGATIVE (NEGATIVE) 01/06/19 18:00 Vancomycin Trough 15.1 ug/mL (5-10) H 01/11/19 22:05 Valproic Acid < 10.0 ug/mL (50.0-100.0) L 12/30/18 04:25 [place] 0.06 mmol/L (0.5-1.0) L 12/30/18 04:25 RPR NONREACTIVE (NONREACTIVE) 12/25/18 16:11 Influenza A (Rapid) NEG FOR INF A 12/25/18 16:30 Influenza B (Rapid) NEG FOR INF B 12/25/18 16:30 - Physical Exam Vitals and I&O: Vital Signs Temp 97.2 F 01/15/19 08:00 Pulse 90 01/15/19 11:03 Resp 20 01/15/19 11:03 BP 131/64 01/15/19 09:55 Pulse Ox 97 01/15/19 11:03 Intake & Output 01/14/19 01/15/19 01/15/19 18:59 06:59 18:59 Intake Total 1900 330 Balance 1900 330 Weight (lbs) 62.596 kg 64.41 kg Intake: Intake, IV Amount 1100 90 D5-0.45NS 1,000 ml @ 50 1000 mls/hr IV .Q20H [facility] Rx#: [id number] Piperacillin Sodium/ 100 90 Tazobact 4.5 gm In Sodium Chloride 0.9% 100 ml @ 100 mls/hr IV Q8HR [facility] Rx #:[id number] Oral 800 240 Other: # Voids 3 5 # Bowel Movements 1 1 Weight Source Bedscale Bedscale Active Medications: Current Medications Acetaminophen (Tylenol 650mg Supp) 650 mg RC Q6H PRN PRN Reason: Fever > 101 Stop: 03/05/19 08:02 Last Admin: 01/04/19 08:49 Dose: 650 mg Acetaminophen (Tylenol) 650 mg PO Q4H PRN PRN Reason: Fever > 101 Stop: 03/05/19 08:05 Last Admin: 01/12/19 21:17 Dose: 650 mg Acetylcysteine (Mucomyst 20%) 3 ml HHN Q4HRT [facility] Stop: 03/09/19 14:59 Last Admin: 01/15/19 11:03 Dose: 3 ml Albuterol/Ipratropium (Duoneb Neb) 3 ml HHN Q4HRT [facility] Stop: 03/05/19 10:59 Last Admin: 01/15/19 11:03 Dose: 3 ml Amlodipine Besylate (Norvasc) 10 mg PO DAILY [facility] Stop: 02/28/19 08:59 Last Admin: 01/15/19 09:55 Dose: 10 mg Ascorbic Acid (Vitamin C) 500 mg PO DAILY [facility] Stop: 03/01/19 08:59 Last Admin: 01/15/19 09:55 Dose: 500 mg Aspirin (Ecotrin) 81 mg PO DAILY [facility] Stop: 02/28/19 08:59 Last Admin: 01/15/19 09:55 Dose: 81 mg Benztropine Mesylate (Cogentin) 1 mg PO TID [facility] Stop: 02/28/19 08:59 Last Admin: 01/15/19 09:55 Dose: 1 mg Bisacodyl (Dulcolax 10 Mg Supp) 10 mg RC DAILY [facility] Stop: 02/28/19 08:59 Last Admin: 01/15/19 09:56 Dose: 10 mg Cholecalciferol (Vitamin D3) 5,000 iu PO DAILY [facility] Stop: 02/28/19 08:59 Last Admin: 01/15/19 09:54 Dose: 5,000 iu Clonazepam (Klonopin) 2 mg PO TID [facility]; Protocol Stop: 02/27/19 08:59 Last Admin: 01/15/19 09:55 Dose: 2 mg Clozapine 100 mg/ Clozapine 75 (mg) 175 mg PO BID [facility] Stop: 03/01/19 16:59 Last Admin: 01/15/19 09:54 Dose: 175 mg Famotidine (Pepcid) 40 mg PO DAILY [facility] Stop: 02/28/19 08:59 Last Admin: 01/15/19 09:55 Dose: 40 mg Piperacillin Sod/Tazobactam (Sod 4.5 gm/ Sodium Chloride) 100 mls @ 100 mls/hr IV Q8HR [facility] Stop: 03/05/19 12:59 Last Admin: 01/15/19 05:17 Dose: 100 mls/hr Dextrose/Sodium Chloride (D5-0.45ns) 1,000 mls @ 50 mls/hr IV .Q20H [facility] Stop: 03/12/19 18:29 Last Admin: 01/14/19 21:20 Dose: 50 mls/hr Levothyroxine Sodium 0.025 mg/ (Levothyroxine Sodium 0.112 mg) 0.137 mg PO DAILY@0730 [facility] Stop: 02/28/19 07:29 Last Admin: 01/15/19 06:31 Dose: 0.137 mg [place] Carbonate (Eskalith) 300 mg PO BID [facility]; Protocol Stop: 02/28/19 08:59 Last Admin: 01/15/19 09:55 Dose: 300 mg Magnesium Hydroxide (Milk Of Magnesia) 30 ml PO HS [facility] Stop: 02/28/19 20:59 Last Admin: 01/14/19 21:21 Dose: Not Given Quetiapine Fumarate (Seroquel) 300 mg PO TID [facility]; Protocol Stop: 03/01/19 08:59 Last Admin: 01/15/19 09:55 Dose: 300 mg Valproate Sodium (Depakene) 500 mg PO BID [facility]; Protocol Stop: 02/28/19 08:59 Last Admin: 01/15/19 09:54 Dose: 500 mg General: Alert, No acute distress, Other (confused) HEENT: Atraumatic Neck: Supple Cardiovascular: Regular rate Lungs: Clear to auscultation, Normal air movement Abdomen: Bowel sounds, Soft, no Tender, no Hepatomegaly, no Distended, no Rebound, no Mass, no Guarding Extremities: no Clubbing, no Cyanosis Skin: no Rash Assessment/Plan - Assessment Assessment: The iron studies are suggestive of iron deficiency anemia. Stool occult blood was positive. The patient is being evaluated by the manager of international. He will be given iron by IV route because of his poor compliance. The leukocytosis could be secondary to lithium or reactive and the patient is on antibiotics with improvement of the white count. 01/15/19: hgb stable, s/p iv iron. s/p EGD/COLO. leukocytosis improving per ID. ferritin> 700 Nutritional Asmnt/Malnutr-PDOC - Dietary Evaluation Malnutrition Findings (Please click <Entered> for more info): Nutritional Asmnt/Malnutrition Start: 12/26/18 15: 09 Text: Status: Complete Freq: Protocol: Document 12/26/18 15:09 LCMARLENAG (Rec: 12/26/18 15:12 MARLENAG [email or web address]) Nutritional Asmnt/Malnutrition Patient General Information Nutritional Screening High Risk Diagnosis sepsis Pertinent Medical Hx/Surgical Hx HTN, PUD/GERD, thyroid disorder, anemia, schizophrenia Subjective Information Pt seen in bed, disoriented, yelling, has 1:1 sitter in room. Per sitter, pt consumed 100% of breakfast and lunch today. Current Diet Order/ Nutrition Support soft/bland Pertinent Medications seroquel Pertinent Labs 12/25 BUN 26, Alb 3.5 Nutritional Hx/Data Height 1.7 m Height (Calculated Centimeters) 170.2 Current Weight (lbs) 58.967 kg Weight (Calculated Kilograms) 59.0 Weight (Calculated Grams) 23976.0 [place] Body Weight 148 Body Mass Index (BMI) 20.3 Weight Status Approriate GI Symptoms GI Symptoms None Last BM not indicated Difficult in: None Skin Integrity/Comment: intact Current %PO Good (75-100%) Estimated Nutritional Goals BEE in Kcals: Using Current wt Calories/Kcals/Kg 30-35 Kcals Calculated 4491-3869 Protein: Using Current wt Protein g/k.2 Protein Calculated 71 Fluid: ml 1620-2065ml (1ml/kcal) Nutritional Problem 1. Problem Problem increased nutritional needs Etiology increased metabolic demand Signs/Symptoms: dx of sepsis Malnutrition Alert Is there a minimum of two criteria No selected? Query Text:Check all the applicable criteria. A minimum of two criteria are recommended for diagnosis of either severe or non-severe malnutrition. Malnutrition Related to Morbid Obesity Malnutrition related to morbid obesity No Intervention/Recommendation Comments 1. Continue with soft/baland diet as ordered. 2. Monitor PO intake, wt, labs and skin integrity 3. F/U as moderate risk in 3-5 days Expected Outcomes/Goals Expected Outcomes/Goals 1. PO intake to meet at least 75% of nutritional needs. 2. Wt stability, skin to remain intact, labs to approach WNL.
--- NOTE | 2019-01-15 15:06 | Infectious Disease Prog Note ---
Infectious Disease Subjective - Review of Systems Service Date: 01/15/19 Subjective: Patient's fever has resolved, some improvement in leukocytosis. Blood culture grew Staph aureus/MSSA. Infectious Disease Objective - Results Result Diagrams: 01/15/19 06:36 01/15/19 06:36 Recent Labs: Laboratory Last Values WBC 13.9 Th/cmm (4.8-10.8) H 01/15/19 06:36 RBC 3.27 Mil/cmm (4.30-5.70) L 01/15/19 06:36 Hgb 9.1 gm/dL (12-16) L 01/15/19 06:36 Hct 28.1 % (41.0-60) L 01/15/19 06:36 MCV 86.0 fl (80-99) 01/15/19 06:36 MCH 27.9 pg (26.0-30.0) 01/15/19 06:36 MCHC Differential 32.5 pg (28.0-36.0) 01/15/19 06:36 RDW 14.3 % (11.5-20.0) 01/15/19 06:36 Plt Count 296 Th/cmm (150-400) 01/15/19 06:36 MPV 8.3 fl 01/15/19 06:36 Add Manual Diff YES 01/13/19 08:48 Neutrophils % 82.9 % (40.0-80.0) H 01/15/19 06:36 Band Neutrophils % 1 % (0-10) 01/13/19 08:48 Lymphocytes % 9.4 % (20.0-50.0) L 01/15/19 06:36 Monocytes % 3.8 % (2.0-10.0) 01/15/19 06:36 Eosinophils % 3.5 % (0.0-5.0) 01/15/19 06:36 Basophils % 0.4 % (0.0-2.0) 01/15/19 06:36 Neutrophils (Manual) 81 % (40-80) H 01/13/19 08:48 Lymphocytes 10 % (20-50) L 01/13/19 08:48 Monocytes 3 % (2-10) 01/13/19 08:48 Eosinophils 5 % (0-5) 01/13/19 08:48 Basophils 0 % (0-3) 01/13/19 08:48 Platelet Estimate ADEQUATE (NORMAL) 01/06/19 05:45 RBC Morph Micro Appear NORMAL (NORMAL) 01/06/19 05:45 Total Retics Counted 2.2 % (0.5-1.5) H 12/26/18 05:40 Absolute Retic 79.2 Th/cmm 12/26/18 05:40 Corrected Retic Count 1.5 % (0.5-1.5) 12/26/18 05:40 PT 10.9 SECONDS (9.5-11.5) 01/02/19 05:40 INR 1.05 (0.5-1.4) 01/02/19 05:40 Sodium 148 mEq/L (136-145) H 01/15/19 06:36 Potassium 3.4 mEq/L (3.5-5.1) L 01/15/19 06:36 Chloride 111 mEq/L (98-107) H 01/15/19 06:36 Carbon Dioxide 29.8 mEq/L (21.0-31.0) 01/15/19 06:36 Anion Gap 10.6 (7.0-16.0) 01/15/19 06:36 BUN 13 mg/dL (7-25) 01/15/19 06:36 Creatinine 0.8 mg/dL (0.7-1.3) 01/15/19 06:36 Est GFR ( Amer) > 60.0 ml/min (>90) 01/15/19 06:36 Est GFR (Non-Af Amer) > 60.0 ml/min 01/15/19 06:36 BUN/Creatinine Ratio 16.3 01/15/19 06:36 Glucose 100 mg/dL (70-105) 01/15/19 06:36 POC Glucose 87 MG/DL (70 - 105) 01/01/19 08:07 Whole Bld Lactic Acid 1.26 mmol/L (0.60-1.99) 01/04/19 12:10 Calcium 8.5 mg/dL (8.6-10.3) L 01/15/19 06:36 Magnesium 2.1 mg/dL (1.9-2.7) 01/06/19 05:45 Iron 17 ug/dL (38-169) L 12/26/18 05:40 TIBC 210 ug/dL (250-450) L 12/26/18 05:40 Iron Saturation 8 % (15-55) L 12/26/18 05:40 Unsaturated IBC 193 ug/dL (111-343) 12/26/18 05:40 Ferritin 746 ng/mL (30-400) H 01/14/19 07:45 Total Bilirubin 0.4 mg/dL (0.3-1.0) 01/12/19 04:25 AST 24 U/L (13-39) 01/12/19 04:25 ALT 24 U/L (7-52) 01/12/19 04:25 Alkaline Phosphatase 52 U/L (34-104) 01/12/19 04:25 Total Protein 5.5 gm/dL (6.0-8.3) L 01/12/19 04:25 Albumin 2.7 gm/dL (4.2-5.5) L 01/12/19 04:25 Globulin 2.8 gm/dL 01/12/19 04:25 Albumin/Globulin Ratio 1.0 (1.0-1.8) 01/12/19 04:25 Triglycerides 125 mg/dL (<150) 12/25/18 16:11 Cholesterol 154 mg/dL (<200) 12/25/18 16:11 LDL Cholesterol Direct 112 mg/dL (75-193) 12/25/18 16:11 HDL Cholesterol 37 mg/dL (23-92) 12/25/18 16:11 Vitamin B12 848 pg/mL (232-1245) 12/26/18 05:40 Folic Acid 6.9 ng/mL (>3.0) 12/26/18 05:40 TSH 2.61 uIU/ml (0.34-5.60) 12/25/18 16:11 Urine Source CATH 12/25/18 16:25 Urine Color COLORLESS 12/25/18 16:25 Urine Clarity CLEAR (CLEAR) 12/25/18 16:25 Urine pH 6.0 (4.6 - 8.0) 12/25/18 16:25 Ur Specific [place] 1.010 (1.005-1.030) 12/25/18 16:25 Urine Protein NEGATIVE mg/dL (NEGATIVE) 12/25/18 16:25 Urine Glucose (UA) NEGATIVE mg/dL (NEGATIVE) 12/25/18 16:25 Urine Ketones NEGATIVE mg/dL (NEGATIVE) 12/25/18 16:25 Urine Blood NEGATIVE (NEGATIVE) 12/25/18 16:25 Urine Nitrate NEGATIVE (NEGATIVE) 12/25/18 16:25 Urine Bilirubin NEGATIVE (NEGATIVE) 12/25/18 16:25 Urine Urobilinogen 0.2 E.U./dL (0.2 - 1.0) 12/25/18 16:25 Ur Leukocyte Esterase NEGATIVE (NEGATIVE) 12/25/18 16:25 Stool Occult Blood NEGATIVE (NEGATIVE) 01/06/19 18:00 Vancomycin Trough 15.1 ug/mL (5-10) H 01/11/19 22:05 Valproic Acid < 10.0 ug/mL (50.0-100.0) L 12/30/18 04:25 [place] 0.06 mmol/L (0.5-1.0) L 12/30/18 04:25 RPR NONREACTIVE (NONREACTIVE) 12/25/18 16:11 Influenza A (Rapid) NEG FOR INF A 12/25/18 16:30 Influenza B (Rapid) NEG FOR INF B 12/25/18 16:30 - Physical Exam Vitals and I&O: Vital Signs Temp 97.7 F 01/15/19 12:00 Pulse 93 01/15/19 14:25 Resp 20 01/15/19 14:25 BP 108/61 01/15/19 12:00 Pulse Ox 97 01/15/19 14:25 Intake & Output 01/14/19 01/15/19 01/15/19 18:59 06:59 18:59 Intake Total 1900 430 Balance 1900 430 Weight (lbs) 62.596 kg 64.41 kg Intake: Intake, IV Amount 1100 190 D5-0.45NS 1,000 ml @ 50 1000 mls/hr IV .Q20H [facility] Rx#: [id number] Piperacillin Sodium/ 100 190 Tazobact 4.5 gm In Sodium Chloride 0.9% 100 ml @ 100 mls/hr IV Q8HR [facility] Rx #:[id number] Oral 800 240 Other: # Voids 3 5 # Bowel Movements 1 1 Weight Source Bedscale Bedscale Active Medications: Current Medications Acetaminophen (Tylenol 650mg Supp) 650 mg RC Q6H PRN PRN Reason: Fever > 101 Stop: 03/05/19 08:02 Last Admin: 01/04/19 08:49 Dose: 650 mg Acetaminophen (Tylenol) 650 mg PO Q4H PRN PRN Reason: Fever > 101 Stop: 03/05/19 08:05 Last Admin: 01/12/19 21:17 Dose: 650 mg Acetylcysteine (Mucomyst 20%) 3 ml HHN Q4HRT [facility] Stop: 03/09/19 14:59 Last Admin: 01/15/19 14:14 Dose: 3 ml Albuterol/Ipratropium (Duoneb Neb) 3 ml HHN Q4HRT [facility] Stop: 03/05/19 10:59 Last Admin: 01/15/19 14:14 Dose: 3 ml Amlodipine Besylate (Norvasc) 10 mg PO DAILY [facility] Stop: 02/28/19 08:59 Last Admin: 01/15/19 09:55 Dose: 10 mg Ascorbic Acid (Vitamin C) 500 mg PO DAILY [facility] Stop: 03/01/19 08:59 Last Admin: 01/15/19 09:55 Dose: 500 mg Aspirin (Ecotrin) 81 mg PO DAILY [facility] Stop: 02/28/19 08:59 Last Admin: 01/15/19 09:55 Dose: 81 mg Benztropine Mesylate (Cogentin) 1 mg PO TID [facility] Stop: 02/28/19 08:59 Last Admin: 01/15/19 13:24 Dose: Not Given Bisacodyl (Dulcolax 10 Mg Supp) 10 mg RC DAILY [facility] Stop: 02/28/19 08:59 Last Admin: 01/15/19 09:56 Dose: 10 mg Cholecalciferol (Vitamin D3) 5,000 iu PO DAILY [facility] Stop: 02/28/19 08:59 Last Admin: 01/15/19 09:54 Dose: 5,000 iu Clonazepam (Klonopin) 2 mg PO TID [facility]; Protocol Stop: 02/27/19 08:59 Last Admin: 01/15/19 09:55 Dose: 2 mg Clozapine 100 mg/ Clozapine 75 (mg) 175 mg PO BID [facility] Stop: 03/01/19 16:59 Last Admin: 01/15/19 09:54 Dose: 175 mg Famotidine (Pepcid) 40 mg PO DAILY [facility] Stop: 02/28/19 08:59 Last Admin: 01/15/19 09:55 Dose: 40 mg Piperacillin Sod/Tazobactam (Sod 4.5 gm/ Sodium Chloride) 100 mls @ 100 mls/hr IV Q8HR [facility] Stop: 03/05/19 12:59 Last Admin: 01/15/19 13:25 Dose: 100 mls/hr Dextrose/Sodium Chloride (D5-0.45ns) 1,000 mls @ 50 mls/hr IV .Q20H [facility] Stop: 03/12/19 18:29 Last Admin: 01/14/19 21:20 Dose: 50 mls/hr Levothyroxine Sodium 0.025 mg/ (Levothyroxine Sodium 0.112 mg) 0.137 mg PO DAILY@0730 [facility] Stop: 02/28/19 07:29 Last Admin: 01/15/19 06:31 Dose: 0.137 mg [place] Carbonate (Eskalith) 300 mg PO BID [facility]; Protocol Stop: 02/28/19 08:59 Last Admin: 01/15/19 09:55 Dose: 300 mg Magnesium Hydroxide (Milk Of Magnesia) 30 ml PO HS [facility] Stop: 02/28/19 20:59 Last Admin: 01/14/19 21:21 Dose: Not Given Quetiapine Fumarate (Seroquel) 300 mg PO TID [facility]; Protocol Stop: 03/01/19 08:59 Last Admin: 01/15/19 09:55 Dose: 300 mg Valproate Sodium (Depakene) 500 mg PO BID [facility]; Protocol Stop: 02/28/19 08:59 Last Admin: 01/15/19 09:54 Dose: 500 mg General: no acute distress, well developed, well nourished HEENT: atraumatic, normocephalic, PERRLA Neck: supple, no thyromegaly Cardiovascular: S1S2, no regular Lungs: clear to auscultation bilaterally, clear to percussion Abdomen: soft, no tender, no distended Extremities: no cyanosis, no clubbing, no edema Neurological: awake, alert, oriented Skin: intact Infectious Disease Assmt/Plan - Assessment Assessment: 1. Sepsis. staph aureus MSSA sepsis. 2. Pneumonia. 3. Leukocytosis, suspect sepsis as patient also had lactic acidosis and tachycardia on presentation. 4. Hypothyroidism. 5. Anemia. 6. Schizophrenia. 7. Hypertension. 8. History of gastroesophageal reflux disease. 9. Iron deficiency anemia. 10. Aggressive behaviour. - Plan Plan: Continue Zosyn IV for 7 more days. Discontinue continue Vanco. Nutritional Asmnt/Malnutr-PDOC - Dietary Evaluation Malnutrition Findings (Please click <Entered> for more info): Nutritional Asmnt/Malnutrition Start: 12/26/18 15: 09 Text: Status: Complete Freq: Protocol: Document 12/26/18 15:09 BONITA (Rec: 12/26/18 15:12 MARLENA [email or web address]) Nutritional Asmnt/Malnutrition Patient General Information Nutritional Screening High Risk Diagnosis sepsis Pertinent Medical Hx/Surgical Hx HTN, PUD/GERD, thyroid disorder, anemia, schizophrenia Subjective Information Pt seen in bed, disoriented, yelling, has 1:1 sitter in room. Per sitter, pt consumed 100% of breakfast and lunch today. Current Diet Order/ Nutrition Support soft/bland Pertinent Medications seroquel Pertinent Labs 12/25 BUN 26, Alb 3.5 Nutritional Hx/Data Height 1.7 m Height (Calculated Centimeters) 170.2 Current Weight (lbs) 58.967 kg Weight (Calculated Kilograms) 59.0 Weight (Calculated Grams) 41496.0 [place] Body Weight 148 Body Mass Index (BMI) 20.3 Weight Status Approriate GI Symptoms GI Symptoms None Last BM not indicated Difficult in: None Skin Integrity/Comment: intact Current %PO Good (75-100%) Estimated Nutritional Goals BEE in Kcals: Using Current wt Calories/Kcals/Kg 30-35 Kcals Calculated 0914-0341 Protein: Using Current wt Protein g/k.2 Protein Calculated 71 Fluid: ml 1620-2065ml (1ml/kcal) Nutritional Problem 1. Problem Problem increased nutritional needs Etiology increased metabolic demand Signs/Symptoms: dx of sepsis Malnutrition Alert Is there a minimum of two criteria No selected? Query Text:Check all the applicable criteria. A minimum of two criteria are recommended for diagnosis of either severe or non-severe malnutrition. Malnutrition Related to Morbid Obesity Malnutrition related to morbid obesity No Intervention/Recommendation Comments 1. Continue with soft/baland diet as ordered. 2. Monitor PO intake, wt, labs and skin integrity 3. F/U as moderate risk in 3-5 days Expected Outcomes/Goals Expected Outcomes/Goals 1. PO intake to meet at least 75% of nutritional needs. 2. Wt stability, skin to remain intact, labs to approach WNL.
--- NOTE | 2019-01-15 16:44 | Progress Notes ---
DATE: 01/15/2019 PULMONARY PROGRESS NOTE SUBJECTIVE: The patient appears to be doing okay. No distress. OBJECTIVE: VITAL SIGNS: Temperature 97.7, pulse 83, respirations 20, blood pressure is 108/61, and saturation 97%. LABORATORY DATA: Chest x-ray showing continuing improvement of the left side with less density, no more atelectasis. ASSESSMENT: 1. Respiratory failure. 2. Pneumonia. 3. Dysphagia. 4. Weakness. 5. Lung atelectasis, resolved. PLAN: Continue IV antibiotics. The patient seems to be responding well to treatment with decreasing white count and improving x-ray. There is no need for bronchoscopy at this time. JOB# [id number]
[2019-01-15] MEDS ORDERED: Menthol/Zinc Oxide Oint 113gm Tube TP PRN (17:18)
--- NOTE | 2019-01-15 17:40 | GI Progress Note ---
Subjective - Review of Systems Service Date: 01/15/19 Events since last encounter: no new events Objective - Results Result Diagrams: 01/15/19 06:36 01/15/19 06:36 Recent Labs: Laboratory Last Values WBC 13.9 Th/cmm (4.8-10.8) H 01/15/19 06:36 RBC 3.27 Mil/cmm (4.30-5.70) L 01/15/19 06:36 Hgb 9.1 gm/dL (12-16) L 01/15/19 06:36 Hct 28.1 % (41.0-60) L 01/15/19 06:36 MCV 86.0 fl (80-99) 01/15/19 06:36 MCH 27.9 pg (26.0-30.0) 01/15/19 06:36 MCHC Differential 32.5 pg (28.0-36.0) 01/15/19 06:36 RDW 14.3 % (11.5-20.0) 01/15/19 06:36 Plt Count 296 Th/cmm (150-400) 01/15/19 06:36 MPV 8.3 fl 01/15/19 06:36 Add Manual Diff YES 01/13/19 08:48 Neutrophils % 82.9 % (40.0-80.0) H 01/15/19 06:36 Band Neutrophils % 1 % (0-10) 01/13/19 08:48 Lymphocytes % 9.4 % (20.0-50.0) L 01/15/19 06:36 Monocytes % 3.8 % (2.0-10.0) 01/15/19 06:36 Eosinophils % 3.5 % (0.0-5.0) 01/15/19 06:36 Basophils % 0.4 % (0.0-2.0) 01/15/19 06:36 Neutrophils (Manual) 81 % (40-80) H 01/13/19 08:48 Lymphocytes 10 % (20-50) L 01/13/19 08:48 Monocytes 3 % (2-10) 01/13/19 08:48 Eosinophils 5 % (0-5) 01/13/19 08:48 Basophils 0 % (0-3) 01/13/19 08:48 Platelet Estimate ADEQUATE (NORMAL) 01/06/19 05:45 RBC Morph Micro Appear NORMAL (NORMAL) 01/06/19 05:45 Total Retics Counted 2.2 % (0.5-1.5) H 12/26/18 05:40 Absolute Retic 79.2 Th/cmm 12/26/18 05:40 Corrected Retic Count 1.5 % (0.5-1.5) 12/26/18 05:40 PT 10.9 SECONDS (9.5-11.5) 01/02/19 05:40 INR 1.05 (0.5-1.4) 01/02/19 05:40 Sodium 148 mEq/L (136-145) H 01/15/19 06:36 Potassium 3.4 mEq/L (3.5-5.1) L 01/15/19 06:36 Chloride 111 mEq/L (98-107) H 01/15/19 06:36 Carbon Dioxide 29.8 mEq/L (21.0-31.0) 01/15/19 06:36 Anion Gap 10.6 (7.0-16.0) 01/15/19 06:36 BUN 13 mg/dL (7-25) 01/15/19 06:36 Creatinine 0.8 mg/dL (0.7-1.3) 01/15/19 06:36 Est GFR ( Amer) > 60.0 ml/min (>90) 01/15/19 06:36 Est GFR (Non-Af Amer) > 60.0 ml/min 01/15/19 06:36 BUN/Creatinine Ratio 16.3 01/15/19 06:36 Glucose 100 mg/dL (70-105) 01/15/19 06:36 POC Glucose 87 MG/DL (70 - 105) 01/01/19 08:07 Whole Bld Lactic Acid 1.26 mmol/L (0.60-1.99) 01/04/19 12:10 Calcium 8.5 mg/dL (8.6-10.3) L 01/15/19 06:36 Magnesium 2.1 mg/dL (1.9-2.7) 01/06/19 05:45 Iron 17 ug/dL (38-169) L 12/26/18 05:40 TIBC 210 ug/dL (250-450) L 12/26/18 05:40 Iron Saturation 8 % (15-55) L 12/26/18 05:40 Unsaturated IBC 193 ug/dL (111-343) 12/26/18 05:40 Ferritin 746 ng/mL (30-400) H 01/14/19 07:45 Total Bilirubin 0.4 mg/dL (0.3-1.0) 01/12/19 04:25 AST 24 U/L (13-39) 01/12/19 04:25 ALT 24 U/L (7-52) 01/12/19 04:25 Alkaline Phosphatase 52 U/L (34-104) 01/12/19 04:25 Total Protein 5.5 gm/dL (6.0-8.3) L 01/12/19 04:25 Albumin 2.7 gm/dL (4.2-5.5) L 01/12/19 04:25 Globulin 2.8 gm/dL 01/12/19 04:25 Albumin/Globulin Ratio 1.0 (1.0-1.8) 01/12/19 04:25 Triglycerides 125 mg/dL (<150) 12/25/18 16:11 Cholesterol 154 mg/dL (<200) 12/25/18 16:11 LDL Cholesterol Direct 112 mg/dL (75-193) 12/25/18 16:11 HDL Cholesterol 37 mg/dL (23-92) 12/25/18 16:11 Vitamin B12 848 pg/mL (232-1245) 12/26/18 05:40 Folic Acid 6.9 ng/mL (>3.0) 12/26/18 05:40 TSH 2.61 uIU/ml (0.34-5.60) 12/25/18 16:11 Urine Source CATH 12/25/18 16:25 Urine Color COLORLESS 12/25/18 16:25 Urine Clarity CLEAR (CLEAR) 12/25/18 16:25 Urine pH 6.0 (4.6 - 8.0) 12/25/18 16:25 Ur Specific [place] 1.010 (1.005-1.030) 12/25/18 16:25 Urine Protein NEGATIVE mg/dL (NEGATIVE) 12/25/18 16:25 Urine Glucose (UA) NEGATIVE mg/dL (NEGATIVE) 12/25/18 16:25 Urine Ketones NEGATIVE mg/dL (NEGATIVE) 12/25/18 16:25 Urine Blood NEGATIVE (NEGATIVE) 12/25/18 16:25 Urine Nitrate NEGATIVE (NEGATIVE) 12/25/18 16:25 Urine Bilirubin NEGATIVE (NEGATIVE) 12/25/18 16:25 Urine Urobilinogen 0.2 E.U./dL (0.2 - 1.0) 12/25/18 16:25 Ur Leukocyte Esterase NEGATIVE (NEGATIVE) 12/25/18 16:25 Stool Occult Blood NEGATIVE (NEGATIVE) 01/06/19 18:00 Vancomycin Trough 15.1 ug/mL (5-10) H 01/11/19 22:05 Valproic Acid < 10.0 ug/mL (50.0-100.0) L 12/30/18 04:25 [place] 0.06 mmol/L (0.5-1.0) L 12/30/18 04:25 RPR NONREACTIVE (NONREACTIVE) 12/25/18 16:11 Influenza A (Rapid) NEG FOR INF A 12/25/18 16:30 Influenza B (Rapid) NEG FOR INF B 12/25/18 16:30 - Physical Exam Vitals and I&O: Vital Signs Temp 97.8 F 01/15/19 16:00 Pulse 81 01/15/19 16:00 Resp 18 01/15/19 16:00 BP 108/63 01/15/19 16:00 Pulse Ox 97 01/15/19 16:00 Intake & Output 01/14/19 01/15/19 01/15/19 18:59 06:59 18:59 Intake Total 1900 430 Balance 1900 430 Weight (lbs) 62.596 kg 64.41 kg Intake: Intake, IV Amount 1100 190 D5-0.45NS 1,000 ml @ 50 1000 mls/hr IV .Q20H [facility] Rx#: [id number] Piperacillin Sodium/ 100 190 Tazobact 4.5 gm In Sodium Chloride 0.9% 100 ml @ 100 mls/hr IV Q8HR [facility] Rx #:[id number] Oral 800 240 Other: # Voids 3 5 # Bowel Movements 1 1 Weight Source Bedscale Bedscale Active Medications: Current Medications Acetaminophen (Tylenol 650mg Supp) 650 mg RC Q6H PRN PRN Reason: Fever > 101 Stop: 03/05/19 08:02 Last Admin: 01/04/19 08:49 Dose: 650 mg Acetaminophen (Tylenol) 650 mg PO Q4H PRN PRN Reason: Fever > 101 Stop: 03/05/19 08:05 Last Admin: 01/12/19 21:17 Dose: 650 mg Acetylcysteine (Mucomyst 20%) 3 ml HHN Q4HRT [facility] Stop: 03/09/19 14:59 Last Admin: 01/15/19 14:14 Dose: 3 ml Albuterol/Ipratropium (Duoneb Neb) 3 ml HHN Q4HRT [facility] Stop: 03/05/19 10:59 Last Admin: 01/15/19 14:14 Dose: 3 ml Amlodipine Besylate (Norvasc) 10 mg PO DAILY [facility] Stop: 02/28/19 08:59 Last Admin: 01/15/19 09:55 Dose: 10 mg Ascorbic Acid (Vitamin C) 500 mg PO DAILY [facility] Stop: 03/01/19 08:59 Last Admin: 01/15/19 09:55 Dose: 500 mg Aspirin (Ecotrin) 81 mg PO DAILY [facility] Stop: 02/28/19 08:59 Last Admin: 01/15/19 09:55 Dose: 81 mg Benztropine Mesylate (Cogentin) 1 mg PO TID [facility] Stop: 02/28/19 08:59 Last Admin: 01/15/19 13:24 Dose: Not Given Bisacodyl (Dulcolax 10 Mg Supp) 10 mg RC DAILY [facility] Stop: 02/28/19 08:59 Last Admin: 01/15/19 09:56 Dose: 10 mg Calamine/Phenol (Calmoseptine) 1 appl TP QID PRN PRN Reason: Skin Irritation Stop: 03/16/19 17:17 Cholecalciferol (Vitamin D3) 5,000 iu PO DAILY [facility] Stop: 02/28/19 08:59 Last Admin: 01/15/19 09:54 Dose: 5,000 iu Clonazepam (Klonopin) 2 mg PO TID [facility]; Protocol Stop: 02/27/19 08:59 Last Admin: 01/15/19 17:22 Dose: Not Given Clozapine 100 mg/ Clozapine 75 (mg) 175 mg PO BID [facility] Stop: 03/01/19 16:59 Last Admin: 01/15/19 17:22 Dose: Not Given Famotidine (Pepcid) 40 mg PO DAILY [facility] Stop: 02/28/19 08:59 Last Admin: 01/15/19 09:55 Dose: 40 mg Piperacillin Sod/Tazobactam (Sod 4.5 gm/ Sodium Chloride) 100 mls @ 100 mls/hr IV Q8HR [facility] Stop: 03/05/19 12:59 Last Admin: 01/15/19 13:25 Dose: 100 mls/hr Dextrose/Sodium Chloride (D5-0.45ns) 1,000 mls @ 50 mls/hr IV .Q20H [facility] Stop: 03/12/19 18:29 Last Admin: 01/14/19 21:20 Dose: 50 mls/hr Levothyroxine Sodium 0.025 mg/ (Levothyroxine Sodium 0.112 mg) 0.137 mg PO DAILY@0730 [facility] Stop: 02/28/19 07:29 Last Admin: 01/15/19 06:31 Dose: 0.137 mg [place] Carbonate (Eskalith) 300 mg PO BID [facility]; Protocol Stop: 02/28/19 08:59 Last Admin: 01/15/19 17:23 Dose: Not Given Magnesium Hydroxide (Milk Of Magnesia) 30 ml PO HS [facility] Stop: 02/28/19 20:59 Last Admin: 01/14/19 21:21 Dose: Not Given Quetiapine Fumarate (Seroquel) 300 mg PO TID [facility]; Protocol Stop: 03/01/19 08:59 Last Admin: 01/15/19 17:22 Dose: Not Given Valproate Sodium (Depakene) 500 mg PO BID [facility]; Protocol Stop: 02/28/19 08:59 Last Admin: 01/15/19 17:23 Dose: Not Given General: Alert, No acute distress, Other (confused) HEENT: Atraumatic Neck: Supple Cardiovascular: Regular rate Lungs: Clear to auscultation, Normal air movement Abdomen: Bowel sounds, Soft, no Tender, no Hepatomegaly, no Distended, no Rebound, no Mass, no Guarding Extremities: no Clubbing, no Cyanosis Skin: no Rash Assessment/Plan - Assessment Assessment: # Anemia # OB positive Plan: 1. Concern for dysphagia - tolerating food 2. Anemia - Stable post transfusion - S/P EGD and colon. No findings to suggest GI blood loss - Polyps, next colonoscopy is due in 3 years - consider outpt capsule endoscopy - Pathology shows gastritis (no HP), and adenomatous polyps. No malignancy 3. OB positive - S/P EGD and colon 4. Leukocytosis and febrile - Possible aspiration - mgmt as per primary
--- NOTE | 2019-01-15 19:14 | Internal Medicine Prog Note ---
Internal Medicine Subjective - Subjective Service Date: 01/15/19 Patient is:: awake, verbal, in bed, agitated, confused, other (Easily agitated.) Patient Complaints of:: cough, SOB Per staff patient has:: no adverse event, no episodes of fall, agitated, confused Internal Medicine Objective - Results Result Diagrams: 01/15/19 06:36 01/15/19 06:36 Recent Labs: Laboratory Last Values WBC 13.9 Th/cmm (4.8-10.8) H 01/15/19 06:36 RBC 3.27 Mil/cmm (4.30-5.70) L 01/15/19 06:36 Hgb 9.1 gm/dL (12-16) L 01/15/19 06:36 Hct 28.1 % (41.0-60) L 01/15/19 06:36 MCV 86.0 fl (80-99) 01/15/19 06:36 MCH 27.9 pg (26.0-30.0) 01/15/19 06:36 MCHC Differential 32.5 pg (28.0-36.0) 01/15/19 06:36 RDW 14.3 % (11.5-20.0) 01/15/19 06:36 Plt Count 296 Th/cmm (150-400) 01/15/19 06:36 MPV 8.3 fl 01/15/19 06:36 Add Manual Diff YES 01/13/19 08:48 Neutrophils % 82.9 % (40.0-80.0) H 01/15/19 06:36 Band Neutrophils % 1 % (0-10) 01/13/19 08:48 Lymphocytes % 9.4 % (20.0-50.0) L 01/15/19 06:36 Monocytes % 3.8 % (2.0-10.0) 01/15/19 06:36 Eosinophils % 3.5 % (0.0-5.0) 01/15/19 06:36 Basophils % 0.4 % (0.0-2.0) 01/15/19 06:36 Neutrophils (Manual) 81 % (40-80) H 01/13/19 08:48 Lymphocytes 10 % (20-50) L 01/13/19 08:48 Monocytes 3 % (2-10) 01/13/19 08:48 Eosinophils 5 % (0-5) 01/13/19 08:48 Basophils 0 % (0-3) 01/13/19 08:48 Platelet Estimate ADEQUATE (NORMAL) 01/06/19 05:45 RBC Morph Micro Appear NORMAL (NORMAL) 01/06/19 05:45 Total Retics Counted 2.2 % (0.5-1.5) H 12/26/18 05:40 Absolute Retic 79.2 Th/cmm 12/26/18 05:40 Corrected Retic Count 1.5 % (0.5-1.5) 12/26/18 05:40 PT 10.9 SECONDS (9.5-11.5) 01/02/19 05:40 INR 1.05 (0.5-1.4) 01/02/19 05:40 Sodium 148 mEq/L (136-145) H 01/15/19 06:36 Potassium 3.4 mEq/L (3.5-5.1) L 01/15/19 06:36 Chloride 111 mEq/L (98-107) H 01/15/19 06:36 Carbon Dioxide 29.8 mEq/L (21.0-31.0) 01/15/19 06:36 Anion Gap 10.6 (7.0-16.0) 01/15/19 06:36 BUN 13 mg/dL (7-25) 01/15/19 06:36 Creatinine 0.8 mg/dL (0.7-1.3) 01/15/19 06:36 Est GFR ( Amer) > 60.0 ml/min (>90) 01/15/19 06:36 Est GFR (Non-Af Amer) > 60.0 ml/min 01/15/19 06:36 BUN/Creatinine Ratio 16.3 01/15/19 06:36 Glucose 100 mg/dL (70-105) 01/15/19 06:36 POC Glucose 87 MG/DL (70 - 105) 01/01/19 08:07 Whole Bld Lactic Acid 1.26 mmol/L (0.60-1.99) 01/04/19 12:10 Calcium 8.5 mg/dL (8.6-10.3) L 01/15/19 06:36 Magnesium 2.1 mg/dL (1.9-2.7) 01/06/19 05:45 Iron 17 ug/dL (38-169) L 12/26/18 05:40 TIBC 210 ug/dL (250-450) L 12/26/18 05:40 Iron Saturation 8 % (15-55) L 12/26/18 05:40 Unsaturated IBC 193 ug/dL (111-343) 12/26/18 05:40 Ferritin 746 ng/mL (30-400) H 01/14/19 07:45 Total Bilirubin 0.4 mg/dL (0.3-1.0) 01/12/19 04:25 AST 24 U/L (13-39) 01/12/19 04:25 ALT 24 U/L (7-52) 01/12/19 04:25 Alkaline Phosphatase 52 U/L (34-104) 01/12/19 04:25 Total Protein 5.5 gm/dL (6.0-8.3) L 01/12/19 04:25 Albumin 2.7 gm/dL (4.2-5.5) L 01/12/19 04:25 Globulin 2.8 gm/dL 01/12/19 04:25 Albumin/Globulin Ratio 1.0 (1.0-1.8) 01/12/19 04:25 Triglycerides 125 mg/dL (<150) 12/25/18 16:11 Cholesterol 154 mg/dL (<200) 12/25/18 16:11 LDL Cholesterol Direct 112 mg/dL (75-193) 12/25/18 16:11 HDL Cholesterol 37 mg/dL (23-92) 12/25/18 16:11 Vitamin B12 848 pg/mL (232-1245) 12/26/18 05:40 Folic Acid 6.9 ng/mL (>3.0) 12/26/18 05:40 TSH 2.61 uIU/ml (0.34-5.60) 12/25/18 16:11 Urine Source CATH 12/25/18 16:25 Urine Color COLORLESS 12/25/18 16:25 Urine Clarity CLEAR (CLEAR) 12/25/18 16:25 Urine pH 6.0 (4.6 - 8.0) 12/25/18 16:25 Ur Specific [place] 1.010 (1.005-1.030) 12/25/18 16:25 Urine Protein NEGATIVE mg/dL (NEGATIVE) 12/25/18 16:25 Urine Glucose (UA) NEGATIVE mg/dL (NEGATIVE) 12/25/18 16:25 Urine Ketones NEGATIVE mg/dL (NEGATIVE) 12/25/18 16:25 Urine Blood NEGATIVE (NEGATIVE) 12/25/18 16:25 Urine Nitrate NEGATIVE (NEGATIVE) 12/25/18 16:25 Urine Bilirubin NEGATIVE (NEGATIVE) 12/25/18 16:25 Urine Urobilinogen 0.2 E.U./dL (0.2 - 1.0) 12/25/18 16:25 Ur Leukocyte Esterase NEGATIVE (NEGATIVE) 12/25/18 16:25 Stool Occult Blood NEGATIVE (NEGATIVE) 01/06/19 18:00 Vancomycin Trough 15.1 ug/mL (5-10) H 01/11/19 22:05 Valproic Acid < 10.0 ug/mL (50.0-100.0) L 12/30/18 04:25 [place] 0.06 mmol/L (0.5-1.0) L 12/30/18 04:25 RPR NONREACTIVE (NONREACTIVE) 12/25/18 16:11 Influenza A (Rapid) NEG FOR INF A 12/25/18 16:30 Influenza B (Rapid) NEG FOR INF B 12/25/18 16:30 - Physical Exam Vitals and I&O: Vital Signs Temp 97.8 F 01/15/19 16:00 Pulse 81 01/15/19 16:00 Resp 18 01/15/19 16:00 BP 108/63 01/15/19 16:00 Pulse Ox 97 01/15/19 16:00 Intake & Output 01/15/19 01/15/19 01/16/19 06:59 18:59 06:59 Intake Total 430 1100 Balance 430 1100 Weight (lbs) 142 lb 140 lb Intake: Intake, IV Amount 190 Piperacillin Sodium/ 190 Tazobact 4.5 gm In Sodium Chloride 0.9% 100 ml @ 100 mls/hr IV Q8HR [facility] Rx #:[id number] Oral 240 1100 Other: # Voids 5 5 # Bowel Movements 1 0 Weight Source Bedscale Bedscale Active Medications: Current Medications Acetaminophen (Tylenol 650mg Supp) 650 mg RC Q6H PRN PRN Reason: Fever > 101 Stop: 03/05/19 08:02 Last Admin: 01/04/19 08:49 Dose: 650 mg Acetaminophen (Tylenol) 650 mg PO Q4H PRN PRN Reason: Fever > 101 Stop: 03/05/19 08:05 Last Admin: 01/12/19 21:17 Dose: 650 mg Acetylcysteine (Mucomyst 20%) 3 ml HHN Q4HRT [facility] Stop: 03/09/19 14:59 Last Admin: 01/15/19 14:14 Dose: 3 ml Albuterol/Ipratropium (Duoneb Neb) 3 ml HHN Q4HRT [facility] Stop: 03/05/19 10:59 Last Admin: 01/15/19 14:14 Dose: 3 ml Amlodipine Besylate (Norvasc) 10 mg PO DAILY [facility] Stop: 02/28/19 08:59 Last Admin: 01/15/19 09:55 Dose: 10 mg Ascorbic Acid (Vitamin C) 500 mg PO DAILY [facility] Stop: 03/01/19 08:59 Last Admin: 01/15/19 09:55 Dose: 500 mg Aspirin (Ecotrin) 81 mg PO DAILY [facility] Stop: 02/28/19 08:59 Last Admin: 01/15/19 09:55 Dose: 81 mg Benztropine Mesylate (Cogentin) 1 mg PO TID [facility] Stop: 02/28/19 08:59 Last Admin: 01/15/19 13:24 Dose: Not Given Bisacodyl (Dulcolax 10 Mg Supp) 10 mg RC DAILY [facility] Stop: 02/28/19 08:59 Last Admin: 01/15/19 09:56 Dose: 10 mg Calamine/Phenol (Calmoseptine) 1 appl TP QID PRN PRN Reason: Skin Irritation Stop: 03/16/19 17:17 Cholecalciferol (Vitamin D3) 5,000 iu PO DAILY [facility] Stop: 02/28/19 08:59 Last Admin: 01/15/19 09:54 Dose: 5,000 iu Clonazepam (Klonopin) 2 mg PO TID [facility]; Protocol Stop: 02/27/19 08:59 Last Admin: 01/15/19 17:22 Dose: Not Given Clozapine 100 mg/ Clozapine 75 (mg) 175 mg PO BID [facility] Stop: 03/01/19 16:59 Last Admin: 01/15/19 17:22 Dose: Not Given Famotidine (Pepcid) 40 mg PO DAILY [facility] Stop: 02/28/19 08:59 Last Admin: 01/15/19 09:55 Dose: 40 mg Piperacillin Sod/Tazobactam (Sod 4.5 gm/ Sodium Chloride) 100 mls @ 100 mls/hr IV Q8HR [facility] Stop: 03/05/19 12:59 Last Admin: 01/15/19 13:25 Dose: 100 mls/hr Dextrose/Sodium Chloride (D5-0.45ns) 1,000 mls @ 50 mls/hr IV .Q20H [facility] Stop: 03/12/19 18:29 Last Admin: 01/14/19 21:20 Dose: 50 mls/hr Levothyroxine Sodium 0.025 mg/ (Levothyroxine Sodium 0.112 mg) 0.137 mg PO DAILY@0730 [facility] Stop: 02/28/19 07:29 Last Admin: 01/15/19 06:31 Dose: 0.137 mg [place] Carbonate (Eskalith) 300 mg PO BID [facility]; Protocol Stop: 02/28/19 08:59 Last Admin: 01/15/19 17:23 Dose: Not Given Magnesium Hydroxide (Milk Of Magnesia) 30 ml PO HS [facility] Stop: 02/28/19 20:59 Last Admin: 01/14/19 21:21 Dose: Not Given Quetiapine Fumarate (Seroquel) 300 mg PO TID [facility]; Protocol Stop: 03/01/19 08:59 Last Admin: 01/15/19 17:22 Dose: Not Given Valproate Sodium (Depakene) 500 mg PO BID [facility]; Protocol Stop: 02/28/19 08:59 Last Admin: 01/15/19 17:23 Dose: Not Given General: congested, alert, other (Patient still has agitated behavior.) HEENT: PERRLA, throat clear Neck: No JVD Lungs: congested, wheezing, ronchi, other (scattered rhonchi and occasional wheezing.) Cardiovascular: Normal S1 Abdomen: soft, non-distended, positive bowel sound Extremities: clear, other (Patient has restraints in place.) Neurological: lethargic, disorganized, muscle weakness Internal Medicine Assmt/Plan - Assessment Assessment: Agitated with Aggresive Behavior towards others Psychosis. Schizophrenia. Leukocytosis/possible aspiration. Sepsis. Pneumonia. Lactic acidosis. Iron deficiency anemia s/p transfusion. Hypertension. History of Gerd. Hypothyroidism. PUD. GERD. Hypotention - Plan Plan: aspiration precaution continue ivabx as per id am labs cont current plan of care Nutritional Asmnt/Malnutr-PDOC - Dietary Evaluation Malnutrition Findings (Please click <Entered> for more info): Nutritional Asmnt/Malnutrition Start: 12/26/18 15: 09 Text: Status: Complete Freq: Protocol: Document 12/26/18 15:09 [email or web address] (Rec: 12/26/18 15:12 [email or web address] [email or web address]) Nutritional Asmnt/Malnutrition Patient General Information Nutritional Screening High Risk Diagnosis sepsis Pertinent Medical Hx/Surgical Hx HTN, PUD/GERD, thyroid disorder, anemia, schizophrenia Subjective Information Pt seen in bed, disoriented, yelling, has 1:1 sitter in room. Per sitter, pt consumed 100% of breakfast and lunch today. Current Diet Order/ Nutrition Support soft/bland Pertinent Medications seroquel Pertinent Labs 12/25 BUN 26, Alb 3.5 Nutritional Hx/Data Height 5 ft 7 in Height (Calculated Centimeters) 170.2 Current Weight (lbs) 130 lb Weight (Calculated Kilograms) 59.0 Weight (Calculated Grams) 02725.0 [place] Body Weight 148 Body Mass Index (BMI) 20.3 Weight Status Approriate GI Symptoms GI Symptoms None Last BM not indicated Difficult in: None Skin Integrity/Comment: intact Current %PO Good (75-100%) Estimated Nutritional Goals BEE in Kcals: Using Current wt Calories/Kcals/Kg 30-35 Kcals Calculated 9564-4311 Protein: Using Current wt Protein g/k.2 Protein Calculated 71 Fluid: ml 1620-2065ml (1ml/kcal) Nutritional Problem 1. Problem Problem increased nutritional needs Etiology increased metabolic demand Signs/Symptoms: dx of sepsis Malnutrition Alert Is there a minimum of two criteria No selected? Query Text:Check all the applicable criteria. A minimum of two criteria are recommended for diagnosis of either severe or non-severe malnutrition. Malnutrition Related to Morbid Obesity Malnutrition related to morbid obesity No Intervention/Recommendation Comments 1. Continue with soft/baland diet as ordered. 2. Monitor PO intake, wt, labs and skin integrity 3. F/U as moderate risk in 3-5 days Expected Outcomes/Goals Expected Outcomes/Goals 1. PO intake to meet at least 75% of nutritional needs. 2. Wt stability, skin to remain intact, labs to approach WNL.
[2019-01-15] MEDS: Magnesium Hydroxide (MOM) 30 mL UDC PO SCH (20:47)
[2019-01-16] MEDS: Albuterol/Ipratropium Neb 3 ML AERS HHN SCH ×5 (03:10→18:48)
[2019-01-16 06:32] LABS: % BASOPHILS 0.5 % (0.0-2.0); % EOSINOPHILS 6.6 % (0.0-5.0); % LYMPHOCYTES 16.9 % (20.0-50.0); BASOPHILE ABSOLUTE 0.1 Th/cumm (0-0.2); EOSINOPHILE ABSOLUTE 0.7 Th/cmm (0.1-0.4); HEMATOCRIT 29.1 % (41.0-60); HEMOGLOBIN 9.2 gm/dL (12-16); LYMPHOCYTE ABSOLUTE 1.7 Th/cmm (1.5-3.0); MEAN CELL VOLUME 86.6 fl (80-99); MEAN CORPUSCULAR HEMOGLOBIN 27.4 pg (26.0-30.0); MEAN CORPUSCULAR HGB CONC 31.6 pg (28.0-36.0); MEAN PLATELET VOLUME 8.8 fl; MONOCYTE ABSOLUTE 0.7 Th/cmm (0.3-1.0); PLATELET COUNT 334 Th/cmm (150-400); RED BLOOD COUNT 3.36 Mil/cmm (4.30-5.70); RED CELL DISTRIBUTION WIDTH 14.2 % (11.5-20.0); WHITE BLOOD COUNT 10.2 Th/cmm (4.8-10.8)
[2019-01-16] MEDS: Multivitamin w/ Minerals Tab PO SCH (08:19)
[2019-01-16] MEDS: Benztropine 1 MG TAB PO SCH ×2 (08:20→14:12)
--- NOTE | 2019-01-16 12:35 | Diagnostic Imaging Report ---
Portable chest x-ray HISTORY: Pneumonia Compared with the prior exam of November 14, 2019, no change in extensive pleural and parenchymal density resulting in opacification of the upper and mid left hemithorax. The heart size remains normal. IMPRESSION: 1. No significant change in the pulmonary status since January 15, 2019 as noted above.
[2019-01-16] MEDS: cloZAPine 100 MG, cloZAPine 75 MG PO SCH ×2 (13:56→17:45)
--- NOTE | 2019-01-16 14:39 | Infectious Disease Prog Note ---
Infectious Disease Subjective - Review of Systems Service Date: 01/16/19 Subjective: Patient's fever has resolved, some improvement in leukocytosis. Blood culture grew Staph aureus/MSSA. Infectious Disease Objective - Results Result Diagrams: 01/16/19 05:30 01/15/19 06:36 Recent Labs: Laboratory Last Values WBC 10.2 Th/cmm (4.8-10.8) 01/16/19 05:30 RBC 3.36 Mil/cmm (4.30-5.70) L 01/16/19 05:30 Hgb 9.2 gm/dL (12-16) L 01/16/19 05:30 Hct 29.1 % (41.0-60) L 01/16/19 05:30 MCV 86.6 fl (80-99) 01/16/19 05:30 MCH 27.4 pg (26.0-30.0) 01/16/19 05:30 MCHC Differential 31.6 pg (28.0-36.0) 01/16/19 05:30 RDW 14.2 % (11.5-20.0) 01/16/19 05:30 Plt Count 334 Th/cmm (150-400) 01/16/19 05:30 MPV 8.8 fl 01/16/19 05:30 Add Manual Diff YES 01/13/19 08:48 Neutrophils % 69.0 % (40.0-80.0) 01/16/19 05:30 Band Neutrophils % 1 % (0-10) 01/13/19 08:48 Lymphocytes % 16.9 % (20.0-50.0) L 01/16/19 05:30 Monocytes % 7.0 % (2.0-10.0) 01/16/19 05:30 Eosinophils % 6.6 % (0.0-5.0) H 01/16/19 05:30 Basophils % 0.5 % (0.0-2.0) 01/16/19 05:30 Neutrophils (Manual) 81 % (40-80) H 01/13/19 08:48 Lymphocytes 10 % (20-50) L 01/13/19 08:48 Monocytes 3 % (2-10) 01/13/19 08:48 Eosinophils 5 % (0-5) 01/13/19 08:48 Basophils 0 % (0-3) 01/13/19 08:48 Platelet Estimate ADEQUATE (NORMAL) 01/06/19 05:45 RBC Morph Micro Appear NORMAL (NORMAL) 01/06/19 05:45 Total Retics Counted 2.2 % (0.5-1.5) H 12/26/18 05:40 Absolute Retic 79.2 Th/cmm 12/26/18 05:40 Corrected Retic Count 1.5 % (0.5-1.5) 12/26/18 05:40 PT 10.9 SECONDS (9.5-11.5) 01/02/19 05:40 INR 1.05 (0.5-1.4) 01/02/19 05:40 Sodium 148 mEq/L (136-145) H 01/15/19 06:36 Potassium 3.4 mEq/L (3.5-5.1) L 01/15/19 06:36 Chloride 111 mEq/L (98-107) H 01/15/19 06:36 Carbon Dioxide 29.8 mEq/L (21.0-31.0) 01/15/19 06:36 Anion Gap 10.6 (7.0-16.0) 01/15/19 06:36 BUN 13 mg/dL (7-25) 01/15/19 06:36 Creatinine 0.8 mg/dL (0.7-1.3) 01/15/19 06:36 Est GFR ( Amer) > 60.0 ml/min (>90) 01/15/19 06:36 Est GFR (Non-Af Amer) > 60.0 ml/min 01/15/19 06:36 BUN/Creatinine Ratio 16.3 01/15/19 06:36 Glucose 100 mg/dL (70-105) 01/15/19 06:36 POC Glucose 87 MG/DL (70 - 105) 01/01/19 08:07 Whole Bld Lactic Acid 1.26 mmol/L (0.60-1.99) 01/04/19 12:10 Calcium 8.5 mg/dL (8.6-10.3) L 01/15/19 06:36 Magnesium 2.1 mg/dL (1.9-2.7) 01/06/19 05:45 Iron 17 ug/dL (38-169) L 12/26/18 05:40 TIBC 210 ug/dL (250-450) L 12/26/18 05:40 Iron Saturation 8 % (15-55) L 12/26/18 05:40 Unsaturated IBC 193 ug/dL (111-343) 12/26/18 05:40 Ferritin 746 ng/mL (30-400) H 01/14/19 07:45 Total Bilirubin 0.4 mg/dL (0.3-1.0) 01/12/19 04:25 AST 24 U/L (13-39) 01/12/19 04:25 ALT 24 U/L (7-52) 01/12/19 04:25 Alkaline Phosphatase 52 U/L (34-104) 01/12/19 04:25 Total Protein 5.5 gm/dL (6.0-8.3) L 01/12/19 04:25 Albumin 2.7 gm/dL (4.2-5.5) L 01/12/19 04:25 Globulin 2.8 gm/dL 01/12/19 04:25 Albumin/Globulin Ratio 1.0 (1.0-1.8) 01/12/19 04:25 Triglycerides 125 mg/dL (<150) 12/25/18 16:11 Cholesterol 154 mg/dL (<200) 12/25/18 16:11 LDL Cholesterol Direct 112 mg/dL (75-193) 12/25/18 16:11 HDL Cholesterol 37 mg/dL (23-92) 12/25/18 16:11 Vitamin B12 848 pg/mL (232-1245) 12/26/18 05:40 Folic Acid 6.9 ng/mL (>3.0) 12/26/18 05:40 TSH 2.61 uIU/ml (0.34-5.60) 12/25/18 16:11 Urine Source CATH 12/25/18 16:25 Urine Color COLORLESS 12/25/18 16:25 Urine Clarity CLEAR (CLEAR) 12/25/18 16:25 Urine pH 6.0 (4.6 - 8.0) 12/25/18 16:25 Ur Specific [place] 1.010 (1.005-1.030) 12/25/18 16:25 Urine Protein NEGATIVE mg/dL (NEGATIVE) 12/25/18 16:25 Urine Glucose (UA) NEGATIVE mg/dL (NEGATIVE) 12/25/18 16:25 Urine Ketones NEGATIVE mg/dL (NEGATIVE) 12/25/18 16:25 Urine Blood NEGATIVE (NEGATIVE) 12/25/18 16:25 Urine Nitrate NEGATIVE (NEGATIVE) 12/25/18 16:25 Urine Bilirubin NEGATIVE (NEGATIVE) 12/25/18 16:25 Urine Urobilinogen 0.2 E.U./dL (0.2 - 1.0) 12/25/18 16:25 Ur Leukocyte Esterase NEGATIVE (NEGATIVE) 12/25/18 16:25 Stool Occult Blood NEGATIVE (NEGATIVE) 01/06/19 18:00 Vancomycin Trough 15.1 ug/mL (5-10) H 01/11/19 22:05 Valproic Acid < 10.0 ug/mL (50.0-100.0) L 12/30/18 04:25 Radcliffe 0.06 mmol/L (0.5-1.0) L 12/30/18 04:25 RPR NONREACTIVE (NONREACTIVE) 12/25/18 16:11 Influenza A (Rapid) NEG FOR INF A 12/25/18 16:30 Influenza B (Rapid) NEG FOR INF B 12/25/18 16:30 - Physical Exam Vitals and I&O: Vital Signs Temp 97.9 F 01/15/19 20:00 Pulse 82 01/16/19 10:44 Resp 20 01/16/19 12:00 BP 136/89 01/15/19 20:00 Pulse Ox 96 01/16/19 10:44 Intake & Output 01/15/19 01/16/19 01/16/19 18:59 06:59 18:59 Intake Total 1200 100 100 Balance 1200 100 100 Weight (lbs) 63.503 kg Intake: Intake, IV Amount 100 100 100 Piperacillin Sodium/ 100 100 100 Tazobact 4.5 gm In Sodium Chloride 0.9% 100 ml @ 100 mls/hr IV Q8HR [facility] Rx #:[id number] Oral 1100 Other: # Voids 5 # Bowel Movements 0 Weight Source Bedscale Active Medications: Current Medications Acetaminophen (Tylenol 650mg Supp) 650 mg RC Q6H PRN PRN Reason: Fever > 101 Stop: 03/05/19 08:02 Last Admin: 01/04/19 08:49 Dose: 650 mg Acetaminophen (Tylenol) 650 mg PO Q4H PRN PRN Reason: Fever > 101 Stop: 03/05/19 08:05 Last Admin: 01/12/19 21:17 Dose: 650 mg Acetylcysteine (Mucomyst 20%) 3 ml HHN Q4HRT [facility] Stop: 03/09/19 14:59 Last Admin: 01/16/19 10:32 Dose: 3 ml Albuterol/Ipratropium (Duoneb Neb) 3 ml HHN Q4HRT [facility] Stop: 03/05/19 10:59 Last Admin: 01/16/19 10:32 Dose: 3 ml Amlodipine Besylate (Norvasc) 10 mg PO DAILY [facility] Stop: 02/28/19 08:59 Last Admin: 01/16/19 13:55 Dose: Not Given Ascorbic Acid (Vitamin C) 500 mg PO DAILY [facility] Stop: 03/01/19 08:59 Last Admin: 01/16/19 08:20 Dose: 500 mg Aspirin (Ecotrin) 81 mg PO DAILY [facility] Stop: 02/28/19 08:59 Last Admin: 01/16/19 08:19 Dose: 81 mg Benztropine Mesylate (Cogentin) 1 mg PO TID [facility] Stop: 02/28/19 08:59 Last Admin: 01/16/19 14:12 Dose: 1 mg Bisacodyl (Dulcolax 10 Mg Supp) 10 mg RC DAILY [facility] Stop: 02/28/19 08:59 Last Admin: 01/16/19 08:18 Dose: 10 mg Calamine/Phenol (Calmoseptine) 1 appl TP QID PRN PRN Reason: Skin Irritation Stop: 03/16/19 17:17 Cholecalciferol (Vitamin D3) 5,000 iu PO DAILY [facility] Stop: 02/28/19 08:59 Last Admin: 01/16/19 08:17 Dose: 5,000 iu Clonazepam (Klonopin) 2 mg PO TID [facility]; Protocol Stop: 02/27/19 08:59 Last Admin: 01/16/19 14:12 Dose: 2 mg Clozapine 100 mg/ Clozapine 75 (mg) 175 mg PO BID [facility] Stop: 03/01/19 16:59 Last Admin: 01/16/19 13:56 Dose: Not Given Famotidine (Pepcid) 40 mg PO DAILY [facility] Stop: 02/28/19 08:59 Last Admin: 01/16/19 08:18 Dose: 40 mg Piperacillin Sod/Tazobactam (Sod 4.5 gm/ Sodium Chloride) 100 mls @ 100 mls/hr IV Q8HR [facility] Stop: 03/05/19 12:59 Last Admin: 01/16/19 14:12 Dose: 100 mls/hr Dextrose/Sodium Chloride (D5-0.45ns) 1,000 mls @ 50 mls/hr IV .Q20H [facility] Stop: 03/12/19 18:29 Last Admin: 01/14/19 21:20 Dose: 50 mls/hr Levothyroxine Sodium 0.025 mg/ (Levothyroxine Sodium 0.112 mg) 0.137 mg PO DAILY@0730 [facility] Stop: 02/28/19 07:29 Last Admin: 01/16/19 08:19 Dose: 0.137 mg [place] Carbonate (Eskalith) 300 mg PO BID [facility]; Protocol Stop: 02/28/19 08:59 Last Admin: 01/16/19 13:56 Dose: Not Given Magnesium Hydroxide (Milk Of Magnesia) 30 ml PO HS [facility] Stop: 02/28/19 20:59 Last Admin: 01/15/19 20:47 Dose: 30 ml Quetiapine Fumarate (Seroquel) 300 mg PO TID [facility]; Protocol Stop: 03/01/19 08:59 Last Admin: 01/16/19 14:12 Dose: 300 mg Valproate Sodium (Depakene) 500 mg PO BID [facility]; Protocol Stop: 02/28/19 08:59 Last Admin: 01/16/19 13:56 Dose: Not Given General: no acute distress, cachectic HEENT: atraumatic, normocephalic, PERRLA, EOMI, moist mucous membrane Neck: supple, no thyromegaly Cardiovascular: S1S2, regular Lungs: clear to auscultation bilaterally, clear to percussion Abdomen: soft, no tender, no distended, no rebound Extremities: no cyanosis, no clubbing, no edema Neurological: awake, alert Skin: intact Infectious Disease Assmt/Plan - Assessment Assessment: 1. Sepsis. staph aureus MSSA sepsis. 2. Pneumonia. 3. Leukocytosis, suspect sepsis as patient also had lactic acidosis and tachycardia on presentation. 4. Hypothyroidism. 5. Anemia. 6. Schizophrenia. 7. Hypertension. 8. History of gastroesophageal reflux disease. 9. Iron deficiency anemia. 10. Aggressive behaviour. - Plan Plan: Continue Zosyn IV for 6 more days. Nutritional Asmnt/Malnutr-PDOC - Dietary Evaluation Malnutrition Findings (Please click <Entered> for more info): Nutritional Asmnt/Malnutrition Start: 12/26/18 15: 09 Text: Status: Complete Freq: Protocol: Document 12/26/18 15:09 ESPERANZAG (Rec: 12/26/18 15:12 MARLENA [email or web address]) Nutritional Asmnt/Malnutrition Patient General Information Nutritional Screening High Risk Diagnosis sepsis Pertinent Medical Hx/Surgical Hx HTN, PUD/GERD, thyroid disorder, anemia, schizophrenia Subjective Information Pt seen in bed, disoriented, yelling, has 1:1 sitter in room. Per sitter, pt consumed 100% of breakfast and lunch today. Current Diet Order/ Nutrition Support soft/bland Pertinent Medications seroquel Pertinent Labs 12/25 BUN 26, Alb 3.5 Nutritional Hx/Data Height 1.7 m Height (Calculated Centimeters) 170.2 Current Weight (lbs) 58.967 kg Weight (Calculated Kilograms) 59.0 Weight (Calculated Grams) 20364.0 [place] Body Weight 148 Body Mass Index (BMI) 20.3 Weight Status Approriate GI Symptoms GI Symptoms None Last BM not indicated Difficult in: None Skin Integrity/Comment: intact Current %PO Good (75-100%) Estimated Nutritional Goals BEE in Kcals: Using Current wt Calories/Kcals/Kg 30-35 Kcals Calculated 6999-4365 Protein: Using Current wt Protein g/k.2 Protein Calculated 71 Fluid: ml 1620-2065ml (1ml/kcal) Nutritional Problem 1. Problem Problem increased nutritional needs Etiology increased metabolic demand Signs/Symptoms: dx of sepsis Malnutrition Alert Is there a minimum of two criteria No selected? Query Text:Check all the applicable criteria. A minimum of two criteria are recommended for diagnosis of either severe or non-severe malnutrition. Malnutrition Related to Morbid Obesity Malnutrition related to morbid obesity No Intervention/Recommendation Comments 1. Continue with soft/baland diet as ordered. 2. Monitor PO intake, wt, labs and skin integrity 3. F/U as moderate risk in 3-5 days Expected Outcomes/Goals Expected Outcomes/Goals 1. PO intake to meet at least 75% of nutritional needs. 2. Wt stability, skin to remain intact, labs to approach WNL.
--- NOTE | 2019-01-16 18:55 | GI Progress Note ---
Subjective - Review of Systems Service Date: 01/16/19 Events since last encounter: no events Objective - Results Result Diagrams: 01/16/19 05:30 01/15/19 06:36 Recent Labs: Laboratory Last Values WBC 10.2 Th/cmm (4.8-10.8) 01/16/19 05:30 RBC 3.36 Mil/cmm (4.30-5.70) L 01/16/19 05:30 Hgb 9.2 gm/dL (12-16) L 01/16/19 05:30 Hct 29.1 % (41.0-60) L 01/16/19 05:30 MCV 86.6 fl (80-99) 01/16/19 05:30 MCH 27.4 pg (26.0-30.0) 01/16/19 05:30 MCHC Differential 31.6 pg (28.0-36.0) 01/16/19 05:30 RDW 14.2 % (11.5-20.0) 01/16/19 05:30 Plt Count 334 Th/cmm (150-400) 01/16/19 05:30 MPV 8.8 fl 01/16/19 05:30 Add Manual Diff YES 01/13/19 08:48 Neutrophils % 69.0 % (40.0-80.0) 01/16/19 05:30 Band Neutrophils % 1 % (0-10) 01/13/19 08:48 Lymphocytes % 16.9 % (20.0-50.0) L 01/16/19 05:30 Monocytes % 7.0 % (2.0-10.0) 01/16/19 05:30 Eosinophils % 6.6 % (0.0-5.0) H 01/16/19 05:30 Basophils % 0.5 % (0.0-2.0) 01/16/19 05:30 Neutrophils (Manual) 81 % (40-80) H 01/13/19 08:48 Lymphocytes 10 % (20-50) L 01/13/19 08:48 Monocytes 3 % (2-10) 01/13/19 08:48 Eosinophils 5 % (0-5) 01/13/19 08:48 Basophils 0 % (0-3) 01/13/19 08:48 Platelet Estimate ADEQUATE (NORMAL) 01/06/19 05:45 RBC Morph Micro Appear NORMAL (NORMAL) 01/06/19 05:45 Total Retics Counted 2.2 % (0.5-1.5) H 12/26/18 05:40 Absolute Retic 79.2 Th/cmm 12/26/18 05:40 Corrected Retic Count 1.5 % (0.5-1.5) 12/26/18 05:40 PT 10.9 SECONDS (9.5-11.5) 01/02/19 05:40 INR 1.05 (0.5-1.4) 01/02/19 05:40 Sodium 148 mEq/L (136-145) H 01/15/19 06:36 Potassium 3.4 mEq/L (3.5-5.1) L 01/15/19 06:36 Chloride 111 mEq/L (98-107) H 01/15/19 06:36 Carbon Dioxide 29.8 mEq/L (21.0-31.0) 01/15/19 06:36 Anion Gap 10.6 (7.0-16.0) 01/15/19 06:36 BUN 13 mg/dL (7-25) 01/15/19 06:36 Creatinine 0.8 mg/dL (0.7-1.3) 01/15/19 06:36 Est GFR ( Amer) > 60.0 ml/min (>90) 01/15/19 06:36 Est GFR (Non-Af Amer) > 60.0 ml/min 01/15/19 06:36 BUN/Creatinine Ratio 16.3 01/15/19 06:36 Glucose 100 mg/dL (70-105) 01/15/19 06:36 POC Glucose 87 MG/DL (70 - 105) 01/01/19 08:07 Whole Bld Lactic Acid 1.26 mmol/L (0.60-1.99) 01/04/19 12:10 Calcium 8.5 mg/dL (8.6-10.3) L 01/15/19 06:36 Magnesium 2.1 mg/dL (1.9-2.7) 01/06/19 05:45 Iron 17 ug/dL (38-169) L 12/26/18 05:40 TIBC 210 ug/dL (250-450) L 12/26/18 05:40 Iron Saturation 8 % (15-55) L 12/26/18 05:40 Unsaturated IBC 193 ug/dL (111-343) 12/26/18 05:40 Ferritin 746 ng/mL (30-400) H 01/14/19 07:45 Total Bilirubin 0.4 mg/dL (0.3-1.0) 01/12/19 04:25 AST 24 U/L (13-39) 01/12/19 04:25 ALT 24 U/L (7-52) 01/12/19 04:25 Alkaline Phosphatase 52 U/L (34-104) 01/12/19 04:25 Total Protein 5.5 gm/dL (6.0-8.3) L 01/12/19 04:25 Albumin 2.7 gm/dL (4.2-5.5) L 01/12/19 04:25 Globulin 2.8 gm/dL 01/12/19 04:25 Albumin/Globulin Ratio 1.0 (1.0-1.8) 01/12/19 04:25 Triglycerides 125 mg/dL (<150) 12/25/18 16:11 Cholesterol 154 mg/dL (<200) 12/25/18 16:11 LDL Cholesterol Direct 112 mg/dL (75-193) 12/25/18 16:11 HDL Cholesterol 37 mg/dL (23-92) 12/25/18 16:11 Vitamin B12 848 pg/mL (232-1245) 12/26/18 05:40 Folic Acid 6.9 ng/mL (>3.0) 12/26/18 05:40 TSH 2.61 uIU/ml (0.34-5.60) 12/25/18 16:11 Urine Source CATH 12/25/18 16:25 Urine Color COLORLESS 12/25/18 16:25 Urine Clarity CLEAR (CLEAR) 12/25/18 16:25 Urine pH 6.0 (4.6 - 8.0) 12/25/18 16:25 Ur Specific [place] 1.010 (1.005-1.030) 12/25/18 16:25 Urine Protein NEGATIVE mg/dL (NEGATIVE) 12/25/18 16:25 Urine Glucose (UA) NEGATIVE mg/dL (NEGATIVE) 12/25/18 16:25 Urine Ketones NEGATIVE mg/dL (NEGATIVE) 12/25/18 16:25 Urine Blood NEGATIVE (NEGATIVE) 12/25/18 16:25 Urine Nitrate NEGATIVE (NEGATIVE) 12/25/18 16:25 Urine Bilirubin NEGATIVE (NEGATIVE) 12/25/18 16:25 Urine Urobilinogen 0.2 E.U./dL (0.2 - 1.0) 12/25/18 16:25 Ur Leukocyte Esterase NEGATIVE (NEGATIVE) 12/25/18 16:25 Stool Occult Blood NEGATIVE (NEGATIVE) 01/06/19 18:00 Vancomycin Trough 15.1 ug/mL (5-10) H 01/11/19 22:05 Valproic Acid < 10.0 ug/mL (50.0-100.0) L 12/30/18 04:25 [place] 0.06 mmol/L (0.5-1.0) L 12/30/18 04:25 RPR NONREACTIVE (NONREACTIVE) 12/25/18 16:11 Influenza A (Rapid) NEG FOR INF A 12/25/18 16:30 Influenza B (Rapid) NEG FOR INF B 12/25/18 16:30 - Physical Exam Vitals and I&O: Vital Signs Temp 97.9 F 01/15/19 20:00 Pulse 85 01/16/19 15:13 Resp 20 01/16/19 16:00 BP 136/89 01/15/19 20:00 Pulse Ox 96 01/16/19 15:13 Intake & Output 01/15/19 01/16/19 01/16/19 18:59 06:59 18:59 Intake Total 1200 100 100 Balance 1200 100 100 Weight (lbs) 63.503 kg Intake: Intake, IV Amount 100 100 100 Piperacillin Sodium/ 100 100 100 Tazobact 4.5 gm In Sodium Chloride 0.9% 100 ml @ 100 mls/hr IV Q8HR [facility] Rx #:[id number] Oral 1100 Other: # Voids 5 # Bowel Movements 0 Weight Source Bedscale Active Medications: Current Medications Acetaminophen (Tylenol 650mg Supp) 650 mg RC Q6H PRN PRN Reason: Fever > 101 Stop: 03/05/19 08:02 Last Admin: 01/04/19 08:49 Dose: 650 mg Acetaminophen (Tylenol) 650 mg PO Q4H PRN PRN Reason: Fever > 101 Stop: 03/05/19 08:05 Last Admin: 01/12/19 21:17 Dose: 650 mg Acetylcysteine (Mucomyst 20%) 3 ml HHN Q4HRT [facility] Stop: 03/09/19 14:59 Last Admin: 01/16/19 18:49 Dose: 3 ml Albuterol/Ipratropium (Duoneb Neb) 3 ml HHN Q4HRT [facility] Stop: 03/05/19 10:59 Last Admin: 01/16/19 18:48 Dose: 3 ml Amlodipine Besylate (Norvasc) 10 mg PO DAILY [facility] Stop: 02/28/19 08:59 Last Admin: 01/16/19 13:55 Dose: Not Given Ascorbic Acid (Vitamin C) 500 mg PO DAILY [facility] Stop: 03/01/19 08:59 Last Admin: 01/16/19 08:20 Dose: 500 mg Aspirin (Ecotrin) 81 mg PO DAILY [facility] Stop: 02/28/19 08:59 Last Admin: 01/16/19 08:19 Dose: 81 mg Benztropine Mesylate (Cogentin) 1 mg PO TID [facility] Stop: 02/28/19 08:59 Last Admin: 01/16/19 14:12 Dose: 1 mg Bisacodyl (Dulcolax 10 Mg Supp) 10 mg RC DAILY [facility] Stop: 02/28/19 08:59 Last Admin: 01/16/19 08:18 Dose: 10 mg Calamine/Phenol (Calmoseptine) 1 appl TP QID PRN PRN Reason: Skin Irritation Stop: 03/16/19 17:17 Cholecalciferol (Vitamin D3) 5,000 iu PO DAILY [facility] Stop: 02/28/19 08:59 Last Admin: 01/16/19 08:17 Dose: 5,000 iu Clonazepam (Klonopin) 2 mg PO TID [facility]; Protocol Stop: 02/27/19 08:59 Last Admin: 01/16/19 14:12 Dose: 2 mg Clozapine 100 mg/ Clozapine 75 (mg) 175 mg PO BID [facility] Stop: 03/01/19 16:59 Last Admin: 01/16/19 17:45 Dose: Not Given Famotidine (Pepcid) 40 mg PO DAILY [facility] Stop: 02/28/19 08:59 Last Admin: 01/16/19 08:18 Dose: 40 mg Piperacillin Sod/Tazobactam (Sod 4.5 gm/ Sodium Chloride) 100 mls @ 100 mls/hr IV Q8HR [facility] Stop: 03/05/19 12:59 Last Admin: 01/16/19 14:12 Dose: 100 mls/hr Dextrose/Sodium Chloride (D5-0.45ns) 1,000 mls @ 50 mls/hr IV .Q20H [facility] Stop: 03/12/19 18:29 Last Admin: 01/14/19 21:20 Dose: 50 mls/hr Levothyroxine Sodium 0.025 mg/ (Levothyroxine Sodium 0.112 mg) 0.137 mg PO DAILY@0730 [facility] Stop: 02/28/19 07:29 Last Admin: 01/16/19 08:19 Dose: 0.137 mg [place] Carbonate (Eskalith) 300 mg PO BID [facility]; Protocol Stop: 02/28/19 08:59 Last Admin: 01/16/19 17:45 Dose: Not Given Magnesium Hydroxide (Milk Of Magnesia) 30 ml PO HS [facility] Stop: 02/28/19 20:59 Last Admin: 01/15/19 20:47 Dose: 30 ml Quetiapine Fumarate (Seroquel) 300 mg PO TID [facility]; Protocol Stop: 03/01/19 08:59 Last Admin: 01/16/19 14:12 Dose: 300 mg Valproate Sodium (Depakene) 500 mg PO BID [facility]; Protocol Stop: 02/28/19 08:59 Last Admin: 01/16/19 17:46 Dose: Not Given General: Alert, No acute distress, Other (confused) HEENT: Atraumatic Neck: Supple Cardiovascular: Regular rate Lungs: Clear to auscultation, Normal air movement Abdomen: Bowel sounds, Soft, no Tender, no Hepatomegaly, no Distended, no Rebound, no Mass, no Guarding Extremities: no Clubbing, no Cyanosis Skin: no Rash Assessment/Plan - Assessment Assessment: # Anemia # OB positive Plan: 1. Concern for dysphagia - tolerating food 2. Anemia - Stable post transfusion - S/P EGD and colon. No findings to suggest GI blood loss - Polyps, next colonoscopy is due in 3 years - consider outpt capsule endoscopy - Pathology shows gastritis (no HP), and adenomatous polyps. No malignancy 3. OB positive - S/P EGD and colon 4. Leukocytosis and febrile - Possible aspiration - mgmt as per primary
--- NOTE | 2019-01-16 19:19 | General Progress Note ---
Subjective - Review of Systems Service Date: 01/16/19 Subjective: not in distress, confused, awake Objective - Results Result Diagrams: 01/16/19 05:30 01/15/19 06:36 Recent Labs: Laboratory Last Values WBC 10.2 Th/cmm (4.8-10.8) 01/16/19 05:30 RBC 3.36 Mil/cmm (4.30-5.70) L 01/16/19 05:30 Hgb 9.2 gm/dL (12-16) L 01/16/19 05:30 Hct 29.1 % (41.0-60) L 01/16/19 05:30 MCV 86.6 fl (80-99) 01/16/19 05:30 MCH 27.4 pg (26.0-30.0) 01/16/19 05:30 MCHC Differential 31.6 pg (28.0-36.0) 01/16/19 05:30 RDW 14.2 % (11.5-20.0) 01/16/19 05:30 Plt Count 334 Th/cmm (150-400) 01/16/19 05:30 MPV 8.8 fl 01/16/19 05:30 Add Manual Diff YES 01/13/19 08:48 Neutrophils % 69.0 % (40.0-80.0) 01/16/19 05:30 Band Neutrophils % 1 % (0-10) 01/13/19 08:48 Lymphocytes % 16.9 % (20.0-50.0) L 01/16/19 05:30 Monocytes % 7.0 % (2.0-10.0) 01/16/19 05:30 Eosinophils % 6.6 % (0.0-5.0) H 01/16/19 05:30 Basophils % 0.5 % (0.0-2.0) 01/16/19 05:30 Neutrophils (Manual) 81 % (40-80) H 01/13/19 08:48 Lymphocytes 10 % (20-50) L 01/13/19 08:48 Monocytes 3 % (2-10) 01/13/19 08:48 Eosinophils 5 % (0-5) 01/13/19 08:48 Basophils 0 % (0-3) 01/13/19 08:48 Platelet Estimate ADEQUATE (NORMAL) 01/06/19 05:45 RBC Morph Micro Appear NORMAL (NORMAL) 01/06/19 05:45 Total Retics Counted 2.2 % (0.5-1.5) H 12/26/18 05:40 Absolute Retic 79.2 Th/cmm 12/26/18 05:40 Corrected Retic Count 1.5 % (0.5-1.5) 12/26/18 05:40 PT 10.9 SECONDS (9.5-11.5) 01/02/19 05:40 INR 1.05 (0.5-1.4) 01/02/19 05:40 Sodium 148 mEq/L (136-145) H 01/15/19 06:36 Potassium 3.4 mEq/L (3.5-5.1) L 01/15/19 06:36 Chloride 111 mEq/L (98-107) H 01/15/19 06:36 Carbon Dioxide 29.8 mEq/L (21.0-31.0) 01/15/19 06:36 Anion Gap 10.6 (7.0-16.0) 01/15/19 06:36 BUN 13 mg/dL (7-25) 01/15/19 06:36 Creatinine 0.8 mg/dL (0.7-1.3) 01/15/19 06:36 Est GFR ( Amer) > 60.0 ml/min (>90) 01/15/19 06:36 Est GFR (Non-Af Amer) > 60.0 ml/min 01/15/19 06:36 BUN/Creatinine Ratio 16.3 01/15/19 06:36 Glucose 100 mg/dL (70-105) 01/15/19 06:36 POC Glucose 87 MG/DL (70 - 105) 01/01/19 08:07 Whole Bld Lactic Acid 1.26 mmol/L (0.60-1.99) 01/04/19 12:10 Calcium 8.5 mg/dL (8.6-10.3) L 01/15/19 06:36 Magnesium 2.1 mg/dL (1.9-2.7) 01/06/19 05:45 Iron 17 ug/dL (38-169) L 12/26/18 05:40 TIBC 210 ug/dL (250-450) L 12/26/18 05:40 Iron Saturation 8 % (15-55) L 12/26/18 05:40 Unsaturated IBC 193 ug/dL (111-343) 12/26/18 05:40 Ferritin 746 ng/mL (30-400) H 01/14/19 07:45 Total Bilirubin 0.4 mg/dL (0.3-1.0) 01/12/19 04:25 AST 24 U/L (13-39) 01/12/19 04:25 ALT 24 U/L (7-52) 01/12/19 04:25 Alkaline Phosphatase 52 U/L (34-104) 01/12/19 04:25 Total Protein 5.5 gm/dL (6.0-8.3) L 01/12/19 04:25 Albumin 2.7 gm/dL (4.2-5.5) L 01/12/19 04:25 Globulin 2.8 gm/dL 01/12/19 04:25 Albumin/Globulin Ratio 1.0 (1.0-1.8) 01/12/19 04:25 Triglycerides 125 mg/dL (<150) 12/25/18 16:11 Cholesterol 154 mg/dL (<200) 12/25/18 16:11 LDL Cholesterol Direct 112 mg/dL (75-193) 12/25/18 16:11 HDL Cholesterol 37 mg/dL (23-92) 12/25/18 16:11 Vitamin B12 848 pg/mL (232-1245) 12/26/18 05:40 Folic Acid 6.9 ng/mL (>3.0) 12/26/18 05:40 TSH 2.61 uIU/ml (0.34-5.60) 12/25/18 16:11 Urine Source CATH 12/25/18 16:25 Urine Color COLORLESS 12/25/18 16:25 Urine Clarity CLEAR (CLEAR) 12/25/18 16:25 Urine pH 6.0 (4.6 - 8.0) 12/25/18 16:25 Ur Specific [place] 1.010 (1.005-1.030) 12/25/18 16:25 Urine Protein NEGATIVE mg/dL (NEGATIVE) 12/25/18 16:25 Urine Glucose (UA) NEGATIVE mg/dL (NEGATIVE) 12/25/18 16:25 Urine Ketones NEGATIVE mg/dL (NEGATIVE) 12/25/18 16:25 Urine Blood NEGATIVE (NEGATIVE) 12/25/18 16:25 Urine Nitrate NEGATIVE (NEGATIVE) 12/25/18 16:25 Urine Bilirubin NEGATIVE (NEGATIVE) 12/25/18 16:25 Urine Urobilinogen 0.2 E.U./dL (0.2 - 1.0) 12/25/18 16:25 Ur Leukocyte Esterase NEGATIVE (NEGATIVE) 12/25/18 16:25 Stool Occult Blood NEGATIVE (NEGATIVE) 01/06/19 18:00 Vancomycin Trough 15.1 ug/mL (5-10) H 01/11/19 22:05 Valproic Acid < 10.0 ug/mL (50.0-100.0) L 12/30/18 04:25 [place] 0.06 mmol/L (0.5-1.0) L 12/30/18 04:25 RPR NONREACTIVE (NONREACTIVE) 12/25/18 16:11 Influenza A (Rapid) NEG FOR INF A 12/25/18 16:30 Influenza B (Rapid) NEG FOR INF B 12/25/18 16:30 - Physical Exam Vitals and I&O: Vital Signs Temp 98.3 F 01/16/19 18:54 Pulse 75 01/16/19 19:06 Resp 20 01/16/19 19:06 BP 119/63 01/16/19 18:54 Pulse Ox 100 01/16/19 19:06 Intake & Output 01/16/19 01/16/19 01/17/19 06:59 18:59 06:59 Intake Total 100 100 Balance 100 100 Intake: Intake, IV Amount 100 100 Piperacillin Sodium/ 100 100 Tazobact 4.5 gm In Sodium Chloride 0.9% 100 ml @ 100 mls/hr IV Q8HR [facility] Rx #:[id number] Active Medications: Current Medications Acetaminophen (Tylenol 650mg Supp) 650 mg RC Q6H PRN PRN Reason: Fever > 101 Stop: 03/05/19 08:02 Last Admin: 01/04/19 08:49 Dose: 650 mg Acetaminophen (Tylenol) 650 mg PO Q4H PRN PRN Reason: Fever > 101 Stop: 03/05/19 08:05 Last Admin: 01/12/19 21:17 Dose: 650 mg Acetylcysteine (Mucomyst 20%) 3 ml HHN Q4HRT [facility] Stop: 03/09/19 14:59 Last Admin: 01/16/19 18:49 Dose: 3 ml Albuterol/Ipratropium (Duoneb Neb) 3 ml HHN Q4HRT [facility] Stop: 03/05/19 10:59 Last Admin: 01/16/19 18:48 Dose: 3 ml Amlodipine Besylate (Norvasc) 10 mg PO DAILY [facility] Stop: 02/28/19 08:59 Last Admin: 01/16/19 13:55 Dose: Not Given Ascorbic Acid (Vitamin C) 500 mg PO DAILY [facility] Stop: 03/01/19 08:59 Last Admin: 01/16/19 08:20 Dose: 500 mg Aspirin (Ecotrin) 81 mg PO DAILY [facility] Stop: 02/28/19 08:59 Last Admin: 01/16/19 08:19 Dose: 81 mg Benztropine Mesylate (Cogentin) 1 mg PO TID [facility] Stop: 02/28/19 08:59 Last Admin: 01/16/19 14:12 Dose: 1 mg Bisacodyl (Dulcolax 10 Mg Supp) 10 mg RC DAILY [facility] Stop: 02/28/19 08:59 Last Admin: 01/16/19 08:18 Dose: 10 mg Calamine/Phenol (Calmoseptine) 1 appl TP QID PRN PRN Reason: Skin Irritation Stop: 03/16/19 17:17 Cholecalciferol (Vitamin D3) 5,000 iu PO DAILY [facility] Stop: 02/28/19 08:59 Last Admin: 01/16/19 08:17 Dose: 5,000 iu Clonazepam (Klonopin) 2 mg PO TID [facility]; Protocol Stop: 02/27/19 08:59 Last Admin: 01/16/19 14:12 Dose: 2 mg Clozapine 100 mg/ Clozapine 75 (mg) 175 mg PO BID [facility] Stop: 03/01/19 16:59 Last Admin: 01/16/19 17:45 Dose: Not Given Famotidine (Pepcid) 40 mg PO DAILY [facility] Stop: 02/28/19 08:59 Last Admin: 01/16/19 08:18 Dose: 40 mg Piperacillin Sod/Tazobactam (Sod 4.5 gm/ Sodium Chloride) 100 mls @ 100 mls/hr IV Q8HR [facility] Stop: 03/05/19 12:59 Last Admin: 01/16/19 14:12 Dose: 100 mls/hr Dextrose/Sodium Chloride (D5-0.45ns) 1,000 mls @ 50 mls/hr IV .Q20H [facility] Stop: 03/12/19 18:29 Last Admin: 01/14/19 21:20 Dose: 50 mls/hr Levothyroxine Sodium 0.025 mg/ (Levothyroxine Sodium 0.112 mg) 0.137 mg PO DAILY@0730 [facility] Stop: 02/28/19 07:29 Last Admin: 01/16/19 08:19 Dose: 0.137 mg [place] Carbonate (Eskalith) 300 mg PO BID [facility]; Protocol Stop: 02/28/19 08:59 Last Admin: 01/16/19 17:45 Dose: Not Given Magnesium Hydroxide (Milk Of Magnesia) 30 ml PO HS [facility] Stop: 02/28/19 20:59 Last Admin: 01/15/19 20:47 Dose: 30 ml Quetiapine Fumarate (Seroquel) 300 mg PO TID [facility]; Protocol Stop: 03/01/19 08:59 Last Admin: 01/16/19 14:12 Dose: 300 mg Valproate Sodium (Depakene) 500 mg PO BID [facility]; Protocol Stop: 02/28/19 08:59 Last Admin: 01/16/19 17:46 Dose: Not Given General: Alert, No acute distress, Other (confused) HEENT: Atraumatic Neck: Supple Cardiovascular: Regular rate Lungs: Clear to auscultation, Normal air movement Abdomen: Bowel sounds, Soft, no Tender, no Hepatomegaly, no Distended, no Rebound, no Mass, no Guarding Extremities: no Clubbing, no Cyanosis Skin: no Rash Assessment/Plan - Assessment Assessment: The iron studies are suggestive of iron deficiency anemia. Stool occult blood was positive. The patient is being evaluated by the filtering machine tender helper. He will be given iron by IV route because of his poor compliance. The leukocytosis could be secondary to lithium or reactive and the patient is on antibiotics with improvement of the white count. 01/16/19: hgb stable, s/p iv iron. s/p EGD/COLO. leukocytosis improving per ID. ferritin> 700 Nutritional Asmnt/Malnutr-PDOC - Dietary Evaluation Malnutrition Findings (Please click <Entered> for more info): Nutritional Asmnt/Malnutrition Start: 12/26/18 15: 09 Text: Status: Complete Freq: Protocol: Document 12/26/18 15:09 HANKSUNIL (Rec: 12/26/18 15:12 [email or web address] [email or web address]) Nutritional Asmnt/Malnutrition Patient General Information Nutritional Screening High Risk Diagnosis sepsis Pertinent Medical Hx/Surgical Hx HTN, PUD/GERD, thyroid disorder, anemia, schizophrenia Subjective Information Pt seen in bed, disoriented, yelling, has 1:1 sitter in room. Per sitter, pt consumed 100% of breakfast and lunch today. Current Diet Order/ Nutrition Support soft/bland Pertinent Medications seroquel Pertinent Labs 12/25 BUN 26, Alb 3.5 Nutritional Hx/Data Height 1.7 m Height (Calculated Centimeters) 170.2 Current Weight (lbs) 58.967 kg Weight (Calculated Kilograms) 59.0 Weight (Calculated Grams) 75214.0 [place] Body Weight 148 Body Mass Index (BMI) 20.3 Weight Status Approriate GI Symptoms GI Symptoms None Last BM not indicated Difficult in: None Skin Integrity/Comment: intact Current %PO Good (75-100%) Estimated Nutritional Goals BEE in Kcals: Using Current wt Calories/Kcals/Kg 30-35 Kcals Calculated 5871-0400 Protein: Using Current wt Protein g/k.2 Protein Calculated 71 Fluid: ml 1620-2065ml (1ml/kcal) Nutritional Problem 1. Problem Problem increased nutritional needs Etiology increased metabolic demand Signs/Symptoms: dx of sepsis Malnutrition Alert Is there a minimum of two criteria No selected? Query Text:Check all the applicable criteria. A minimum of two criteria are recommended for diagnosis of either severe or non-severe malnutrition. Malnutrition Related to Morbid Obesity Malnutrition related to morbid obesity No Intervention/Recommendation Comments 1. Continue with soft/baland diet as ordered. 2. Monitor PO intake, wt, labs and skin integrity 3. F/U as moderate risk in 3-5 days Expected Outcomes/Goals Expected Outcomes/Goals 1. PO intake to meet at least 75% of nutritional needs. 2. Wt stability, skin to remain intact, labs to approach WNL.
--- NOTE | 2019-01-17 04:42 | Progress Notes ---
DATE: 01/16/2019 PULMONARY PROGRESS NOTE SUBJECTIVE: The patient appears to be doing okay, still agitated, punching. PHYSICAL EXAMINATION: VITAL SIGNS: Temperature is 97.9, pulse is 85, respiration is 20, blood pressure 136/89, saturation 96% on 4 liters. CHEST: Good breath sounds, decreased rhonchi. Better air exchange in the left side. HEART: Regular rate and rhythm. ABDOMEN: Soft. EXTREMITIES: No edema. Chest x-ray showed continuing improvement in the left lung infiltrate and fully open. IMPRESSION: 1. Pneumonia. 2. Respiratory failure and weakness. PLAN: The patient is planned to be transferred to his contracted hospital. We will proceed with that. The patient is stable. We will continue IV antibiotics today until full resolution of the pneumonia. JOB# [id number]
== END 2019-01-16 20:30 | disposition short-term general hospital (02) | DRG 720 ==
LOC: ER 13:28 → TELE 19:38 → MSI 01-07 11:22 → TELE 01-07 20:38
PROVIDERS: ADMIT Internal Medicine; ATTEND Internal Medicine
PROC: 0DB98ZX Excision of Duodenum, Via Natural or Artificial Opening Endoscopic, Diagnostic (ICD-10-PCS; principal; 2019-01-01)
PROC: 0DB78ZX Excision of Stomach, Pylorus, Via Natural or Artificial Opening Endoscopic, Diagnostic (ICD-10-PCS; 2019-01-01)
PROC: 0DJD8ZZ Inspection of Lower Intestinal Tract, Via Natural or Artificial Opening Endoscopic (ICD-10-PCS; 2019-01-01)
PROC: 0DBK8ZX Excision of Ascending Colon, Via Natural or Artificial Opening Endoscopic, Diagnostic (ICD-10-PCS; 2019-01-02)
PROC: 0DBL8ZZ Excision of Transverse Colon, Via Natural or Artificial Opening Endoscopic (ICD-10-PCS; 2019-01-02)
DX: A41.01 Sepsis due to Methicillin susceptible Staphylococcus aureus (principal); J96.90 Respiratory failure, unspecified, unspecified whether with hypoxia or hypercapnia; E41 Nutritional marasmus; J18.9 Pneumonia, unspecified organism; K27.4 Chronic or unspecified peptic ulcer, site unspecified, with hemorrhage; T17.990A Other foreign object in respiratory tract, part unspecified in causing asphyxiation, initial encounter; F03.90 Unspecified dementia, unspecified severity, without behavioral disturbance, psychotic disturbance, mood disturbance, and anxiety; R13.10 Dysphagia, unspecified; J44.0 Chronic obstructive pulmonary disease with (acute) lower respiratory infection; F20.9 Schizophrenia, unspecified; I10 Essential (primary) hypertension; K21.9 Gastro-esophageal reflux disease without esophagitis; E03.9 Hypothyroidism, unspecified; D50.9 Iron deficiency anemia, unspecified; F29 Unspecified psychosis not due to a substance or known physiological condition; J98.11 Atelectasis; Z68.22 Body mass index [BMI] 22.0-22.9, adult; K63.5 Polyp of colon; K64.8 Other hemorrhoids
CPT/HCPCS: 36415-UA; 71045-TC; 71250-TC; 80048-TC; 80053-TC; 80061-TC; 80164-TC; 80178-TC; 80202-TC; 81003-TC; 82270-TC; 82607-90; 82728-90; 82746-90; 82948-90; 83540-90; 83550-90; 83605; 83735-TC; 84443-TC; 85007-TC; 85025-TC; 85044-TC; 85610-TC; 86592-TC; 87070; 87804-TC; 93005; 94640; 94668; 94760; 96374; 96375; 96376; J0456; J0696; J1200; J1630; J2060; J2543; J2704; J2916; J3370; J7030; J7040; X3401; Z7506; Z7610